=== PATIENT | female | born 2000 | race Caucasian/White ===

== ENCOUNTER 2024-03-01 09:56 | Emergency (ER) | payer BC, SELFPAY ==
[2024-03-01 09:57] VITALS: BP 133/91; PULSE 109; RESP 16; TEMP 36.2; O2SAT 100
[2024-03-01 10:09] VITALS: BMI 78.2
[2024-03-01 10:24] LABS: Mucous, Urine 0 SEEN /hpf (<or=2+)
--- NOTE | 2024-03-01 10:24 | US_ITS ---
INDICATION: vaginal bleeding early EXAMINATION: Ultrasound US OB Transvaginal TECHNIQUE: Transvaginal (for optimal evaluation of the adnexa) pelvic ultrasound was performed. Grayscale, spectral waveform, and color flow Doppler evaluation of the adnexa. COMPARISON: No relevant prior comparison study available FINDINGS: UTERUS: 8.0 x 4.2 x 3.8 cm. No intrauterine is visualized. The endometrial stripe measures 6.2 mm and is echogenic. There are nabothian cysts present. RIGHT OVARY: The right kidney measures 2.4 x 2.1 x 3.9 cm. There is a simple 1.7 x 1.5 x 1.9 cm paraovarian cyst. Doppler flow is within normal limits. LEFT OVARY: 2.2 x 1.5 x 2.6 cm. No Doppler flow is visualized although the left ovary has a normal appearance. FREE FLUID: None. US/Transvaginal w/Preg US IMPRESSION: No intrauterine identified. Electronically Signed: Cailin Stanton MD at 11:28 EST ,
[2024-03-01 10:29] LABS: Color, Urine Straw (Yellow); Glucose, Dipstick Normal (Normal); Ketone-Dipstick Negative (Negative); Leukocyte Esterase-Dipstick 25 /ul (Negative); Nitrite-Dipstick Negative (Negative); Occult Blood-Urine 250 /ul (Negative); Protein-Dipstick 30 mg/dl (Negative); Specific Gravity, Urine 1.005 (1.002-1.030); Urine Bilirubin Dipstick Negative (Negative); Urine Clarity Clear (Clear); Urine Urobilinogen Normal (Normal)
--- NOTE | 2024-03-01 10:33 | ED.VIS.FEGU ---
HPI HPI - Female History of Present Illness Chief Complaint: Vag Bld, Preg Informant: patient Narrative Narrative: Patient is a 23-year-old female G1, P0 with new presenting with vaginal bleeding. She states she is about 6 weeks went to an urgent care who confirmed her . She thought her last was Jones beginning of January but per her jewel on her phone the last menstrual period recorded was December 22. Yesterday she had some spotting that developed but today has been more persistent and worse. She denies any passage of tissue or clots. She notes she last had intercourse 2 nights ago. She is scheduled to see someone at the [facility] to establish care for the on February 27 when she called them today they told her to come to the ER since he is not established yet. Denies any associated pain or cramping. Most of her blood type. No other complaints or concerns reported at this time. [facility] Medical History no medical history Home Medications ?Medication ?Instructions ?Recorded ?Last Taken ?Type escitalopram oxalate 10 mg tablet 10 mg PO DAILY 03/01/24 Unknown History Allergy/AdvReac Type Severity Reaction Status Date / Time No Known Allergies Allergy Verified 03/01/24 10:00 Surgical History no surgical history Social History Smoking Status: Never smoker ROS ROS ED Constitutional Constitutional ED: Denies chills or fever(s) Gastrointestinal Gastrointestinal: Denies nausea or vomiting Genitourinary Genitourinary ED: Reports other Details: Vaginal bleeding, early ; Denies dysuria or hematuria Integumentary Denies rash Neurologic Neurologic: Denies weakness Psychiatric Psychiatric: Denies anxiety Hematologic/Lymphatic Hematologic/Lymphatic: Denies easy bleeding or easy bruising EXAM Physical Exam Const Vital Signs: 03/01/24 09:57 03/01/24 11:56 Temperature 97.1 F L Temperature Source Temporal Pulse Rate 109 H Respiratory Rate 16 16 Blood Pressure 133/91 H 120/82 H Blood Pressure Mean 105 94 Pulse Ox 100 Oxygen Delivery Method Room Air Positive well nourished and well developed General Appearance ED: well developed and NAD; Negative for pallor HEENT Reports moist mucous membranes Neck supple Chest Wall inspection of chest normal and palpation of chest normal Resp normal respiratory effort and clear to auscultation bilaterally Cardio regular rate and regular rhythm GI normal to inspection, nondistended, normoactive bowel sounds, soft to palpation and non-tender Extremity normal to inspection Neuro oriented x3 Sensorium / Orientation: alert Motor Exam: Negative for general weakness Psych mental status grossly normal Skin no rashes or lesions noted General Skin Exam: Negative for pallor MDM MDM MDM Narrative Medical decision making narrative: Patient is valuate for vaginal bleeding in early . Differential includes threatened miscarriage, active miscarriage, urinary tract infection and ectopic . Will obtain basic labs including CBC, type and screen for concern of ABO incompatibility and quant. Also obtain urinalysis. Bedside ultrasound for myself does not show free fluid or findings distant with intrauterine . Will obtain a formal pelvic ultrasound. Patient remains well-appearing emergency room. CBC is normal with a normal hemoglobin. Urinalysis most consistent of menstrual contamination. She is a positive. Her quant is only 6 and given she previously had a positive urine test at urgent care I am concerned that she is having a miscarriage. In addition her ultrasound showed no intrauterine or other acute abnormalities. No free fluid was noted. Patient counseled that while it is technically possible that this could be very early I am much more concerned and think more probable that she is either having a miscarriage or had a chemical . Will follow-up with her [facility] for repeat quant. I did speak with Dr. Daniels, [employer] [facility] on-call who is agreeable with this plan. She has been strict the patient to call the office today to schedule repeat quant for Monday. Patient is given return precautions including severe abdominal pain or bleeding more than a pad an hour for 2 hours in a row. Patient verbalized given understands plan. Discharged home in stable condition. Lab Data Labs: Laboratory Results - last 24 hr 03/01/24 03/01/24 10:15 10:35 WBC 9.1 RBC 4.82 Hgb 14.7 Hct 42.5 MCV 88.2 MCH 30.5 MCHC 34.6 RDW Std Deviation 39.3 RDW Coeff of Karl 12.2 Plt Count 272 MPV 9.6 Immature Gran % (Auto) 0.300 Neut % (Auto) 71.2 H Lymph % (Auto) 18.4 L [place] % (Auto) 7.6 Eos % (Auto) 2.3 Baso % (Auto) 0.2 Absolute Neuts (auto) 6.5 Absolute Lymphs (auto) 1.67 Nucleated RBC % 0 HCG, Quant 6 H Urine Color Straw Urine Clarity Clear Urine pH 7.0 Ur Specific [place] 1.005 Urine Protein 30 H Urine Glucose (UA) Normal Urine Ketones Negative Urine Occult Blood 250 H Urine Nitrite Negative Urine Bilirubin Negative Urine Urobilinogen Normal Ur Leukocyte Esterase 25 H Urine RBC 50-100 SEEN Urine WBC 0-5 SEEN Ur Squamous Epith Cells 5-10 SEEN Urine Bacteria 1+ Urine Mucus 0 SEEN Urine Test Negative Blood Type A POSITIVE Radiography Diagnostic Testing: Clinical Impression(s) from Imaging Studies Obstetrics Ultrasound 03/01/24 10:24 IMPRESSION: No intrauterine identified. Electronically Signed: Cailin Stanton MD at 11:28 EST , Discharge Plan Triage Chief Complaint: Vag Bld, Preg ED Provider: Rebeca Warren Dx/Rx/DC Orders Clinical Impression: Miscarriage Instructions: ED Miscarriage Spontaneous Prescriptions: No Action escitalopram oxalate 10 mg tablet 10 mg PO DAILY Primary Care Provider: Annette Doshi Referrals: Aleksandra Walter DO [Med Staff - Active Staff] - 03/04/24 Annette Doshi MD [Primary Care Provider] - Activity Restrictions/Additional Instructions: Your ultrasound did not show any signs of and your hormone level was 6 which is very low. Given you previously had a positive test and now having bleeding this is most consistent with a miscarriage. It is still technically possible that this could be her early . Please call Dr. Daniels's office and tell them that you were seen in the ER for concern of miscarriage/ bleeding in early and that she wanted them to order you a repeat hCG level for Monday. Print Language: Gibraltarian Disposition Disposition: Home, Self Care
[2024-03-01 10:35] LABS: Red Blood Cells-Urine 50-100 SEEN /hpf (0-5); Squamous Epithelial Cells - UA 5-10 SEEN /hpf (5-10); White Blood Cells 0-5 SEEN /hpf (0-5)
[2024-03-01 10:36] LABS: Bacteria 1+ /hpf (None Seen); Internal QC Validated? YES +Cl - CLEAR BKGD; Pregnancy, Urine Negative Negative; Record Kit Lot#,Urine Preg K1972
[2024-03-01 10:59] LABS: Absolute Lymphocyte Count 1.67 X10^3/uL (0.83-4.51); Absolute Neutrophil Count 6.5 X10^3/uL (2.0-7.7); Basophil# 0.02 X10^3/uL; Basophil% 0.2 % (0-1); Eosinophil# 0.21 X10^3/uL; Eosinophils% 2.3 % (0-5); Hematocrit 42.5 % (37-47); Hemoglobin 14.7 g/dL (12.0-15.0); Lymphocyte # 1.67 X10^3/ul (0.83-4.51); Lymphocyte % 18.4 % (19-41); Mean Corp Hgb Conc 34.6 g/dL (32-36); Mean Corpuscular Hgb 30.5 pg (27.0-32.0); Mean Corpuscular Volume 88.2 fL (81-99); Mean Platelet Vol. 9.6 fl (6.2-12.0); Monocyte# 0.69 X10^3/uL; Monocyte% 7.6 % (0-10); NRBC Flagged by Analyzer 0 % (0-5); Neutrophil # 6.45 X10^3/uL (2.7-7.7); Neutrophil % 71.2 % (47-70); Platelet Count 272 K/mm3 (150-450); RBC Distribution Width CV 12.2 % (11.6-14.6); RBC Distribution Width SD 39.3 fl (35.1-43.9); Red Blood Count 4.82 M/mm3 (4.2-5.4); White Blood Count 9.1 K/mm3 (4.4-11.0)
[2024-03-01 11:14] LABS: hCG Titer Quant., Serum 6 mIU/mL (1-3)
[2024-03-01 11:56] VITALS: BP 120/82; RESP 16
[2024-03-01 12:39] VITALS: BP 120/82; PULSE 109; RESP 16; TEMP 36.2; O2SAT 100
== END 2024-03-01 12:39 | disposition home or self-care (01) ==
PROVIDERS: Emergency Provider Emergency Medicine; PCP Family Medicine; Visit Provider Emergency Medicine
DX: O03.9 Complete or unspecified spontaneous abortion without complication (principal); Z79.899 Other long term (current) drug therapy
CPT/HCPCS: 76817; 81001; 81025; 84702; 85025; 86900; 86901; 87086; 99283; A4216

== ENCOUNTER 2024-07-09 18:20 | Emergency (ER) | payer OTHER, SELFPAY ==
[2024-07-09 18:20] VITALS: BP 126/73; PULSE 133; RESP 18; TEMP 36.9; O2SAT 99; BMI 37.3
--- NOTE | 2024-07-09 19:22 | EKG12_ITS ---
Test Reason : DYSRHYTHMIA Blood Pressure : */* mmHG Vent. Rate : 125 BPM Atrial Rate : 125 BPM P-R Int : 166 ms QRS Dur : 74 ms QT Int : 306 ms P-R-T Axes : 54 40 23 degrees QTcB Int : 441 ms Sinus tachycardia Otherwise normal ECG Confirmed by MICHAEL WARD, SARA ([id number]), editor news FERNY STEPHENSON ([id number]) on 07/10/2024 8:32:14 AM Referred By: Confirmed By: SARA RODRIGUEZ MD
[2024-07-09 19:46] LABS: Absolute Lymphocyte Count 0.43 X10^3/uL (0.83-4.51); Absolute Neutrophil Count 6.8 X10^3/uL (2.0-7.7); Basophil# 0.02 X10^3/uL; Basophil% 0.3 % (0-1); Eosinophil# 0.12 X10^3/uL; Eosinophils% 1.5 % (0-5); Hematocrit 40.6 % (37-47); Hemoglobin 13.9 g/dL (12.0-15.0); Lymphocyte # 0.43 X10^3/ul (0.83-4.51); Lymphocyte % 5.5 % (19-41); Mean Corp Hgb Conc 34.2 g/dL (32-36); Mean Corpuscular Hgb 29.9 pg (27.0-32.0); Mean Corpuscular Volume 87.3 fL (81-99); Mean Platelet Vol. 9.7 fl (6.2-12.0); Monocyte# 0.42 X10^3/uL; Monocyte% 5.4 % (0-10); NRBC Flagged by Analyzer 0 % (0-5); Neutrophil # 6.78 X10^3/uL (2.7-7.7); Neutrophil % 86.9 % (47-70); POSITIVE DIFFERENTIAL YES; Platelet Count 219 K/mm3 (150-450); RBC Distribution Width CV 12.5 % (11.6-14.6); RBC Distribution Width SD 39.9 fl (35.1-43.9); Red Blood Count 4.65 M/mm3 (4.2-5.4); White Blood Count 7.8 K/mm3 (4.4-11.0)
[2024-07-09] MEDS: 0.9% Normal Saline (1000mL) 1,000 ML 1000 ML IV ×2 (19:47→22:01)
[2024-07-09] MEDS: Ondansetron 4 MG/2 ML Vial IV (19:47)
[2024-07-09 19:59] LABS: Mucous, Urine 0 SEEN /hpf (<or=2+)
[2024-07-09 20:00] VITALS: BP 134/64; PULSE 106; RESP 18; O2SAT 100
[2024-07-09 20:00] LABS: D-Dimer Quantitative (DVT/PE) 0.44 FEU/ug/m (0.27-0.49)
[2024-07-09 20:02] LABS: Color, Urine Yellow (Yellow); Glucose, Dipstick Normal (Normal); Ketone-Dipstick 5 mg/dl (Negative); Leukocyte Esterase-Dipstick 25 /ul (Negative); Nitrite-Dipstick Negative (Negative); Occult Blood-Urine 25 /ul (Negative); Protein-Dipstick 15 mg/dl (Negative); Urine Bilirubin Dipstick Negative (Negative); Urine Clarity Clear (Clear); Urine Urobilinogen Normal (Normal)
--- NOTE | 2024-07-09 20:07 | RAD_ITS ---
EXAM: Two-view chest x-ray study CLINICAL HISTORY: Shortness of breath COMPARISON: None TECHNIQUE: PA and lateral radiographs of the chest were performed. FINDINGS: PA and lateral radiographs of the chest were performed and demonstrate 1-2 mm nodules in both lungs which appear to represent probable summation artifact and/or granulomas. There is no atelectasis, consolidation, effusion or pneumonic infiltrate. Heart size and configuration are within normal limits. Pulmonary vasculature and hilar structures are unremarkable. Trachea is midline. Bony thorax is unremarkable. Cardiac leads overlie the chest. RAD/Chest PA and Lateral IMPRESSION: No acute cardiopulmonary process identified radiographically. Reading Location: [id number]
--- NOTE | 2024-07-09 20:13 | EX.ED.GENINJ ---
HPI History of Present Illness Chief Complaint: Dizziness Narrative Narrative: Chief complaint and HPI: Lightheadedness and nausea. 24-year-old female who is who follows with Dr. Pickens with [employer] [facility] at presents for evaluation of lightheadedness and nausea. Patient states she is approximately 12 weeks via ultrasound. Patient states since she has had headache, nausea, and lightheadedness. She states that it is worsened over the past several days. Endorses body aches and mild shortness of breath. Denies cough. She denies any fever, chills, chest pain, abdominal pain, vomiting, diarrhea, constipation, dysuria. Denies any vaginal bleeding. She recently traveled to [place] over the weekend in which she was around sick contacts. States she has been eating and drinking well. Denies any bilateral lower extremity pain or swelling. Review of systems: See HPI Medications: As listed on the chart Allergies: As listed on the chart PFSH: Per chart Vital signs: As listed on the chart. Reviewed. Physical exam: Gen: A&O x3, NAD Head: Normocephalic, atraumatic Eyes: No sclera icterus, conjunctiva clear, PERRL, EOMI ENT: Mildly dry mucous membranes Neck: Trachea midline, No JVD CV: Tachycardic, regular rhythm, no murmurs, no peripheral edema Resp: Lungs CTA BL, no w/r/c GI: Abd soft, non-distended, non-tender, no r/r/g Musc: Full ROM, no deformity Skin: Warm, dry Neuro: Alert, oriented, grossly intact, sensation intact Psych: Cooperative, appropriate mood and affect [facility] Medical History (Updated 07/09/24 @ 23:[address] Keaton Driver, ) Migraines Medical History no medical history Home Medications ?Medication ?Instructions ?Recorded ?Last Taken ?Type escitalopram oxalate 10 mg tablet 10 mg PO DAILY 03/01/24 Unknown History cephalexin 500 mg capsule 500 mg PO Q6H 7 days #28 caps 07/09/24 Unknown Rx cholecalciferol (vitamin D3) 50 2,000 unit PO QDAY 07/09/24 Unknown History mcg (2,000 unit) capsule (Vitamin D3) multivitamin 1 tab PO DAILY 07/09/24 Unknown History ondansetron 4 mg disintegrating 4 mg PO Q8H PRN PRN Nausea #10 tabs 07/09/24 Unknown Rx tablet vitamins with calcium tab 07/09/24 Unknown History no.72-iron 29 mg-folic acid 1 mg tablet ( Plus) Allergy/AdvReac Type Severity Reaction Status Date / Time No Known Allergies Allergy Verified 07/09/24 18:24 Family History no significant family his Surgical History no surgical history Social History Smoking Status: Never smoker EXAM Physical Exam Const Vital Signs: 07/09/24 18:20 07/09/24 20:00 07/09/24 22:00 Temperature 98.5 F 98.5 F Temperature Source Oral Oral Pulse Rate 133 H 106 H 119 H Respiratory Rate 18 18 18 Blood Pressure 126/73 H 134/64 H 110/69 Blood Pressure Mean 90 87 82 Pulse Ox 99 100 100 Oxygen Delivery Method Room Air Room Air Room Air 07/09/24 23:35 Temperature 98.5 F Temperature Source Pulse Rate 112 H Respiratory Rate 18 Blood Pressure 112/55 L Blood Pressure Mean 74 Pulse Ox 98 Oxygen Delivery Method MDM MDM MDM Narrative Medical decision making narrative: 24-year-old female who is who follows with Dr. Pickens with [facility] at presents for evaluation of lightheadedness and nausea. Associated symptom is headache and bodyaches. Patient has been around sick contacts. On presentation, patient is tachycardic into the 130s otherwise vitals stable. Differential diagnosis includes but is not limited to viral illness, electrolyte abnormality, dehydration, IBAN, UTI, pneumonia, suspect less likely PE or ACS however on the differential. NS bolus, Zofran, Tylenol ordered for symptoms. Patient not having any abdominal pain or vaginal bleeding therefore I do not think any OB ultrasound is needed at this time. heart tones 175. Laboratory workup ordered including chest x-ray. EKG and chest x-ray reviewed see below. CBC without leukocytosis or anemia. D-dimer unremarkable. BMP with mild dehydration. Patient receiving fluids. Mild hypokalemia of 3.2. P.o. potassium ordered. Troponin unremarkable. BNP unremarkable. UA positive for ketones which is consistent with mild dehydration. Negative for UTI but does have +1 bacteria. Patient is positive for COVID. This explains her symptoms. On reevaluation, patient's tachycardia has improved into the 110s will give another NS bolus. Patient is not febrile. Given that patient follows with Dr. Pickens with [facility] at we will have them consulted. I spoke with Dr. Pickens and patient was discussed. Patient will be placed on 81 mg aspirin daily for her COVID infection. Follow-up in their office. We discussed patient's tachycardia, okay with tachycardia in the 110s as we both suspect this is likely symptomatic from her illness. Agree with discharge home. Patient was updated of all the results and the plan. She confirmed understanding. She was able to ambulate to the bathroom without lightheadedness. Symptoms are improving. Given Zofran as needed for nausea. Will be placed on Keflex for her bacteriuria in . Return precautions explained. EKG: Interpreted by me/EM physician: EKG shows sinus tachycardia. No acute ischemic changes. Heart rate 125. Diagnostic: Interpreted by me/EM physician: Chest x-ray without pneumonia, effusion, cardiomegaly, pneumothorax Impression: 1. COVID-19 infection 2. First trimester 3. Mild dehydration Lab Data Labs: Laboratory Results - last 24 hr 07/09/24 07/09/24 18:30 19:50 WBC 7.8 RBC 4.65 Hgb 13.9 Hct 40.6 MCV 87.3 MCH 29.9 MCHC 34.2 RDW Std Deviation 39.9 RDW Coeff of Karl 12.5 Plt Count 219 MPV 9.7 Immature Gran % (Auto) 0.400 Neut % (Auto) 86.9 H Lymph % (Auto) 5.5 L [place] % (Auto) 5.4 Eos % (Auto) 1.5 Baso % (Auto) 0.3 Absolute Neuts (auto) 6.8 Absolute Lymphs (auto) 0.43 L Nucleated RBC % 0 D-Dimer Quant (PE/DVT) 0.44 Sodium 137 Potassium 3.2 L Chloride 106 Carbon Dioxide 20.2 L Anion Gap 11 BUN 7 Creatinine 0.62 L Estim Creat Clear Calc 174.24 Est GFR (MDRD) Non-Af 126 BUN/Creatinine Ratio 10.6 Glucose 125 H Calcium 9.2 Troponin T High Sens < 6 NT pro BNP II 109 Urine Color Yellow Urine Clarity Clear Urine pH 6.0 Ur Specific [place] 1.020 Urine Protein 15 H Urine Glucose (UA) Normal Urine Ketones 5 H Urine Occult Blood 25 H Urine Nitrite Negative Urine Bilirubin Negative Urine Urobilinogen Normal Ur Leukocyte Esterase 25 H Urine RBC 0 SEEN Urine WBC 0-5 SEEN Ur Squamous Epith Cells 0-5 SEEN Urine Bacteria 1+ Urine Mucus 0 SEEN Radiography Diagnostic Testing: Clinical Impression(s) from Imaging Studies Chest X-Ray 07/09/24 20:07 IMPRESSION: No acute cardiopulmonary process identified radiographically. Reading Location: [facility] Discharge Plan Triage Chief Complaint: Dizziness Other Complaint: Nausea/Vomiting ED Provider: Keaton Driver Dx/Rx/DC Orders Clinical Impression: COVID Instructions: Coronavirus Disease 2019 (COVID-19): Overview, Coronavirus Disease 2019 (COVID-19): Caring for Yourself or Others Prescriptions: New ondansetron 4 mg tablet,disintegrating 4 mg PO Q8H PRN PRN (Reason: Nausea) Qty: 10 0RF cephalexin 500 mg capsule 500 mg PO Q6H 7 Days Qty: 28 0RF No Action escitalopram oxalate 10 mg tablet 10 mg PO DAILY cholecalciferol (vitamin D3) [Vitamin D3] 50 mcg (2,000 unit) capsule 2,000 unit PO QDAY Plus 29 mg iron- 1 mg tablet multivitamin Tablet 1 tab PO DAILY Primary Care Provider: Annette Doshi Referrals: Annette Doshi MD [Primary Care Provider] - 3-5 Days Activity Restrictions/Additional Instructions: Return back to the ED if symptoms change or worsen. Follow-up with your [employer] and PCP. Zofran as needed for nausea. No Zofran for 8 hours as you received antinausea medication here. Starting tomorrow start taking 81 mg of aspirin daily for your COVID-recommendation by your [employer]. Follow-up with [employer] to see if you should continue this throughout your entire . You had bacteria in your urine given that you are . You will be placed on antibiotics to prevent UTI. Follow-up with [employer] for this. Print Language: Monegasque Disposition Disposition: Home, Self Care Discharge Date/Time: 07/09/24 23:41
[2024-07-09 20:29] LABS: Anion Gap 11 (5-15); BUN 7 mg/dL (4-19); BUN/Creat Ratio 10.6 RATIO (10-20); Calcium,Total 9.2 mg/dL (7.6-11.0); Carbon Dioxide 20.2 mmol/L (21.0-32.0); Chloride 106 mmol/L (98-108); Creatinine, Serum 0.62 mg/dL (0.70-1.20); EST Glomerular Filtration Rate 126 (>60); Estimated Creatinine Clearance 174.24 ml/min (50-250); Glucose 125 mg/dL (70-99); Potassium 3.2 mmol/L (3.3-5.1); Pro- Brain NATRIURETIC PEPTIDE 109 pg/mL (<=450); Sodium Level 137 mmol/L (133-145)
[2024-07-09] MEDS: Acetaminophen 500 MG Tablet 1000 MG PO (20:31)
[2024-07-09 20:37] LABS: Red Blood Cells-Urine 0 SEEN /hpf (0-5); Squamous Epithelial Cells - UA 0-5 SEEN /hpf (5-10); White Blood Cells 0-5 SEEN /hpf (0-5)
[2024-07-09 20:38] LABS: Bacteria 1+ /hpf (None Seen)
[2024-07-09] MEDS: Metoclopramide 10 MG/2 ML Vial 5 MG IV (20:56)
[2024-07-09] MEDS: Potassium Chloride Oral Soln 20 MEQ/15 ML UDC 40 MEQ PO (21:33)
[2024-07-09 21:42] LABS: Troponin T High Sensitivity < 6 ng/L (<=14)
[2024-07-09 22:00] VITALS: BP 110/69; PULSE 119; RESP 18; TEMP 36.9; O2SAT 100
[2024-07-09 23:35] VITALS: BP 112/55; PULSE 112; RESP 18; TEMP 36.9; O2SAT 98
== END 2024-07-09 23:41 | disposition home or self-care (01) ==
PROVIDERS: Emergency Provider Surgery; PCP Family Medicine; Visit Provider Surgery
DX: O98.511 Other viral diseases complicating pregnancy, first trimester (principal); E86.0 Dehydration; U07.1 COVID-19; R82.71 Bacteriuria; Z3A.12 12 weeks gestation of pregnancy; O99.891 Other specified diseases and conditions complicating pregnancy; O99.281 Endocrine, nutritional and metabolic diseases complicating pregnancy, first trimester
CPT/HCPCS: 71046; 80048; 81001; 83880; 84484; 85025; 85379; 87631; 93005; 96361; 96374; 96375; 99285; A4216; J2405

== ENCOUNTER → 2024-12-19 | Outpatient (CLI) | payer MEDICAID, SELFPAY | END | disposition home or self-care (01) | LOC: LABSPEC 16:54 | PROVIDERS: PCP Family Medicine; Referring Provider Obstetrics & Gynecology; Visit Provider Obstetrics & Gynecology | DX: O09.90 Supervision of high risk pregnancy, unspecified, unspecified trimester (principal); Z3A.00 Weeks of gestation of pregnancy not specified | CPT/HCPCS: 87081 ==

== ENCOUNTER → 2024-12-30 | Outpatient (CLI) | payer MEDICAID, SELFPAY ==
--- NOTE | 2024-12-30 15:28 | US_ITS ---
PROCEDURE: OB LIMITED WITH BIOMETRICS 12/30/2024 REASON FOR EXAM: LATE TRANSFER OF CARE TECHNIQUE: Procedure Code: [id number] Modality: US Procedure: OB LIMITED WITH BIOMETRICS COMPARISON: None FINDINGS Number: 1 Position: Vertex Placental Position: Anterior and not low-lying Placental Abnormalities: No evidence of previa. DIMENSIONS: Biparietal Diameter: 9.4 cm: 38 weeks and 2 days: 76 percentile/ Head Circumference: 33.5 cm: 38 weeks and 3 days: 36 percentile/ Abdominal Circumference: 37.5 cm: 41 weeks and 3 days: 9 9 percentile/ Femur Length: 7.3 cm: 37 weeks and 2 days: 31st percentile/ ESTIMATED WEIGHT: 3903 g plus/-578 g ESTIMATED WEIGHT PERCENTILE (24+ weeks): 93rd ESTIMATED GESTATIONAL AGE: Baseline: 38 weeks and 1 day By Ultrasound: 38 weeks and 5 days ESTIMATED DATE OF DELIVERY: Baseline: January 12, 2025 By Ultrasound: January 08, 2025 BIOPHYSICAL ASSESSMENT: Amniotic Fluid Volume: 7.9 cm Amniotic Fluid Index: 15.7 cm (8-24 cm normal range) Cardiac Motion: 135 beats per minute (average) Trunk and Limb Motion: Present. MATERNAL ANATOMY: Adnexa: Neither maternal ovary is successfully identified. US/OB Limited With Biometrics IMPRESSION: Single live intrauterine gestation with a mean gestational age of 38 weeks and 5 days. Reading Location: [place] [id number]
== END | disposition home or self-care (01) ==
LOC: US 15:17
PROVIDERS: PCP Family Medicine; Referring Provider Obstetrics & Gynecology; Visit Provider Obstetrics & Gynecology
DX: O99.210 Obesity complicating pregnancy, unspecified trimester (principal); Z3A.00 Weeks of gestation of pregnancy not specified
CPT/HCPCS: 76816

== ENCOUNTER 2025-01-05 12:25 | Inpatient (IN) | payer MEDICAID, SELFPAY ==
[2025-01-05] VITALS (41 sets, daily range): BP systolic 116–169; BP diastolic 56–97; PULSE 74–114; RESP 16–20; TEMP 36.2–36.9; O2SAT 97–100; BMI 43.2; BMI 1400.0; BMI 20250921.0
--- OUTSIDE RECORDS SUMMARY | 2025-01-05 11:23 | XMS RPT_ITS | CCD ---
Author Organization [facility] CliniSyal Care Team Providers Care Software Security Consultant Name Role Phone SELF, SELF Unavailable Unavailable TONIE GAITAN Unavailable Unavailable MIKEL MOSS Attending UnavailNAS Rosa Primary Care Unavailable MIKEL MOSS Admitting UnavailHelena Carroll Unavailable Unavailable Nas Sanders Unavailable Unavailable Kasia Rodriguez Unavailable Unavailable Nas Sanders Primary Care Provider [phone] Nas Sanders Primary Care Provider [phone] Kasia Rodriguez Unavailable Unavailable Kasia Rodriguez Unavailable Unavailable Unavailable Unavailable Unavailable Billy Moore MD Primary Care Provider Annette Frey MD Primary Care Provider Annette Frey Unavailable Jeffery Rose Unavailable Unavailable JEFFERY ROSE Attending Unavailable Dr. Annette Frey Primary Care Un available Annette Frey MD Primary Care Provider ANNETTE FREY Primary Care Unavailab ANNETTE Sorenson Primary Care Unavailab Annette Sorenson MD Unavailable Annette Frey MD Primary Care Provid er NAREN LAW II Attending ANNETTE Torres Primary Care UnavaNAS Cordoba Primary Care Unavailable KEILA BRADY Attending Unava ilAnnette Hoyt MD Primary Care Provider Annette Frey MD Unavailable Tk WARD, Dr. Bryant Primary Care Provide r Dr. Keaton Driver DO Emergency Provider Tk WARD, Annette Keen Primary Care Provider Tk WARD, Annette Keen Unavailable Tk WARD, Annette A Unavailable TK, ANNETTE A Primary Care Unavailab ESTELITA Calix Referring Unavailable LONGSDORF, ANNETTE A Primary Care Unavailab le LONGSDORF, ANNETTE A Primary Care Unavailab le LONGSDORF, ANNETTE A Primary Care Unavailab SHANE Rowland Attending Unavailable ESTELITA PICKENS Attending Unavailable LONGSDORF, ANNETTE A Primary Care Unavailab ESTELITA Calix Attending Unavailable LONGSDORF, ANNETTE A Primary Care Unavailab le LONGSDORF, ANNETTE A Attending Unavailab le LONGSDORF, ANNETTE A Primary Care Unavailab DAGO Díaz Attending Unavailable LONGSDORF, ANNETTE A Primary Care Unavailab ESTELITA Calix Attending Unavailable LONGSDORF, ANNETTE A Primary Care Unavailab ESTELITA Calix Attending Unavailable LONGSDORF, ANNETTE A Primary Care Unavailab ESTELITA Calix Attending Unavailable LONGSDORF, ANNETTE A Primary Care Unavailab le LONGSDORF, ANNETTE A Attending Unavailab le LONGSDORF, ANNETTE A Primary Care Unavailab ESTELITA Calix Attending Unavailable LONGSDORF, ANNETTE A Primary Care Unavailab ESTELITA Calix Attending Unavailable LONGSDORF, ANNETTE A Primary Care Unavailab ESTELITA Calix Attending Unavailable LONGSDORF, ANNETTE A Primary Care Unavailab ESTELITA Calix Attending Unavailable LONGSDORF, ANNETTE A Primary Care Unavailab le [facility] [place] Provider [phone] Tk WARD, Dr. Bryant Primary Care Provide r Dr. Annette Frey MD Referring Provider Marcia Christianson CNM Attending Provider Tk WARD, Dr. Bryant Primary Care Provide r Dr. Annette Frey MD Attending Provider Dr. Aleksandra Walter DO Attending Provider Bety Gaffney DO, Dr. Lake Referring Provider Tk WARD, Dr. Bryant Primary Care Physici an Tk WARD, Dr. Bryant Attending Physician Health, Employee Attending Physician [phone] Marcia Christianson CNM Attending Physician [phone] Bety Gaffney DO, Dr. Lake Attending Physician Mike WARD, Dr. Lugo Attending Physician Longsdorf, Annette Referring Unavailable Longsdorf, Annette Primary Care Unavailable Aleksandra Walter Attending UnavailMarcia Fontaine Attending Unavailable Longsdorf, Annette Primary Care Unavailable Longsdorf, Annette Referring Unavailable Longsdorf, Annette Referring Unavailable Longsdorf, Annette Primary Care Unavailable Brittney Mckeon Attending Unavailable Longsdorf, Annette Primary Care Unavailable Rebeca Warren Attending Unavailable Longsdorf, Annette Primary Care Unavailable Keaton Driver Attending Unavailabl e Longsdorf, Annette Primary Care Unavailable Assessment, Health Risk Attending Unavaila ble Longsdorf, Annette Primary Care Unavailable Aleksandra Walter Attending Unavailabl e Kaleee Aleksandra Gaffney Referring Unavailabl e Longsdorf, Annette Primary Care Unavailable Aleksandra Walter Attending Unavailabl e Kaleee Aleksandra Gaffney Referring Unavailabl e Longsdorf, Annette Attending Unavailable Longsdorf, Annette Primary Care Unavailable Longsdorf, Annette Primary Care Unavailable Longsdorf, Annette Attending Unavailable Brittney Mckeon Attending Unavailable Longsdorf, Annette Referring Unavailable Longsdorf, Annette Primary Care Unavailable Marcia Christianson Attending Unavailable Longsdorf, Annette Referring Unavailable Longsdorf, Annette Primary Care Unavailable Allergies Allergy Classification Reported Allergen(s) Allergy Type Date of Onset Reaction(s) Facility Ethinyl Estradiol / Ferrous fumarate / Norethindrone (4 sources) Ethinyl Estradiol / Ferrous fumarate / Norethindrone; Translations: [[facility] 05/06 TABS] Drug Allergy -Physical Medicine-Conc ord Work Phone: (14 sources) Ethinyl Estradiol / Ferrous fumarate / Norethindrone; Translations: [[facility] FE 05/06 TABS] Drug Allergy -Physical Medicine-Conc ord Work Phone: Medications Current Medications Medication Drug Class(es) Dates Sig (Normalized) Sig (Original) aspirin 81 mg oral tablet (6 sources) Platelet Aggregation Inhibitor, Nonsteroidal Anti-inflammatory Drug Start: 12-05-2024 take 1 tablet by mouth once daily Aspirin 81 mg tablet Active 81 mg PO daily December 05, 2024 12:00am COVID Complies with drug therapy take 1 tablet by mouth once ti y aspirin 81 mg EC tablet Take 1 tablet (81 mg) by mouth once daily. Active cholecalciferol 0.05 mg oral capsule (20 sources) Vitamin D Start: 07-09-2024 take 1 capsule by mouth once daily Cholecalciferol (Vitamin D3) (Vitamin D3) 50 mcg (2,000 unit) capsule Active 2000 U PO daily July 09, 2024 12:00am Complies with drug therapy cholecalciferol (Vitamin D-3) 50 MCG (2000 UT) tablet Take by mouth. Active take 1 capsule by mouth once catracho ly Cholecalciferol, Vitamin D3, 50 mcg (2,000 unit) cap Take 1 capsule by mouth once daily. 0 Active Vitamin D 50 MCG (2000 UT) Oral Tablet Quantity: 0 Refills: 0 Ordered: 03-Dec-2019 DO Active take 2 tablets by mouth once catracho ly cholecalciferol, vitamin D3, 1,000 unit tablet Take 2,000 Units by mouth daily . 0 Active Comment on above: Take 1 capsule by mo uth once daily. escitalopram 10 mg oral tablet (17 sources) Serotonin Reuptake Inhibitor Start: take 1 tablet by mouth once daily Escitalopram Oxalate 10 mg tablet Active 10 mg PO DAILY March 01, 2024 1:00am Complies with drug therapy Start: 05-02-2023 End: 10-29-2023 take 1 tablet by mouth once daily escitalopram (Lexapro) 10 mg tablet Indications: Anxiety Take 1 tablet (10 mg) by mouth once daily. 90 tablet 1 09/19/2023 Active Comment on above: Take 10 mg by mouth. Ethinyl Estradiol / Ferrous fumarate / Norethindrone (12 sources) Estrogen Start: 01-12-2023 End: 09-19-2023 Paula Fe 1/20, 28, 1 mg-20 mcg (21)/75 mg (7) tablet 01/12/2023 09/19/2023 Discontinued (Med List Cleanup) Start: 01-12-2023 Paula Fe 1/20, 28, 1 mg-20 mcg (21)/75 mg (7) tablet Start: 04-29-2022 take 1 tablet by carolynn th once daily, then take 0.05 tablet by mouth once Norethin Yrn-Eth Estrad-FE (MICROGESTIN FE 1/20) 1 mg-20 mcg (21)/75 mg (7) per tablet Take 1 tablet by mouth once daily for 28 days. LAST REFILL UNTIL VISIT 84 tablet 4 04/29/2022 Active Start: 04-29-2022 End: 05-27-2022 take 1 tablet by mouth once daily, then take 0.05 tablet by mouth once Norethin Yrn-Eth Estrad-FE (MICROGESTIN FE 1/20) 1 mg-20 mcg (21)/75 mg (7) per tablet Take 1 tablet by mouth once daily for 28 days. LAST REFILL UNTIL VISIT 84 tablet 4 04/29/2022 05/27/2022 Active Start: 04-13-2022 End: 04-29-2022 take 1 tablet by mouth once daily, then take 0.05 tablet by mouth once Norethin Yrn-Eth Estrad-FE (MICROGESTIN FE 1/20) 1 mg-20 mcg (21)/75 mg (7) per tablet Take 1 tablet by mouth once daily for 28 days. LAST REFILL UNTIL VISIT 28 tablet 0 04/13/2022 04/29/2022 Discontinued Start: 11-22-2019 [facility] Fe 1/2 0, 28, 1 mg-20 mcg (21)/75 mg (7) per tablet Take 20 mcg by mouth once daily . 0 11/22/2019 Active Comment on above: Take 1 tablet by carolynn th once daily for 28 days. LAST REFILL UNTIL VISIT etodolac 400 mg oral tablet (1 source) Nonsteroidal Anti-inflammatory Drug Start: 11-12-19 End: 11-18-19 take 1 tablet by mouth twice daily at mealtime etodolac 400 mg oral tablet ; 1 tab(s) orally 2 times a day Quantity: 14 Refills: 0 Ordered: 11-Nov-2022 Jeffery Rose Start: 11-Nov-2022 End: 17-Nov-2022 Generic Substitution Allowed Comments: It is very important that you take or use this exactly as directed. Do not skip doses or discontinue unless directed by your doctor.May cause drowsiness or dizziness.Obtain medical advice before taking any non-prescription drugs as some may affect the action of this medication.Take with food or milk. Comment on above: It is very important that you take or use this exactly as directed. Do not skip doses or discontinue unless directed by your doctor.May cause drowsiness or dizziness.Obtain medical advice before taking any non-prescription drugs as some may affect the action of this medication.Take with food or milk. magnesium amino acid chelate 133 mg oral tablet (4 sources) take 1 tablet by mouth twice daily magnesium, amino acid chelate, 133 mg tablet Take 1 tablet (133 mg) by mouth 2 times a day. Active multivitamin tablet (13 sources) take 1 tablet by mouth once daily multivitamin tablet Take 1 tablet by mouth once daily. Active take 1 tablet by mouth once ti y multivitamin tablet Take 1 tablet by mouth once daily. 0 Active Mv-Mins 77-Ebur-Uhpmb No.1-D perdomo ([facility]) 28-1-300 mg capsule (4 sources) Start: 12-05-2024 Mv-Mins 71-Iro n-Folic No.1-Dha ([facility]) 28-1-300 mg capsule Active NMA PO December 05, 2024 12:00am Complies with drug therapy Start: 12-05-2024 Mv-Mins 71-Iro n-Folic No.1-Dha ([facility]) 28-1-300 mg capsule Active NMA PO December 05, 2024 12:00am phenylephrine hydrochloride 25 mg/ml ophthalmic solution (1 source) alpha-1 Adrenergic Agonist Start: 06-16-2023 End: 06-17-2023 PHENYLephrine 2.5 % 1 Drop (AK-DILATE, BEATRIZ-SYNEPHRINE) no115/iron/folic acid ( 19 ORAL) (4 sources) no115/iron/folic acid ( 19 ORAL) Take by mouth. Active topiramate 50 mg oral tablet (20 sources) Start: 08-16-2023 End: 10-10-2023 take 1 tablet by mouth twice daily topiramate (Topamax) 50 mg tablet Indications: Migraine without aura and without status migrainosus, not intractable , Other fatigue , Healthcare maintenance Take 1 tablet by mouth twice daily 180 tablet 08/16/2023 10/10/2023 Discontinued (Therapy completed) Start: 05-17-2023 take 1 tablet by carolynn th twice daily topiramate (Topamax) 50 mg tablet Indications: Migraine without aura and without status migrainosus, not intractable , Other fatigue , Healthcare maintenance Take 1 tablet by mouth twice daily 180 tablet 0 05/17/2023 Active Start: 02-15-2023 take 1 tablet by carolynn th twice daily topiramate (Topamax) 50 mg tablet Indications: Migraine without aura and without status migrainosus, not intractable , Other fatigue , Healthcare maintenance Take 1 tablet (50 mg) by mouth 2 times a day. 180 tablet 0 02/15/2023 Active Start: 04-27-2021 End: 02-15-2023 take 1 tablet by mouth twice daily topiramate (TOPAMAX) 100 mg tablet Take 100 mg by mouth twice daily. 0 04/14/2022 Active Start: 04-27-2021 take 1 tablet by carolynn th at bedtime, then take 1 tablet by mouth twice daily, then take 2 tablets by mouth twice daily, then take 4 tablets by mouth twice daily Topiramate 25 MG Oral Tablet Take 1 tablet at bedtime for 1 week, then 1 tab twice a day for 1 week and then 2 tabs twice a day for 1 week, then 4 tabs twice a day after Quantity: 105 Refills: 0 Ordered: 27-Apr-2021 Sweetie West MD Start : 27-Apr-2021 Active Comment on above: Take 100 mg by mouth twice daily. Completed/Discontinued Medications Medication Drug Class(es) Dates Sig (Normalized) Sig (Original) Bupivacaine (2 sources) Amide Local Anesthetic Start: 05-14-2020 bupivacaine 7.5 mg injection (SENSORCAINE) cephalexin 500 mg oral capsule (9 sources) Cephalosporin Antibacterial Start: 07-09-2024 End: 12-05-2024 take 1 capsule by mouth every six hours Cephalexin 500 mg capsule Discontinued 500 mg PO EVERY 6 HOURS 28 7 0 July 09, 2024 12:00am December 05, 2024 11:27am take 1 capsule by [facility] four times daily cephALEXin (KEFLEX) 500 MG capsule Indications: diabetic foot infection due to gram-positive bacteria Take 500 mg by mouth 4 (four) times a day Started on 10/07/2019 Reasons: diabetic with foot infection due to a specific bacteria. 0 Active ciclopirox 80 mg/ml topical solution (6 sources) Start: 10-04-2019 Ciclopirox (LO PROX) 8 % solution Apply topically to the affected toenails nightly. Remove built up layers weekly. 0 10/04/2019 Active Start: 10-04-2019 Ciclopirox (LO PROX) 0.77 % gel Apply between the toes and to the soles of the feet twice daily. 0 10/04/2019 Active Comment on above: Apply topically to t he affected toenails nightly. Remove built up layers weekly. Apply between the to es and to the soles of the feet twice daily. cyclobenzaprine hydrochloride 10 mg oral tablet (20 sources) Muscle Relaxant Start: 11-30-19 End: 12-04-19 take 1 tablet by mouth every eight hours as needed cyclobenzaprine 10 mg oral tablet ; 1 tab(s) orally every 8 hours, As Needed Quantity: 15 Refills: 0 Ordered: 30-Nov-2019 Becca Vegas Start: 30-Nov-2019 End: 04-Dec-2019 Generic Substitution Allowed Comments: May cause drowsiness. Alcohol may intensify this effect. Use care when operating dangerous machinery.Obtain medical advice before taking any non-prescription drugs as some may affect the action of this medication. Flexeril 5 MG TA BS Quantity: 0 Refills: 0 Ordered: 03-Dec-2019 DO Active Flexeril 5 MG TA BS Refills: 0 Active Comment on above: May cause drowsiness . Alcohol may intensify this effect. Use care when operating dangerous machinery.Obtain medical advice before taking any non-prescription drugs as some may affect the action of this medication. diphenhydrAMINE (1 source) Histamine-1 Receptor Antagonist Start: 2019 End: 2019 diphenhydrAMINE (BENADRYL) injection 50 mg gabapentin 100 mg oral capsule (6 sources) Anti-epileptic Agent Start: 2020 take 3 capsules by mouth three times daily Gabapentin 100 MG Oral Capsule Take 100 mg TID for 1 week (1 capsule 3 times per day), then 300 mg TID ( 3 capsules 3 times per day) thereafter Quantity: 210 Refills: 3 Ordered: 02-Feb-2021 Sweetie West MD Start : 02-Feb-2021 Active Start: 04-09-2020 gabapentin (NE URONTIN) 300 mg capsule Take 1 capsule by mouth as directed for 30 days. Titration schedule: take 1 capsule at bedtime x1 week, then BID x1 week, then TID. Patient instructed to not drive or operate heavy machinery while taking medications. 90 capsule 1 04/09/2020 Active Comment on above: Take 1 capsule by [facility] as directed for 30 days. Titration schedule: take 1 capsule at bedtime x1 week, then BID x1 week, then TID. Patient instructed to not drive or operate heavy machinery while taking medications. hydrOXYzine hydrochloride 25 mg oral tablet (4 sources) Antihistamine Start: 024 End: take 1 tablet by mouth every eight hours hydrOXYzine HCL (Atarax) 25 mg tablet Indications: Urticaria Take 1 tablet (25 mg) by mouth every 8 hours if needed for itching. 30 tablet 1 12/12/2023 05/27/2024 Discontinued (Med List Cleanup) 05/06 1-20 MG-MCG Oral Tablet (18 sources) Start: 05/06 1-20 MG-MCG Oral Tablet Quantity: 84 Refills: 0 Ordered: 19-Oct-2020 DO Start : 08-Nov-2019 Active 1 ml ketorolac tromethamine 15 mg/ml injection (1 source) Nonsteroidal Anti-inflammatory Drug, Cyclooxygenase Inhibitor Start: End: ketorolac (TORADOL) injection 30 mg methocarbamol 500 mg oral tablet (14 sources) Muscle Relaxant Start: take 1-2 tablets by mouth four times daily as needed Methocarbamol 500 MG Oral Tablet take 1-2 tablets 4 times daily as needed. Quantity: 240 Refills: 3 Ordered: 27-Apr-2021 Sweetie West MD Start : 02-Feb-2021 Active 2 ml metoclopramide 5 mg/ml injection (1 source) Dopamine-2 Receptor Antagonist Start: End: metoclopramide (REGLAN) injection 10 mg multivit with calcium,iron,min (MULTIVITAMIN-CALCIUM AND IRON ORAL) (3 sources) multivit with calcium,iron,min (MULTIVITAMIN-CALCIUM AND IRON ORAL) Take by mouth. 0 Active Comment on above: Take by mouth. Multivitamin tablet (5 sources) Start: End: Multivitamin tablet Discontinued 1 {tbl} PO DAILY July 09, 2024 12:00am December 05, 2024 11:28am Start: 07-09-2024 Multivitamin t ablet Active 1 {tbl} PO DAILY July 09, 2024 12:00am naproxen 500 mg oral tablet (3 sources) Nonsteroidal Anti-inflammatory Drug Naproxen 500 MG Oral Tablet Refills: 0 Active ondansetron 4 mg disintegrating oral tablet (13 sources) Serotonin-3 Receptor Antagonist Start: End: take 1 tablet by mouth every eight hours as needed for nausea Ondansetron 4 mg tablet,disintegrati ng Discontinued 4 mg PO EVERY 8 HOURS NEEDED as needed for Nausea 10 0 July 09, 2024 12:00am December 05, 2024 11:27am Start: 10-10-2023 End: 05-27-2024 take 1 tablet by mouth every eight hours for nausea ondansetron ODT (Zofran-ODT) 8 mg disintegrating tablet Indications: Nausea and vomiting, unspecified vomiting type Take 1 tablet (8 mg) by mouth every 8 hours if needed for nausea or vomiting. 20 tablet 10/10/2023 05/27/2024 Discontinued (Med List Cleanup) Start: 03-26-2018 ondansetron or ally disintegrating (ZOFRAN ODT) 8 mg disintegrating tablet Pnv,Calcium 72-Iron,Carb-Fol ic ( Plus) 29 mg iron- 1 mg tablet (5 sources) Start: 07-09-2024 End: 12-05-2024 Pnv,Calcium 72-Iron,Carb-Fol ic ( Plus) 29 mg iron- 1 mg tablet Discontinued {tbl} July 09, 2024 12:00am December 05, 2024 11:27am Start: 07-09-2024 Pnv,Calcium 72 -Iron,Carb-Folic ( Plus) 29 mg iron- 1 mg tablet Active {tbl} July 09, 2024 12:00am predniSONE 10 mg oral tablet (4 sources) Start: 12-12-2023 End: 05-27-2024 predniSONE (Deltasone) 10 mg tablet Indications: Urticaria 6,5,4,3,2,1 21 tablet 12/12/2023 05/27/2024 Discontinued (Med List Cleanup) 1000 ml sodium chloride 9 mg /ml injection (2 sources) Start: 10-12-2019 End: 10-12-2019 sodium chloride 0.9% (NS) irma constance 1,000 mL Start: 10-12-2019 End: 10-12-2019 sodium chloride (PF) (NS) fl ush 5 mL sodium chloride (PF) (NS) 0.9 % contrast line flush 10 mL (1 source) Start: 10-12-2019 End: 10-12-2019 sodium chloride (PF) (NS) 0.9 % contrast line flush 10 mL terbinafine 250 mg oral tablet (3 sources) Allylamine Antifungal Start: 03-24-2020 take 1 tablet by mouth once daily terbinafine HCl (LAMISIL) 250 mg tablet Take 250 mg by mouth once daily. 0 03/24/2020 Active Comment on above: Take 250 mg by mouth once daily. tropicamide 5 mg/ml ophthalmic solution (1 source) Anticholinergic Start: 06-09-2022 End: 06-09-2022 tropicamide 0.5 % 1 Drop (MYDRIACYL) Problems Active Problems Problem Classification Problem Date Documented Date Episodic/Chronic Anxiety disorders (20 sources) Anxiety; Translations: [Anxiety disorder, unspecified] Onset: 09-19-2023 05-02-2023 Chronic Blindness and vision defects (7 sources) Visual disturbance; Translations: [Myopia of right eye] Episodic Disorders of teeth and jaw (4 sources) Toothache; Translations: [Unspecified disorder of the teeth and supporting structures] Onset: 11-11-2022 11-11-2022 Episodic Headache; including migraine (20 sources) Migraine with aura; Translations: [Migraine without aura, not refractory ] Onset: 02-19-2016 01-05-2020 Chronic Hemorrhage during ; abruptio placenta; placenta previa (15 sources) Antepartum hemorrhage; Translations: [Hemorrhage in early , unspecified] Onset: 12-25-2024 03-01-2024 Episodic Immunizations and screening for infectious disease (3 sources) Encounter for screening for infections with a predominantly sexual mode of transmission; Translations: [Encounter for immunization] Onset: 06-24-2024 Episodic Malaise and fatigue (4 sources) Fatigue; Translations: [Other fatigue] Onset: 02-15-2023 08-17-2022 Episodic Menstrual disorders (10 sources) Amenorrhea, unspecified; Translations: [Amenorrhea] Onset: 05-10-2017 02-23-2024 Chronic Other complications of (14 sources) Maternal obesity complicating , childbirth and the puerperium, antepartum; Translations: [Obesity complicating , unspecified trimester] 12-09-2024 Chronic Comment on above: nl a1c Other complications of (2 sources) Obesity complicating , unspecified trimester; Translations: [Obesity complicating , unspecified trimester] Onset: 12-30-2024 Chronic Other complications of (14 sources) H/O: miscarriage; Translations: [Supervision of with other poor reproductive or obstetric history, unspecified trimester] 12-05-2024 Episodic Other complications of (14 sources) High risk ; Translations: [Supervision of high risk , unspecified, unspecified trimester] 12-09-2024 Episodic Comment on above: PRR,, JOSE 5 BF Umberto PRR,, girl Emers on JOSE 01/12/25 BF Umberto Other complications of (1 source) Supervision of with other poor reproductive or obstetric history, unspecified trimester; Translations: [Supervision of with other poor reproductive or obstetric history, unspecified trimester] Onset: 01-01-2025 Episodic Other complications of (2 sources) Supervision of high risk , unspecified, unspecified trimester; Translations: [Supervision of high risk , unspecified, unspecified trimester] Onset: 12-30-2024 Episodic Other connective tissue disease (15 sources) Muscle weakness of upper limb; Translations: [Other musculoskeletal symptoms referable to limbs] Episodic Other injuries and conditions due to external causes (3 sources) Injury of nerve of upper extremity; Translations: [Neuropraxia of right upper extremity, initial encounter] Episodic Other non-traumatic joint disorders (2 sources) Decreased range of shoulder movement; Translations: [Limited range of motion of shoulder] Chronic Other non-traumatic joint disorders (20 sources) Shoulder pain; Translations: [Pain in joint, shoulder region] Episodic Comment on above: RIGHT; Other non-traumatic joint disorders (18 sources) Decreased range of shoulder movement; Translations: [Stiffness of joint, not elsewhere classified, shoulder region] Episodic Other nutritional; endocrine; and metabolic disorders (3 sources) Obese class II; Translations: [Obesity, unspecified] Onset: 03-27-2019 03-27-2019 Chronic Other conditions (2 sources) Exceptionally large at ; Translations: [Exceptionally large baby] 12-31-2024 Episodic Comment on above: 93rd% overall, 99th% AC. discuss at appt on 01/01 Other conditions (1 source) Exceptionally large baby; Translations: [Exceptionally large baby] Onset: 01-01-2025 Episodic Other and delivery including normal (19 sources) test positive; Translations: [Encounter for test, result positive] Onset: 05-09-2024 05-09-2024 Episodic Comment on above: NIPT low risk, femal e, declined carrier Neg GBS. NIPT low ri sk, female, declined carrier Residual codes; unclassified (2 sources) 32 weeks gestation of ; Translations: [32 weeks gestation of ([facility])] Onset: 11-25-2024 Episodic Residual codes; unclassified (2 sources) 30 weeks gestation of ; Translations: [30 weeks gestation of ([facility])] Onset: 11-11-2024 Episodic Residual codes; unclassified (2 sources) 28 weeks gestation of ; Translations: [28 weeks gestation of ([facility])] Onset: 10-28-2024 Episodic Residual codes; unclassified (2 sources) 26 weeks gestation of ; Translations: [26 weeks gestation of ([facility])] Onset: 10-14-2024 Episodic Residual codes; unclassified (2 sources) 22 weeks gestation of ; Translations: [22 weeks gestation of ([facility])] Onset: 09-16-2024 Episodic Residual codes; unclassified (1 source) 38 weeks gestation of ; Translations: [38 weeks gestation of ] Onset: 01-01-2025 Episodic Residual codes; unclassified (1 source) 37 weeks gestation of ; Translations: [37 weeks gestation of ] Onset: 12-25-2024 Episodic Residual codes; unclassified (1 source) 36 weeks gestation of ; Translations: [36 weeks gestation of ] Onset: 12-19-2024 Episodic Residual codes; unclassified (1 source) 35 weeks gestation of ; Translations: [35 weeks gestation of ] Onset: 12-09-2024 Episodic Spontaneous (5 sources) Miscarriage; Translations: [Complete or unspecified spontaneous without complication] 03-09-2024 Episodic Sprains and strains (20 sources) Shoulder strain; Translations: [Strain of muscle of upper limb] Episodic Unclassified (2 sources) DENTAL BLISTERS 11-11-2022 Comment on above: DENTAL BLISTERS Unclassified (1 source) Pain, dental 11-11-2022 Unclassified (2 sources) Routine Visit; Translations: [Routine Visit] Onset: 08-21-2024 Unclassified (2 sources) Employment Physical; Translations: [Employment Physical] Onset: 08-16-2024 Viral infection (15 sources) Disease caused by 2019-nCoV; Translations: [COVID-19] 07-09-2024 Episodic Comment on above: asa 81 mg Viral infection (1 source) COVID-19; Translations: [COVID-19] Onset: 01-01-2025 Past or Other Problems Problem Classification Problem Date Documented Da te Episodic/Chronic Allergic reactions (3 sources) Urticaria; Translations: [Urticaria, unspecified] Onset: 12-12-2023 12-12-2023 Episodic Conditions associated with dizziness or vertigo (1 source) Dizziness and giddiness; Translations: [Dizziness and giddiness] Onset: 07-15-2024 Episodic Miscellaneous mental health disorders (20 sources) Psychologic conversion disorder; 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] Onset: 08-17-2022 Resolved: 03-21-2023 08-17-2022 Chronic Nausea and vomiting (3 sources) Nausea with vomiting, unspecified; Translations: [Nausea and vomiting] Onset: 05-10-2017 10-10-2023 Episodic Other connective tissue disease (3 sources) Myofascial pain syndrome of neck; Translations: [Myalgia, other site] Onset: 03-27-2019 03-27-2019 Episodic Other injuries and conditions due to external causes (20 sources) Injury of brachial plexus; Translations: [Injury to brachial plexus] Onset: 11-30-2019 Resolved: 02-02-2021 02-27-2020 Episodic Other screening for suspected conditions (not mental disorders or infectious disease) (3 sources) Patient encounter status; Translations: [Encounter for screening for malignant neoplasm of cervix] Onset: 06-24-2024 Episodic Residual codes; unclassified (4 sources) Gestation period, 14 weeks; Translations: [14 weeks gestation of ] Onset: 07-22-2024 08-21-2024 Episodic Residual codes; unclassified (2 sources) 14 weeks gestation of ; Translations: [14 weeks gestation of ([facility])] Onset: 07-22-2024 Episodic Residual codes; unclassified (2 sources) 10 weeks gestation of ; Translations: [10 weeks gestation of ([facility])] Onset: 06-24-2024 Episodic Unclassified (1 source) DENTA BLISTERS 11-11-2022 Comment on above: DENTA BLISTERS Unclassified (1 source) Gynecologic Exam Onset: 12-26-2023 NEGATED: Highlighted row has not occurred!Residual codes; unclassified (20 sources) Disease Episodic Results Test Name Value Interpretation Reference Range Facility [facility] Office Visit Reporton 01-01-2025 [facility] Office Visit Report [facility] [address], [address] [place] [address] OFFICE VISIT Date of Service: 01/01/25 MR#: [id number] Acct: [id number] Name: CHAPARRITA FLOYD Rep #: [id number] : 2000 Provider: Dr. Brittney doran MD Age/Sex: 24/F [place] [facility] [place]: Signed Intake Vital Signs 12/09/24 13:08 12/19/24 14:57 12/25/24 13:21 01/01/25 11:01 Height 5 ft 7 in 5 ft 7 in 5 ft 7 in 5 ft 7 in Weight: 278 lb 8 oz BMI 43.6 BP 134/85 H Intake Visit Reasons: 38 WK OB 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 Is patient in pain?: No Allergies No Known Allergies Allergy (Verified 01/01/25 11:02) Medications ???Medication ???Instructions ???Recorded ???Confirmed ???Type escitalopram oxalate 10 mg tablet 10 mg PO DAILY 03/01/24 01/01/25 History cholecalciferol (vitamin D3) 50 2,000 unit PO QDAY 07/09/24 History mcg (2,000 unit) capsule (Vitamin D3) aspirin 81 mg tablet 81 mg PO QDAY COVID 12/05/2401/01 History multivit-min no.71-iron fum 28 cap PO 12/05/24 01/01/25 History mg-folate no.1 1 mg-dha 300 mg capsule (PNV-[place]) Last Menstrual Period: 04/07/24 Zika: Zika virus screening: Negative : No PFSH PFSH Medical History Migraines Surgical History Whitt teeth extracted Family History Father Heart disease Maternal Grandfather Heart disease Cancer, Onset Age: 78 Pancreatic Grandfather Heart disease Paternal Diabetes Paternal Mother Diabetes Hypertension Thyroid disorder hypothyroidism Iron deficiency anemia Fibromyalgia Uncle Diabetes Maternal Grandmother Cancer, Onset Age: 79 Paternal Bladder Maternal Grandmother Cancer, Onset Age: 78 stomach ca Social History adopted: No household members: significant other housing: house current occupational status: employed current occupation: [employer] current occupational exposures/hazards: No pets and animals: Yes pets and animals: dog(s) history of recent travel: No sexually active: Yes Smoking Status: Never smoker alcohol intake: current alcohol intake frequency: holidays/special occasions only details: not while substance use type: does not use well-balanced diet: daily or most days caffeine: Yes Type: coffee Number of servings: 1 eating out: rarely or never during the past year weight has: increased > 10 lbs what type of physical activity do you participate in: walking frequency: 5-6 times per week duration: 45-60 minutes/day montserrat/yazidism: None seatbelt use: always do you feel safe at home: Yes additional social history: BF Umberto Calderon Item Repair Manager History 2 Elective abortions Hx Para 0 Spontaneous abortions 1 Hx # Term Pregnancies Ectopic pregnancies Hx # Pregnancies Multiple births # of living children 0 Past Pregnancies Del. Date Name GA/Weeks Outcome Route Bth Weight Gen Labor Lgth Anesthesia Del Locatn Provider FOB Unknown 02/2024 Miscarriage 6 spontaneous HPI 38 WK OB Details: CHAPARRITA FLOYD is a 24 year old who presents for routine OB visit. OB Visit JOSE Calculator Estimated Delivery Date Method Current WG Current Estimate 01/12/25 LMP (Certain) 38w 3d Expected Delivery Route/Plan Labor Preferences- CB/BF classes: [] labor support person: [] labor intervention preferences: [] pain management options preferred: epidural cut cord/dad catch: [] : wants to try PP control planned: discussed possible routes of delivery and associated risks: [] special requests: [] Specific Issue/Plans Covid status: [] Flu vaccine: [] Tdap vaccine: given Rhogam: [na LARC form signed: yes Problem list reviewed and updated with the most current plan of care details and appropriate orders placed. Relevant counseling for the gestational age provided. Continue routine care and follow up unless otherwise noted in visit notes/problem list details Initial Weight: Not Recorded Date -???-???-???-???-??? -???-???-???-???-??? -???-???- EGA Weight BP Urine Prot -???-???-???-???-??? -???-???-???-???-??? -???-???- Glucose FHR FuHt Pres Dilation -???-???-???-???-??? -???-???-???-???-??? -???-???- Effaced St Visit Note 12/09/24 -???-???-???-???-??? -???-???-???-???-??? -???-???- 35w 1d 271 lb 6 oz 118/83 Negative -???-???-???-???-??? -???-???-???-???-??? -???-???- Negative 140 35 -???-???-???-???-??? -???-???-???-???-??? -???-???- KW- Transfer of care from [place] no vb/lof/ctx. good fm. LARC today. NOB l (more content not included)... Normal [facility] OB Limited With Biometricson 12-30-2024 OB Limited With Biometrics [facility] [address] [place] [address] OB Limited With Biometrics MR#: [id number] Acct: [id number] Name: CHAPARRITA FLOYD Rep #: [id number] : 2000 F 24 From: Marcus barth MD PCP: Dr. Annette Frey MD Status: [facility] Study: OB Limited With Biometrics Date of Exam: 12/30 Exam# [id number] Ordering Dr: Aleksandra Walter DO PROCEDURE: OB LIMITED WITH BIOMETRICS 12/30/2024 REASON FOR EXAM: LATE TRANSFER OF CARE TECHNIQUE: Procedure Code: USOBGROWTH Modality: US Procedure: OB LIMITED WITH BIOMETRICS COMPARISON: None FINDINGS Number: 1 Position: Vertex Placental Position: Anterior and not low-lying Placental Abnormalities: No evidence of previa. DIMENSIONS: Biparietal Diameter: 9.4 cm: 38 weeks and 2 days: 76 percentile/ Head Circumference: 33.5 cm: 38 weeks and 3 days: 36 percentile/ Abdominal Circumference: 37.5 cm: 41 weeks and 3 days: 9 9 percentile/ Femur Length: 7.3 cm: 37 weeks and 2 days: 31st percentile/ ESTIMATED WEIGHT: 3903 g plus/-578 g ESTIMATED WEIGHT PERCENTILE (24+ weeks): 93rd ESTIMATED GESTATIONAL AGE: Baseline: 38 weeks and 1 day By Ultrasound: 38 weeks and 5 days ESTIMATED DATE OF DELIVERY: Baseline: January 12, 2025 By Ultrasound: January 08, 2025 BIOPHYSICAL ASSESSMENT: Amniotic Fluid Volume: 7.9 cm Amniotic Fluid Index: 15.7 cm (8-24 cm normal range) Cardiac Motion: 135 beats per minute (average) Trunk and Limb Motion: Present. MATERNAL ANATOMY: Adnexa: Neither maternal ovary is successfully identified. US/OB Limited With Biometrics IMPRESSION: Single live intrauterine gestation with a mean gestational age of 38 weeks and 5 days. Reading Location: [place] [address] CC: Dr. Aleksandra Walter DO; Dr. Annette Frey MD Transcription Specialist: Signed Normal [facility] Laboratory - Chemistry and C hemistry - challengeOrdered By: Marcia Christianson on 12-25-2024 Glucose Ql (U) Negative [facility] Laboratory - UrinalysisOrder ed By: Marcia Christianson on 12-25-2024 Protein Ql (U) Negative [facility] Office Visit Reporton 12-25-2024 [facility] Office Visit Report [facility]'s [address], [address] [place] [address] OFFICE VISIT Date of Service: 12/25/24 MR#: [id number] Acct: [id number] Name: CHAPARRITA FLOYD Rep #: [id number] : 2000 Provider: СВЕТЛАНА Browning ams Age/Sex: 24/F [place] [facility] [place] Status: Signed Intake Vital Signs 12/09/24 13:08 12/19/24 14:57 12/25/24 13:21 Height 5 ft 7 in 5 ft 7 in 5 ft 7 in Weight: 278 lb 6 oz BMI 43.6 BP 131/84 H Intake Visit Reasons: 37 WK OB Chief Complaint: 37wk OB 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 Is patient in pain?: No Allergies No Known Allergies Allergy (Verified 12/25/24 13:19) Medications ???Medication ???Instructions ???Recorded ???Confirmed ???Type escitalopram oxalate 10 mg tablet 10 mg PO DAILY 03/01/24 12/25/24 History cholecalciferol (vitamin D3) 50 2,000 unit PO QDAY 07/09/24 History mcg (2,000 unit) capsule (Vitamin D3) aspirin 81 mg tablet 81 mg PO QDAY COVID 12/05/2412/25 History multivit-min no.71-iron fum 28 cap PO 12/05/24 12/25/24 History mg-folate no.1 1 mg-dha 300 mg capsule (PNV-[place]) Last Menstrual Period: 04/07/24 : No PFSH PFSH Medical History Migraines Surgical History Whitt teeth extracted Family History Father Heart disease Maternal Grandfather Heart disease Cancer, Onset Age: 78 Pancreatic Grandfather Heart disease Paternal Diabetes Paternal Mother Diabetes Hypertension Thyroid disorder hypothyroidism Iron deficiency anemia Fibromyalgia Uncle Diabetes Maternal Grandmother Cancer, Onset Age: 79 Paternal Bladder Maternal Grandmother Cancer, Onset Age: 78 stomach ca Social History adopted: No household members: significant other housing: house current occupational status: employed current occupation: [employer] current occupational exposures/hazards: No pets and animals: Yes pets and animals: dog(s) history of recent travel: No sexually active: Yes Smoking Status: Never smoker alcohol intake: current alcohol intake frequency: holidays/special occasions only details: not while substance use type: does not use well-balanced diet: daily or most days caffeine: Yes Type: coffee Number of servings: 1 eating out: rarely or never during the past year weight has: increased > 10 lbs what type of physical activity do you participate in: walking frequency: 5-6 times per week duration: 45-60 minutes/day montserrat/yazidism: None seatbelt use: always do you feel safe at home: Yes additional social history: BF Umberto Calderon Item Repair Manager History 2 Elective abortions Hx Para 0 Spontaneous abortions 1 Hx # Term Pregnancies Ectopic pregnancies Hx # Pregnancies Multiple births # of living children 0 Past Pregnancies Del. Date Name GA/Weeks Outcome Route Bth Weight Gen Labor Lgth Anesthesia Del Locatn Provider FOB Unknown 02/2024 Miscarriage 6 spontaneous HPI 37 WK OB Details: CHAPARRITA FLOYD is a 24 year old who presents for routine OB visit. OB Visit JOSE Calculator Estimated Delivery Date Method Current WG Current Estimate 01/12/25 LMP (Certain) 37w 3d Expected Delivery Route/Plan Labor Preferences- CB/BF classes: [] labor support person: [] labor intervention preferences: [] pain management options preferred: epidural cut cord/dad catch: [] : wants to try PP control planned: discussed possible routes of delivery and associated risks: [] special requests: [] Specific Issue/Plans Covid status: [] Flu vaccine: [] Tdap vaccine: [] Rhogam: [] LARC form signed: yes Problem list reviewed and updated with the most current plan of care details and appropriate orders placed. Relevant counseling for the gestational age provided. Continue routine care and follow up unless otherwise noted in visit notes/problem list details Initial Weight: Not Recorded Date -???-???-???-???-??? -???-???-???-???-??? -???-???- EGA Weight BP Urine Prot -???-???-???-???-??? -???-???-???-???-??? -???-???- Glucose FHR FuHt Pres Dilation -???-???-???-???-??? -???-???-???-???-??? -???-???- Effaced St Visit Note 12/09/24 -???-???-???-???-??? -???-???-???-???-??? -???-???- 35w 1d 271 lb 6 oz 118/83 Negative -???-???-???-???-??? -???-???-???-???-??? -???-???- Negative 140 35 -???-???-???-???-??? -???-???-???-???-??? -???-???- KW- Transfer of care from [place] no vb/lof/ctx. good fm. LARC today. NOB labs reviewed-PRR. discussed GBS and labor precautions. was no (more content not included)... Normal [facility] Rule out Beta Strep (Grp. B) on 12-21-2024 ANA Group B Beta Streptococcus is not isolated. Normal [facility] Comment on above: Performed By: #### L 300.8000, L100.0100, L500.2500, L503.7505 #### [facility] Laboratory [address] [place], [place], [id number] Laboratory - Chemistry and C hemistry - challengeOrdered By: Aleksandra Gaffney on 12-19-2024 Glucose Ql (U) Negative [facility] Laboratory - UrinalysisOrder ed By: Aleksandra Gaffney on 12-19-2024 Protein Ql (U) Negative [facility] Office Visit Reporton 12-19-2024 [facility] Office Visit Report [facility] [address], [address] [place] [address] OFFICE VISIT Date of Service: 12/19/24 MR#: [id number] Acct: [id number] Name: CHAPARRITA FLOYD Rep #: [id number] : 2000 Provider: Dr. Aleksandra Piedra DO Age/Sex: 24/F [place] [facility] [place]: Signed Intake Vital Signs 12/02/24 13:44 12/09/24 13:08 12/19/24 14:57 Height 5 ft 7 in 5 ft 7 in 5 ft 7 in Weight: 271 lb 6 oz 275 lb 6 oz BMI 42.5 43.1 BP 118/83 H 123/81 H Intake Visit Reasons: 36 wk OB 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 Is patient in pain?: No Allergies No Known Allergies Allergy (Verified 12/19/24 15:00) Medications ???Medication ???Instructions ???Recorded ???Confirmed ???Type escitalopram oxalate 10 mg tablet 10 mg PO DAILY 03/01/24 12/19/24 History cholecalciferol (vitamin D3) 50 2,000 unit PO QDAY 07/09/24 History mcg (2,000 unit) capsule (Vitamin D3) aspirin 81 mg tablet 81 mg PO QDAY COVID 12/05/2412/19 History multivit-min no.71-iron fum 28 cap PO 12/05/24 12/19/24 History mg-folate no.1 1 mg-dha 300 mg capsule (PNV-[place]) Last Menstrual Period: 04/07/24 Zika: Zika virus screening: Negative : No PFSH PFSH Medical History Migraines Surgical History Whitt teeth extracted Family History Father Heart disease Maternal Grandfather Heart disease Cancer, Onset Age: 78 Pancreatic Grandfather Heart disease Paternal Diabetes Paternal Mother Diabetes Hypertension Thyroid disorder hypothyroidism Iron deficiency anemia Fibromyalgia Uncle Diabetes Maternal Grandmother Cancer, Onset Age: 79 Paternal Bladder Maternal Grandmother Cancer, Onset Age: 78 stomach ca Social History adopted: No household members: significant other housing: house current occupational status: employed current occupation: [employer] current occupational exposures/hazards: No pets and animals: Yes pets and animals: dog(s) history of recent travel: No sexually active: Yes Smoking Status: Never smoker alcohol intake: current alcohol intake frequency: holidays/special occasions only details: not while substance use type: does not use well-balanced diet: daily or most days caffeine: Yes Type: coffee Number of servings: 1 eating out: rarely or never during the past year weight has: increased > 10 lbs what type of physical activity do you participate in: walking frequency: 5-6 times per week duration: 45-60 minutes/day montserrat/yazidism: None seatbelt use: always do you feel safe at home: Yes additional social history: BF Umberto Calderon Item Repair Manager History 2 Elective abortions Hx Para 0 Spontaneous abortions 1 Hx # Term Pregnancies Ectopic pregnancies Hx # Pregnancies Multiple births # of living children 0 Past Pregnancies Del. Date Name GA/Weeks Outcome Route Bth Weight Gen Labor Lgth Anesthesia Del Locatn Provider FOB Unknown 02/2024 Miscarriage 6 spontaneous HPI 36 wk OB Details: CHAPARRITA FLOYD is a 24 year old who presents for routine OB visit. OB Visit JOSE Calculator Estimated Delivery Date Method Current WG Current Estimate 01/12/25 LMP (Certain) 36w 4d Expected Delivery Route/Plan Labor Preferences- CB/BF classes: [] labor support person: [] labor intervention preferences: [] pain management options preferred: epidural cut cord/dad catch: [] : wants to try PP control planned: discussed possible routes of delivery and associated risks: [] special requests: [] Specific Issue/Plans Covid status: [] Flu vaccine: [] Tdap vaccine: [] Rhogam: [] LARC form signed: yes Problem list reviewed and updated with the most current plan of care details and appropriate orders placed. Relevant counseling for the gestational age provided. Continue routine care and follow up unless otherwise noted in visit notes/problem list details Initial Weight: Not Recorded Date -???-???-???-???-??? -???-???-???-???-??? -???-???- EGA Weight BP Urine Prot -???-???-???-???-??? -???-???-???-???-??? -???-???- Glucose FHR FuHt Pres Dilation -???-???-???-???-??? -???-???-???-???-??? -???-???- Effaced St Visit Note 12/09/24 -???-???-???-???-??? -???-???-???-???-??? -???-???- 35w 1d 271 lb 6 oz 118/83 Negative -???-???-???-???-??? -???-???-???-???-??? -???-???- Negative 140 35 -???-???-???-???-??? -???-???-???-???-??? -???-???- KW- Transfer of care from [place] no vb/lof/ctx. good fm. LARC today. (more content not included)... Normal [facility] Screening beta-hemolytic Str eptococcus cultureOrdered By: Aleksandra Gaffney on 12-19-2024 Beta-hemolytic Streptococcus culture Group B Beta Streptococcus is not isolated. [facility] Laboratory - Chemistry and C hemistry - challengeOrdered By: Marcia Christianson on 12-09-2024 Glucose Ql (U) Negative [facility] Laboratory - UrinalysisOrder ed By: Marcia Christianson on 12-09-2024 Protein Ql (U) Negative [facility] Office Visit Reporton 12-09-2024 [facility] Office Visit Report [facility] [address], [address] [place] [address] OFFICE VISIT Date of Service: 12/09/24 MR#: [id number] Acct: [id number] Name: CHAPARRITA FLOYD Rep #: [id number] : 2000 Provider: СВЕТЛАНА Browning ams Age/Sex: 24/F [place] [facility] [place] Status: Signed with Addenda ADDENDUM by Kathryn Berger on 12/09/24 at 1353 Office Procedure Documentation entered by Kathryn Berger 12/09/24 13:53: Immunizations Adacel(Tdap Adolesn/Adult)(PF) 2 Lf-(2.5-5-3-5)-5 Lf/0.5 mL IM syringe Performing Provider: Marcia Christianson CNM Performing Location: [facility] Administered by: Kathryn Berger on 12/09/24 13:52 Dose Route Admin Location Dispensed Lot Number Expiration Date NDC Man ufacturer 0.5 mL IM Left Arm (SQ) 0.5 mL [id number] 11/[birth year]/26 49032-020-46 [employer]- [employer]UR VIS Given Date VIS Provided VIS Publication Date 12/09/24 Single Vaccine 24 Eligibility Eligibility Date Funding Source Not Applicable Date cc: * Signed Intake Vital Signs 07/09/24 18:20 12/02/24 13:44 12/09/24 13:08 Height 5 ft 7 in 5 ft 7 in 5 ft 7 in Weight: 271 lb 6 oz BMI 42.5 BP 118/83 H Intake Visit Reasons: *NEW* SAIRA 30wk NOB JOSE 02/11 Chief Complaint: New OB 35wks 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 Is patient in pain?: No Allergies No Known Allergies Allergy (Verified 12/09/24 13:05) Medications ???Medication ???Instructions ???Recorded ???Confirmed ???Type escitalopram oxalate 10 mg tablet 10 mg PO DAILY 03/01/24 12/09/24 History cholecalciferol (vitamin D3) 50 2,000 unit PO QDAY 07/09/24 History mcg (2,000 unit) capsule (Vitamin D3) aspirin 81 mg tablet 81 mg PO QDAY COVID 12/05/2412/09 History multivit-min no.71-iron fum 28 cap PO 12/05/24 12/09/24 History mg-folate no.1 1 mg-dha 300 mg capsule (PNV-[place]) Last Menstrual Period: 04/07/24 : No PFSH PFSH Medical History Migraines Surgical History Whitt teeth extracted Family History Father Heart disease Maternal Grandfather Heart disease Cancer, Onset Age: 78 Pancreatic Grandfather Heart disease Paternal Diabetes Paternal Mother Diabetes Hypertension Thyroid disorder hypothyroidism Iron deficiency anemia Fibromyalgia Uncle Diabetes Maternal Grandmother Cancer, Onset Age: 79 Paternal Bladder Maternal Grandmother Cancer, Onset Age: 78 stomach ca Social History adopted: No household members: significant other housing: house service: No current occupational status: employed current occupation: [employer] current occupational exposures/hazards: No pets and animals: Yes pets and animals: dog(s) history of recent travel: No sexually active: Yes Smoking Status: Never smoker alcohol intake: current alcohol intake frequency: holidays/special occasions only details: not while substance use type: does not use well-balanced diet: daily or most days caffeine: Yes Type: coffee Number of servings: 1 eating out: rarely or never during the past year weight has: increased > 10 lbs what type of physical activity do you participate in: walking frequency: 5-6 times per week duration: 45-60 minutes/day montserrat/yazidism: None seatbelt use: always do you feel safe at home: Yes 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 Date Name GA/Weeks Outcome Route Bth [facility]/2024 Miscarriage 6 spontaneous HPI *NEW* SAIRA 30wk NOB JOSE 02/11 Details: CHAPARRITA FLOYD is a 24 year old who presents for New OB visit. OB Visit JOSE Calculator Estimated Delivery Date Method Current WG Current Estimate 01/12/25 LMP (Certain) 35w 1d Comments: HIV: Urine Culture: Sequential Screen: NIPT Screen: Estimated Due Date: 01/12/25 Expected Delivery Route/Plan Labor Preferences- CB/BF classes: [] labor support person: [] labor intervention preferences: [] pain management options preferred: epidural cut cord/dad catch: [] : wants to try PP control planned: discussed possible routes of delivery and associated risks: [] special requests: [] Specific Issue/Plans Covid status: [] Flu vaccine: [] Tdap vaccine: [] Rhogam: [] (more content not included)... Normal [facility] GLUCOSE, GESTATIONAL SCREEN ([id number])-[id number] CUTOFFon 09-29-2024 Glucose [Mass/Vol] 86 mg/dL Normal <135 [facility] Comment on above: Performed By: #### 8 477 #### [facility] [address], [address] [place] [address] [employer]: Andres Samson MD Blood type and Indirect anti body screen panel (Bld)on 09-28-2024 ABO group Nom (Bld) A Normal [facility] Comment on above: Performed By: #### 3 4532-2 #### JUSTIN LAMBERT ([id number]) [facility] ([facility]) [address] [place] [address] Blood group antibody screen Ql Negative [facility] Comment on above: Performed By: #### 3 4532-2 #### JUSTIN LAMBERT ([id number]) [facility] ([facility]) [address] [place] [address] US D Ag Ql (Bld) Positive [facility] Comment on above: Performed By: #### 3 4532-2 #### JUSTIN LAMBERT ([id number]) [facility] ([facility]) [address] [place] [address] CBC panel Auto (Bld)on 09-28 Erythrocyte distribution width (RBC) [Ratio] 13.5 % Normal 11.5-14.5 [facility] Comment on above: Performed By: #### 5 8410-2 #### JUSTIN LAMBERT ([id number]) [facility] ([facility]) [address] [place], [place] [id number] Hematocrit (Bld) [Volume fraction] 38.0 % Normal 36.0-46.0 [facility] Comment on above: Performed By: #### 5 8410-2 #### JUSTIN LAMBERT ([id number]) [facility] ([facility]) [address] [place] [address] Hemoglobin (Bld) [Mass/Vol] 12.5 g/dL Normal 12.0-16.0 [facility] Comment on above: Performed By: #### 5 8410-2 #### JUSTIN LAMBERT ([id number]) [facility] ([facility]) [address] [place] [address] MCH (RBC) [Entitic mass] 29.8 pg Normal 26.0-34.0 [facility] Comment on above: Performed By: #### 5 8410-2 #### JUSTIN LAMBERT ([id number]) [facility] ([facility]) [address] [place] [address] MCHC (RBC) [Mass/Vol] 32.9 g/dL Normal 32.0-36.0 [facility] Comment on above: Performed By: #### 5 8410-2 #### JUSTIN LAMBERT ([id number]) [facility] ([facility]) [address] [place] [address] MCV (RBC) [Entitic vol] 91 fL Normal 80-100 U [facility] Comment on above: Performed By: #### 5 8410-2 #### JUSTIN LAMBERT ([id number]) [facility] ([facility]) [address] [place] [address] Nucleated RBC/100 WBC (Bld) [Ratio] 0.0 /100 WBCs Normal 0.0-0.0 [facility] Comment on above: Performed By: #### 5 8410-2 #### JUSTIN LAMBERT ([id number]) [facility] ([facility]) [address] [place] [address] Platelets (Bld) [#/Vol] 223 x10*3/uL Normal 150-450 [facility] Comment on above: Performed By: #### 5 8410-2 #### JUSTIN LAMBERT ([id number]) [facility] ([facility]) [address] [place] [address] RBC (Bld) [#/Vol] 4.20 x10*6/uL Normal 4.00-5.20 [facility] Comment on above: Performed By: #### 5 8410-2 #### JUSTIN LAMBERT ([id number]) [facility] ([facility]) [address] [place] [address] WBC (Bld) [#/Vol] 10.1 x10*3/uL Normal 4.4-11.3 [facility] Comment on above: Performed By: #### 5 8410-2 #### ANDERSON FAUSTO ([id number]) [facility] ([facility]) [address] [place] [address] REFLEX ADDED, ANEMIA PANELon 09-28-2024 REFLEX ADDED, ANEMIA PANEL No reflex. [facility] Comment on above: Performed By: #### A PRFX #### BINA Lopez ([id number]) [facility] ([facility]) [address] [place] [address] US OB 14+ WEEKS ANATOMY SCAN on 08-21-2024 US OB 14+ WEEKS ANATOMY SCAN Interpreted By: Carlo Aguirre, STUDY: US OB 14+ WEEKS ANATOMY SCAN; 08/21/2024 10:23 am INDICATION: Signs/Symptoms:anato my. ,Z3A.14 14 weeks gestation of ([facility]) COMPARISON: None. ACCESSION NUMBER(S): [id number] ORDERING CLINICIAN: ESTELITA PICKENS TECHNIQUE: Multiple images were obtained. Transabdominal ultrasound was performed. FINDINGS: There is a single live intrauterine gestation in cephalic position. BPD 4.5 cm, 19 week 5 days HC 17.2 cm, [id number] AC 14.1 cm, [id number] FL 2.9 cm, [id number] This results in a composite gestational age of 19 weeks 3 days +/-1 week 3 days. The estimated date of delivery is 01/12/2025. By dates the JOSE is 01/14/2025. The heart rate is 148 bpm. Evaluation of anatomy was performed. Normal visualization of cerebral ventricles, posterior fossa, spinal column, both kidneys, urinary bladder, four-chamber heart, diaphragm, stomach, cord insertion, three-vessel cord and extremities. The placenta location is anterior. The amniotic fluid volume is adequate. The cervical length is 4.4 cm in length. The estimated weight is 285 g +/-43 g. 55.7 percentile IMPRESSION: Single live intrauterine gestation corresponding to 19 weeks 3 days +/-1 week 3 days. MACRO: None Signed by: Carlo Aguirre 08/22/2024 8:09 AM Dictation workstation: [id number] [facility] 12 Lead EKGon 07-09-[address] [facility] Cardi[facility] Services [address] [place] [address] 12 Lead EKG 07/09/24 1934 MR#: [id number] Acct: [id number] Name: CHAPARRITA FLOYD Rep #: [id number] : 2000 From: Ryan Miller MD Attending Dr: Status: DEP ER Ordering Dr: Keaton Driver DO Date: 5 Location: ED Sex: F C Admitted: Test Reason : DYSRHYTHMIA Blood Pressure : */* mmHG Vent. Rate : 125 BPM Atrial Rate : 125 BPM P-R Int : 166 ms QRS Dur : 74 ms QT Int : 306 ms P-R-T Axes : 54 40 23 degrees QTcB Int : 441 ms Sinus tachycardia Otherwise normal ECG Confirmed by MICHAEL WARD, RYAN ([id number]), tape editor FERNY STEPHENSON ([id number]) on 07/10/2024 8:32:14 AM Referred By: Confirmed By: RYAN MILLER MD 07/10/24 0832 Date Ryan Miller MD CC: Dr. Keaton Driver DO; Dr. Annette Frey MD Signed Normal [facility] Absolute neutrophil countOrd ered By: Keaton Drvier on 07-09-2024 Neutrophils (Bld) [#/Vol] 6.8 10*3/uL 2.0-7.7 [facility] Anion gap in Serum or Plasma Ordered By: Keaton Driver on 07-09-2024 Anion gap [Moles/Vol] 11 mmol/L 5-15 [facility] BUN/creatinine ratioOrdered By: Keaton Drvier on 07-09-2024 Urea nitrogen/Creatinine [Mass ratio] 10.6 mg/mg - [facility] Basic Metabolic Profile (BMP )on 07-09-2024 BUN/CRE 10.6 RATIO Normal 02-03 [facility] Comment on above: Performed By: #### L 300.8000, L100.0100, L500.2500, L503.7505 #### [facility] [address] [place], [address] Calcium [Mass/Vol] 9.2 mg/dL Normal 7.6-11.0 [facility] Comment on above: Performed By: #### L 300.8000, L100.0100, L500.2500, L503.7505 #### [facility] [address] [place], [address] Chloride [Moles/Vol] 106 mmol/L Normal 98-108 [facility] Comment on above: Performed By: #### L 300.8000, L100.0100, L500.2500, L503.7505 #### [facility] [address] [place], [address] CO2 [Moles/Vol] 20.2 mmol/L Low 21.0-32.0 [facility] Comment on above: Performed By: #### L 300.8000, L100.0100, L500.2500, L503.7505 #### [facility] [address] [place], [address] Creatinine [Mass/Vol] 0.62 mg/dL Low 0.70-1.20 [facility] Comment on above: Performed By: #### L 300.8000, L100.0100, L500.2500, L503.7505 #### [facility] [address] [place], [address] ECRCL 174.24 ml/min Normal 50-250 [facility] Comment on above: Performed By: #### L 300.8000, L100.0100, L500.2500, L503.7505 #### [facility] [address] [place], [address] GAP 11 Normal 5-15 [facility] Comment on above: Performed By: #### L 300.8000, L100.0100, L500.2500, L503.7505 #### [facility] [address] [place], [address] GFR/1.73 sq M.predicted among non-blacks MDRD (S/P/Bld) [Vol rate/Area] 126 mL/min/{1.73_m2} Normal >60 [facility] Comment on above: Result Comment: mL/m in/1.73m2 CKD-EPI Creatinine Equation (2020) Performed By: #### L 300.8000, L100.0100, L500.2500, L503.7505 #### [facility] [address] [place], [address] Glucose [Mass/Vol] 125 mg/dL High 70-99 [facility] Comment on above: Performed By: #### L 300.8000, L100.0100, L500.2500, L503.7505 #### [facility] [address] [place], [address] Potassium [Moles/Vol] 3.2 mmol/L Low 3.3-5.1 [facility] Comment on above: Performed By: #### L 300.8000, L100.0100, L500.2500, L503.7505 #### [facility] [address] [place], [address] Sodium [Moles/Vol] 137 mmol/L Normal 133-145 [facility] Comment on above: Performed By: #### L 300.8000, L100.0100, L500.2500, L503.7505 #### [facility] [address] [place], [address] Urea nitrogen [Mass/Vol] 7 mg/dL Normal 4-19 [facility] Comment on above: Performed By: #### L 300.8000, L100.0100, L500.2500, L503.7505 #### [facility] [address] [place], [address] Basophil percentageOrdered B y: Keaton Driver on 07-09-2024 Basophils/100 WBC (Bld) 0.3 % 0-1 [facility] [place] Bilirubin Test strip Ql (U)O rdered By: Keaton Driver on 07-09-2024 Bilirubin Ql (U) Negative Negative [facility] CBC W/Diff, Automatedon 06-16 Absolute Lymph 0.43 X10 3/uL Low 0.83-4.51 [facility] Comment on above: Performed By: #### L 300.8000, L100.0100, L500.2500, L503.7505 #### [facility] [address] [place], [address] Absolute Neut 6.8 X10 3/uL Normal 2.0-7.7 [facility] Comment on above: Performed By: #### L 300.8000, L100.0100, L500.2500, L503.7505 #### [facility] [address] [place], [address] Basophils/100 WBC (Bld) 0.3 % Normal 0-1 [facility] Comment on above: Performed By: #### L 300.8000, L100.0100, L500.2500, L503.7505 #### [facility] [address] [place], [address] Eosinophils/100 WBC (Bld) 1.5 % Normal 0-5 [facility] Comment on above: Performed By: #### L 300.8000, L100.0100, L500.2500, L503.7505 #### [facility] [address] [place], [address] Erythrocyte distribution width (RBC) [Ratio] 12.5 % Normal 11.6-14.6 [facility] Comment on above: Performed By: #### L 300.8000, L100.0100, L500.2500, L503.7505 #### [facility] [address] [place], [address] Hematocrit (Bld) [Volume fraction] 40.6 % Normal 37-47 [facility] Comment on above: Performed By: #### L 300.8000, L100.0100, L500.2500, L503.7505 #### [facility] [address] [place], [address] Hemoglobin (Bld) [Mass/Vol] 13.9 g/dL Normal 12.0-15.0 [facility] Comment on above: Performed By: #### L 300.8000, L100.0100, L500.2500, L503.7505 #### [facility] [address] [place], [address] IG% 0.400 Normal 0.0-0.9 [facility] Comment on above: Result Comment: IG% - Immature Granulocytes (promyelocytes, myelocytes and metamyelocytes) > 1% indicates that a LEFT SHIFT is Present. Performed By: #### L 300.8000, L100.0100, L500.2500, L503.7505 #### [facility] [address] [place], [address] Lymphocytes/100 WBC (Bld) 5.5 % Low 19-41 [facility] Comment on above: Performed By: #### L 300.8000, L100.0100, L500.2500, L503.7505 #### [facility] [address] [place], [address] MCH (RBC) [Entitic mass] 29.9 pg Normal 27.0-32.0 [facility] Comment on above: Performed By: #### L 300.8000, L100.0100, L500.2500, L503.7505 #### [facility] [address] [place], [address] MCHC (RBC) [Mass/Vol] 34.2 g/dL Normal 32-36 [facility] Comment on above: Performed By: #### L 300.8000, L100.0100, L500.2500, L503.7505 #### [facility] [address] [place], [address] MCV (RBC) [Entitic vol] 87.3 fL Normal 81-99 [facility] Comment on above: Performed By: #### L 300.8000, L100.0100, L500.2500, L503.7505 #### [facility] [address] [place], [address] Monocytes/100 WBC (Bld) 5.4 % Normal 0-10 [facility] Comment on above: Performed By: #### L 300.8000, L100.0100, L500.2500, L503.7505 #### [facility] [address] [place], [address] Neutrophils/100 WBC (Bld) 86.9 % High 47-70 [facility] Comment on above: Performed By: #### L 300.8000, L100.0100, L500.2500, L503.7505 #### [facility] [address] [place], [address] Nucleated RBC (Bld) [#/Vol] 0 10*3/uL Normal 0-5 [facility] Comment on above: Performed By: #### L 300.8000, L100.0100, L500.2500, L503.7505 #### [facility] [address] [place], [address] Platelet mean volume (Bld) [Entitic vol] 9.7 fL Normal 6.2-12.0 [facility] Comment on above: Performed By: #### L 300.8000, L100.0100, L500.2500, L503.7505 #### [facility] [address] [place], [address] Platelets (Bld) [#/Vol] 219 10*3/uL Normal 150-450 [facility] Comment on above: Performed By: #### L 300.8000, L100.0100, L500.2500, L503.7505 #### [facility] [address] [place], [address] RBC (Bld) [#/Vol] 4.65 10*6/uL Normal 4.2-5.4 [facility] Comment on above: Performed By: #### L 300.8000, L100.0100, L500.2500, L503.7505 #### [facility] [address] [place], [address] RDW SD 39.9 fl Normal 35.1-43.9 [facility] Comment on above: Performed By: #### L 300.8000, L100.0100, L500.2500, L503.7505 #### [facility] [address] [place], [address] WBC (Bld) [#/Vol] 7.8 10*3/uL Normal 4.4-11.0 [facility] Comment on above: Performed By: #### L 300.8000, L100.0100, L500.2500, L503.7505 #### [facility] [address] [place], [address] Carbon dioxide, total [Moles /volume] in Central venous bloodOrdered By: Keaton Driver on 07-09-2024 CO2 [Moles/Vol] 20.2 mmol/L Low 21.0-32.0 [facility] Chest PA and Lateralon 07-[address] [facility] Imaging Services [address] [place] [address] Chest PA and Lateral MR#: [id number] Acct: [id number] Name: CHAPARRITA FLOYD Rep #: [id number] : 2000 F 24 From: Anneliese Young PCP: Dr. Annette Frey MD Status: REG ER Study: Chest PA and Lateral Date of Exam: 07/09/24 Exam# [id number] Ordering Dr: Keaton Driver DO EXAM: Two-view chest x-ray study CLINICAL HISTORY: Shortness of breath COMPARISON: None TECHNIQUE: PA and lateral radiographs of the chest were performed. FINDINGS: PA and lateral radiographs of the chest were performed and demonstrate 1-2 mm nodules in both lungs which appear to represent probable summation artifact and/or granulomas. There is no atelectasis, consolidation, effusion or pneumonic infiltrate. Heart size and configuration are within normal limits. Pulmonary vasculature and hilar structures are unremarkable. Trachea is midline. Bony thorax is unremarkable. Cardiac leads overlie the chest. RAD/Chest PA and Lateral IMPRESSION: No acute cardiopulmonary process identified radiographically. Reading Location: [id number] CC: Dr. Keaton Driver DO; Dr. Annette Frey MD Transcription Specialist: Signed Normal [facility] Chloride assayOrdered By: Robin Driver on 07-09-2024 Chloride [Moles/Vol] 106 mmol/L 98-108 [facility] D-Dimer Quantitative (DVT/PE )on 07-09-2024 D-DIMER QUANT 0.44 FEU/ug/m Normal 0.27-0.49 [facility] Comment on above: Result Comment: NORM AL D-Dimer level (<0.50) indicates no DVT or PE. Performed By: #### L 300.8000, L100.0100, L500.2500, L503.7505 #### [facility] Laboratory [address] [place], [address] D-dimer measurement for deep venous thrombosisOrdered By: Keaton Driver on 07-09-2024 D-Dimer Quantitative (PE/DVT) 0.44 FEU/ug/m 0.27-0.49 [facility] Comment on above: NORMAL D-Dimer level (<0.50) indicates no DVT or PE. Emergency Department Summary on 07-09-2024 Emergency Department Summary [facility] Medical Records Department [address] [place] [address] Emergency Department Summary 07/09/24 MR#: [id number] Acct: [id number] Name: CHAPARRITA FLOYD Rep #: [id number] : 2000 24 From: Keaton Driver DO PCP: Dr. Annette Frey MD Status:DEP ER Location: ED HPI History of Present Illness Chief Complaint: Dizziness Narrative Narrative: Chief complaint and HPI: Lightheadedness and nausea. 24-year-old female who is who follows with Dr. Pickens with [employer] at presents for evaluation of lightheadedness and nausea. Patient states she is approximately 12 weeks via ultrasound. Patient states since she has had headache, nausea, and lightheadedness. She states that it is worsened over the past several days. Endorses body aches and mild shortness of breath. Denies cough. She denies any fever, chills, chest pain, abdominal pain, vomiting, diarrhea, constipation, dysuria. Denies any vaginal bleeding. She recently traveled to [place] over the weekend in which she was around sick contacts. States she has been eating and drinking well. Denies any bilateral lower extremity pain or swelling. Review of systems: See HPI Medications: As listed on the chart Allergies: As listed on the chart PFSH: Per chart Vital signs: As listed on the chart. Reviewed. Physical exam: Gen: A O x3, NAD Head: Normocephalic, atraumatic Eyes: No sclera icterus, conjunctiva clear, PERRL, EOMI ENT: Mildly dry mucous membranes Neck: Trachea midline, No JVD CV: Tachycardic, regular rhythm, no murmurs, no peripheral edema Resp: Lungs CTA BL, no w/r/c GI: Abd soft, non-distended, non-tender, no r/r/g Musc: Full ROM, no deformity Skin: Warm, dry Neuro: Alert, oriented, grossly intact, sensation intact Psych: Cooperative, appropriate mood and affect [facility] History (Updated 07/09/24 @ 23:[address] Keaton Driver, DO) Migraines Medical History no medical history Home Medications ???Medication ???Instructions ???Recorded ???Last Taken ???Type escitalopram oxalate 10 mg tablet 10 mg PO DAILY 03/01/24 Unknown H istory cephalexin 500 mg capsule 500 mg PO Q6H 7 days #28 caps 06/16 09/08 Unknown Rx cholecalciferol (vitamin D3) 50 2,000 unit PO QDAY 07/09/24 Unknow n History mcg (2,000 unit) capsule (Vitamin D3) multivitamin 1 tab PO DAILY 07/09/24 Unknown Hi story ondansetron 4 mg disintegrating 4 mg PO Q8H PRN PRN Nausea #10 tab s 07/09/24 Unknown Rx tablet vitamins with calcium tab 07/09/24 Unknown History no.72-iron 29 mg-folic acid 1 mg tablet ( Plus) Allergy/AdvReac Type Severity Reaction Status Date / Time No Known Allergies Allergy Verified 07/09/24 18:24 Family History no significant family his Surgical History no surgical history Social History Smoking Status: Never smoker EXAM Physical Exam Const Vital Signs: 07/09/24 18:20 07/09/24 20:00 07/09/24 22:00 Temperature 98.5 F 98.5 F Temperature Source Oral Oral Pulse Rate 133 H 106 H 119 H Respiratory Rate 18 18 18 Blood Pressure 126/73 H 134/64 H 110/69 Blood Pressure Mean 90 87 82 Pulse Ox 99 100 100 Oxygen Delivery Method Room Air Room Air Room Air 07/09/24 23:35 Temperature 98.5 F Temperature Source Pulse Rate 112 H Respiratory Rate 18 Blood Pressure 112/55 L Blood Pressure Mean 74 Pulse Ox 98 Oxygen Delivery Method MDM MDM MDM Narrative Medical decision making narrative: 24-year-old female who is who follows with Dr. Nelia with [employer] at presents for evaluation of lightheadedness and nausea. Associated symptom is headache and bodyaches. Patient has been around sick contacts. On presentation, patient is tachycardic into the 130s otherwise vitals stable. Differential diagnosis includes but is not limited to viral illness, electrolyte abnormality, dehydration, IBAN, UTI, pneumonia, suspect less likely PE or ACS however on the differential. NS bolus, Zofran, Tylenol ordered for symptoms. Patient not having any abdominal pain or vaginal bleeding therefore I do not think any OB ultrasound is needed at this time. heart tones 175. Laboratory workup ordered including chest x-ray. EKG and chest x-ray reviewed see below. CBC without leukocytosis or anemia. D-dimer unremarkable. BMP with mild dehydration. Patient receiving fluids. Mild hypokalemia of 3.2. P.o. potassium ordered. Troponin unremarkable. BNP unremarkable. UA positive for ketones which is consistent with mild dehydration. Negative for UTI but does have +1 bacteria. Patient is positive for COVID. This explains her symptoms. On reevaluation, patient's tachycardia has improv (more content not included)... Normal [facility] Eosinophil percentageOrdered By: [facility] on 07-09-2024 Eosinophils/100 WBC (Bld) 1.5 % 0-5 [facility] Epithelial cells.squamous LM Ql (Urine sed)Ordered By: Keaton Driver on 07-09-2024 Epithelial cells.squamous LM.HPF (Urine sed) [#/Area] 0 /[HPF] 5-10 [facility] Erythrocyte distribution wid th ratioOrdered By: Keatonkisha Driver on 07-09-2024 Erythrocyte distribution width (RBC) [Ratio] 12.5 % 11.6-14.6 [facility] Erythrocyte distribution wid th standard deviationOrdered By: [facility] Karissa on 07-09-2024 Erythrocyte distribution width (RBC) [Entitic vol] 39.9 fL 35.1-43.9 [facility] Estimation of creatinine lashanda aranceOrdered By: Keatonkisha Driver on 07-09-2024 Estimated Creatinine Clearance Calc 174.24 ml/min 50-250 [facility] GFR/1.73 sq M.predicted елена g non-blacks MDRD (S/P/Bld) [Vol rate/Area]Ordered By: Keaton Driver on 07-09-2024 Estimated GFR (MDRD) Non-Af Amer 126 >60 [facility] Comment on above: mL/min/1.73m2 CKD-EP I Creatinine Equation (2020) Glucose Ql (U)Ordered By: Robin Driver on 07-09-2024 Urine Glucose (UA) Normal mg/dl Normal [facility] Hematocrit Auto (Bld) [Volum e fraction]Ordered By: Keaton Driver on 07-09-2024 Hematocrit (Bld) [Volume fraction] 40.6 % 37-47 [facility] Hemoglobin measurementOrdere d By: Keaton Driver on 07-09-2024 Hemoglobin (Bld) [Mass/Vol] 13.9 g/dL 12.0-15.0 [facility] Immature granulocytes/100 WB C Auto (Bld)Ordered By: Keaton Driver on 07-09-2024 Immature granulocytes/100 WBC (Bld) 0.400 % 0.0-0.9 [facility] Comment on above: IG% - Immature Granu locytes (promyelocytes, myelocytes and metamyelocytes) > 1% indicates that a LEFT SHIFT is Present. Influenza virus A and B and SARS-CoV-2 (COVID-19) and Respiratory syncytial virus RNAOrdered By: Keaton Driver on 07-09-2024 SARS-CoV-2 (COVID-19) RNA LANETTE+probe Ql (Unsp spec) SARS-CoV-2 (COVID 19 PCR) Abnormal [facility] Ketones Test strip Ql (U)Ord ered By: Keaton Driver on 07-09-2024 Ketones Ql (U) 5 mg/dl High Negative [facility] L501.4021on 07-09-2024 Trop T High Sen < 6 Normal <=14 [facility] Comment on above: Performed By: #### L 501.402 ####[facility] [address] [place], [address] L503.7505on 07-09-2024 Natriuretic peptide B (Bld) [Mass/Vol] 109 pg/mL Normal <=450 [facility] Comment on above: Result Comment: Hear t Failure Unlikely: < 300 pg/mL Heart Failure Likely < 50 Years: > 450 pg/mL 50-75 Years: > 900 pg/mL >75 Years: > 1800 pg/mL Performed By: #### L 300.8000, L100.0100, L500.2500, L503.7505 #### [facility] Laboratory [address] [place], [place], [id number] Laboratory - Chemistry and C hemistry - challengeOrdered By: Keaton Driver on 07-09-2024 Natriuretic peptide B (Bld) [Mass/Vol] 109 pg/mL <450 [facility] Comment on above: Heart Failure Unlike ly: < 300 pg/mLHeart Failure Likely< 50 Years: > 450 pg/mL50-75 Years: > 900 pg/mL>75 Years: > 1800 pg/mL Lymphocytes Auto (Unsp spec) [#/Vol]Ordered By: Keaton Driver on 07-09-2024 Lymphocytes (Bld) [#/Vol] 0.43 10*3/uL Low 0.83-4.51 [facility] Lymphocytes/100 WBC Auto (Un sp spec)Ordered By: Keaton Driver on 07-09-2024 Lymphocytes/100 WBC (Bld) 5.5 % Low 19-41 [facility] M100.678on 07-09-2024 M100.678 Copy of report sent to Infection Control Printer [id number] 07/10/24 [facility] Pending SARS-CoV-2 (COVID 19) A Positive A INFLUENZA A Negative INFLUENZA B Negative RSV PCR Negative SARS-CoV-2 (COVID 19 PCR) Normal [facility] Comment on above: Performed By: #### L 400.0001, M100.678 ####[facility] [address] [place], [place], [id number] MCV (mean corpuscular volume ) determinationOrdered By: Keaton Driver on 07-09-2024 MCV (RBC) [Entitic vol] 87.3 fL 81-99 [facility] [place] Mean corpuscular hemoglobin (MCH) determinationOrdered By: Keaton Driver on 07-09-2024 MCH (RBC) [Entitic mass] 29.9 pg 27.0-32.0 [facility] Mean corpuscular hemoglobin concentration (MCHC) determinationOrdered By: Keaton Driver on 07-09-2024 MCHC (RBC) [Mass/Vol] 34.2 g/dL 32-36 [facility] Mean platelet volume determi nationOrdered By: Keaton Driver on 07-09-2024 Platelet mean volume (Bld) [Entitic vol] 9.7 fL 6.2-12.0 [facility] Microscopic analysis of urin e for red blood cells (RBC)Ordered By: Keaton Driver on 07-09-2024 Urine RBC 0 SEEN /hpf 0-5 [facility] Monocyte percentageOrdered B y: Keaton Driver on 07-09-2024 Monocytes/100 WBC (Bld) 5.4 % 0-10 [facility] [place] Mucus LM Ql (Urine sed)Order ed By: Keaton Driver on 07-09-2024 Mucus Ql (Urine sed) 0 SEEN /hpf [facility] Neutrophil percentageOrdered By: Keaton Driver on 07-09-2024 Neutrophils/100 WBC (Bld) 86.9 % High 47-70 [facility] Nitrite Test strip Ql (U)Ord ered By: Keaton Driver on 07-09-2024 Nitrite Ql (U) Negative Negative [facility] No Panel InformationOrdered By: Keaton Driver on 07-09-2024 Troponin T High Sensitivity < 6 ng/L <14 [facility] Nucleated red blood cell per centageOrdered By: Keaton Driver on 07-09-2024 Nucleated RBC/100 WBC (Bld) [Ratio] 0 % 0-5 [facility] Platelet countOrdered By: Robin Driver on 07-09-2024 Platelets (Bld) [#/Vol] 219 10*3/uL 150-450 [facility] Potassium (Unsp spec) [Mass/ Vol]Ordered By: Keaton Driver on 07-09-2024 Potassium [Moles/Vol] 3.2 mmol/L Low 3.3-5.1 [facility] Protein Test strip Ql (U)Ord ered By: Keaton Driver on 07-09-2024 Protein Ql (U) 15 mg/dl High Negative [facility] RBC Auto (Bld) [#/Vol]Ordere d By: Keaton Driver on 07-09-2024 RBC (Bld) [#/Vol] 4.65 10*6/uL 4.2-5.4 [facility] Serum creatinine measurement (mass/volume)Ordered By: Keaton Driver on 07-09-2024 Creatinine [Mass/Vol] 0.62 mg/dL Low 0.70-1.20 [facility] Serum glucose measurement (m ass/volume)Ordered By: Keaton Driver on 07-09-2024 Glucose [Mass/Vol] 125 mg/dL High 70-99 [facility] Serum or plasma calcium chetan urement (mass/volume)Ordered By: Keaton Hancock on 07-09-2024 Calcium [Mass/Vol] 9.2 mg/dL 7.6-11.0 [facility] Serum or plasma urea nitroge n measurement (mass/volume)Ordered By: Keaton Driver on 07-09-2024 Urea nitrogen [Mass/Vol] 7 mg/dL 4-19 [facility] Sodium levelOrdered By: Andrew Driver on 07-09-2024 Sodium [Moles/Vol] 137 mmol/L 133-145 [facility] Urinalysis, Completeon 07-09 BACTERIA 1+ /hpf Normal None Seen [facility] Comment on above: Order Comment: CLEAN CATCH Performed By: #### L 400.0001, M100.678 ####[facility] [address] [place], [address] EPI,SQUAMOUS 0-5 SEEN Normal 5-10 [facility] Comment on above: Order Comment: CLEAN CATCH Performed By: #### L 400.0001, M100.678 ####[facility] [address] [place], [address] RBC 0 SEEN Normal 0-5 [facility] Comment on above: Order Comment: CLEAN CATCH Performed By: #### L 400.0001, M100.678 ####[facility] [address] [place], [address] WBC 0-5 SEEN Normal 0-5 [facility] Comment on above: Order Comment: CLEAN CATCH Performed By: #### L 400.0001, M100.678 ####[facility] [address] [place], [address] Mucus Ql (Urine sed) 0 SEEN Normal [facility] Comment on above: Order Comment: CLEAN CATCH Performed By: #### L 400.0001, M100.678 ####[facility] [address] [place], [address] Urine blood detectionOrdered By: Keaton Driver on 07-09-2024 Urine Occult Blood 25 /ul High Negative [facility] Urine clarityOrdered By: Juaquin Driver on 07-09-2024 Clarity (U) Clear Clear [facility] Urine color determinationOrd ered By: Keaton Driver on 07-09-2024 Color (U) Yellow Yellow [facility] Urine leukocyte esterase det ection by dipstickOrdered By: Keaton Driver on 07-09-2024 Leukocyte esterase Test strip Ql (U) 25 /ul High Negative [facility] Urine pHOrdered By: Keaton Queen on 07-09-2024 pH (U) 6.0 [pH] 5.0 - 8.0 [facility] Urine sediment bacteria coun t by microscopy (number/high power field)Ordered By: Keaton Driver on 07-09-2024 Bacteria LM.HPF (Urine sed) [#/Area] 1 /[HPF] None Seen [facility] Urine specific gravity measu rementOrdered By: Keaton [facility] centerasiaKarissa on 07-09-2024 Specific gravity (U) [Rel density] 1.020 1.002-1.030 [facility] Urobilinogen Ql (U)Ordered B y: Keaton Driver on 07-09-2024 Urine Urobilinogen Normal mg/dl Normal [facility] White blood cell (WBC) count Ordered By: Keaton Driver on 07-09-2024 WBC (Bld) [#/Vol] 7.8 10*3/uL 4.4-11.0 [facility] White blood cell countOrdere d By: Keaton Driver on 07-09-2024 Urine WBC 0-5 SEEN /hpf 0-5 [facility] HEMOGLOBIN A1c WITH eAGon eAG (mmol/L) 5.0 mmol/L Normal [facility] Comment on above: Performed By: #### 8 472, 39203, 802, 60643, 498 #### [facility] [address], [address] [place] [address] [employer] Distributor: Andres Samson MD #### [id number] #### [facility]/[address] [place] [id number] [facility] [place] [address] [employer] Distributor: Silvestre Escalona M.D.,PhD HEMOGLOBIN A1c 4.8 % of total Hgb Normal <5.7 [facility] Comment on above: Result Comment: For the purpose of screening for the presence of diabetes: <5.7% Consistent with the absence of diabetes 5.7-6.4% Consistent with increased risk for diabetes (prediabetes) > or =6.5% Consistent with diabetes This assay result is consistent with a decreased risk of diabetes. Currently, no consensus exists regarding use of hemoglobin A1c for diagnosis of diabetes in children. According to [place] Diabetes Association (ADA) guidelines, hemoglobin A1c <7.0% represents optimal control in non- diabetic patients. Different metrics may apply to specific patient populations. Standards of Medical Care in Diabetes(ADA). Performed By: #### 8 472, 19262, 802, 42601, 498 #### [facility] [address], [address] [place] [address] [employer] Distributor: Andres Samson MD #### [id number] #### [facility]/[place] [id number] [facility] [place], [place] [employer] Distributor: Silvestre Escalona M.D.,PhD Magnesium [Mass/Vol] 91 mg/dL Normal [facility] Comment on above: Performed By: #### 8 472, 62548, 802, 32207, 498 #### [facility] [address], [address] [place] [address] [employer] Distributor: Andres Samson MD #### [id number] #### [facility]/[address] [place], [place] [employer] Distributor: Silvestre Escalona M.D.,PhD HEPATITIS B SURFACE ANTIGEN W/REFL CONFIRMon 06-27-2024 HEPATITIS B SURFACE ANTIGEN Non-Reactive Normal NON-REACTIVE [facility] Comment on above: Result Comment: For additional information, please refer to http://education.[employer]faq/DOU223 (This link is being provided for informational/ educational purposes only.) Performed By: #### 8 472, 07554, 802, 27422, 498 #### [facility] [address], [address] [place] [address] [employer] Distributor: Andres Samson MD #### [id number] #### [facility]/[place] [id number] [facility] [place], [place] [employer] Distributor: Silvestre Escalona M.D.,PhD HEPATITIS C AB W/REFL TO HCV RNA, QN, PCRon 06-27-2024 HEPATITIS C ANTIBODY Non-Reactive Normal NON-REACTIVE [facility] Comment on above: Result Comment: HCV antibody was non-reactive. There is no laboratory evidence of HCV infection. In most cases, no further action is required. However, if recent HCV exposure is suspected, a test for HCV RNA (test code 08431) is suggested. For additional information please refer to http://[employer]/faq/IDT44e0 (This link is being provided for informational/ educational purposes only.) Performed By: #### 8 472, 34678, 802, 22419, 498 #### [facility] [address], [address] [place] [address] [employer] Distributor: Andres Samson MD #### [id number] #### [facility]/[address] [facility] [address] [facility] [place] [address] [employer] Distributor: Silvestre Escalona M.D.,PhD HIV 1/2 ANTIGEN/ANTIBODY,[facility] GENERATION W/RFLon 06-27-2024 HIV AG/AB, 4TH GEN Non-Reactive Normal NON-REACTIVE [facility] Comment on above: Order Comment: FASTI NG:NO FASTING: NO Result Comment: HIV- 1 antigen and HIV-1/HIV-2 antibodies were not detected. There is no laboratory evidence of HIV infection. PLEASE NOTE: This information has been disclosed to you from records whose confidentiality may be protected by state law. If your state requires such protection, then the state law prohibits you from making any further disclosure of the information without the specific written consent of the person to whom it pertains, or as otherwise permitted by law. A general authorization for the release of medical or other information is NOT sufficient for this purpose. For additional information please refer to http://[employer]/faq/TIY050 (This link is being provided for informational/ educational purposes only.) The performance of this assay has not been clinically validated in patients less than 2 years old. Performed By: #### 8 472, 69227, 802, 32093, 498 #### [facility] [address], [address] [place] [address] [employer] Dist[employer]: Andres Samson MD #### [id number] #### [facility]/[place] [id number] [facility] [address] [place] [employer] Distributor: Silvestre Escalona M.D.,PhD RUBELLA AB (IGG), IMMUNE STA [facility] 06-27-2024 RUBELLA AB (IGG), IMMUNE STATUS 6.07 Index Normal [facility] Comment on above: Result Comment: Inde x Interpretation ----- <0.90 Not consistent with immunity 0.90-0.99 Equivocal > or = 1.00 Consistent with immunity The presence of rubella IgG antibody suggests immunization or past or current infection with rubella virus. Performed By: #### 8 472, 61844, 802, 65467, 498 #### [facility] [address], [address] [place] [address] [employer] Distributor: Andres Samson MD #### [id number] #### [facility]/[place] [id number] [facility] [address] [place], [place] [employer] Distributor: Silvestre Escalona M.D.,PhD [facility] T. PALLIDUM AB Negative Normal Negative [facility] Comment on above: Result Comment: No antibodies to T. pallidum (the agent causing syphilis) were detected in the specimen. This result, however, does not exclude very recent T. pallidum infection; testing of a second specimen, collected 2-4 weeks after this specimen, is recommended if the index of suspicion for recent infection is high. Performed By: #### 8 472, 28630, 802, 13037, 498 #### [facility] [address], [address] [place] [address] [employer] Distributor: Andres Samson MD #### [id number] #### [facility] [address] [facility] [address] [place] [employer] Distributor: Silvestre Escalona M.D.,PhD CHLAMYDIA/N. GONORRHOEAE RNA , TMA, UROGENITALon 06-26-2024 CHLAMYDIA TRACHOMATIS RNA, TMA, UROGENITAL Not detected Normal NOT DETECTED [facility] Comment on above: Performed By: #### 1 1363, 395 #### [facility] [address], [address] [place] [address] [employer] Distributor: Andres Samson MD COMMENT Normal [facility] Comment on above: Result Comment: The analytical performance characteristics of this assay, when used to test SurePath(TM) specimens have been determined by [employer]. The modifications have not been cleared or approved by the FDA. This assay has been validated pursuant to the CLIA regulations and is used for clinical purposes. For additional information, please refer to https://education.[employer]/faq/ASB632 (This link is being provided for information/ educational purposes only.) Performed By: #### 1 1363, 395 #### [facility] [address], [address] [place] [address] [employer] Distributor: Andres Samson MD NEISSERIA GONORRHOEAE RNA, TMA, UROGENITAL Not detected Normal NOT DETECTED [facility] Comment on above: Performed By: #### 1 1363, 395 #### [facility] [address], [address] [place] [address] [employer] Distributor: Andres Samson MD CULTURE, URINE, ROUTINEon Bacteria identified Cx Nom (U) SEE NOTE Normal [facility] Comment on above: Result Comment: CULTURE, URINE, ROUTINE Micro Number: [id number] Test Status: Final Specimen Source: Clean catch/voided Specimen Quality: Adequate Result: Mixed genital clari isolated. These superficial bacteria are not indicative of a urinary tract infection. No further organism identification is warranted on this specimen. If clinically indicated, recollect clean-catch, mid-stream urine and transfer immediately to Urine Culture Transport Tube. Performed By: #### 1 1363, 395 #### [facility] [address], [address] [place] [address] [employer] Dist[employer]: Andres Samson MD CBC panel Auto (Bld)on 06-24 Erythrocyte distribution width (RBC) [Ratio] 12.1 % Normal 11.5-14.5 [facility] Comment on above: Performed By: #### 5 8410-2 #### JUSTIN LAMBERT ([id number]) [facility] ([facility]) [address] [place] [address] Hematocrit (Bld) [Volume fraction] 42.8 % Normal 36.0-46.0 [facility] Comment on above: Performed By: #### 5 8410-2 #### JUSTIN LAMBERT ([id number]) [facility] ([facility]) [address] [place] [address] Hemoglobin (Bld) [Mass/Vol] 14.7 g/dL Normal 12.0-16.0 [facility] Comment on above: Performed By: #### 5 8410-2 #### JUSTIN LAMBERT ([id number]) [facility] ([facility]) [address] [place] [address] MCH (RBC) [Entitic mass] 29.7 pg Normal 26.0-34.0 [facility] Comment on above: Performed By: #### 5 8410-2 #### JUSTIN LAMBERT ([id number]) [facility] ([facility]) [address] [place] [address] MCHC (RBC) [Mass/Vol] 34.3 g/dL Normal 32.0-36.0 [facility] Comment on above: Performed By: #### 5 8410-2 #### JUSTIN LAMBERT ([id number]) [facility] ([facility]) [address] [place] [address] MCV (RBC) [Entitic vol] 87 fL Normal 80-100 U [facility] Comment on above: Performed By: #### 5 8410-2 #### JUSTIN LAMBERT ([id number]) [facility] ([facility]) [address] [place] [address] Nucleated RBC/100 WBC (Bld) [Ratio] 0.0 /100 WBCs Normal 0.0-0.0 [facility] Comment on above: Performed By: #### 5 8410-2 #### JUSTIN LAMBERT ([id number]) [facility] ([facility]) [facility] [place] [address] Platelets (Bld) [#/Vol] 269 x10*3/uL Normal 150-450 [facility] Comment on above: Performed By: #### 5 8410-2 #### JUSTIN LAMBERT ([id number]) [facility] ([facility]) [address] [place] [address] RBC (Bld) [#/Vol] 4.95 x10*6/uL Normal 4.00-5.20 [facility] Comment on above: Performed By: #### 5 8410-2 #### JUSTIN LAMBERT ([id number]) [facility] ([facility]) [address] [place] [address] WBC (Bld) [#/Vol] 10.2 x10*3/uL Normal 4.4-11.3 [facility] Comment on above: Performed By: #### 5 8410-2 #### JUSTIN LAMBERT ([id number]) [facility] ([facility]) [address] [place] [address] Cervicalon 06-24-2024 Cytology Cervical or vaginal smear or scraping study Pathology report.total SEE COMMENT Gynecologic Cytology Case: [id number] Authorizing Provider: Estelita Pickens MD Collected: 06/24/2024 1155 Ordering Location: [facility] Received: 06/24/2024 1155 First Screen: RAYO Gary Rescreen: RAYO Peralta Specimen: ThinPrep Liquid-Based Pap-Imaging System Screen, CERVIX, SCREENING Cytology study comment SEE COMMENT A. THINPREP PAP CERVIX, SCREENING - Specimen Adequacy Satisfactory for evaluation; endocervical/transfo rmation zone component is present Quality Indicator: Partially obscuring inflammation General Categorization Negative for intraepithelial lesion or malignancy. Descriptive Interpretation Negative for intraepithelial lesion or malignancy Specimen does not meet the requisition-stated criteria for HPV testing. See Pap test interpretation above. Laboratory comment SEE COMMENT Slide(s) initially screened by RAYO Gary at [address] [address] QC review performed by RAYO Peralta at [facility] [facility] [address] By the signature on this report, the individual or group listed as making the Final Interpretation/Diagn osis certifies that they have reviewed this case. This specimen has been analyzed by the RebelMousePrep Imaging System ([employer] an automated imaging and review system, which assists the laboratory in evaluating cells on ThinPrep Pap tests. Following automated imaging, selected camara from every slide were reviewed by a order taker and/or pathologist. Cervical cytology is a screening procedure primarily for squamous cancers and precursors and has associated false-negative and false-positives results as evidenced by published data. Your patient's test should be interpreted in this context, together with the patient's history and clinical findings. Regular sampling and follow-up of unexplained clinical signs and symptoms are recommended to minimize false negative results. LAB AP HPV HR Reflex if ASCUS only LAB AP HPV GENOTYPE QUESTION Yes Date last menstrual period 04/09/2024 Menstrual History [facility] MYRIAD PREQUEL SCRE ENon 06-24-2024 COMMENTS - MP RESULT TYPE Report has been scanned to the patient's chart. [facility] Comment on above: Performed By: #### L [id number] #### [employer] ([id number]) [address] [place] [address] SCAN RESULT See Scanned Result [facility] Comment on above: Performed By: #### L [id number] #### [employer] ([id number]) [address] [place] [address] REFLEX ADDED, ANEMIA PANELon 06-24-2024 REFLEX ADDED, ANEMIA PANEL No reflex. [facility] Comment on above: Performed By: #### A PRFX #### BINA Lopez ([id number]) [facility] ([facility]) [address] Pelvis transvaginalon CRL 6 mm [facility] Work Phone: Comment on above: -Intrauterine pregna ncy at 6 weeks 3 days gestation which is consistent with LMP. EDC January 14, 2025. Live intrauterine at 6 weeks 3 days which is consistent with LMP. EDC January 14, 2025. [facility] Work Phone: [facility] Work Phone: Radiology Study observation (narrative) [facility] Work Phone: HCG ( test) Ql (U)o n 05-09-2024 Interpretation and review of laboratory results Abnormal [facility] Work Phone: Preg Test, Ur Positive Abnormal Negative [facility] Work Phone: [facility] Work Phone: Urine Cultureon 03-02-2024 [facility] Culture exhibits no growth. Normal [facility] Comment on above: Performed By: #### L 300.8000, L100.0100, L500.2500, L503.7505 #### [facility] [address] [place], [address] [id number] 03-01-2024 ABO and Rh group Nom (Bld) Blood group A Rh(D) positive Normal [facility] Comment on above: Performed By: #### B 882-1, L700.8000, L100.0100 #### [facility] [address] [place], [address] CBC W/Diff, Automatedon 02-15 Absolute Lymph 1.67 X10 3/uL Normal 0.83-4.51 [facility] Comment on above: Performed By: #### B 882-1, L700.8000, L100.0100 #### [facility] [address] [place], [address] Absolute Neut 6.5 X10 3/uL Normal 2.0-7.7 [facility] Comment on above: Performed By: #### B 882-1, L700.8000, L100.0100 #### [facility] [address] [place], [address] Basophils/100 WBC (Bld) 0.2 % Normal 0-1 [facility] Comment on above: Performed By: #### Za 882-1, L700.8000, L100.0100 #### [facility] [address] [place], [address] Eosinophils/100 WBC (Bld) 2.3 % Normal 0-5 [facility] Comment on above: Performed By: #### Za 882-1, L700.8000, L100.0100 #### [facility] [address] [place], [address] Erythrocyte distribution width (RBC) [Ratio] 12.2 % Normal 11.6-14.6 [facility] Comment on above: Performed By: #### Za 882-1, L700.8000, L100.0100 #### [facility] [address] [place], [address] Hematocrit (Bld) [Volume fraction] 42.5 % Normal 37-47 [facility] Comment on above: Performed By: #### Za 882-1, L700.8000, L100.0100 #### [facility] [address] [place], [address] Hemoglobin (Bld) [Mass/Vol] 14.7 g/dL Normal 12.0-15.0 [facility] Comment on above: Performed By: #### Za 882-1, L700.8000, L100.0100 #### [facility] [address] [place], [address] IG% 0.300 Normal 0.0-0.9 [facility] Comment on above: Result Comment: IG% - Immature Granulocytes (promyelocytes, myelocytes and metamyelocytes) > 1% indicates that a LEFT SHIFT is Present. Performed By: #### Za 882-1, L700.8000, L100.0100 #### [facility] [address] [place], [address] Lymphocytes/100 WBC (Bld) 18.4 % Low 19-41 [facility] Comment on above: Performed By: #### Za 882-1, L700.8000, L100.0100 #### [facility] [address] [place], [address] MCH (RBC) [Entitic mass] 30.5 pg Normal 27.0-32.0 [facility] Comment on above: Performed By: #### Za 882-1, L700.8000, L100.0100 #### [facility] [address] [place], [address] MCHC (RBC) [Mass/Vol] 34.6 g/dL Normal 32-36 [facility] Comment on above: Performed By: ###Tiffany Mendenhall 882-1, L700.8000, L100.0100 #### [facility] [address] [place], [address] MCV (RBC) [Entitic vol] 88.2 fL Normal 81-99 [facility] Comment on above: Performed By: #### Za 882-1, L700.8000, L100.0100 #### [facility] [address] [place], [address] Monocytes/100 WBC (Bld) 7.6 % Normal 0-10 [facility] Comment on above: Performed By: #### Za 882-1, L700.8000, L100.0100 #### [facility] [address] [place], [address] Neutrophils/100 WBC (Bld) 71.2 % High 47-70 [facility] Comment on above: Performed By: #### Za 882-1, L700.8000, L100.0100 #### [facility] [address] [place], [address] Nucleated RBC (Bld) [#/Vol] 0 10*3/uL Normal 0-5 [facility] Comment on above: Performed By: #### Za 882-1, L700.8000, L100.0100 #### [facility] [address] [place], [address] Platelet mean volume (Bld) [Entitic vol] 9.6 fL Normal 6.2-12.0 [facility] Comment on above: Performed By: #### Za 882-1, L700.8000, L100.0100 #### [facility] [address] [place], [address] Platelets (Bld) [#/Vol] 272 10*3/uL Normal 150-450 [facility] Comment on above: Performed By: ###Tiffany Mendenhall 882-1, L700.8000, L100.0100 #### [facility] [address] [place], [address] RBC (Bld) [#/Vol] 4.82 10*6/uL Normal 4.2-5.4 [facility] Comment on above: Performed By: #### Za 882-1, L700.8000, L100.0100 #### [facility] [address] [place], [address] RDW SD 39.3 fl Normal 35.1-43.9 [facility] Comment on above: Performed By: #### Za 882-1, L700.8000, L100.0100 #### [facility] [address] [place], [address] WBC (Bld) [#/Vol] 9.1 10*3/uL Normal 4.4-11.0 [facility] Comment on above: Performed By: ###Tiffany Mendenhall 882-1, L700.8000, L100.0100 #### [facility] [address] [place], [address] Emergency Department Summary on 03-01-2024 Emergency Department Summary [facility] Medical Records Department [address] [place] [address] Emergency Department Summary 03/01/24 MR#: [id number] Acct: [id number] Name: CHAPARRITA FLOYD Rep #: [id number] : 2000 23 From: Rebeca Warren DO PCP: Dr. Annette Frey MD Status:REG ER Location: ED HPI HPI - Female History of Present Illness Chief Complaint: Vag Bld, Preg Informant: patient Narrative Narrative: Patient is a 23-year-old female G1, P0 with new presenting with vaginal bleeding. She states she is about 6 weeks went to an urgent care who confirmed her . She thought her last was Jones beginning of January but per her jewel on her phone the last menstrual period recorded was December 22. Yesterday she had some spotting that developed but today has been more persistent and worse. She denies any passage of tissue or clots. She notes she last had intercourse 2 nights ago. She is scheduled to see someone at the [facility] [place] to establish care for the on February 27 when she called them today they told her to come to the ER since he is not established yet. Denies any associated pain or cramping. Most of her blood type. No other complaints or concerns reported at this time. PFSH PFSH Medical History no medical history Home Medications ???Medication ???Instructions ???Recorded ???Last Taken ???Type escitalopram oxalate 10 mg tablet 10 mg PO DAILY 03/01/24 Unknown History Allergy/AdvReac Type Severity Reaction Status Date / Time No Known Allergies Allergy Verified 03/01/24 10:00 Surgical History no surgical history Social History Smoking Status: Never smoker ROS ROS ED Constitutional Constitutional ED: Denies chills or fever(s) Gastrointestinal Gastrointestinal: Denies nausea or vomiting Genitourinary Genitourinary ED: Reports other Details: Vaginal bleeding, early ; Denies dysuria or hematuria Integumentary Denies rash Neurologic Neurologic: Denies weakness Psychiatric Psychiatric: Denies anxiety Hematologic/Lymphati c Hematologic/Lymphati c: Denies easy bleeding or easy bruising EXAM Physical Exam Const Vital Signs: 03/01/24 09:57 03/01/24 11:56 Temperature 97.1 F L Temperature Source Temporal Pulse Rate 109 H Respiratory Rate 16 16 Blood Pressure 133/91 H 120/82 H Blood Pressure Mean 105 94 Pulse Ox 100 Oxygen Delivery Method Room Air Positive well nourished and well developed General Appearance ED: well developed and NAD; Negative for pallor HEENT Reports moist mucous membranes Neck supple Chest Wall inspection of chest normal and palpation of chest normal Resp normal respiratory effort and clear to auscultation bilaterally Cardio regular rate and regular rhythm GI normal to inspection, nondistended, normoactive bowel sounds, soft to palpation and non-tender Extremity normal to inspection Neuro oriented x3 Sensorium / Orientation: alert Motor Exam: Negative for general weakness Psych mental status grossly normal Skin no rashes or lesions noted General Skin Exam: Negative for pallor MDM MDM MDM Narrative Medical decision making narrative: Patient is valuate for vaginal bleeding in early . Differential includes threatened miscarriage, active miscarriage, urinary tract infection and ectopic . Will obtain basic labs including CBC, type and screen for concern of ABO incompatibility and quant. Also obtain urinalysis. Bedside ultrasound for myself does not show free fluid or findings distant with intrauterine . Will obtain a formal pelvic ultrasound. Patient remains well-appearing emergency room. CBC is normal with a normal hemoglobin. Urinalysis most consistent of menstrual contamination. She is a positive. Her quant is only 6 and given she previously had a positive urine test at urgent care I am concerned that she is having a miscarriage. In addition her ultrasound showed no intrauterine or other acute abnormalities. No free fluid was noted. Patient counseled that while it is technically possible that this could be very early I am much more concerned and think more probable that she is either having a miscarriage or had a chemical . Will follow-up with her STRAIGHT RULING MACHINE OPERATOR for repeat quant. I did speak with Dr. Daniels, STRAIGHT RULING MACHINE OPERATOR on-call who is agreeable with this plan. She has been strict the patient to call the office today to schedule repeat quant for Monday. Patient is given return precautions including severe abdominal pain or bleeding more than a pad an hour for 2 hours in a row. Patient verbalized given understands plan. Discharged home in stable condition. Lab Data Labs: Lab (more content not included)... Normal [facility] ,Urineon 03-01-2024 Beta HCG ( test) Ql (U) Negative Normal [facility] Comment on above: Order Comment: 004CLEAN CATCH Result Comment: Very dilute urine specimens, as indicated by a low specific gravity, may not contain field representatives director levels of hCG. If is still suspected, a first morning urine specimen should be collected 48 hours later and tested. Performed By: #### L 400.0001, L400.7600 ####[facility] [id number] [facility] [place], [address] Transvaginal w/Preg USon Transvaginal w/Preg US [facility] [address] [place], [place] [address] Transvaginal w/Preg US MR#: [id number] Acct: [id number] Name: CHAPARRITA FLOYD Rep #: [id number] : 2000 F 23 From: Cailin Stanton MD PCP: Dr. Annette Frey MD Status: REG ER Study: Transvaginal w/Preg US Date of Exam: 03/01/24 Exam# [id number] Ordering Dr: Rebeca Warren DO [id number] INDICATION: vaginal bleeding early EXAMINATION: Ultrasound US OB Transvaginal TECHNIQUE: Transvaginal (for optimal evaluation of the adnexa) pelvic ultrasound was performed. Grayscale, spectral waveform, and color flow Doppler evaluation of the adnexa. COMPARISON: No relevant prior comparison study available ____ FINDINGS: UTERUS: 8.0 x 4.2 x 3.8 cm. No intrauterine is visualized. The endometrial stripe measures 6.2 mm and is echogenic. There are nabothian cysts present. RIGHT OVARY: The right kidney measures 2.4 x 2.1 x 3.9 cm. There is a simple 1.7 x 1.5 x 1.9 cm paraovarian cyst. Doppler flow is within normal limits. LEFT OVARY: 2.2 x 1.5 x 2.6 cm. No Doppler flow is visualized although the left ovary has a normal appearance. FREE FLUID: None. US/Transvaginal w/Preg US IMPRESSION: No intrauterine identified. Electronically Signed: Cailin Stanton MD at 11:28 EST , CC: Dr. Rebeca Warren DO; Dr. Annette Frey MD Transcription Specialist: Signed Normal [facility] Urinalysis, Completeon 03-01 BACTERIA 1+ /hpf Normal None Seen [facility] Comment on above: Order Comment: CLEAN CATCH Performed By: #### L 400.0001, L400.7600 #### [facility] [address] [place], [address] EPI,SQUAMOUS 5-10 SEEN Normal 5-10 [facility] Comment on above: Order Comment: CLEAN CATCH Performed By: #### L 400.0001, L400.7600 #### [facility] [address] [place], [address] RBC 50-100 SEEN Normal 0-5 [facility] Comment on above: Order Comment: CLEAN CATCH Performed By: #### L 400.0001, L400.7600 #### [facility] [address] [place], [address] WBC 0-5 SEEN Normal 0-5 [facility] Comment on above: Order Comment: CLEAN CATCH Performed By: #### L 400.0001, L400.7600 #### [facility] [address] [place], [address] BILIRUBIN URINE Negative Normal Negative [facility] Comment on above: Order Comment: CLEAN CATCH Performed By: #### L 400.0001, L400.7600 #### [facility] [address] [place], [address] Clarity (U) Clear Normal Clear [facility] Comment on above: Order Comment: CLEAN CATCH Performed By: #### L 400.0001, L400.7600 #### [facility] [address] [place], [address] Color (U) Straw Normal Yellow [facility] Comment on above: Order Comment: CLEAN CATCH Performed By: #### L 400.0001, L400.7600 #### [facility] [address] [place], [address] GLUCOSE, UR Normal Normal Normal [facility] Comment on above: Order Comment: CLEAN CATCH Performed By: #### L 400.0001, L400.7600 #### [facility] [address] [place], [address] KETONE UR Negative Normal Negative [facility] Comment on above: Order Comment: CLEAN CATCH Performed By: #### L 400.0001, L400.7600 #### [facility] [address] [place], [address] LEUK ESTERASE 25 /ul Abnormal Negative [facility] Comment on above: Order Comment: CLEAN CATCH Performed By: #### L 400.0001, L400.7600 #### [facility] [address] [place], [address] Nitrite Ql (U) Negative Normal Negative [facility] Comment on above: Order Comment: CLEAN CATCH Performed By: #### L 400.0001, L400.7600 #### [facility] [address] [place], [address] OCCULT BLOOD-UR 250 /ul Abnormal Negative [facility] Comment on above: Order Comment: CLEAN CATCH Performed By: #### L 400.0001, L400.7600 #### [facility] [address] [place], [address] pH UR 7.0 Normal 5.0 - 8.0 [facility] Comment on above: Order Comment: CLEAN CATCH Performed By: #### L 400.0001, L400.7600 #### [facility] [address] [place], [address] PROT DIPSTX 30 mg/dl Abnormal Negative [facility] Comment on above: Order Comment: CLEAN CATCH Performed By: #### L 400.0001, L400.7600 #### [facility] [address] [place], [address] SP.GR. DIPSTX 1.005 Normal 1.002-1.030 [facility] Comment on above: Order Comment: CLEAN CATCH Performed By: #### L 400.0001, L400.7600 #### [facility] [address] [place], [address] UROBILI Normal Normal Normal [facility] Comment on above: Order Comment: CLEAN CATCH Performed By: #### L 400.0001, L400.7600 #### [facility] [address] [place], [address] Mucus Ql (Urine sed) 0 SEEN Normal [facility] Comment on above: Order Comment: CLEAN CATCH Performed By: #### L 400.0001, L400.7600 #### [facility] [address] [place], [address] hCG Titer Quant., Serumon HCG QUANT. 6 mIU/mL High 1-3 [facility] Comment on above: Performed By: #### B 882-1, L700.8000, L100.0100 #### [facility] [address] [place], [address] CBC W Auto Differential pane l (Bld)on 02-15-2023 Basophils (Bld) [#/Vol] 0.02 x10*3/uL Normal 0.00-0.10 [facility] [place] [facility] Comment on above: Performed By: #### 5 7021-8 #### JUSTIN LAMBERT ([id number]) [facility] ([facility]) [address] [place] [address] Basophils/100 WBC (Bld) 0.4 % Normal 0.0-2.0 [facility] Comment on above: Performed By: #### 5 7021-8 #### JUSTIN LAMBERT ([id number]) [facility] ([facility]) [address] [place] [address] Eosinophils (Bld) [#/Vol] 0.17 x10*3/uL Normal 0.00-0.70 [facility] Comment on above: Performed By: #### 5 7021-8 #### JUSTIN LAMBERT ([id number]) [facility] ([facility]) [address] [place] [address] Eosinophils/100 WBC (Bld) 3.3 % Normal 0.0-6.0 [facility] [place] [facility] Comment on above: Performed By: #### 5 7021-8 #### JUSTIN LAMBERT ([id number]) [facility] ([facility]) [address] [place] [address] Erythrocyte distribution width (RBC) [Ratio] 12.3 % Normal 11.5-14.5 [facility] Comment on above: Performed By: #### 5 7021-8 #### JUSTIN LAMBERT ([id number]) [facility] ([facility]) [address] [place] [address] Hematocrit (Bld) [Volume fraction] 45.7 % Normal 36.0-46.0 [facility] Comment on above: Performed By: #### 5 7021-8 #### JUSTIN LAMBERT ([id number]) [facility] ([facility]) [address] [place] [address] Hemoglobin (Bld) [Mass/Vol] 15.3 g/dL Normal 12.0-16.0 [facility] Comment on above: Performed By: #### 5 7021-8 #### JUSTIN LAMBERT ([id number]) [facility] ([facility]) [address] [place] [address] Immature granulocytes (Bld) [#/Vol] 0.01 x10*3/uL Normal 0.00-0.70 [facility] Comment on above: Performed By: #### 5 7021-8 #### JUSTIN LAMBERT ([id number]) [facility] ([facility]) [address] [place] [address] Immature granulocytes/100 WBC (Bld) 0.2 % Normal 0.0-0.9 [facility] Comment on above: Result Comment: Gabi ture Granulocyte Count (IG) includes promyelocytes, myelocytes and metamyelocytes but does not include bands. Percent differential counts (%) should be interpreted in the context of the absolute cell counts (cells/UL). Performed By: #### 5 7021-8 #### JUSTIN LAMBERT ([id number]) [facility] ([facility]) [address] [place] [address] Lymphocytes (Bld) [#/Vol] 1.63 x10*3/uL Normal 1.20-4.80 [facility] Comment on above: Performed By: #### 5 7021-8 #### JUSTIN LAMBERT ([id number]) [facility] ([facility]) [address] [place] [address] Lymphocytes/100 WBC (Bld) 31.3 % Normal 13.0-44.0 [facility] Comment on above: Performed By: #### 5 7021-8 #### JUSTIN LAMBERT ([id number]) [facility] ([facility]) [address] [place] [address] MCH (RBC) [Entitic mass] 30.2 pg Normal 26.0-34.0 [facility] Comment on above: Performed By: #### 5 7021-8 #### JUSTIN LAMBERT ([id number]) [facility] ([facility]) [address] [place] [address] MCHC (RBC) [Mass/Vol] 33.5 g/dL Normal 32.0-36.0 [facility] Comment on above: Performed By: #### 5 7021-8 #### JUSTIN LAMBERT ([id number]) [facility] ([facility]) [address] [place] [address] MCV (RBC) [Entitic vol] 90 fL Normal 80-100 [facility] Comment on above: Performed By: #### 5 7021-8 #### JUSTIN LAMBERT ([id number]) [facility] ([facility]) [address] [place] [address] Monocytes (Bld) [#/Vol] 0.34 x10*3/uL Normal 0.10-1.00 [facility] Comment on above: Performed By: #### 5 7021-8 #### JUSTIN LAMBERT ([id number]) [facility] ([facility]) [address] [place] [address] Monocytes/100 WBC (Bld) 6.5 % Normal 2.0-10.0 [facility] Comment on above: Performed By: #### 5 7021-8 #### JUSTIN LAMBERT ([id number]) [facility] ([facility]) [address] [place] [address] Neutrophils (Bld) [#/Vol] 3.03 x10*3/uL Normal 1.20-7.70 [facility] Comment on above: Result Comment: Perc ent differential counts (%) should be interpreted in the context of the absolute cell counts (cells/uL). Performed By: #### 5 7021-8 #### JUSTIN LAMBERT ([id number]) [facility] ([facility]) [address] [place] [address] Neutrophils/100 WBC (Bld) 58.3 % Normal 40.0-80.0 [facility] Comment on above: Performed By: #### 5 7021-8 #### JUSTIN LAMBERT ([id number]) [facility] ([facility]) [address] [place] [address] Nucleated RBC/100 WBC (Bld) [Ratio] 0.0 /100 WBCs Normal 0.0-0.0 [facility] Comment on above: Performed By: #### 5 7021-8 #### JUSTIN LAMBERT ([id number]) [facility] ([facility]) [address] [place] [address] Platelet mean volume (Bld) [Entitic vol] 9.7 fL Normal 7.5-11.5 [facility] Comment on above: Performed By: #### 5 7021-8 #### JUSTIN LAMBERT ([id number]) [facility] ([facility]) [address] [place] [address] Platelets (Bld) [#/Vol] 270 x10*3/uL Normal 150-450 [facility] Comment on above: Performed By: #### 5 7021-8 #### JUSTIN LAMBERT ([id number]) [facility] ([facility]) [address] [place] [address] RBC (Bld) [#/Vol] 5.06 x10*6/uL Normal 4.00-5.20 [facility] Comment on above: Performed By: #### 5 7021-8 #### JUSTIN LAMBERT ([id number]) [facility] ([facility]) [address] [place] [address] WBC (Bld) [#/Vol] 5.2 x10*3/uL Normal 4.4-11.3 [facility] Comment on above: Performed By: #### 5 7021-8 #### JUSTIN LAMBERT ([id number]) [facility] ([facility]) [address] [place] [address] Calcidiolon 02-15-2023 25-hydroxyvitamin D3 [Mass/Vol] 62 ng/mL Normal 30-100 [facility] Comment on above: Order Comment: Defic iency: < 20 ng/ml Insufficiency: 20-29 ng/ml Sufficiency: 30-100 ng/ml This assay accurately quantifies the sum of Vitamin D3, 25-Hydroxy and Vitamin D2,25-Hydroxy. Performed By: #### 1 989-3 #### JUSTIN LAMBERT ([id number]) [facility] ([facility]) [address] [place] [address] Cobalaminson 02-15-2023 Cobalamin (Vitamin B12) [Mass/Vol] 358 pg/mL Normal 211-911 [facility] Comment on above: Performed By: #### 2 132-9 #### JUSTIN LAMBERT ([id number]) [facility] ([facility]) [address] [place] [address] Comprehensive metabolic 2000 panelon 02-15-2023 Albumin BCP dye [Mass/Vol] 4.6 g/dL Normal 3.4-5.0 [facility] Comment on above: Performed By: #### 2 4323-8 #### JUSTIN LAMBERT ([id number]) [facility] ([facility]) [address] [place] [address] ALP [Catalytic activity/Vol] 57 U/L Normal 33-110 [facility] Comment on above: Performed By: #### 2 4323-8 #### JUSTIN LAMBERT ([id number]) [facility] ([facility]) [address] [place] [address] ALT With P-5'-P [Catalytic activity/Vol] 14 U/L Normal 7-45 [facility] Comment on above: Result Comment: Judy ents treated with Sulfasalazine may generate falsely decreased results for ALT. Performed By: #### 2 4323-8 #### JUSTIN LAMBERT ([id number]) [facility] ([facility]) [address] [place] [address] Anion gap [Moles/Vol] 11 mmol/L Normal 10-20 [facility] Comment on above: Performed By: #### 2 4323-8 #### JUSTIN LAMBERT ([id number]) [facility] ([facility]) [address] [place] [address] AST With P-5'-P [Catalytic activity/Vol] 13 U/L Normal 9-39 [facility] Comment on above: Performed By: #### 2 4323-8 #### JUSTIN LAMBERT ([id number]) [facility] ([facility]) [address] [place] [address] Bilirubin [Mass/Vol] 0.9 mg/dL Normal 0.0-1.2 [facility] Comment on above: Performed By: #### 2 4323-8 #### JUSTIN LAMBERT ([id number]) [facility] ([facility]) [address] [place] [address] Calcium [Mass/Vol] 9.6 mg/dL Normal 8.6-10.3 [facility] Comment on above: Performed By: #### 2 4323-8 #### JUSTIN LAMBERT ([id number]) [facility] ([facility]) [address] [place] [address] Chloride [Moles/Vol] 110 mmol/L High 98-107 [facility] Comment on above: Performed By: #### 2 4323-8 #### JUSTIN LAMBERT ([id number]) [facility] ([facility]) [address] [place] [address] CO2 [Moles/Vol] 24 mmol/L Normal 21-32 [facility] Comment on above: Performed By: #### 2 4323-8 #### JUSTIN LAMBERT ([id number]) [facility] ([facility]) [facility] [place] [address] Creatinine [Mass/Vol] 0.87 mg/dL Normal 0.50-1.05 [facility] Comment on above: Performed By: #### 2 4323-8 #### JUSTIN LAMBETR ([id number]) [facility] ([facility]) [address] [place] [address] GFR/1.73 sq M.predicted MDRD (S/P/Bld) [Vol rate/Area] mL/min/{1.73_m2} Normal >60 [facility] Comment on above: Result Comment: Calc ulations of estimated GFR are performed using the 2020 CKD-EPI Study Refit equation without the race variable for the IDMS-Traceable creatinine methods. https://jasn.asnjournals.org/content/early//ASN.012 9819048 Performed By: #### 2 4323-8 #### JUSTIN LAMBERT ([id number]) [facility] ([facility]) [address] [place] [address] Glucose [Mass/Vol] 81 mg/dL Normal 74-99 [facility] Comment on above: Performed By: #### 2 4323-8 #### JUSTIN LAMBERT ([id number]) [facility] ([facility]) [address] [place] [address] Potassium [Moles/Vol] 3.9 mmol/L Normal 3.5-5.3 [facility] Comment on above: Performed By: #### 2 4323-8 #### JUSTIN LAMBERT ([id number]) [facility] ([facility]) [address] [place] [address] Protein [Mass/Vol] 7.0 g/dL Normal 6.4-8.2 [facility] Comment on above: Performed By: #### 2 4323-8 #### JUSTIN LAMBERT ([id number]) [facility] ([facility]) [address] [place] [address] Sodium [Moles/Vol] 141 mmol/L Normal 136-145 [facility] Comment on above: Performed By: #### 2 4323-8 #### JUSTIN LAMBERT ([id number]) [facility] ([facility]) [address] [place] [address] Urea nitrogen [Mass/Vol] 14 mg/dL Normal 6-23 [facility] Comment on above: Performed By: #### 2 4323-8 #### JUSTIN LAMBERT ([id number]) [facility] ([facility]) [address] [place] [address] TSH WITH REFLEX TO FREE T4 I F ABNORMALon 02-15-2023 TSH Qn 1.75 m[IU]/L Normal 0.44-3.98 [facility] Comment on above: Order Comment: TSH t esting is performed using different testing methodology at [facility] than at [facility]. Direct result comparisons should only be made within the same method. Performed By: #### T HYDS #### ANDERSON FAUSTO ([id number]) [facility] ([facility]) [address] [place] [address] Provider Note - ED v3on 10-16 Provider Note - ED v3 Provider Note: Results/Vital Signs: Pediatric Clinical Scoring (ANEL) is no recent ANEL charted on this account Chart Review: ED NOTES ED NOTES: Chief complaint: Dental issue History of chief complaint: Patient presents to the emergency department to have a tooth evaluated. Yesterday she had a root canal performed and today she looked over the affected area and I saw white spots. She states that the dentist that performed her procedure is not in the office on Fridays. Presents now to the ER for further evaluation. Other than localized pain there are no other reported symptoms Allergies: Reviewed Home medications: Reviewed Medical history: Reviewed Surgical history: Reviewed Family history: Reviewed Social history: Reviewed Review of systems: I have reviewed constitutional HEENT cardiovascular pulmonary gastrointestinal genitourinary dermatologic psychiatric musculoskeletal neurologic and except where mentioned above all other systems are noted to be unremarkable. Nursing notes have been reviewed Physical examination: General appearance: Patient is sitting up in bed and appears well. Not toxic in appearance HEENT: Normocephalic and atraumatic. Tooth #31 to the lower right dentition shows a central filling that is white in color. There is no fluctuant dental abscess. Posterior oropharynx is clear and patent. No facial edema. Neck: Trachea is midline. No palpable adenopathy Musculoskeletal: No gross bony deformity identified Neurologic: Moving all 4 extremities independently Dermatologic: No jaundice or pallor Psychiatric: Awake, alert, and oriented Medical decision making: It appears that the white area the patient is visualizing is the feeling itself. Based on the history and physical exam findings I feel pain control and follow-up with her dentist would be appropriate Assessment: Dental pain Plan: Prescription for NSAIDs. Recommended avoiding foods of extreme heat or extreme cold. Follow-up with her established dentist. Return if worse HISTORY OF PRESENTING ILLNESS CHAPARRITA is a 22 year old Female and was seen by me at 11-Nov-2022 16:15 for a chief complaint of other (Pt had a recent dental procedure and now c/o white bumps on her gums.)(1). Triage Information: Most recent Vital Sign Value Date Temp (F): 98 11-11-2022 16:00 Temp (C): 36.6 11-11-2022 16:00 Heart Rate (beats/min): 98 11-11-2022 16:00 Respirations (breaths/min): 18 11-11-2022 16:00 SpO2 (%): 99 11-11-2022 16:00 BP Systolic (mm Hg): 118 11-11-2022 16:00 BP Diastolic (mm Hg): 81 11-11-2022 16:00 PAST MEDICAL HISTORY ALLERGIES/INTOLERANC ES: No Known Allergies HEALTH HISTORY: No documented data. OUTPATIENT MEDICATIONS: Home Medications Review Status for Reconciliation: N/A Med Status: Patient Currently Takes Medications Drug Name: cyclobenzaprine 10 mg oral tablet Instructions: 1 tab(s) orally every 8 hours, As Needed Drug Name: naproxen 500 mg oral tablet Instructions: 1 tab(s) orally 2 times a day (with meals) SIGNIFICANT EVENTS: Past Medical History Description:Chronic Migraines DISPOSITION Diagnosis/Annotation : ED Dx Name:Pain, dental Code:K08.89 Disposition: discharged Type: home CONSULT CRITICAL CARE TIME Is this a critically ill patient: no Electronic Signatures: Jeffery Rose () (Signed 11-Nov-2022 16:43) Entered: ED Notes, HPI, PMH, Results/Vital Signs, Clinical Impression, Attestation, Chart Review Authored: ED Notes, HPI, PMH, Results/Vital Signs, Clinical Impression, Attestation, Chart Review, Scores Last Updated: 11-Nov-2022 16:43 by Jeffery Rose () References: 1. Data Referenced From Triage - ED 11-Nov-2022 16:00 Normal [facility] CBC AND DIFFERENTIALon 08-17 % AUTOMATED IMMATURE GRAN 0.4 % Normal 0.0 - 0.9 [facility] Comment on above: Result Comment: Gabi ture Granulocyte Count (IG) includes promyelocytes, myelocytes and metamyelocytes but does not include bands. Percent differential counts (%) should be interpreted in the context of the absolute cell counts (cells/L). Performed By: #### C BCDF #### [facility] [address] [place] [address] Basophils (Bld) [#/Vol] 0.03 10*3/uL Normal 0.00 - 0.1 0 [facility] Comment on above: Performed By: #### C BCDF #### [address] [address] Basophils/100 WBC (Bld) 0.4 % Normal 0.0 - 2.0 [facility] Comment on above: Performed By: #### C BCDF #### [address] [address] Eosinophils (Bld) [#/Vol] 0.15 10*3/uL Normal 0.00 - 0.70 [facility] Comment on above: Performed By: #### C BCDF #### [address] [address] Eosinophils/100 WBC (Bld) 2.0 % Normal 0.0 - 6.0 [facility] Comment on above: Performed By: #### C BCDF #### [address] [address] Erythrocyte distribution width (RBC) [Ratio] 12.5 % Normal 11.5 - 14.5 [facility] Comment on above: Performed By: #### C BCDF #### [address] [address] Hematocrit (Bld) [Volume fraction] 45.1 % Normal 36.0 - 46.0 [facility] Comment on above: Performed By: #### C BCDF #### [address] [address] Hemoglobin (Bld) [Mass/Vol] 14.8 g/dL Normal 12.0 - 16.0 [facility] Comment on above: Performed By: #### C BCDF #### [address] [address] Lymphocytes (Bld) [#/Vol] 1.71 10*3/uL Normal 1.20 - 4.80 [facility] Comment on above: Performed By: #### C BCDF #### [address] [address] Lymphocytes/100 WBC (Bld) 22.6 % Normal 13.0 - 44.0 [facility] Comment on above: Performed By: #### C BCDF #### [address] [address] MCHC (RBC) [Mass/Vol] 32.8 g/dL Normal 32.0 - 36.0 [facility] Comment on above: Performed By: #### C BCDF #### [address] [address] MCV (RBC) [Entitic vol] 90 fL Normal 80 - 100 [facility] Comment on above: Performed By: #### C BCDF #### [address] [address] Monocytes (Bld) [#/Vol] 0.43 10*3/uL Normal 0.10 - 1.0 0 [facility] Comment on above: Performed By: #### C BCDF #### [address] [address] Monocytes/100 WBC (Bld) 5.7 % Normal 2.0 - 10.0 [facility] Comment on above: Performed By: #### C BCDF #### [address] [address] Neutrophils (Bld) [#/Vol] 5.22 10*3/uL Normal 1.20 - 7.70 [facility] Comment on above: Result Comment: Perc ent differential counts (%) should be interpreted in the context of the absolute cell counts (cells/L). Performed By: #### C BCDF #### [address] [address] Neutrophils/100 WBC (Bld) 68.9 % Normal 40.0 - 80.0 [facility] Comment on above: Performed By: #### C BCDF #### [address] [address] Platelets (Bld) [#/Vol] 278 10*3/uL Normal 150 - 450 [facility] Comment on above: Performed By: #### C BCDF #### [place] [address] RBC 5.01 x10E12/L Normal 4.00 - 5.20 [facility] Comment on above: Performed By: #### C BCDF #### [place] [address] WBC (Bld) [#/Vol] 7.6 10*3/uL Normal 4.4 - 11.3 [facility] Comment on above: Performed By: #### C BCDF #### [place] [address] Lab Specimen Source Normal [facility] Comment on above: Performed By: #### C BCDF #### [place] [address] Performed By: #### V TDOH #### [place] [address] Performed By: #### T HYDS #### [place] [address] Performed By: #### L IPID #### [place] [address] Performed By: #### V TB12 #### [place] [address] Performed By: #### C MP #### [place] [address] Performed By: #### M G #### [place] [address] COMPREHENSIVE PANELon 2022 Albumin [Mass/Vol] 4.4 g/dL Normal 3.4 - 5.0 [facility] Comment on above: Performed By: #### C MP #### [place] [address] ALP [Catalytic activity/Vol] 59 U/L Normal 33 - 110 [facility] Comment on above: Performed By: #### C MP #### [place] [address] ALT [Catalytic activity/Vol] 11 U/L Normal 7 - 45 [facility] Comment on above: Result Comment: Judy ents treated with Sulfasalazine may generate falsely decreased results for ALT. Performed By: #### C MP #### [address] [address] Anion gap [Moles/Vol] 11 mmol/L Normal 10 - 20 [facility] Comment on above: Performed By: #### C MP #### [address] [address] AST [Catalytic activity/Vol] 13 U/L Normal 9 - 39 [facility] Comment on above: Performed By: #### C MP #### [address] [address] Bilirubin [Mass/Vol] 0.9 mg/dL Normal 0.0 - 1.2 [facility] Comment on above: Performed By: #### C MP #### [address] [address] Calcium [Mass/Vol] 9.1 mg/dL Normal 8.6 - 10.3 [facility] Comment on above: Performed By: #### C MP #### [address] [address] Chloride [Moles/Vol] 111 mmol/L High 98 - 107 [facility] Comment on above: Performed By: #### C MP #### [address] [address] Creatinine [Mass/Vol] 0.89 mg/dL Normal 0.50 - 1.05 [facility] Comment on above: Performed By: #### C MP #### [address] [address] eGFR FEMALE >90 Normal >90 [facility] Comment on above: Result Comment: CALC ULATIONS OF ESTIMATED GFR ARE PERFORMED USING THE 2020 CKD-EPI STUDY REFIT EQUATION WITHOUT THE RACE VARIABLE FOR THE IDMS-TRACEABLE CREATININE METHODS. https://jasn.asnjournals.org/content/early/ASN.427 8535561 Performed By: #### C MP #### [address] [address] Glucose [Mass/Vol] 76 mg/dL Normal 74 - 99 [facility] Comment on above: Performed By: #### C MP #### [address] [address] HCO3 (Bld) [Moles/Vol] 21 mmol/L Normal 21 - 32 [facility] Comment on above: Performed By: #### C MP #### [address] [address] Potassium [Moles/Vol] 4.3 mmol/L Normal 3.5 - 5.3 [facility] Comment on above: Performed By: #### C MP #### [address] [address] Protein [Mass/Vol] 7.2 g/dL Normal 6.4 - 8.2 [facility] Comment on above: Performed By: #### C MP #### [address] [address] Sodium [Moles/Vol] 139 mmol/L Normal 136 - 145 [facility] Comment on above: Performed By: #### C MP #### [address] [address] Urea nitrogen [Mass/Vol] 15 mg/dL Normal 6 - 23 [facility] Comment on above: Performed By: #### C MP #### [address] [address] LIPID PANEL (CORONARY RISK 2 )on 08-17-2022 Cholesterol [Mass/Vol] 194 mg/dL Normal 0 - 199 [facility] Comment on above: Result Comment: . AGE DESIRABLE BORDERLINE HIGH HIGH 0-19 Y 0 - 169 170 - 199 >/= 200 20-24 Y 0 - 189 190 - 224 >/= 225 >24 Y 0 - 199 200 - 239 >/= 240 All ranges are based on fasting samples. Specific therapeutic targets will vary based on patient-specific cardiac risk. . Pediatric guidelines reference:Pediatrics 2011, 128(S5). Adult guidelines reference: NCEP ATPIII Guidelines, AMBER 2001, 258:2486-97 . Venipuncture immediately after or during the administration of Metamizole may lead to falsely low results. Testing should be performed immediately prior to Metamizole dosing. Performed By: #### L IPID #### [address] [address] Cholesterol in HDL [Mass/Vol] 74.0 mg/dL Normal [facility] Comment on above: Result Comment: . AGE VERY LOW LOW NORMAL HIGH 0-19 Y < 35 < 40 40-45 ---- 20-24 Y ---- < 40 >45 ---- >24 Y ---- < 40 40-60 >60 . Performed By: #### L IPID #### [address] [address] Cholesterol in LDL [Mass/Vol] 98 mg/dL Normal 0 - 119 [facility] Comment on above: Result Comment: . NEAR BORD AGE DESIRABLE OPTIMAL HIGH HIGH VERY HIGH 0-19 Y 0 - 109 --- 110-129 >/= 130 ---- 20-24 Y 0 - 119 --- 120-159 >/= 160 ---- >24 Y 0 - 99 100-129 130-159 160-189 >/=190 . Performed By: #### L IPID #### [address] [address] Cholesterol in VLDL [Mass/Vol] 22 mg/dL Normal 0 - 40 [facility] Comment on above: Performed By: #### L IPID #### [address] [address] Cholesterol.total/Choles terol in HDL [Mass ratio] 2.6 {ratio} Normal [facility] Comment on above: Result Comment: REF VALUES DESIRABLE < 3.4 HIGH RISK > 5.0 Performed By: #### L IPID #### [address] [address] Triglyceride [Mass/Vol] 110 mg/dL Normal 0 - 149 [facility] Comment on above: Result Comment: . AGE DESIRABLE BORDERLINE HIGH HIGH VERY HIGH 0 D-90 D 19 - 174 ----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 with history. A/P: Chaparrita Floyd is a 19 year old female who presents with the following: Encounter Diagnosis ICD-10-CM 1. Myalgia M79.10 TRIGGER POINT INJECTION MULTI 3+ MUSCLE GRP bupivacaine 7.5 mg injection (SENSORCAINE) PRE-CERT ORDER (AG) 2. Cervical spondylosis without myelopathy M47.812 3. Injury of right brachial plexus, subsequent encounter S14.3XXD 4. Other chronic pain G89.29 CONSULTS: - physician directed HEP handout provided to patient IMAGING/TESTING: - cervical XR imaging and results reviewed with patient, negative MEDICATIONS: - nabumetone 500mg BID prn. Potential adverse effects including but not limited to bleeding, ulcers, increased risk of hypertension, heart disease, kidney disease and stroke were discussed with the patient who understands and agrees to take the medication. Medication is allowing pt to be more mobile and do ADL's. Will continue to monitor patient and attempt to wean as soon as possible. Will use the lowest dosage possible for the shortest possible period of time. - flexeril 10mg TID prn muscle spasms. Patient instructed to not drive or operate heavy machinery while taking medications. - gabapentin 300mg TID for neuropathic pain. Patient instructed to not drive or operate heavy machinery while taking medications. - TCAs deferred 2/2 weight gain - OTC tylenol, salonpas patches, and aspercreme ointment PROCEDURES: - recommend trigger point injections to treat myofascial component of pain, to be done today, please see procedure note. Patient with multiple areas of taut, palpable bands with areas of referred pain. TPI would be done as complement to comprehensive pain therapy - consider cervical MBB in future Nohemy Purvis MD 05/17/2020 11:12 PM Signed HPI Chaparrita Floyd is a 19 year old female who presents with myalgia, here for TPI Review of Systems REVIEW OF SYTEMS: Systemic Symptoms: Negative except as noted. Head Symptoms: Negative except as noted. Pulmonary Symptoms: Negative except as noted. Other ROS: Negative except as noted. Cardiovascular Symptoms: Negative except as noted. Gastrointestinal Symptoms: Negative except as noted. Genitourinary Symptoms: Negative except as noted. Neurological Symptoms: Negative except as noted. Endocrine Symptoms: Negative except as noted. Hematologic Symptoms: No History of Easy Bleeding. No History of Bruising. Musculoskeletal Symptoms: Negative except as noted. Skin Symptoms: Negative except as noted. Psychiatric Symptoms: Not feeling depressed. Not thinking about suicide. 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 - Myofascial pain syndrome, cervical 03/27/2019 - Obesity, Class II, BMI 35-39.9 03/27/2019 - Situational anxiety 02/26/2018 PAST SURGICAL HISTORY Procedure Laterality Date - NONE Family History Problem Relation Age of Onset - Thyroid Mother - Hypertension Mother - Lipids Mother cholesterol, anemia - other (Other) Mother fibromyalgia - other (chronic iron deficiency anemia) Mother - Coronary Artery Disease Father 51 - Hypertension Father - Cataract Maternal Grandmother - Heart Maternal Grandfather - Heart Paternal Grandfather - Diabetes Paternal Grandfather - No Known Problems Brother Social History Tobacco Use - Smoking status: Never Smoker - Smokeless tobacco: Never Used Substance Use Topics - Alcohol use: Not Currently Comment: occ. - Drug use: Never Current Outpatient Medications Medication Sig Dispense Refill - Norethin Yrn-Eth Estrad-FE (MICROGESTIN FE 05/06) 1 mg-20 mcg (21)/75 mg (7) per tablet Take 1 tablet by mouth once daily. 3 Package 4 - Ciclopirox (LOPROX) 8 % solution Apply topically to the affected toenails nightly. Remove built up layers weekly. - Ciclopirox (LOPROX) 0.77 % gel Apply between the toes and to the soles of the feet twice daily. - Cholecalciferol, Vitamin D3, (VITAMIN D-3) 2,000 unit cap Take 1 capsule by mouth once daily. - ondansetron orally disintegrating (ZOFRAN ODT) 8 mg disintegrating tablet - terbinafine HCl (LAMISIL) 250 mg tablet Take 250 mg by mouth once daily. - gabapentin (NEURONTIN) 300 mg capsule Take 1 capsule by mouth as directed for 30 days. Titration schedule: take 1 capsule at bedtime x1 week, then BID x1 week, then TID. Patient instructed to not drive or operate heavy machinery while taking medications. 90 capsule 1 No current facility-administere d medications for this visit. Objective Constitutional: Normal Good Appearance Oriented to Time, Place and Person Skin: Normal Examination of The Skin Eyes: Normal Examination of The Eyes Anicteric, EOMI ENT: Normal Lung Exam: Non-labored respirations Cardiovascular Exam: Normal Heart Rate and Rhythm Abdominal Exam: Normal Examination of the Abdomen Neuro: CN grossly intact Psych: Mood appropriate for given condition Assessment and Plan I had a nice discussion with the patient today about their current pain and the pathology that could be causing it. We discussed different treatment options. Our plan will be TPI. Encounter Diagnosis ICD-10-CM 1. Myalgia M79.10 TRIGGER POINT INJECTION MULTI 3+ MUSCLE GRP bupivacaine 7.5 mg injection (SENSORCAINE) PRE-CERT ORDER (AG) 2. Cervical spondylosis without myelopathy M47.812 3. Injury of right brachial plexus, subsequent encounter S14.3XXD 4. Other chronic pain G89.29 PROCEDURE: Trigger Point Injection: Consent was obtained. Risk and benefits were explained. Questions were encouraged and answered. Patient wishes to proceed. Trigger Point (3) Pt's left trapezius, cervical paraspianl, left levator scapula were prepped using sterile technique. A 1.5 inch 25 gauge needle was used to multiple areas of muscle spasm (3) using dry needle technique. 3 ml of bupivicaine 0.25% was used. All points elicited local twitch responses which softened after the injection. Indication for Procedure: myalgia Post Procedure: The patient tolerated the treatment well. Timeout was performed to verify patient name, , allergies and procedure being performed at 1018 Patient is aware of potential risks and benefits of this procedure. Patient wishes to proceed. Procedure start time: 1019 Procedure end time: 1023 Referring Provider: BILLY MOORE [[id number]] Allergies As of Date: 05/14/2020 (No Known Allergies) Date Reviewed: 05/14/2020 Reviewed by: Nohemy Purvis - Fully Assessed Reason for Visit: Trigger Point Injection [1062] Primary Visit Diagnosis:Myalgia [M79.10] Other Visit Diagnoses:Cervical spondylosis without myelopathy [M47.812] Injury of right brachial plexus, subsequent encounter [S14.3XXD] Other chronic pain [G89.29] Order(s):TRIGGER POINT INJECTION MULTI 3+ MUSCLE GRP [[id number]] Order #: [id number] bupivacaine 7.5 mg injection (SENSORCAINE)Disp: Rfl: PRE-CERT ORDER (AG) [[id number]] Order #: [id number]: 1 Prescriptions as of 05/14/2020 Sig: NORETHINDRONE 1 MG-ETHINYL ES* Take 1 tablet by mouth once d* CICLOPIROX 8 % TOPICAL SOLUTI* Apply topically to the affect* CICLOPIROX 0.77 % TOPICAL GEL Apply between the toes and to* CHOLECALCIFEROL (VITAMIN D3) * Take 1 capsule by mouth once * ONDANSETRON 8 MG DISINTEGRATI* TERBINAFINE HCL 250 MG TABLET Take 250 mg by mouth once catracho* GABAPENTIN 300 MG CAPSULE Take 1 capsule by mouth as di* Problem List As Of Date 05/14/2020 Noted Resolved Keratosis pilaris [L85.8] 11/04/2011 02/27/2020 Blurred vision, bilateral [H53.8] 02/19/2016 02/27/2020 Photophobia of both eyes [H53.143] 02/19/2016 02/27/2020 Mixed migraine and muscle contraction headache *02/19/2016 Myofascial pain syndrome, cervical [M79.18] 03/27/2019 Weight gain [R63.5] 03/27/2019 02/27/2020 Obesity, Class II, BMI 35-39.9 [E66.9] 03/27/2019 Brachial plexus injury, right [S14.3XXA] 11/30/2019 Prescriptions ordered this encounter Disp Refills Start End BUPIVACAINE 0.25 % (2.5 MG/ML) INJEC* 05/14/2020 Route: OTHER Encounter Status:Closed by NOHEMY PURVIS on 05/17/20 [facility] PROCEDUREon 05-14-2020 PROCEDURE HNO ID: [id number] Author: Nohemy Purvis Service: ? Author Type: Physician Type: Procedures Filed: 05/17/2020 11:12 PM Note Text: RASHEEDA Floyd is a 19 year old female who presents with myalgia, here for TPI Review of Systems REVIEW OF SYTEMS: Systemic Symptoms: Negative except as noted. Head Symptoms: Negative except as noted. Pulmonary Symptoms: Negative except as noted. Other ROS: Negative except as noted. Cardiovascular Symptoms: Negative except as noted. Gastrointestinal Symptoms: Negative except as noted. Genitourinary Symptoms: Negative except as noted. Neurological Symptoms: Negative except as noted. Endocrine Symptoms: Negative except as noted. Hematologic Symptoms: No History of Easy Bleeding. No History of Bruising. Musculoskeletal Symptoms: Negative except as noted. Skin Symptoms: Negative except as noted. Psychiatric Symptoms: Not feeling depressed. Not thinking about suicide. 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 - Myofascial pain syndrome, cervical 03/27/2019 - Obesity, Class II, BMI 35-39.9 03/27/2019 - Situational anxiety 02/26/2018 PAST SURGICAL HISTORY Procedure Laterality Date - NONE Family History Problem Relation Age of Onset - Thyroid Mother - Hypertension Mother - Lipids Mother cholesterol, anemia - other (Other) Mother fibromyalgia - other (chronic iron deficiency anemia) Mother - Coronary Artery Disease Father 51 - Hypertension Father - Cataract Maternal Grandmother - Heart Maternal Grandfather - Heart Paternal Grandfather - Diabetes Paternal Grandfather - No Known Problems Brother Social History Tobacco Use - Smoking status: Never Smoker - Smokeless tobacco: Never Used Substance Use Topics - Alcohol use: Not Currently Comment: occ. - Drug use: Never Current Outpatient Medications Medication Sig Dispense Refill - Norethin Yrn-Eth Estrad-FE (MICROGESTIN FE 05/06) 1 mg-20 mcg (21)/75 mg (7) per tablet Take 1 tablet by mouth once daily. 3 Package 4 - Ciclopirox (LOPROX) 8 % solution Apply topically to the affected toenails nightly. Remove built up layers weekly. - Ciclopirox (LOPROX) 0.77 % gel Apply between the toes and to the soles of the feet twice daily. - Cholecalciferol, Vitamin D3, (VITAMIN D-3) 2,000 unit cap Take 1 capsule by mouth once daily. - ondansetron orally disintegrating (ZOFRAN ODT) 8 mg disintegrating tablet - terbinafine HCl (LAMISIL) 250 mg tablet Take 250 mg by mouth once daily. - gabapentin (NEURONTIN) 300 mg capsule Take 1 capsule by mouth as directed for 30 days. Titration schedule: take 1 capsule at bedtime x1 week, then BID x1 week, then TID. Patient instructed to not drive or operate heavy machinery while taking medications. 90 capsule 1 No current facility-administere d medications for this visit. Objective Constitutional: Normal Good Appearance Oriented to Time, Place and Person Skin: Normal Examination of The Skin Eyes: Normal Examination of The Eyes Anicteric, EOMI ENT: Normal Lung Exam: Non-labored respirations Cardiovascular Exam: Normal Heart Rate and Rhythm Abdominal Exam: Normal Examination of the Abdomen Neuro: CN grossly intact Psych: Mood appropriate for given condition Assessment and Plan I had a nice discussion with the patient today about their current pain and the pathology that could be causing it. We discussed different treatment options. Our plan will be TPI. Encounter Diagnosis ICD-10-CM 1. Myalgia M79.10 TRIGGER POINT INJECTION MULTI 3+ MUSCLE GRP bupivacaine 7.5 mg injection (SENSORCAINE) PRE-CERT ORDER (AG) 2. Cervical spondylosis without myelopathy M47.812 3. Injury of right brachial plexus, subsequent encounter S14.3XXD 4. Other chronic pain G89.29 PROCEDURE: Trigger Point Injection: Consent was obtained. Risk and benefits were explained. Questions were encouraged and answered. Patient wishes to proceed. Trigger Point (3) Pt's left trapezius, cervical paraspianl, left levator scapula were prepped using sterile technique. A 1.5 inch 25 gauge needle was used to multiple areas of muscle spasm (3) using dry needle technique. 3 ml of bupivicaine 0.25% was used. All points elicited local twitch responses which softened after the injection. Indication for Procedure: myalgia Post Procedure: The patient tolerated the treatment well. Timeout was performed to verify patient name, , allergies and procedure being performed at 1018 Patient is aware of potential risks and benefits of this procedure. Patient wishes to proceed. Procedure start time: 1019 Procedure end time: 1023 Normal [facility] PROGRESSon 05-14-2020 PROGRESS HNO ID: [id number] Author: Nohemy Purvis Service: ? Author Type: Physician Type: Progress Notes Filed: 05/17/2020 11:12 PM Note Text: [facility] [place] Interval Evaluation Form CHIEF COMPLAINT: LBP Neck pain Interval HPI May 14, 2020 Patient returns for follow-up regarding the above complaints, here to review imaging results and discuss next steps. Patient states that she has been doing the physician directed home exercise program since her initial visit, this provides her with temporary relief. She has been working with [employer] regarding her right hand/wrist. Pain otherwise remains at baseline, described as a spasm, weak, tender, cramps, achy sensation rated as 8/10. Patient also here for TPI's, which she hopes will provide some relief for the tightness in her neck. HPI April 09, 2020: Chaparrita Floyd is a 19 year old female presenting to the office for evaluation and treatment of neck and LBP, primarily neck pain; ongoing for x4 years but especially worse over the past few months. Patient states she currently x4m ago with right shoulder subluxation; right arm is in splint. 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 Pain currently 7/10 PAIN DETAIL: Location: neck pain Radiation: none Onset: >4 years Timing of Pain: frequently Pain Quality: aching, tender, stiff Alleviating: rest Exacerbating: activity, movement Prior therapies: flexeril, PT (worked while doing it, Nov 2019) ADDITIONAL SYMPTOMS: No changes in urinary habits. No changes in bowel movement frequency. Able to restrain bowel movement. 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 - Drug use: Never Social History Social History Narrative Lives with mom, dad and brother - Ryan . Pets - dogs and birds. No smokers. - Illicits: denies - EtOH: denies FAMILY HISTORY: FAMILY HISTORY Problem Relation Age of Onset - Thyroid Mother - Hypertension Mother - Lipids Mother cholesterol, anemia - other (Other) Mother fibromyalgia - other (chronic iron deficiency anemia) Mother - Coronary Artery Disease Father 51 - Hypertension Father - Cataract Maternal Grandmother - Heart Maternal Grandfather - Heart Paternal Grandfather - Diabetes Paternal Grandfather - No Known Problems Brother Reviewed, no history of chronic pain in parents, and is non-contributory MEDICATIONS: Current Outpatient Medications Medication Sig Dispense Refill - Norethin Yrn-Eth Estrad-FE (MICROGESTIN FE 05/06) 1 mg-20 mcg (21)/75 mg (7) per tablet Take 1 tablet by mouth once daily. 3 Package 4 - Ciclopirox (LOPROX) 8 % solution Apply topically to the affected toenails nightly. Remove built up layers weekly. - Ciclopirox (LOPROX) 0.77 % gel Apply between the toes and to the soles of the feet twice daily. - Cholecalciferol, Vitamin D3, (VITAMIN D-3) 2,000 unit cap Take 1 capsule by mouth once daily. - ondansetron orally disintegrating (ZOFRAN ODT) 8 mg disintegrating tablet - terbinafine HCl (LAMISIL) 250 mg tablet Take 250 mg by mouth once daily. - gabapentin (NEURONTIN) 300 mg capsule Take 1 capsule by mouth as directed for 30 days. Titration schedule: take 1 capsule at bedtime x1 week, then BID x1 week, then TID. Patient instructed to not drive or operate heavy machinery while taking medications. 90 capsule 1 No current facility-administere d medications for this visit. REVIEW OF SYTEMS: Systemic Symptoms: Negative except as noted. Head Symptoms: Negative except as noted. Pulmonary Symptoms: Negative except as noted. Other ROS: Negative except as noted. Cardiovascular Symptoms: Negative except as noted. Gastrointestinal Symptoms: Negative except as noted. Genitourinary Symptoms: Negative except as noted. Neurological Symptoms: Negative except as noted. Endocrine Symptoms: Negative except as noted. Hematologic Symptoms: No History of Easy Bleeding. No History of Bruising. Musculoskeletal Symptoms: Negative except as noted. Skin Symptoms: Negative except as noted. Psychiatric Symptoms: Not feeling depressed. Not thinking about suicide. 05/14/20 1001 Temp: 36.2 ?C (97.1 ?F) Weight: 90.7 kg (200 lb) Height: 170.2 cm (5' 7) Estimated body mass index is 31.32 kg/m? as calculated from the following: Height as of this encounter: 170.2 cm (5' 7). Weight as of this encounter: 90.7 kg (200 lb). GENERAL PE: Constitutional: Normal Good Appearance Oriented to Time, Place and Person Skin: Normal Examination of The Skin Eyes: Normal Examination of The Eyes Anicteric, EOMI ENT: Normal Lung Exam: Non-labored respirations Cardiovascular Exam: Normal Heart Rate and Rhythm Abdominal Exam: Normal Examination of the Abdomen Neuro: CN grossly intact Psych: Mood appropriate for given condition MSK: 5/5 strength LUE; RUE deferred 2/2 patient arm in splint Sensory: Intact to light touch LUE; RUE deferred 2/2 patient arm in splint Gait: Non-antalgic Provocative Tests: CERVICAL +cervical facet loading bilat -Spurling's for foraminal compression Palpation: + tender cervical paraspinals, levator scapula and trapezius Limited ROM 2/2 pain ronda with flexion/extension LABS: Hemoglobin (g/dL) Date Value 07/27/2017 13.3 Hematocrit (%) Date Value 07/27/2017 39.9 WBC (k/uL) Date Value 07/27/2017 7.61 BUN (mg/dL) Date Value 01/31/2019 8 Creatinine (mg/dL) Date Value 01/31/2019 0.70 Potassium (mmol/L) Date Value 01/31/2019 3.8 Alkaline Phosphatase (U/L) Date Value 02/24/2020 73 AST (U/L) Date Value 02/24/2020 16 ALT (U/L) Date Value 02/24/2020 11 No results found for: INR IMAGING/TESTING: XR Cpsine 04/09/2020 RESULT: Anatomic Variant: ?None. ?Assume 7 cervical vertebrae with counting from the craniocervical junction. There is no evidence of acute fracture. Vertebral bodies are normal in height and alignment. ?No evidence of instability in flexion and extension views. Disc spaces are preserved. Prevertebral soft tissues unremarkable. PDMP: OARRs was done and was consistent with history. A/P: Chaparrita Floyd is a 19 year old female who presents with the following: Encounter Diagnosis ICD-10-CM 1. Myalgia M79.10 TRIGGER POINT INJECTION MULTI 3+ MUSCLE GRP bupivacaine 7.5 mg injection (SENSORCAINE) PRE-CERT ORDER (AG) 2. Cervical spondylosis without myelopathy M47.812 3. Injury of right brachial plexus, subsequent encounter S14.3XXD 4. Other chronic pain G89.29 CONSULTS: - physician directed HEP handout provided to patient IMAGING/TESTING: - cervical XR imaging and results reviewed with patient, negative MEDICATIONS: - nabumetone 500mg BID prn. Potential adverse effects including but not limited to bleeding, ulcers, increased risk of hypertension, heart disease, kidney disease and stroke were discussed with the patient who understands and agrees to take the medication. Medication is allowing pt to be more mobile and do ADL's. Will continue to monitor patient and attempt to wean as soon as possible. Will use the lowest dosage possible for the shortest possible period of time. - flexeril 10mg TID prn muscle spasms. Patient instructed to not drive or operate heavy machinery while taking medications. - gabapentin 300mg TID for neuropathic pain. Patient instructed to not drive or operate heavy machinery while taking medications. - TCAs deferred 2/2 weight gain - OTC tylenol, salonpas patches, and aspercreme ointment PROCEDURES: - recommend trigger point injections to treat myofascial component of pain, to be done today, please see procedure note. Patient with multiple areas of taut, palpable bands with areas of referred pain. TPI would be done as complement to comprehensive pain therapy - consider cervical MBB in future Normal [facility] CNOVon 04-09-2020 CNOV Office Visit (SPAGWO) CHAPARRITA FLOYD ([id number]) 2000 F Date Time Provider Department 04/09/20 10:00 AM NOHEMY PURVIS [facility] During your visit today, we recorded the following information about you: Temperature Weight Height Normal [facility] PROGRESSon 04-09-2020 PROGRESS HNO ID: [id number] Author: Nohemy Purvis Service: ? Author Type: Physician Type: Progress Notes Filed: 04/16/2020 5:59 PM Note Text: [facility] [place] Initial Evaluation Form CHIEF COMPLAINT: LBP Neck pain Referred by: Billy Moore MD [address] [facility] [id number] [facility] April 09, 2020: Chaparrita Floyd is a 19 year old female presenting to the office for evaluation and treatment of neck and LBP, primarily neck pain; ongoing for x4 years but especially worse over the past few months. Patient states she currently x4m ago with right shoulder subluxation; right arm is in splint. 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 Pain currently 10 PAIN DETAIL: Location: neck pain Radiation: none Onset: >4 years Timing of Pain: frequently Pain Quality: aching, tender, stiff Alleviating: rest Exacerbating: activity, movement Prior therapies: flexeril, PT (worked while doing it, Nov 2019) ADDITIONAL SYMPTOMS: No changes in urinary habits. No changes in bowel movement frequency. Able to restrain bowel movement. 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 - Drug use: Never Social History Social History Narrative Lives with mom, dad and brother - Ryan . Pets - dogs and birds. No smokers. - Illicits: denies - EtOH: denies FAMILY HISTORY: FAMILY HISTORY Problem Relation Age of Onset - Thyroid Mother - Hypertension Mother - Lipids Mother cholesterol, anemia - other (Other) Mother fibromyalgia - other (chronic iron deficiency anemia) Mother - Coronary Artery Disease Father 51 - Hypertension Father - Cataract Maternal Grandmother - Heart Maternal Grandfather - Heart Paternal Grandfather - Diabetes Paternal Grandfather - No Known Problems Brother Reviewed, no history of chronic pain in parents, and is non-contributory MEDICATIONS: Current Outpatient Medications Medication Sig Dispense Refill - terbinafine HCl (LAMISIL) 250 mg tablet Take 250 mg by mouth once daily. - Norethin Yrn-Eth Estrad-FE (MICROGESTIN FE 05/06) 1 mg-20 mcg (21)/75 mg (7) per tablet Take 1 tablet by mouth once daily. 3 Package 4 - cyclobenzaprine (FLEXERIL) 10 mg tablet Take 1 tablet by mouth three times daily as needed. 20 tablet 0 - Ciclopirox (LOPROX) 8 % solution Apply topically to the affected toenails nightly. Remove built up layers weekly. - Ciclopirox (LOPROX) 0.77 % gel Apply between the toes and to the soles of the feet twice daily. - Cholecalciferol, Vitamin D3, (VITAMIN D-3) 2,000 unit cap Take 1 capsule by mouth once daily. - ondansetron orally disintegrating (ZOFRAN ODT) 8 mg disintegrating tablet No current facility-administere d medications for this visit. REVIEW OF SYTEMS: Systemic Symptoms: Negative except as noted. Head Symptoms: Negative except as noted. Pulmonary Symptoms: Negative except as noted. Other ROS: Negative except as noted. Cardiovascular Symptoms: Negative except as noted. Gastrointestinal Symptoms: Negative except as noted. Genitourinary Symptoms: Negative except as noted. Neurological Symptoms: Negative except as noted. Endocrine Symptoms: Negative except as noted. Hematologic Symptoms: No History of Easy Bleeding. No History of Bruising. Musculoskeletal Symptoms: Negative except as noted. Skin Symptoms: Negative except as noted. Psychiatric Symptoms: Not feeling depressed. Not thinking about suicide. 04/09/20 0947 Temp: 36.5 ?C (97.7 ?F) Weight: 93 kg (205 lb) Height: 170.2 cm (5' 7) Estimated body mass index is 32.11 kg/m? as calculated from the following: Height as of this encounter: 170.2 cm (5' 7). Weight as of this encounter: 93 kg (205 lb). GENERAL PE: Constitutional: Normal Good Appearance Oriented to Time, Place and Person Skin: Normal Examination of The Skin Eyes: Normal Examination of The Eyes Anicteric, EOMI ENT: Normal Lung Exam: Non-labored respirations Cardiovascular Exam: Normal Heart Rate and Rhythm Abdominal Exam: Normal Examination of the Abdomen Neuro: CN grossly intact Psych: Mood appropriate for given condition MSK: 5/5 strength LUE; RUE deferred 2/2 patient arm in splint Sensory: Intact to light touch LUE; RUE deferred 2/2 patient arm in splint Gait: Non-antalgic Provocative Tests: CERVICAL +cervical facet loading bilat -Spurling's for foraminal compression Palpation: + tender cervical paraspinals, levator scapula and trapezius Limited ROM 2/2 pain ronda with flexion/extension LABS: Hemoglobin (g/dL) Date Value 07/27/2017 13.3 Hematocrit (%) Date Value 07/27/2017 39.9 WBC (k/uL) Date Value 07/27/2017 7.61 BUN (mg/dL) Date Value 01/31/2019 8 Creatinine (mg/dL) Date Value 01/31/2019 0.70 Potassium (mmol/L) Date Value 01/31/2019 3.8 Alkaline Phosphatase (U/L) Date Value 02/24/2020 73 AST (U/L) Date Value 02/24/2020 16 ALT (U/L) Date Value 02/24/2020 11 No results found for: INR IMAGING/TESTING: N/a PDMP: OARRs was done and was consistent with history. Behavioral Health Assessment: [facility] Medical form was completed and reviewed. I do not see an indication at this time for a psychiatric/psycholo gic referral. A/P: Chaparrita Floyd is a 19 year old female who presents with the following: Encounter Diagnosis ICD-10-CM 1. Cervical spondylosis without myelopathy M47.812 2. Screening for depression Z13.31 3. Myalgia M79.10 4. Injury of right brachial plexus, subsequent encounter S14.3XXD 5. Other chronic pain G89.29 CONSULTS: - physician directed HEP handout provided to patient IMAGING/TESTING: - cervical XR to rule out bony pathology MEDICATIONS: - nabumetone 500mg BID prn. Potential adverse effects including but not limited to bleeding, ulcers, increased risk of hypertension, heart disease, kidney disease and stroke were discussed with the patient who understands and agrees to take the medication. Medication is allowing pt to be more mobile and do ADL's. Will continue to monitor patient and attempt to wean as soon as possible. Will use the lowest dosage possible for the shortest possible period of time. - flexeril 10mg TID prn muscle spasms. Patient instructed to not drive or operate heavy machinery while taking medications. - gabapentin 300mg TID for neuropathic pain. D/w patient titration schedule: take 1 capsule at bedtime x1 week, then BID x1 week, then TID. Patient instructed to not drive or operate heavy machinery while taking medications. - TCAs deferred 2/2 weight gain - OTC tylenol, salonpas patches, and aspercreme ointment PROCEDURES: - recommend trigger point injections to treat myofascial component of pain. Patient with multiple areas of taut, palpable bands with areas of referred pain. TPI would be done as complement to comprehensive pain therapy - consider cervical MBB in future Normal [facility] CNCOon 02-27-2020 CNCO Letter Text Normal [facility] Otheron 11-30-2019 XR Shoulder 2 views Interpreted by: BOBY RAMIRES11/30/19 17:00MRN: [id number] Name: CHAPARRITA FLOYD STUDY:SHOULDER, CMPLT, MIN 2 VIEWS; Right; 11/30/2019 4:55 pm INDICATION:pain. COMPARISON:None. ORDERING CLINICIAN:BECCA VEGAS FINDINGS:Four views right shoulder: There is no fracture or dislocation. There is no osteoarthritis or other arthritide.There is no bony abnormality. IMPRESSION:Negative right shoulder. Electronically signed by: BOBY RAMIRES 11/30/19 17:00 Normal [facility] [address] Work Phone: Comment on above: Ordering Provider: Alyson VEGAS [id number] [facility] 10-12-2019 Anion gap [Moles/Vol] 14 mmol/L 10 - 2 0 mmol/L [facility] Calcium [Mass/Vol] 9.3 mg/dL 8.4 - 10. 2 mg/dL [facility] Chloride [Moles/Vol] 107 mmol/L 98 - 10 8 mmol/L [facility] Creatinine [Mass/Vol] 0.86 mg/dL 0.40 - 1.[address] [facility] GFR/1.73 sq M predicted among non-blacks MDRD (S/P/Bld) [Vol rate/Area] The eGFR should be used for monitoring renal function only and not for medication dosing. [facility] GFR/1.73 sq M.predicted CKD-EPI (S/P/Bld) [Vol rate/Area] 97 >=60 mL/min/1.73 m2 [facility] Glucose [Mass/Vol] 85 mg/dL 65 - 99 mg/dL [facility] HCO3 [Moles/Vol] 22 mmol/L 21 - 32 mmol/L [facility] Interpretation and review of laboratory results Abnormal [facility] Potassium [Moles/Vol] 4.0 mmol/L 3.5 - 5.1 mmol/L [facility] Sodium [Moles/Vol] 139 mmol/L 135 - 145 mmol/L [facility] Urea nitrogen [Mass/Vol] 7 mg/dL Low 8 - 25 mg/d L [facility] Urea nitrogen/Creatinine [Mass ratio] 8.1 mg/mg Low [facility] CBC WITH AUTO DIFFERENTIALon 10-12-2019 Basophils (Bld) [#/Vol] 0.02 10*3/uL [facility] Basophils/100 WBC (Bld) 0.3 % [facility] Eosinophils (Bld) [#/Vol] 0.19 10*3/uL [facility] Eosinophils/100 WBC (Bld) 3.1 % [facility] Erythrocyte distribution width (RBC) [Entitic vol] 13.1 % 11.6 - 14.8 % [facility] Hematocrit (Bld) [Volume fraction] 42.9 % 36 - 46 % [facility] Hemoglobin (Bld) [Mass/Vol] 14.2 g/dL 12 - 16 g/dL [facility] Immature granulocytes (Bld) [#/Vol] 0.01 10*3/uL [facility] Immature granulocytes/100 WBC (Bld) 0.20 % [facility] Comment on above: The IG parameter is the percentage of metamyelocytes, myelocytes and promyelocytes. An immature granulocyte count (IG) of 1% or more suggests the possibility of infection, an IG count of 3% is very likely related to an infection. Lymphocytes (Bld) [#/Vol] 1.80 10*3/uL [facility] Lymphocytes/100 WBC (Bld) 29.4 % [facility] MCH (RBC) [Entitic mass] 28.6 pg 26 - 34 pg [facility] MCHC (RBC) [Mass/Vol] 33.1 g/dL 31 - 37 g/dL [facility] MCV (RBC) [Entitic vol] 86.3 fL 80 - 100 fL [facility] Monocytes (Bld) [#/Vol] 0.44 10*3/uL [facility] Monocytes/100 WBC (Bld) 7.2 % [facility] Neutrophils (Bld) [#/Vol] 3.66 10*3/uL [facility] Neutrophils/100 WBC (Bld) 59.8 % [facility] Nucleated RBC (Bld) [#/Vol] 0.00 10*3/uL [facility] Nucleated RBC/100 WBC (Bld) [Ratio] 0.0 % [facility] Platelet mean volume (Bld) [Entitic vol] 10.0 fL 9.4 - 12.4 fL [facility] Platelets (Bld) [#/Vol] 277 10*3/uL [facility] RBC (Bld) [#/Vol] 4.97 10*6/uL [facility] WBC (Bld) [#/Vol] 6.12 10*3/uL [facility] CT ANGIOGRAM HEAD NECKon Interface, Rad In [employer] Speechq - 10/12/2019 12:30 PM EDT EXAMINATION: CTA OF THE HEAD AND NECK WITH CONTRAST 10/12/2019 11:38 am TECHNIQUE: CTA of the head and neck was performed with the administration of intravenous contrast. Multiplanar reformatted images are provided for review. MIP images are provided for review. Stenosis of the internal carotid arteries measured using NASCET criteria. Dose modulation, iterative reconstruction, and/or weight based adjustment of the mA/kV was utilized to reduce the radiation dose to as low as reasonably achievable. Noncontrast CT of the head with reconstructed 2-D images are also provided for review. COMPARISON: None. HISTORY: ORDERING SYSTEM PROVIDED HISTORY: Vision loss, known etiology; TECHNOLOGIST PROVIDED HISTORY: Illness/Other Acuity: Acute Reason for Exam: Vision loss, known etiology Type of Encounter: Initial Additional signs and symptoms: Vision loss, known etiology FINDINGS: CT HEAD: BRAIN/VENTRICLES: No acute intracranial hemorrhage or extraaxial fluid collection. Valiente-white differentiation is maintained. No evidence of mass, mass effect or midline shift. No evidence of hydrocephalus. ORBITS: The visualized portion of the orbits demonstrate no acute abnormality. SINUSES: The visualized paranasal sinuses and mastoid air cells demonstrate no acute abnormality. SOFT TISSUES/SKULL: No acute abnormality of the visualized skull or soft tissues. CTA NECK: AORTIC ARCH/ARCH VESSELS: No dissection or arterial injury. No significant stenosis of the brachiocephalic or subclavian arteries. CAROTID ARTERIES: No dissection, arterial injury, or hemodynamically significant stenosis by NASCET criteria. VERTEBRAL ARTERIES: No dissection, arterial injury, or significant stenosis. SOFT TISSUES: The lung apices are clear. No cervical or superior mediastinal lymphadenopathy. The larynx and pharynx are unremarkable. No acute abnormality of the salivary and thyroid glands. BONES: No acute osseous abnormality. CTA HEAD: ANTERIOR CIRCULATION: No significant stenosis of the intracranial internal carotid, anterior cerebral, or middle cerebral arteries. No aneurysm. POSTERIOR CIRCULATION: No significant stenosis of the vertebral, basilar, or posterior cerebral arteries. No aneurysm. OTHER: No dural venous sinus thrombosis on this non-dedicated study. IMPRESSION: 1. No acute intracranial abnormality. 2. Unremarkable CTA of the head and neck. No large vessel occlusion. Workstation ID: [id number] [employer] 1. No acute intracranial abnormality. 2. Unremarkable CTA of the head and neck. No large vessel occlusion. Workstation ID: [id number] [facility] EXAMINATION: CTA OF THE HEAD AND NECK WITH CONTRAST 10/12/2019 11:38 am TECHNIQUE: CTA of the head and neck was performed with the administration of intravenous contrast. Multiplanar reformatted images are provided for review. MIP images are provided for review. Stenosis of the internal carotid arteries measured using NASCET criteria. Dose modulation, iterative reconstruction, and/or weight based adjustment of the mA/kV was utilized to reduce the radiation dose to as low as reasonably achievable. Noncontrast CT of the head with reconstructed 2-D images are also provided for review. COMPARISON: None. HISTORY: ORDERING SYSTEM PROVIDED HISTORY: Vision loss, known etiology; TECHNOLOGIST PROVIDED HISTORY: Illness/Other Acuity: Acute Reason for Exam: Vision loss, known etiology Type of Encounter: Initial Additional signs and symptoms: Vision loss, known etiology FINDINGS: CT HEAD: BRAIN/VENTRICLES: No acute intracranial hemorrhage or extraaxial fluid collection. Valiente-white differentiation is maintained. No evidence of mass, mass effect or midline shift. No evidence of hydrocephalus. ORBITS: The visualized portion of the orbits demonstrate no acute abnormality. SINUSES: The visualized paranasal sinuses and mastoid air cells demonstrate no acute abnormality. SOFT TISSUES/SKULL: No acute abnormality of the visualized skull or soft tissues. CTA NECK: AORTIC ARCH/ARCH VESSELS: No dissection or arterial injury. No significant stenosis of the brachiocephalic or subclavian arteries. CAROTID ARTERIES: No dissection, arterial injury, or hemodynamically significant stenosis by NASCET criteria. VERTEBRAL ARTERIES: No dissection, arterial injury, or significant stenosis. SOFT TISSUES: The lung apices are clear. No cervical or superior mediastinal lymphadenopathy. The larynx and pharynx are unremarkable. No acute abnormality of the salivary and thyroid glands. BONES: No acute osseous abnormality. CTA HEAD: ANTERIOR CIRCULATION: No significant stenosis of the intracranial internal carotid, anterior cerebral, or middle cerebral arteries. No aneurysm. POSTERIOR CIRCULATION: No significant stenosis of the vertebral, basilar, or posterior cerebral arteries. No aneurysm. OTHER: No dural venous sinus thrombosis on this non-dedicated study. [facility] CT ANGIOGRAM HEAD NECK EXAMINATION: CTA OF THE HEAD AND NECK WITH CONTRAST 10/12/2019 11:38 am TECHNIQUE: CTA of the head and neck was performed with the administration of intravenous contrast. Multiplanar reformatted images are provided for review. MIP images are provided for review. Stenosis of the internal carotid arteries measured using NASCET criteria. Dose modulation, iterative reconstruction, and/or weight based adjustment of the mA/kV was utilized to reduce the radiation dose to as low as reasonably achievable. Noncontrast CT of the head with reconstructed 2-D images are also provided for review. COMPARISON: None. HISTORY: ORDERING SYSTEM PROVIDED HISTORY: Vision loss, known etiology; TECHNOLOGIST PROVIDED HISTORY: Illness/Other Acuity: Acute Reason for Exam: Vision loss, known etiology Type of Encounter: Initial Additional signs and symptoms: Vision loss, known etiology FINDINGS: CT HEAD: BRAIN/VENTRICLES: No acute intracranial hemorrhage or extraaxial fluid collection. Valiente-white differentiation is maintained. No evidence of mass, mass effect or midline shift. No evidence of hydrocephalus. ORBITS: The visualized portion of the orbits demonstrate no acute abnormality. SINUSES: The visualized paranasal sinuses and mastoid air cells demonstrate no acute abnormality. SOFT TISSUES/SKULL: No acute abnormality of the visualized skull or soft tissues. CTA NECK: AORTIC ARCH/ARCH VESSELS: No dissection or arterial injury. No significant stenosis of the brachiocephalic or subclavian arteries. CAROTID ARTERIES: No dissection, arterial injury, or hemodynamically significant stenosis by NASCET criteria. VERTEBRAL ARTERIES: No dissection, arterial injury, or significant stenosis. SOFT TISSUES: The lung apices are clear. No cervical or superior mediastinal lymphadenopathy. The larynx and pharynx are unremarkable. No acute abnormality of the salivary and thyroid glands. BONES: No acute osseous abnormality. CTA HEAD: ANTERIOR CIRCULATION: No significant stenosis of the intracranial internal carotid, anterior cerebral, or middle cerebral arteries. No aneurysm. POSTERIOR CIRCULATION: No significant stenosis of the vertebral, basilar, or posterior cerebral arteries. No aneurysm. OTHER: No dural venous sinus thrombosis on this non-dedicated study. IMPRESSION: 1. No acute intracranial abnormality. 2. Unremarkable CTA of the head and neck. No large vessel occlusion. Workstation ID: [id number] Dictated by: KAYA BANG on Sat Oct 12, 2019 12:28:19 PM EDT Transcribed by: KAYA BANG on MonOct 12, 2019 12:28:19 PM EDT Finalized by: KAYA BANG on MonOct 12, 2019 12:28:19 PM EDT [facility] Comment on above: Order Comment: Injur y/Trauma or Illness?:Illness/Other How long have you had these symptoms (acute/chronic)?:Acute Reason for exam?:Vision loss, known etiology Type of Exam?:Initial Additional signs and symptoms?:Vision loss, known etiology HCG (QUALITATIVE)on 10-12-19 20 Beta HCG ( test) Ql Negative Negative [facility] Interpretation and review of laboratory results Normal [facility] Negative: The result is less than or equal to 5 mIU/mL of HCG. [facility] PROGRESSon 05-10-2017 [facility] NOTES Normal [facility] FUNDUS PHOTOS OU (BOTH EYES) [facility] Vital Signs Date Time Vital Sign Value Performing Clinician Facility 01-01-2025 11:01-0400 Body height 170.[address] Annette Frey MD Work Phone: [facility] 01-01-2025 11:01-0400 Body mass index (BMI) [Ratio] 43.6 kg/m2 Dr. Annette Frey MD Work Phone: [facility] 01-01-2025 11:01-0400 Body weight 126.[address] Annette Frey MD Work Phone: [facility] 01-01-2025 11:01-0400 Diastolic blood pressure 85 mm[Hg] Dr. Annette Frey MD Work Phone: 7(597)365-846256 [place] [address] 01-01-2025 11:01-0400 Systolic blood pressure 134 mm[Hg] Dr. Annette Frey MD Work Phone: 5(999)393-640556 [place] [address] 12-25-2024 13:21-0400 Body height 170.[address] Annette Frey MD Work Phone: 1(072)662-621553 [place] [address] 12-25-2024 13:21-0400 Body mass index (BMI) [Ratio] 43.6 kg/m2 Dr. Annette Frey MD Work Phone: 2(243)087-345753 [place] [address] 12-25-2024 13:21-0400 Body weight 126.[address] Annette Frey MD Work Phone: 2(578)770-077446 [place] [address] 12-25-2024 13:21-0400 Diastolic blood pressure 84 mm[Hg] Dr. Annette Frey MD Work Phone: 0(478)666-085846 [place] [address] 12-25-2024 13:21-0400 Systolic blood pressure 131 mm[Hg] Dr. Annette Frey MD Work Phone: 4(351)878-111453 [place] [address] 12-19-2024 14:57-0400 Body height 170.[address] Annette Frey MD Work Phone: 3(483)505-495753 [place] [address] 12-19-2024 14:57-0400 Body mass index (BMI) [Ratio] 43.1 kg/m2 Dr. Annette Frey MD Work Phone: 7(567)354-372356 [place] [address] 12-19-2024 14:57-0400 Body weight 124.[address] Annette Frey MD Work Phone: 8(929)744-273453 [place] [address] 12-19-2024 14:57-0400 Diastolic blood pressure 81 mm[Hg] Dr. Annette Frey MD Work Phone: 1(130)189-450053 [place] [address] 12-19-2024 14:57-0400 Systolic blood pressure 123 mm[Hg] Dr. Annette Frey MD Work Phone: [facility] 12-09-2024 13:08-0400 Body height 170.[address] Annette Frey MD Work Phone: [facility] 12-09-2024 13:08-0400 Body mass index (BMI) [Ratio] 42.5 kg/m2 Dr. Annette Frey MD Work Phone: [facility] 12-09-2024 13:08-0400 Body weight 123.[address] Annette Frey MD Work Phone: [facility] 12-09-2024 13:08-0400 Diastolic blood pressure 83 mm[Hg] Dr. Annette Frey MD Work Phone: [facility] 12-09-2024 13:08-0400 Systolic blood pressure 118 mm[Hg] Dr. Annette Frey MD Work Phone: [facility] 08-16-2024 12:56-0400 Body mass index (BMI) [Ratio] 37.76 kg/m2 Annette Frey MD Work Phone: [facility] 08-16-2024 12:56-0400 Body weight 109.36 kg Annette Frey MD Work Phone: [facility] 08-16-2024 12:56-0400 Diastolic blood pressure 76 mm[Hg] Annette Frey MD Work Phone: [facility] 08-16-2024 12:56-0400 Heart rate 106 /min Annette Frey MD Work Phone: [facility] 08-16-2024 12:56-0400 SaO2% (BldA) [Mass fraction] 97 % Annette Frey MD Work Phone: [facility] 08-16-2024 12:56-0400 Systolic blood pressure 122 mm[Hg] Annette Frey MD Work Phone: [facility] 07-09-2024 23:35-0400 Body temperature 98.5 [degF] Dr. Annette Frey MD Work Phone: [facility] 07-09-2024 23:35-0400 Diastolic blood pressure 55 mm[Hg] Dr. Annette Frey MD Work Phone: [facility] 07-09-2024 23:35-0400 Heart rate 112 /min Dr. Annette Frey MD Work Phone: [facility] 07-09-2024 23:35-0400 Respiratory rate 18 /min Dr. Annette Frey MD Work Phone: [facility] 07-09-2024 23:35-0400 SaO2% (BldA) [Mass fraction] 98 % Dr. Annette Frey MD Work Phone: [facility] 07-09-2024 23:35-0400 Systolic blood pressure 112 mm[Hg] Dr. Annette Frey MD Work Phone: [facility] 07-09-2024 18:20-0400 Body height 170.[address] Annette Frey MD Work Phone: [facility] 07-09-2024 18:20-0400 Body mass index (BMI) [Ratio] 37.3 kg/m2 Dr. Annette Frey MD Work Phone: [facility] 07-09-2024 18:20-0400 Body weight 108.[address] Annette Frey MD Work Phone: [facility] 05-27-2024 14:08-0500 Body height 170.2 cm Estelita Pickens MD Work Phone: [facility] 05-27-2024 14:08-0500 Body mass index (BMI) [Ratio] 37.18 kg/m2 Estelita Pickens MD Work Phone: [facility] 05-27-2024 14:08-0500 Body weight 107.68 kg Estelita Pickens MD Work Phone: [facility] 05-27-2024 14:08-0500 Diastolic blood pressure 72 mm[Hg] Estelita Pickens MD Work Phone: [facility] 05-27-2024 14:08-0500 Systolic blood pressure 118 mm[Hg] Estelita Pickens MD Work Phone: [facility] 05-09-2024 14:13-0500 Body height 170.2 cm Dago Fried SURFACING TECHNICIAN-CNM, SURFACING TECHNICIAN-CUBING MACHINE TENDER, DNP Work Phone: [facility] 05-09-2024 14:13-0500 Body mass index (BMI) [Ratio] 36.68 kg/m2 Dago Fried SURFACING TECHNICIAN-CNM, SURFACING TECHNICIAN-CUBING MACHINE TENDER, DNP Work Phone: [facility] 05-09-2024 14:13-0500 Body weight 106.23 kg Dago Fried SURFACING TECHNICIAN-CNM, SURFACING TECHNICIAN-CUBING MACHINE TENDER, DNP Work Phone: [facility] 05-09-2024 14:13-0500 Diastolic blood pressure 78 mm[Hg] Dago Fried SURFACING TECHNICIAN-CNM, SURFACING TECHNICIAN-CUBING MACHINE TENDER, DNP Work Phone: [facility] 05-09-2024 14:13-0500 Systolic blood pressure 126 mm[Hg] Dago Fried SURFACING TECHNICIAN-CNM, SURFACING TECHNICIAN-CUBING MACHINE TENDER, DNP Work Phone: [facility] 02-23-2024 17:38-0500 Body height 170.2 cm Shane Everton SURFACING TECHNICIAN-CUBING MACHINE TENDER Work Phone: [facility] 02-23-2024 17:38-0500 Body mass index (BMI) [Ratio] 34.77 kg/m2 Shane Everton SURFACING TECHNICIAN-CUBING MACHINE TENDER Work Phone: [facility] 02-23-2024 17:38-0500 Body temperature 97.81 [degF] Shane Everton SURFACING TECHNICIAN-CUBING MACHINE TENDER Work Phone: [facility] 02-23-2024 17:38-0500 Body weight 100.7 kg Shane Everton SURFACING TECHNICIAN-CUBING MACHINE TENDER Work Phone: [facility] 02-23-2024 17:38-0500 Diastolic blood pressure 81 mm[Hg] Shane Everton SURFACING TECHNICIAN-CUBING MACHINE TENDER Work Phone: [facility] 02-23-2024 17:38-0500 Heart rate 91 /min Shane Everton SURFACING TECHNICIAN-CUBING MACHINE TENDER Work Phone: [facility] 02-23-2024 17:38-0500 Respiratory rate 16 /min Shane Everton SURFACING TECHNICIAN-CUBING MACHINE TENDER Work Phone: [facility] 02-23-2024 17:38-0500 SaO2% (BldA) [Mass fraction] 100 % Shane Everton SURFACING TECHNICIAN-CUBING MACHINE TENDER Work Phone: [facility] 02-23-2024 17:38-0500 Systolic blood pressure 117 mm[Hg] Shane Everton SURFACING TECHNICIAN-CUBING MACHINE TENDER Work Phone: [facility] 12-12-2023 16:41-0400 Body height 170.2 cm Annette Frey MD Work Phone: [facility] 12-12-2023 16:41-0400 Body mass index (BMI) [Ratio] 35.38 kg/m2 Annette Frey MD Work Phone: [facility] 12-12-2023 16:41-0400 Body weight 102.47 kg Annette Frey MD Work Phone: [facility] 12-12-2023 16:41-0400 Diastolic blood pressure 80 mm[Hg] Annette Frey MD Work Phone: [facility] 12-12-2023 16:41-0400 Heart rate 102 /min Annette Frey MD Work Phone: [facility] 12-12-2023 16:41-0400 SaO2% (BldA) [Mass fraction] 97 % Annette Frey MD Work Phone: [facility] 12-12-2023 16:41-0400 Systolic blood pressure 116 mm[Hg] Annette Frey MD Work Phone: [facility] 10-10-2023 11:35-0400 Body height 170.2 cm Annette Frey MD Work Phone: [facility] 10-10-2023 11:35-0400 Body mass index (BMI) [Ratio] 34 kg/m2 Annette Frey MD Work Phone: [facility] 10-10-2023 11:35-0400 Body weight 98.48 kg Annette Frey MD Work Phone: [facility] 10-10-2023 11:35-0400 Diastolic blood pressure 77 mm[Hg] Annette Frey MD Work Phone: [facility] 10-10-2023 11:35-0400 Heart rate 69 /min Annette Frey MD Work Phone: [facility] 10-10-2023 11:35-0400 SaO2% (BldA) [Mass fraction] 100 % Annette Frey MD Work Phone: [facility] 10-10-2023 11:35-0400 Systolic blood pressure 118 mm[Hg] Annette Frey MD Work Phone: [facility] 09-19-2023 10:15-0400 Body height 170.2 cm Annette Frey MD Work Phone: [facility] 09-19-2023 10:15-0400 Body mass index (BMI) [Ratio] 32.89 kg/m2 Annette Frey MD Work Phone: [facility] 09-19-2023 10:15-0400 Body weight 95.25 kg Annette Frey MD Work Phone: [facility] 09-19-2023 10:15-0400 Diastolic blood pressure 72 mm[Hg] Annette Frey MD Work Phone: [facility] 09-19-2023 10:15-0400 Heart rate 83 /min Annette Frey MD Work Phone: [facility] 09-19-2023 10:15-0400 SaO2% (BldA) [Mass fraction] 100 % Annette Frey MD Work Phone: [facility] 09-19-2023 10:15-0400 Systolic blood pressure 122 mm[Hg] Annette Frey MD Work Phone: [facility] 05-23-2023 08:37-0500 Body height 170.2 cm Annette Frey MD Work Phone: [facility] 05-23-2023 08:37-0500 Body mass index (BMI) [Ratio] 30.24 kg/m2 Annette Frey MD Work Phone: [facility] 05-23-2023 08:37-0500 Body weight 87.59 kg Annette Frey MD Work Phone: [facility] 05-23-2023 08:37-0500 Diastolic blood pressure 78 mm[Hg] Annette Frey MD Work Phone: [facility] 05-23-2023 08:37-0500 Heart rate 80 /min Annette Frey MD Work Phone: [facility] 05-23-2023 08:37-0500 SaO2% (BldA) [Mass fraction] 100 % Annette Frey MD Work Phone: [facility] 05-23-2023 08:37-0500 Systolic blood pressure 110 mm[Hg] Annette Frey MD Work Phone: [facility] 05-02-2023 15:00-0500 Body height 170.2 cm Annette Frey MD Work Phone: [facility] 05-02-2023 15:00-0500 Body mass index (BMI) [Ratio] 30.34 kg/m2 Annette Frey MD Work Phone: [facility] 05-02-2023 15:00-0500 Body weight 87.86 kg Annette Frey MD Work Phone: [facility] 05-02-2023 15:00-0500 Diastolic blood pressure 80 mm[Hg] Annette Frey MD Work Phone: [facility] 05-02-2023 15:00-0500 Heart rate 87 /min Annette Frey MD Work Phone: [facility] 05-02-2023 15:00-0500 SaO2% (BldA) [Mass fraction] 100 % Annette Frey MD Work Phone: [facility] 05-02-2023 15:00-0500 Systolic blood pressure 136 mm[Hg] Annette Frey MD Work Phone: [facility] 03-21-2023 09:08-0500 Body height 170.2 cm Annette Frey MD Work Phone: [facility] 03-21-2023 09:08-0500 Body mass index (BMI) [Ratio] 29.81 kg/m2 Annette Frey MD Work Phone: [facility] 03-21-2023 09:08-0500 Body weight 86.32 kg Annette Frey MD Work Phone: 8(327)[phone] [place] [address] 03-21-2023 09:08-0500 Diastolic blood pressure 58 mm[Hg] Annette Frey MD Work Phone: [facility] 03-21-2023 09:08-0500 Heart rate 95 /min Annette Frey MD Work Phone: [facility] 03-21-2023 09:08-0500 SaO2% (BldA) [Mass fraction] 98 % Annette Frey MD Work Phone: [facility] 03-21-2023 09:08-0500 Systolic blood pressure 94 mm[Hg] Annette Frey MD Work Phone: [facility] 02-15-2023 08:56-0400 Body height 170.2 cm Annette Frey MD Work Phone: [facility] 02-15-2023 08:56-0400 Body mass index (BMI) [Ratio] 29.63 kg/m2 Annette Frey MD Work Phone: [facility] 02-15-2023 08:56-0400 Body weight 85.82 kg Annette Frey MD Work Phone: [facility] 02-15-2023 08:56-0400 Diastolic blood pressure 76 mm[Hg] Annette Frey MD Work Phone: [facility] 02-15-2023 08:56-0400 Heart rate 83 /min Annette Frey MD Work Phone: [facility] 02-15-2023 08:56-0400 SaO2% (BldA) [Mass fraction] 98 % Annette Frey MD Work Phone: [facility] 02-15-2023 08:56-0400 Systolic blood pressure 96 mm[Hg] Annette Frey MD Work Phone: [facility] 11-11-2022 18:58-0400 Diastolic blood pressure 70 mm[Hg] Annette Frey Other Phone: [facility] 11-11-2022 18:58-0400 Heart rate 98 /min Annette Frey Other Phone: [facility] 11-11-2022 18:58-0400 Respiratory rate 16 /min Annette Frey Other Phone: [facility] 11-11-2022 18:58-0400 SaO2% (BldA) [Mass fraction] 98 % Annette Frey Other Phone: [facility] 11-11-2022 18:58-0400 Systolic blood pressure 120 mm[Hg] Annette Frey Other Phone: [facility] 11-11-2022 18:00-0400 Body height 170.1 cm Annette Frey Other Phone: [facility] 11-11-2022 18:00-0400 Body temperature 97.88 [degF] Annette Frey Other Phone: [facility] 11-11-2022 18:00-0400 Body weight 81.8 kg Annette Frey Other Phone: [facility] 08-17-2022 09:12-0400 Body height 170.2 cm Annette Frye MD Work Phone: [facility] 08-17-2022 09:12-0400 Body mass index (BMI) [Ratio] 28.68 kg/m2 Annette Frey MD Work Phone: [facility] 08-17-2022 09:12-0400 Body weight 83.05 kg Annette Frey MD Work Phone: [facility] 08-17-2022 09:12-0400 Diastolic blood pressure 78 mm[Hg] Annette Frey MD Work Phone: [facility] 08-17-2022 09:12-0400 Heart rate 82 /min Annette Frey MD Work Phone: [facility] [facility] 08-17-2022 09:12-0400 SaO2% (BldA) [Mass fraction] 99 % Annette Frey MD Work Phone: [facility] 08-17-2022 09:12-0400 Systolic blood pressure 108 mm[Hg] Annette Frey MD Work Phone: [facility] 04-29-2022 14:53-0500 Body weight 78.38 kg Anmol Collier MD Work Phone: [facility] 04-29-2022 14:53-0500 Diastolic blood pressure 76 mm[Hg] Anmol Collier MD Work Phone: [facility] 04-29-2022 14:53-0500 Heart rate 96 /min Anmol Collier MD Work Phone: [facility] 04-29-2022 14:53-0500 Systolic blood pressure 141 mm[Hg] Anmol Collier MD Work Phone: [facility] 07-06-2021 12:20-0400 Body height 170.18 cm Kasia Lopez Michael Work Phone: [facility] Work Phone: 07-06-2021 12:20-0400 Body mass index (BMI) [Ratio] 29.45 kg/m2 Kasiajose antonio Rodriguez Work Phone: [facility] Work Phone: 07-06-2021 12:20-0400 Body surface area Derived from formula 1.97 m2 Kasia Lopez Michael Work Phone: [facility] Work Phone: 07-06-2021 12:20-0400 Body temperature 97.9 [degF] Kasia Lopez Michael Work Phone: [facility] Work Phone: 07-06-2021 12:20-0400 Body weight 85.28 kg Kasia Rodriguez Work Phone: [facility] Work Phone: 07-06-2021 12:20-0400 Diastolic blood pressure 78 mm[Hg] Kasia Rodriguez Work Phone: [facility] Work Phone: 07-06-2021 12:20-0400 Heart rate 89 /min Kasia Rodriguez Work Phone: [facility] Work Phone: 07-06-2021 12:20-0400 SaO2% (BldA) [Mass fraction] 99 % Kasia Rodriguez Work Phone: [facility] Work Phone: 07-06-2021 12:20-0400 Systolic blood pressure 120 mm[Hg] Kasia Rodriguez Work Phone: [facility] Work Phone: 02-02-2021 14:36-0400 Body height 170.18 cm Kasia Rodriguez Work Phone: [facility] Work Phone: 02-02-2021 14:36-0400 Body mass index (BMI) [Ratio] 29.45 kg/m2 Kasia Rodriguez Work Phone: [facility] Work Phone: 02-02-2021 14:36-0400 Body surface area Derived from formula 1.97 m2 Kasia Rodriguez Work Phone: [facility] Work Phone: 02-02-2021 14:36-0400 Body temperature 97.1 [degF] Kasia Rodriguez Work Phone: [facility] Work Phone: 02-02-2021 14:36-0400 Body weight 85.28 kg Kasia Rodriguez Work Phone: [facility] Work Phone: 02-02-2021 14:36-0400 Diastolic blood pressure 81 mm[Hg] Kasia Rodriguez Work Phone: [facility] Work Phone: 02-02-2021 14:36-0400 Heart rate 96 /min Kasia Rodriguez Work Phone: [facility] Work Phone: 02-02-2021 14:36-0400 SaO2% (BldA) [Mass fraction] 98 % Kasia Rodriguez Work Phone: [facility] Work Phone: 02-02-2021 14:36-0400 Systolic blood pressure 117 mm[Hg] Kasia Rodriguez Work Phone: [facility] Work Phone: 10-27-2020 13:47-0400 Body height 170.18 cm Kasia Rodriguez Work Phone: [facility] Work Phone: 10-27-2020 13:47-0400 Body mass index (BMI) [Ratio] 28.82 kg/m2 Kasia Rodriguez Work Phone: [facility] Work Phone: 10-27-2020 13:47-0400 Body surface area Derived from formula 1.95 m2 Kasia Rodriguez Work Phone: [facility] Work Phone: 10-27-2020 13:47-0400 Body temperature 97.9 [degF] Kasia Rodriguez Work Phone: [facility] Work Phone: 10-27-2020 13:47-0400 Body weight 83.46 kg Kasia Rodriguez Work Phone: [facility] Work Phone: 10-27-2020 13:47-0400 Diastolic blood pressure 82 mm[Hg] Kasia Rodriguez Work Phone: [facility] Work Phone: 10-27-2020 13:47-0400 Heart rate 104 /min Kasia Rodriguez Work Phone: [facility] Work Phone: 10-27-2020 13:47-0400 SaO2% (BldA) [Mass fraction] 98 % Kasia Rodriguez Work Phone: [facility] Work Phone: 10-27-2020 13:47-0400 Systolic blood pressure 117 mm[Hg] Kasia Rodriguez Work Phone: [facility] Work Phone: 02-18-2020 13:12-0500 BMI (Body Mass Index) 32.95 kg/m2 [facility] Work Phone: 02-18-2020 13:12-0500 Body Temperature 97.3 [degF] [facility] Work Phone: 02-18-2020 13:12-0500 Body weight 95.43 kg [facility] Work Phone: 02-18-2020 13:12-0500 BP Diastolic 82 mm[Hg] [facility] Work Phone: 02-18-2020 13:12-0500 BP Systolic 126 mm[Hg] [facility] Work Phone: 02-18-2020 13:12-0500 BSA (Body Surface Area) 2.07 m2 [facility] Work Phone: 02-18-2020 13:12-0500 Height 170.18 cm [facility] Work Phone: 01-17-2020 12:41-0400 BMI (Body Mass Index) 32.48 kg/m2 [facility] Work Phone: 01-17-2020 12:41-0400 Body Temperature 97.5 [degF] [facility] Work Phone: 01-17-2020 12:41-0400 Body weight 94.07 kg [facility]rez [facility] Work Phone: 01-17-2020 12:41-0400 BP Diastolic 80 mm[Hg] [facility] Work Phone: 01-17-2020 12:41-0400 BP Systolic 122 mm[Hg] [facility] Work Phone: 01-17-2020 12:41-0400 BSA (Body Surface Area) 2.05 m2 [facility] Work Phone: 01-17-2020 12:41-0400 Height 170.18 cm [facility] Work Phone: 01-13-2020 09:58-0400 BMI (Body Mass Index) 31.32 kg/m2 Kev [facility] 01-13-2020 09:58-0400 Body weight 90.72 kg Kev [facility] 01-13-2020 09:58-0400 BP Diastolic 75 mm[Hg] Kev [facility] 01-13-2020 09:58-0400 BP Systolic 118 mm[Hg] Kev [facility] 01-13-2020 09:58-0400 Height 170.2 cm Kev [facility] 01-13-2020 09:58-0400 Pulse (Heart Rate) 108 /min Kev [facility] 01-13-2020 09:58-0400 Pulse Oximetry 99 % Kev Abraham [facility] 01-13-2020 09:58-0400 Respiratory Rate 16 /min Kev Abraham [facility] 12-03-2019 12:51-0400 BMI (Body Mass Index) 31.87 kg/m2 Kasia Rodriguez [facility] 300 Work Phone: 12-03-2019 12:51-0400 Body Temperature 98.2 [degF] [facility] 300 Work Phone: 12-03-2019 12:51-0400 Body weight 92.31 kg Kasia Rodriguez [facility] 300 Work Phone: 12-03-2019 12:51-0400 BP Diastolic 62 mm[Hg] [facility] 300 Work Phone: 12-03-2019 12:51-0400 BP Systolic 120 mm[Hg] [facility] 300 Work Phone: 12-03-2019 12:51-0400 BSA (Body Surface Area) 2.04 m2 Kasia Rodriguez [facility] 300 Work Phone: 12-03-2019 12:51-0400 Height 170.18 cm Kasia Rodriguez [facility] 300 Work Phone: 10-12-2019 11:56-0400 BP Diastolic 87 mm[Hg] Mikel Moss [facility] 10-12-2019 11:56-0400 BP Systolic 137 mm[Hg] [facility] 10-12-2019 11:56-0400 Pulse Oximetry 100 % Mikel Ajay [facility] 10-12-2019 09:07-0400 Pulse (Heart Rate) 90 /min Mikel Moss [facility] 10-12-2019 09:07-0400 Respiratory Rate 16 /min Mikel Ajay [facility] 10-12-2019 08:52-0400 BMI (Body Mass Index) 32.89 kg/m2 Mikel Ajay [facility] 10-12-2019 08:52-0400 Body Temperature 98.6 [degF] Mikel Moss [facility] 10-12-2019 08:52-0400 Body weight 95.25 kg Mikel Moss [facility] 10-12-2019 08:52-0400 Height 170.2 cm Mikel Moss [facility] Encounters Encounter Date Encounter Type Care Provider Facility Start: 01-08-2025 ambulatory Annette Davis ility:[facility] Start: 01-01-2025 End: 01-01-[address] Brittney Mckeon MD -[facility] Work Phone: Start: 01-01-2025 End: 01-01-[address] Annette Frey MD Work Phone: -[facility] Start: 12-30-[address] Aleksandra Walter DO -Ultrasound [facility] Work Phone: Start: 12-30-2024 ambulatory Annette Davis ility:[facility] Start: 12-25-2024 End: 12-25-2024 Patient encounter procedure Marcia Christianson CNM -[facility] Work Phone: Start: 12-25-2024 End: 12-25-[address] Annette Frey MD Work Phone: -[facility] Start: 12-19-[address] Aleksandra Walter DO -Laboratory Specimen Work Phone: Start: 12-19-2024 End: 12-19-[address] Annette Frey MD Work Phone: -[facility] Start: 12-19-2024 End: 12-19-[address] Aleksandra Walter DO -[facility] Work Phone: Start: 12-19-2024 End: 12-19-2024 ambulatory Annette Frey Facility:[facility] Start: 12-09-2024 End: 12-09-2024 Patient encounter procedure Marcia Christianson CNM -[facility] Work Phone: Start: 12-09-2024 End: 12-09-[address] Annette Frey MD Work Phone: -[facility] Start: 11-25-2024 End: 11-25-2024 ambulatory [facility] Start: 11-11-2024 End: 11-11-2024 ambulatory [facility] Start: 10-31-2024 Registered [employer]Employee [employer] Start: 10-31-[address] [facility] ility:[facility] Start: 10-28-2024 End: 10-28-2024 ambulatory [facility] Start: 10-14-2024 End: 10-14-2024 ambulatory [facility] Start: 09-28-2024 End: 09-28-2024 ambulatory ANNETTE FREY [facility] Start: 09-28-2024 Non-patient / Non-visit Dr. Kaitlin Frey MD -[facility] Work Phone: Start: 09-16-2024 End: 09-16-2024 ambulatory [facility] Start: 08-21-2024 End: 08-21-2024 ambulatory [facility] Start: 08-21-2024 End: 08-21-2024 Subsequent hospital visit by physician Rosendo Olvera 2 [facility] Comment on above: 14 weeks gestation o f ([facility] Start: 08-21-2024 End: 08-21-2024 ambulatory [facility] Start: 08-16-2024 End: 08-16-2024 Patient encounter status Annette Frey MD Work Phone: [facility] Work Phone: Start: 08-16-2024 End: 08-16-2024 Periodic preventive med est patient 18-39 yrs Annette Frey MD Work Phone: [facility] Comment on above: Healthcare kayli ce (Primary Dx) Start: 08-16-2024 End: 08-16-2024 ambulatory ANNETTE Osmani [facility] Start: 07-22-2024 End: 07-22-2024 ambulatory [facility] Start: 07-09-2024 End: 07-09-2024 Emergency department patient visit Dr. Annette Frey MD Work Phone: -Emergency Department Work Phone: Start: 06-24-2024 End: 06-24-2024 ambulatory ANNETTE Keen [facility] Start: 06-24-2024 ambulatory Annette Frey Fac ility:[facility] Start: 06-24-2024 End: 06-24-2024 ambulatory [facility] Start: 06-24-2024 End: 06-24-2024 Encounter for gynecological examination (general) (routine) without abnormal findings [facility] Start: 05-27-2024 End: 05-27-2024 Office outpatient visit 15 minutes Estelita Pickens MD Work Phone: [facility] Comment on above: Amenorrhea (Primary Dx) Start: 05-27-2024 End: 05-27-2024 ambulatory [facility] Start: 05-09-2024 End: 05-09-2024 Office outpatient new 30 minutes Dago Perez SURFACING TECHNICIAN-CNM, SURFACING TECHNICIAN-CUBING MACHINE TENDER, DNP Work Phone: [facility] Comment on above: Missed menses (Prima ry Dx); test positive ([facility]) Start: 05-09-2024 End: 05-09-2024 ambulatory DAGO Busby [facility] Ambulatory Start: 03-01-2024 End: 03-01-2024 Emergency department patient visit Annette Frey Facility:[facility] Start: 02-23-2024 End: 02-24-2024 Patient encounter procedure Shane Toscano SURFACING TECHNICIAN-CUBING MACHINE TENDER Work Phone: [facility] Comment on above: Amenorrhea (Primary Dx) Start: 02-23-2024 End: 02-24-2024 ambulatory ANNETTE FREY [facility] Start: 12-26-2023 ambulatory NAS SANDERS [facility]ulatory Start: 12-12-2023 End: 12-12-2023 Office outpatient visit 15 minutes Annette Frey MD Work Phone: [facility] Comment on above: Urticaria (Primary D x) Start: 12-12-2023 End: 12-12-2023 ambulatory ANNETTE MCELROYMTLAKESHA [facility] Start: 10-10-2023 End: 10-10-2023 Office outpatient visit 15 minutes Annette Frey MD Work Phone: [facility] Comment on above: Nausea and vomiting, unspecified vomiting type (Primary Dx) Start: 09-19-2023 End: 09-19-2023 Office outpatient visit 15 minutes Annette Frey MD Work Phone: [facility] Comment on above: Migraine without aur a and without status migrainosus, not intractable; Anxiety Start: 06-16-2023 End: 06-16-2023 ambulatory NAREN LAW II Facility:[facility] Start: 06-16-2023 End: 06-16-2023 Patient encounter procedure Naren Law OD Work Phone: Optometry Comment on above: Myopia, right (Prima ry Dx); Hyperopia, left; Regular astigmatism, bilateral Start: 05-23-2023 End: 05-23-2023 Office outpatient visit 15 minutes Annette Frey MD Work Phone: [facility] Comment on above: Healthcare maintenan ce (Primary Dx); Anxiety Start: 05-23-2023 End: 05-23-2023 Patient encounter status Annette Frey MD Work Phone: [facility] Work Phone: Start: 05-02-2023 End: 05-02-2023 Office outpatient visit 15 minutes Annette Frey MD Work Phone: [facility] Comment on above: Anxiety (Primary Dx) Start: 03-21-2023 End: 03-21-2023 Office outpatient visit 15 minutes Annette Frey MD Work Phone: [facility] Comment on above: Migraine without aur a and without status migrainosus, not intractable (Primary Dx) Start: 02-15-2023 End: 02-16-2023 ambulatory ANNETTE FREY [facility] Start: 02-15-2023 End: 02-15-2023 Office outpatient visit 25 minutes Annette Frey MD Work Phone: [facility] Comment on above: Fatigue, unspecified type (Primary Dx); Migraine without aura and without status migrainosus, not intractable; Other fatigue; Healthcare maintenance Start: 02-15-2023 End: 02-15-2023 Patient encounter status Annette Frey MD Work Phone: [facility] Work Phone: Start: 11-11-2022 End: 11-11-2022 Emergency department patient visit Jeffery Rose [facility] Emergency 13 Start: 08-17-2022 End: 08-18-2022 ambulatory ANNETTE MCELROYMTLAKESHA [facility] Start: 08-17-2022 End: 08-18-2022 Encounter for general adult medical examination without abnormal findings ANNETTE FREY [facility] Start: 08-17-2022 End: 08-17-2022 Office outpatient new 30 minutes Annette Frey MD Work Phone: [facility] Comment on above: Migraine without aur a and without status migrainosus, not intractable (Primary Dx); Other fatigue; Healthcare maintenance Start: 08-17-2022 End: 08-17-2022 Patient encounter status Annette Frey MD Work Phone: [facility] Work Phone: Start: 08-03-2022 Rx Renewal Kasia eisenberg Work Phone: [facility] [address] Work Phone: Start: 06-09-2022 End: 06-09-2022 Patient encounter procedure Moon Law OD Work Phone: Optometry Comment on above: Myopia, right (Prima ry Dx); Hyperopia, left; Regular astigmatism, bilateral Start: 05-13-2022 Rx Renewal Kasia Stevens r Work Phone: [facility] Work Phone: Start: 04-29-2022 End: 04-29-2022 Patient encounter procedure Anmol Collier MD Work Phone: [facility] Comment on above: Encounter for gyneco logical examination with abnormal finding (Primary Dx); Encounter for screening for malignant neoplasm of cervix Start: 04-29-2022 End: 04-29-2022 Patient encounter status Anmol Collier MD Work Phone: [facility] Start: 03-02-2022 Rx Renewal Kasia Stevens r Work Phone: [facility] [address] Work Phone: Start: 11-11-2021 Patient encounter procedure Kasia Rodriguez Work Phone: [facility] Work Phone: Start: 10-19-2021 AUDIT Kasia Stevens r Work Phone: [facility] Work Phone: Start: 07-06-2021 FUV, Provider: Sweetie West, Status: Pen, Time: 11:30 AM Kasia Rodriguez Work Phone: [facility] Work Phone: Start: 07-06-2021 Office outpatient vi sit 15 minutes Kasia Rodriguez Work Phone: [facility] Work Phone: Start: 07-05-2021 AUDIT Kasia Mercadoe r Work Phone: [facility] 300 Work Phone: Start: 06-07-2021 AUDIT Kasia Mercadoe r Work Phone: [facility] [address] Work Phone: Start: 06-02-2021 AUDIT Kasia Mercadoe r Work Phone: [facility] [address] Work Phone: Start: 04-01-2021 AUDIT Kasia Mercadoe r Work Phone: [facility] Work Phone: Start: 02-02-2021 Office outpatient vi sit 25 minutes Kasiajose antonio Rodriguez Work Phone: [facility] Work Phone: Start: 02-02-2021 Patient encounter procedure Kasia Rodriguez Work Phone: [facility] Work Phone: Start: 11-16-2020 Patient encounter procedure Kasia Rodriguez Work Phone: [facility] Work Phone: Start: 10-29-2020 Other Kasiajose antonio eisenberg Work Phone: [facility] Work Phone: Start: 10-27-2020 Office consultation new/estab patient 60 min Kasiajose antonio Rodriguez Work Phone: [facility] Work Phone: Start: 03-02-2020 Patient encounter procedure Helena Gutierrez [facility] Work Phone: Start: 02-28-2020 Patient encounter procedure Helena Gutierrez [facility] Work Phone: Start: 02-26-2020 Patient encounter procedure Helena Gutierrez [facility] [place] Work Phone: Start: 02-24-2020 Patient encounter procedure Helena Gutierrez [facility] [place] Work Phone: Start: 02-21-2020 Patient encounter procedure Helena Gutierrez [facility] [place] Work Phone: Start: 02-19-2020 Patient encounter procedure Helena Gutierrez [facility] [place] [place] Work Phone: Start: 02-18-2020 Patient encounter procedure Helena Gutierrez [facility] Work Phone: Start: 02-17-2020 Patient encounter procedure Helena Gutierrez [facility] [place] [place] Work Phone: Start: 02-14-2020 End: 02-14-2020 Patient encounter procedure Andreia Aron Rasmussen Work Phone: [facility] Comment on above: Neuropraxia of right upper extremity, initial encounter Start: 02-11-2020 Patient encounter procedure Helena Gutierrez [facility] [place] [place] Work Phone: Start: 02-10-2020 Patient encounter procedure Helena Gutierrez [facility] [place] Work Phone: Start: 02-06-2020 Patient encounter procedure Helena Gutierrez [facility] [place] Work Phone: Start: 02-04-2020 Patient encounter procedure Helena Gutierrez [facility] [place] [place] Work Phone: Start: 02-03-2020 Patient encounter procedure Helena Gutierrez [facility] Work Phone: Start: 01-30-2020 Patient encounter procedure Helena Gutierrez [facility] Work Phone: Start: 01-28-2020 Patient encounter procedure Helena Gutierrez [facility] [place] [place] Work Phone: Start: 01-24-2020 Patient encounter procedure Helena Gutierrez [facility] [place] [place] Work Phone: Start: 01-21-2020 Patient encounter procedure Helena Gutierrez [facility] [place] [place] Work Phone: Start: 01-17-2020 Patient encounter procedure Helena Gutierrez [facility] [place] [place] Work Phone: Start: 01-16-2020 Patient encounter procedure Helena Gutierrez [facility] Work Phone: Start: 01-13-2020 Patient encounter procedure Helena Gutierrez [facility] Work Phone: Start: 01-13-2020 End: 01-13-2020 Office outpatient new 60 minutes Kev Abraham Work Phone: [facility] Comment on above: Neuropraxia of right upper extremity, initial encounter (Primary Dx); Strain of right shoulder, initial encounter Start: 01-09-2020 Patient encounter procedure Helean Gutierrez [facility] Work Phone: Start: 12-30-2019 Patient encounter procedure Helena Gutierrez [facility] [place] Work Phone: Start: 12-18-2019 Patient encounter procedure Helena Gutierrez [facility] Work Phone: Start: 12-03-2019 Patient encounter procedure Helena Gutierrez [facility] Work Phone: Start: 12-03-2019 Patient encounter procedure Helena Gutierrez [facility] Work Phone: Start: 10-12-2019 End: 10-12-2019 Emergency department patient visit MIKEL MOSS [facility] Start: 10-12-2019 End: 10-12-2019 Emergency department patient visit Mikel Moss Work Phone: [facility] Emergency Department Comment on above: Other migraine witho ut status migrainosus, not intractable (Primary Dx); Visual disturbances Start: 05-10-2017 Ambulatory SELF SELF [facility] Procedures Date Procedure Procedure Detail Performing Clinician Start: 12-30-2024 Ultrasound scan for growth Dr. Annette Frey MD Work Phone: Start: 12-19-2024 Beta-hemolytic Streptococcus culture Dr. Annette Frey MD Work Phone: Start: 07-09-2024 X-ray of chest, PA a nd lateral views Dr. Annette Frey MD Work Phone: Start: 07-09-2024 SARS-CoV-2, Influenz a & RSV (PCR) Dr. Annette Frey MD Work Phone: Start: 06-24-2024 Microscopic observat ion [Identifier] in Cervix by Cyto stain Annette Frey MD Work Phone: Start: 05-27-2024 Us preg uterus real time w/image dcmtn transvag Estelita Pickens MD Work Phone: Start: 05-09-2024 Urine test visual color cmprsn meths Dago M Fried SURFACING TECHNICIAN-CNM, SURFACING TECHNICIAN-CUBING MACHINE TENDER, DNP Work Phone: Start: 06-16-2023 Fundus photography w/interpretation & report Naren Law OD Work Phone: Start: 02-15-2023 CBC W Auto Different ial panel - Blood ANNETTE FREY Start: 02-15-2023 Comprehensive metabo lic 2000 panel - Serum or Plasma ANNETTE FREY Start: 02-15-2023 Cyanocobalamin vitamin b-12 ANNETTE FREY Start: 02-15-2023 TSH WITH REFLEX TO F REE T4 IF ABNORMAL ANNETTE FREY Start: 02-15-2023 VITAMIN D 25-HYDROXY,TOTAL ANNETTE FREY Start: 08-17-2022 CBC W Auto Different ial panel - Blood ANNETTE MCELROYROSA ISELA Start: 08-17-2022 Comprehensive metabo lic 2000 panel - Serum or Plasma ANNETTE FREY Start: 08-17-2022 Cyanocobalamin vitamin b-12 ANNETTE MCELROYROSA ISELA Start: 08-17-2022 Lipid panel ANNETTE FREY Start: 08-17-2022 Magnesium [Mass/volu me] in Serum or Plasma ANNETTE FREY Start: 08-17-2022 TSH WITH REFLEX TO F REE T4 IF ABNORMAL ANNETTEELEANOR FREY Start: 08-17-2022 VITAMIN D 25-HYDROXY,TOTAL ANNETTECIERA FREY Start: 08-17-2022 Lipid 1996 panel - S yamilex or Plasma Annette Frey MD Work Phone: Start: 04-29-2022 Microscopic observat ion [Identifier] in Cervix by Cyto stain Annette Frey MD Work Phone: Start: 10-12-2019 CT angiography of he ad and neck Nahed Cohn Work Phone: Start: 10-12-2019 Basic metabolic 2000 panel - Serum or Plasma Nahed Cohn Work Phone: Start: 10-12-2019 Choriogonadotropin.b eta subunit ( test) [Presence] in Serum or Plasma Nahed Cohn Work Phone: Start: 10-12-2019 Complete blood count with white cell differential, automated Nahed Cohn Work Phone: Start: 10-12-2019 Complete blood count with white cell differential, manual Nahed Cohn Work Phone: History of No histor y of surgery Kasia Rodriguez No history of surgery Kasia Rodriguez Work Phone: Plan of Treatment Date Care Activity Detail Author Start: 2048 Zoster Vaccines (1 of 2) Zoste r Vaccines (1 of 2) [facility] Start: 11-04-2030 DTaP/Tdap/Td Vaccine s (7 - Td or Tdap) DTaP/Tdap/Td Vaccines (7 - Td or Tdap) [facility] Start: 11-04-2030 DTaP/Tdap/Td Vaccine s (8 - Td or Tdap) DTaP/Tdap/Td Vaccines (8 - Td or Tdap) [facility] Start: 11-04-2030 Urine microalbumin profile [facility] Start: 08-18-2027 Lipid panel Lipid Panel [facility] Start: 06-25-2027 Screening for malign ant neoplasm of cervix [facility] Start: 08-19-2025 End: 08-19-2025 Patient encounter procedure 08/19/2025 1:00 PM EDT Office Visit [place] [address] [phone] Annette Frey MD [address] [address] [facility] Start: 08-17-2025 Yearly Adult Physical Yearly Adult P hysical [facility] Start: 06-24-2025 Diabetes mellitus screening Diabetes Screening [facility] Start: 04-29-2025 PAP TESTING PAP TESTING [facility] Start: 04-29-2025 Screening for malign ant neoplasm of cervix [facility] Start: 12-16-2024 RSV High Risk: (Elde rly (60+) or Population) (1 - Risk 1-dose series) RSV High Risk: (Elderly (60+) or Population) (1 - Risk 1-dose series) [facility] Start: 12-05-2024 Polymerase chain reaction analysis [facility] Start: 12-05-2024 [facility] Start: 09-18-2024 End: 09-18-2024 Patient encounter procedure 09/18/2024 8:30 AM EDT [facility] [address] [place] [address] Estelita Pickens MD [address] [facility], [address] [place] [address] [facility] Start: 08-21-2024 End: 08-21-2024 Patient encounter procedure 08/21/2024 10:45 AM EDT Routine [facility] [address] [place] [address] Estelita Pickens MD [address] [facility], [address] [place] [address] [facility] Start: 08-21-2024 End: 08-21-2024 Patient encounter procedure 08/21/2024 9:15 AM EDT Appointment [address] [phone] [facility] Start: 07-11-2024 End: 07-11-2024 Patient encounter procedure 07/11/2024 10:00 AM EDT Consult [facility] [address] [phone] Annita Pacheco, SURFACING TECHNICIAN-CUBING MACHINE TENDER [address] [place] [address] [facility] Start: 07-09-2024 [facility] Start: 06-24-2024 End: 06-24-2024 ambulatory 06/24/2024 11:00 AM EDT Initial [facility] [address] [place] [phone] Estelita Pickens MD [address] [facility], [address] [place] [address] [facility] Start: 05-27-2024 End: 05-27-2024 Patient encounter procedure 05/27/2024 2:00 PM EST Office Visit [facility] [address] [place] [phone] Estelita Pickens MD [address] [facility], [address] [place] [id number] [facility] Start: 03-29-2024 End: 03-29-2024 Patient encounter procedure 03/29/2024 1:40 PM EST Office Visit [place] [address] [phone] Annette Frey MD [address] [place] [address] [facility] Start: 03-19-2024 End: 03-19-2024 Patient encounter procedure [facility] Start: 02-23-2024 End: 02-22-2025 Choriogonadotropin.beta subunit [Units/volume] in Serum or Plasma Human Chorionic Gonadotropin, Serum Quantitative Lab Routine Amenorrhea Expected: 02/23/2024 (Approximate), Expires: 02/22/2025 [facility] Service Area Work Phone: Comment on above: Expected: 02/23/2024 (Approximate), Expires: 02/22/2025 Start: 01-23-2024 PAP TESTING PAP TESTING [facility] Start: 12-20-2023 End: 12-20-2023 Patient encounter procedure 12/20/2023 1:30 PM EDT Office Visit [facility] [address] [place] [phone] Estelita Pickens MD [address] [facility], [facility] [address] [place] [phone] [facility] Start: 12-17-2023 COVID-19 Vaccine ( season) COVID-19 Vaccine ( season) [facility] Start: 12-17-2023 Influenza vaccination Influenz a Vaccine (#1) [facility] Start: 10-18-2023 End: 10-18-2023 Patient encounter procedure 10/18/2023 10:30 AM EDT Office Visit [facility] [address] [place] [address] Estelita Pickens MD [address] [facility], [address] [place] [address] [facility] Start: 09-27-2023 End: 09-27-2023 Patient encounter procedure 09/27/2023 2:45 PM EDT Office Visit [facility] Office [address] [place] [address] Estelita Pickens MD [address] [facility], [address] [place] [address] [facility] Office [facility] Start: 09-19-2023 End: 09-19-2023 Patient encounter procedure 09/19/2023 10:20 AM EDT Office Visit [address] [phone] Annette Frey MD [address] [place] [address] [place] [address] [facility] Start: 07-25-2023 End: 07-25-2023 Patient encounter procedure 07/25/2023 2:40 PM EDT Office Visit [address] [phone] Annette Frey MD [address] [place] [address] [place] [address] [facility] Start: 05-23-2023 End: 05-23-2024 Comprehensive metabolic 2000 panel - Serum or Plasma Comprehensive Metabolic Panel Lab Routine Healthcare maintenance Expected: 05/23/2023 (Approximate), Expires: 05/23/2024 [facility] Service Area Work Phone: Comment on above: Expected: 05/23/2023 (Approximate), Expires: 05/23/2024 Start: 05-23-2023 End: 05-23-2024 Lipid 1996 panel - Serum or Plasma Lipid Panel Lab Routine Healthcare maintenance Expected: 05/23/2023 (Approximate), Expires: 05/23/2024 [facility] Work Phone: Comment on above: Expected: 05/23/2023 (Approximate), Expires: 05/23/2024 Start: 05-23-2023 End: 05-23-2023 Patient encounter procedure 05/23/2023 8:20 AM EST Office Visit [address] [phone] Annette Frey MD [address] [place] [address] [place] [address] [facility] Start: 04-17-2023 Depression Assessment Depression [facility] Start: 03-03-2023 End: 03-03-2023 Patient encounter procedure 03/03/2023 8:20 AM EST Office Visit [address] [phone] Annette Frey MD [address] [facility] [place] [address] [facility] Start: 02-15-2023 End: 02-16-2024 25-hydroxyvitamin D3 [Mass/volume] in Serum or Plasma [facility] Work Phone: Comment on above: Expected: 02/15/2023 (Approximate), Expires: 02/16/2024 Start: 02-15-2023 End: 02-16-2024 CBC W Auto Differential panel - Blood [facility] Service Area Work Phone: Comment on above: Expected: 02/15/2023 (Approximate), Expires: 02/16/2024 Start: 02-15-2023 End: 02-16-2024 Cobalamin (Vitamin B12) [Mass/volume] in Serum or Plasma [facility] Work Phone: Comment on above: Expected: 02/15/2023 (Approximate), Expires: 02/16/2024 Start: 02-15-2023 End: 02-16-2024 Comprehensive metabolic 2000 panel - Serum or Plasma [facility] Work Phone: Comment on above: Expected: 02/15/2023 (Approximate), Expires: 02/16/2024 Start: 02-15-2023 End: 02-16-2024 TSH with reflex to Free T4 if abnormal [facility] Work Phone: Comment on above: Expected: 02/15/2023 (Approximate), Expires: 02/16/2024 Start: 02-15-2023 End: 02-15-2023 Patient encounter procedure 02/15/2023 9:00 AM EDT Office Visit [facility] [address] [place] [phone] Annette Frey MD [address] [facility] [place] [address] [facility] Start: 12-16-2022 COVID-19 Vaccine ( season) COVID-19 Vaccine ( season) [facility] Start: 12-16-2022 Influenza vaccination [facility] Start: 08-17-2022 End: 08-18-2023 25-hydroxyvitamin D3 [Mass/volume] in Serum or Plasma Vitamin D, Total Lab Routine Migraine without aura and without status migrainosus, not intractable Other fatigue Healthcare maintenance Expected: 08/17/2022 (Approximate), Expires: 08/18/2023 [facility] Work Phone: Comment on above: Expected: 08/17/2022 (Approximate), Expires: 08/18/2023 Start: 08-17-2022 End: 08-18-2023 CBC W Auto Differential panel - Blood CBC and Auto Differential Lab Routine Migraine without aura and without status migrainosus, not intractable Other fatigue Healthcare maintenance Expected: 08/17/2022 (Approximate), Expires: 08/18/2023 [facility] Service Area Work Phone: Comment on above: Expected: 08/17/2022 (Approximate), Expires: 08/18/2023 Start: 08-17-2022 End: 08-18-2023 Cobalamin (Vitamin B12) [Mass/volume] in Serum or Plasma Vitamin B12 Lab Routine Migraine without aura and without status migrainosus, not intractable Other fatigue Healthcare maintenance Expected: 08/17/2022 (Approximate), Expires: 08/18/2023 [facility] Work Phone: Comment on above: Expected: 08/17/2022 (Approximate), Expires: 08/18/2023 Start: 08-17-2022 End: 08-18-2023 Comprehensive metabolic 2000 panel - Serum or Plasma Comprehensive Metabolic Panel Lab Routine Migraine without aura and without status migrainosus, not intractable Other fatigue Healthcare maintenance Expected: 08/17/2022 (Approximate), Expires: 08/18/2023 [facility] Work Phone: Comment on above: Expected: 08/17/2022 (Approximate), Expires: 08/18/2023 Start: 08-17-2022 End: 08-18-2023 Lipid 1996 panel - Serum or Plasma Lipid Panel Lab Routine Migraine without aura and without status migrainosus, not intractable Other fatigue Healthcare maintenance Expected: 08/17/2022 (Approximate), Expires: 08/18/2023 [facility] Work Phone: Comment on above: Expected: 08/17/2022 (Approximate), Expires: 08/18/2023 Start: 08-17-2022 End: 08-18-2023 Magnesium [Mass/volume] in Serum or Plasma Magnesium Lab Routine Migraine without aura and without status migrainosus, not intractable Expected: 08/17/2022 (Approximate), Expires: 08/18/2023 [facility] Work Phone: Comment on above: Expected: 08/17/2022 (Approximate), Expires: 08/18/2023 Start: 08-17-2022 End: 08-18-2023 TSH with reflex to Free T4 if abnormal TSH with reflex to Free T4 if abnormal Lab Routine Migraine without aura and without status migrainosus, not intractable Other fatigue Healthcare maintenance Expected: 08/17/2022 (Approximate), Expires: 08/18/2023 [facility] Work Phone: Comment on above: Expected: 08/17/2022 (Approximate), Expires: 08/18/2023 Start: 08-17-2022 End: 08-17-2022 ambulatory 08/17/2022 10:00 AM EDT Lab [facility] [address] [place] [address] Migraine without aura and without status migrainosus, not intractable; Other fatigue; Healthcare maintenance [facility] Comment on above: Migraine without aur a and without status migrainosus, not intractable; Other fatigue; Healthcare maintenance Start: 04-17-2022 DEPRESSION ASSESSMENT DEPRESSION ASS ESSMENT [facility] Start: 01-22-2022 CHLAMYDIA SCREENING (18-24) CHLAMYDIA SCREENING (18-24) [facility] Start: 01-22-2022 GC (GONORRHEA) SCREE RAJANI (18-24) GC (GONORRHEA) SCREENING (18-24) [facility] Start: 12-16-2021 Influenza vaccination INFLUENZA (#1) [facility] Start: 11-11-2021 FUV, Provider: Sweetie West, Status: Pen, Time: 2:00 PM FUV, Provider: Sweetie West, Status: Jesus, Time: 2:00 PM [facility] Work Phone: Start: 10-06-2021 FUV, Provider: Sweetie West, Status: Jesus, Time: 11:30 AM FUV, Provider: Sweetie West, Status: Jesus, Time: 11:30 AM [facility] Work Phone: Start: 09-08-2021 COVID-19 VACCINE (3 - Booster for Pfizer series) COVID-19 VACCINE (3 - Booster for Pfizer series) [facility] Start: 07-14-2021 COVID-19 Vaccine (#1) COVID-19 Vacci ne (#1) [facility] Start: 07-06-2021 FUV, Provider: Sweetie West, Status: Pen, Time: 11:30 AM FUV, Provider: Sweetie West, Status: Pen, Time: 11:30 AM [facility] Work Phone: Start: 04-27-2021 FUV, Provider: Sweetie West, Status: Pen, Time: 10:15 AM FUV, Provider: Sweetie West, Status: Pen, Time: 10:15 [facility] Work Phone: Start: 11-02-2020 Tetanus vaccination Tetanus: Every 1 0yrs [facility] Start: 02-14-2020 End: 02-14-2020 Procedure visit 02/14/2020 Procedure visit Neurology RasmussenAndreia MD [facility] [place] [id number] [phone] [facility] Start: 01-13-2020 End: 01-13-2021 Electromyography EMG: Neurology Routine Neuropraxia of right upper extremity, initial encounter Expected: 01/13/2020, Expires: 01/13/2021 [facility] Comment on above: Expected: 01/13/2020 , Expires: 01/13/2021 Start: 12-17-2019 Influenza vaccinatio n given Sequential Influenza Vaccine (#1) [facility] Start: 2019 Screening for malign ant neoplasm of cervix [facility] Start: 2016 Diabetes mellitus screening Diabetes Screening [facility] Start: 2016 Hepatitis C antibody , confirmatory test Hepatitis C Screening [facility] Start: 2016 Hepatitis C screening Hepatitis C Sc reening [facility] Start: 2013 HIV screening HIV Screening [facility] Start: 2012 PEDS TO ADULT TRANSI TION ANNUAL ASSESSMENT PEDS TO ADULT TRANSITION ANNUAL ASSESSMENT [facility] Start: 2010 Adolescent depressio n screening assessment Depression Screening (PHQ9) [facility] Start: 2010 PEDS TO ADULT TRANSI TION INITIAL DISCUSSION PEDS TO ADULT TRANSITION INITIAL DISCUSSION [facility] Start: 2001 History and physical examination, annual for health maintenance Wellness Visit [facility] Start: 1998 COVID-19 Vaccine (#1) COVID-19 Vacci ne (#1) [facility] Start: 1998 HIV screening HIV Screening [facility] Start: 1998 Lipid panel Lipid Panel [facility] Start: 1998 Screening for Chlamy sam trachomatis Chlamydia Screening [facility] Start: 1998 Screening for malign ant neoplasm of cervix Pap Smear [facility] Start: 1998 Yearly Adult Physical Yearly Adult P hysical [facility] PAP FLUID CERVICAL SCREENING PAP FLUID CERVICAL SCREENING Lab Routine Encounter for gynecological examination with abnormal finding Encounter for screening for malignant neoplasm of cervix Ordered: 04/29/2022 [facility] Work Phone: Comment on above: Ordered: 04/29/2022 Patient Education Coronavirus Di sease 2019 (COVID-19): Overview Coronavirus Disease 2019 (COVID-19): Caring for Yourself or Others [facility] Work Phone: Patient referral [facility] Work Phone: Streptococcus agalac tiae [Presence] in Unspecified specimen by Organism specific culture [facility] Streptococcus agalac tiae [Presence] in Unspecified specimen by Organism specific culture [facility] Ultrasound scan for growth [facility] End: 08-21-2024 US for in second or third trimester [facility] Service Area Work Phone: Comment on above: Once for 1 Occurrenc es starting 08/21/2024 until 08/21/2024 [facility] [address] Work Phone: [facility] NEGATED: Highlighted row has been ruled out! Planned Goals not documented [facility] [address] Work Phone: Immunizations Immunization Date Immunization Notes Care Provider Trisha mathis 12-09-2024 tetanus toxoid, redu rafael diphtheria toxoid, and acellular pertussis vaccine, adsorbed Dr. Annette Frey MD Work Phone: [facility] 01-08-2024 influenza virus vaccine, unspecified formulation Annette Frey MD Work Phone: [facility] Work Phone: 06-26-2023 influenza virus vaccine, unspecified formulation Annette Frey MD Work Phone: [facility] Work Phone: 07-14-2021 Comirnaty 30 MCG/0.3 ML Intramuscular Suspension Kasia Rodriguez Work Phone: [facility] Work Phone: 06-23-2021 Comirnaty 30 MCG/0.3 ML Intramuscular Suspension Kasia Rodriguez Work Phone: [facility] Work Phone: 06-23-2021 influenza, injectabl e, quadrivalent, preservative free Kasia Rodriguez Work Phone: [facility] Work Phone: 06-23-2021 influenza virus vaccine, unspecified formulation Naren Law II OD Work Phone: [facility] 11-04-2020 tetanus toxoid, redu rafael diphtheria toxoid, and acellular pertussis vaccine, adsorbed Kasia Rodriguez Work Phone: [facility] Work Phone: 02-26-2020 influenza, injectabl e, quadrivalent, contains preservative Ksaia Rodriguez Work Phone: [facility] Work Phone: 02-26-2020 influenza virus vaccine, unspecified formulation Annette Frey MD Work Phone: [facility] Work Phone: 11-17-2014 meningococcal polysaccharide (groups A, C, Y and W-135) diphtheria toxoid conjugate vaccine (MCV4P) Kasia Rodriguez Work Phone: [facility] 01-17-2014 influenza, injectabl e, quadrivalent, preservative free Kasia Rodriguez Work Phone: [facility] 11-05-2012 human papilloma viru s vaccine, quadrivalent Anmol Collier MD Work Phone: [facility] 02-14-2012 human papilloma viru s vaccine, quadrivalent Anmol Collier MD Work Phone: [facility] 11-04-2011 human papilloma viru s vaccine, quadrivalent Anmol Collier MD Work Phone: [facility] 11-02-2010 Meningococcal, MCV4, unspecified conjugate formulation(groups A, C, Y and W-135) Anmol Collier MD Work Phone: [facility] 11-02-2010 tetanus toxoid, redu rafael diphtheria toxoid, and acellular pertussis vaccine, adsorbed Anmol Collier MD Work Phone: [facility] 11-02-2010 varicella virus vaccine Anmol Collier MD Work Phone: [facility] 12-15-2003 diphtheria, tetanus toxoids and acellular pertussis vaccine Anmol Collier MD Work Phone: [facility] 12-15-2003 measles, mumps and rubella virus vaccine Anmol Collier MD Work Phone: [facility] 12-15-2003 trivalent poliovirus vaccine, live, oral Anmol Collier MD Work Phone: [facility] 01-12-2000 diphtheria, tetanus toxoids and acellular pertussis vaccine Anmol Collier MD Work Phone: [facility] 09-03-1999 haemophilus influenz ae type b vaccine, HbOC conjugate Anmol Collier MD Work Phone: [facility] 09-03-1999 measles, mumps and rubella virus vaccine Anmol Collier MD Work Phone: [facility] 06-30-1999 varicella virus vaccine Anmol Collier MD Work Phone: [facility] 02-10-1999 hepatitis B vaccine, pediatric or pediatric/adolescent dosage Anmol Collier MD Work Phone: [facility] 1998 diphtheria, tetanus toxoids and acellular pertussis vaccine Anmol Collier MD Work Phone: [facility] 1998 haemophilus influenz ae type b vaccine, HbOC conjugate Anmol Collier MD Work Phone: [facility] 1998 trivalent poliovirus vaccine, live, oral Anmol Collier MD Work Phone: [facility] 1998 diphtheria, tetanus toxoids and acellular pertussis vaccine Anmol Collier MD Work Phone: [facility] 1998 haemophilus influenz ae type b vaccine, HbOC conjugate Anmol Collier MD Work Phone: [facility] 1998 hepatitis B vaccine, pediatric or pediatric/adolescent dosage Anmol Collier MD Work Phone: [facility] 1998 trivalent poliovirus vaccine, live, oral Anmol Collier MD Work Phone: [facility] 1998 diphtheria, tetanus toxoids and acellular pertussis vaccine Anmol Collier MD Work Phone: [facility] 1998 diphtheria, tetanus toxoids and acellular pertussis vaccine, unspecified formulation Kasia Rodriguez Work Phone: [facility] Work Phone: 1998 haemophilus influenz ae type b vaccine, conjugate unspecified formulation Kasia Rodriguez Work Phone: [facility] Work Phone: 1998 haemophilus influenz ae type b vaccine, HbOC conjugate Anmol Collier MD Work Phone: [facility] 1998 hepatitis B vaccine, pediatric or pediatric/adolescent dosage Kasia Rodriguez Work Phone: [facility] 1998 poliovirus vaccine, unspecified formulation Kasia Rodriguez Work Phone: [facility] Work Phone: 1998 trivalent poliovirus vaccine, live, oral Anmol Collier MD Work Phone: [facility] 1998 hepatitis B vaccine, pediatric or pediatric/adolescent dosage Kasia Rodriguez Work Phone: [facility] Work Phone: Payers Date Payer Category Payer Medicaid [id number] 2024 Managed Care (Private) [id number] 2024 Self-pay 2023 [employer] [place] Managed Care [facility] [id number] 2023 Unknown [id number] 2019 Worker's Compensation [employer]ER[employer] [place] ([employer]) [id number] 2019-Present [id number] 2016 Unknown [employer] BC[employer] OUT OF STATE [facility] xxxxxxxxxxxxxxx 2016-Present [id number] 2008 Unknown 1998 Unknown [id number] 2.16.840.1.569531.3.579.2 .902 1998 Unknown [id number] 2.16.840.1.898851.3.579.2 .1069 1998 Unknown [id number] 2.16.840.1.982066.3.579.2 .1245 1998 Unknown [id number] 2.16.840.1.606286.3.579.2 .1244 1998 Unknown [id number] 2.16.840.1.695030.3.579.2 .903 1998 Unknown [id number] 2.16.840.1.045182.3.579.2 .1242 1998 Unknown [id number] 2.16.840.1.979186.3.579.2 .1243 1998 Unknown [id number] 2.16.840.1.286125.3.579.2 .3 1998 Unknown [id number] 2.16.840.1.757847.3.579.2 .1243 1998 Unknown [id number] 2.16.840.1.429851.3.579.2 .1243 1998 Unknown [id number] 2.16.840.1.629867.3.579.2 .124 1998 Unknown [id number] 2.16.840.1.676963.3.579.2 .1243 1998 Unknown [id number] 2.16.840.1.278111.3.579.2 .1244 1998 Unknown [id number] 2.16.840.1.463886.3.579.2 .124 1998 Unknown [id number] 2.16.840.1.305552.3.579.2 .1244 1998 Unknown [id number] 2.16.840.1.563329.3.579.2 .124 1998 Unknown [id number] 2.16.840.1.212472.3.579.2 .124 1998 Unknown [id number] 2.840.1.452319.3.579.2 .1243 1998 Unknown [id number] 2.16840.1.351611.3.579.2 .1243 1998 Unknown [id number] 2.840.1.776827.3.579.2 .1243 1998 Unknown [id number] 2.840.1.505742.3.579.2 .1244 Unknown [id number] Unknown [id number] Unknown [id number] Unknown [id number] Unknown [id number] Unknown [id number] Unknown [id number] Unknown [id number] .[id number] Unknown [id number] .[id number] Unknown [id number] .462 Unknown [id number] .462 Unknown [id number] Unknown [id number] Unknown [id number] Social History Date Type Detail Facility Assertion Tobacco smoking consumption unknown (finding) [facility] Work Phone: Start: 02-14-2020 End: 12-05-2024 Tobacco smoking status NHIS Never smoker [facility] Start: 02-14-2020 End: 08-17-2022 Tobacco use and exposure Never used [facility] Start: 02-14-2020 End: 08-21-2024 Alcohol intake Ex-drinker (finding) [facility] Start: 10-12-2019 End: 08-17-2022 Alcohol Comment socially [facility] Start: 2000 Sex Assigned At Not on file [facility] Start: 08-07-2022 End: 08-21-2024 Exposure to SARS-CoV-2 (event) Not sure [facility] Start: 10-12-2019 End: 05-27-2024 Alcohol intake Current drinker of alcohol (finding) [facility] Start: 08-17-2022 End: 06-24-2024 Non-smoker Non-smoker [facility] Work Phone: Start: 02-26-2020 End: 06-23-2020 History SDOH Alcohol Frequency 2 [facility] Start: 10-17-2019 End: 02-26-2020 History SDOH Alcohol Std Drinks 3 [facility] Start: 03-21-2019 History SDOH Social Connections Phone 5 [facility] Start: 03-21-2019 End: 06-23-2020 History SDOH Social Connections Membership 1 [facility] Start: 10-17-2019 History SDOH Social Connections Living 7 [facility] Start: 10-17-2019 End: 02-26-2020 History SDOH Physical Activity MPS 4 [facility] Start: 03-21-2019 Education 16 [facility] Start: 04-09-2020 Alcohol Comment occ. [facility] Start: 2000 Sex Assigned At Female [facility] Start: 08-17-2022 End: 06-24-2024 Tobacco use panel [facility] Work Phone: Tobacco smoking consumption unknown [facility] Frequency of Communication with Friends and Family Not on file [facility] How often to you hav e a drink containing alcohol? Monthly or less [facility] Work Phone: How many standard dr inks containing alcohol do you have on a typical day? 5 or 6 [facility] Work Phone: How often do you hav e 6 or more drinks on 1 occasion? Less than monthly [facility] Work Phone: How hard is it for y ou to pay for the very basics like food, housing, medical care, and heating Somewhat hard [facility] Do you feel stress - tense, restless, nervous, or anxious, or unable to sleep at night because your mind is troubled all the time - these days [OSQ] Rather much [facility] (I/We) worried wheth er (my/our) food would run out before (I/we) got money to buy more. Never true [facility] In the past 12 month s, was there a time when you were not able to pay the mortgage or rent on time? Yes [facility] At any time in the p ast 12 months, were you homeless or living in alf [including now]? No [facility] Start: 10-31-2018 Gender identity Identifies as female gender (finding) [facility] Start: 10-31-2018 Sexual orientation Heterosexual (finding) [facility] Start: 09-19-2023 Alcohol Comment Socially [facility] Work Phone: Start: 07-09-2024 Sex Female (finding) [facility] The thought of harmi ng myself has occurred to me Never [facility] Work Phone: Start: 04-23-2024 [facility] Work Phone: Functional Status Date Assessment Result Facility NEGATED: Highlighted row Functional performance Functional status health issues are not documented Disease [facility] 300 Work Phone: Mental Status Date Assessment Result Facility 07-09-2024 Cognitive function Voice/Name [facility] Work Phone: NEGATED: Highlighted row Cognitive function [Interpretation] Cognitive status health issues are not documented Disease [facility] 300 Work Phone: Clinical Notes 03-27-2019 to 01-01-2025 Note Date & Type Note Facility 01-01-2025 Progress note [facility] 12-25-2024 Progress note [facility] 12-19-2024 Progress note [facility] 12-19-2024 Progress note Note Date/Time December 19, 2024 3:34pm [facility] [address], [address] [place] [address] OFFICE VISIT Date of Service: 12/19/24 MR#: [id number] Acct: [id number] Name: CHAPARRITA FLOYD Rep #: [id number] : 2000 Provider: Dr. 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 Is patient in pain?: No Allergies No Known Allergies Allergy (Verified 12/19/24 15:00) Medications ?Medication ?Instructions ?Recorded ?Confirmed ?Type escitalopram oxalate 10 mg tablet 10 mg PO DAILY 03/0112/19/24 History cholecalciferol (vitamin D3) 50 2,000 unit PO QDAY 12/19/24 History mcg (2,000 unit) capsule (Vitamin D3) aspirin 81 mg tablet 81 mg PO QDAY COVID 12/05/24 12/19/24 History multivit-min no.71-iron fum 28 cap PO 12/05/24 5 History mg-folate no.1 1 mg-dha 300 mg capsule (PNV-[place]) Last Menstrual Period: 04/07/24 Zika: Zika virus screening: Negative : No PFSH PFSH Medical History Migraines Surgical History Whitt teeth extracted Family History Father Heart disease Maternal Grandfather Heart disease Cancer, Onset Age: 78 Pancreatic Grandfather Heart disease Paternal Diabetes Paternal Mother Diabetes Hypertension Thyroid disorder hypothyroidism Iron deficiency anemia Fibromyalgia Uncle Diabetes Maternal Grandmother Cancer, Onset Age: 79 Paternal Bladder Maternal Grandmother Cancer, Onset Age: 78 stomach ca Social History adopted: No household members: significant other housing: house current occupational status: employed current occupation: [employer] current occupational exposures/hazards: No pets and animals: Yes pets and animals: dog(s) history of recent travel: No sexually active: Yes Smoking Status: Never smoker alcohol intake: current alcohol intake frequency: holidays/special occasions only details: not while substance use type: does not use well-balanced diet: daily or most days caffeine: Yes Type: coffee Number of servings: 1 eating out: rarely or never during the past year weight has: increased > 10 lbs what type of physical activity do you participate in: walking frequency: 5-6 times per week duration: 45-60 minutes/day montserrat/yazidism: None seatbelt use: always do you feel safe at home: Yes 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 Date Name GA/Weeks Outcome Route Bth Weight Infant Gen Labor Lgth Anesthesia Del Locatn Provider FOB Unknown 02/2024 Miscarriage 6 spontaneous HPI 36 wk OB Details: CHAPARRITA FLOYD is a 24 year old who presents for routine OB visit. OB Visit JOSE Calculator Estimated Delivery Date Method Current WG Current Estimate 01/12/25 LMP (Certain) 36w 4d Expected Delivery Route/Plan Labor Preferences- CB/BF classes: [] labor support person: [] labor intervention preferences: [] pain management options preferred: epidural cut cord/dad catch: [] : wants to try PP control planned: discussed possible routes of delivery and associated risks: [] special requests: [] Specific Issue/Plans Covid status: [] Flu vaccine: [] Tdap vaccine: [] Rhogam: [] LARC form signed: yes Problem list reviewed and updated with the most current plan of care details and appropriate orders placed. Relevant counseling for the gestational age provided. Continue routine care and follow up unless otherwise noted in visit notes/problem list details Initial Weight: Not Recorded Date -?-?-?-?-?-?-?-?-?-?-?-?- EGA Weight BP Urine Prot -?-?-?-?-?-?-?-?-?-?-?-?- Glucose FHR FuHt Pres Dilation -?-?-?-?-?-?-?-?-?-?-?-?- Effaced St Visit Note 12/09/24 -?-?-?-?--?-?-?-?-?-?-?-?- 35w 1d 271 lb 6 oz 118/83 Nega tive -?-?-?-?-?-?-?-?-?-?-?-?- Negative 140 35 -?-?-?-?-?-?-?-?-?-?-?-?- KW- Transfer of care from [place] no vb/lof/ctx. good fm. LARC today. NOB labs reviewed-PRR. discussed GBS and labor precautions. was not offered Tdap and would like it today. anatomy US normal. 12/19/24 -?-?-?-?-?-?-?-?-?-?-?-?- 36w 4d 275 lb 6 oz 123/81 Nega tive -?-?-?-?-?-?-?-?-?-?-?-?- Negative 130 37 -?-?-?-?-?-?-?-?-?-?-?-?- JV- no lof, vagi nal bleeding, or dec fm. gbs collected. JV- no lof, vaginal bleeding , or dec fm. gbs collected. patient declines pelvic exam. ordering growth scan for late transfer of care. ACOG First Trimester First Trimester: Desire for , Alcohol, Tobacco Cessation, Illicit/Recreational Drug/Substance Use, Intimate Partner Violence, Barriers to care, Unstable Housing, Communication Barriers, Environmental/Work Hazards, Anticipated Course of Care, Toxoplasmosis Precations, Use of Any medications, Sexual activity, Exercise, Dental Care, Sauna/Hot tub use, Seat Belt use, Childbirth classes/Hospital facilities, Travel, Indications for Ultrasound and Screening for Aneuploidy; Discussed Results POC Urinalysis 2 Dip (Clinic) Office Urine Glucose Negative Last Edit by Ashlyn Rey on 12/19/24 15: 08 Office Urine Protein Negative Last Edit by Ashlyn Rey on 12/19/24 15: 08 Coding Level of Care Code OB Routine Diagnoses Supervision of high-risk O09.90 Anxiety F41.9 Obesity affecting O99.210 History of miscarriage, currently O09.299 36 weeks gestation of Z3A.36 Weeks of gestation: 36 weeks COVID U07.1 Bleeding in early O20.9 Assessment and Plan Assessment and Plan (1) Supervision of high-risk : Status: Acute Comment: PRR,, JOSE 01/12/25 KEATON Shipman (2) Anxiety: Status: Acute (3) Obesity affecting : Status: Acute Comment: nl a1c (4) History of miscarriage, currently : Status: Acute (5) : Status: Acute Qualifiers: Weeks of gestation: 36 weeks Qualified Code(s): Z3A.36 - 36 weeks gestation of Comment: NIPT low risk, female, declined carrier (6) COVID: Status: Acute Comment: asa 81 mg (7) Bleeding in early : Status: Acute Orders: Orders POC Urinalysis 2 Dip (Clinic) Today Culture, Group B Streptococcus Today O09.90 - Supervision of high risk , unspecified, unspecified trimester OB Limited With Biometrics Today O09.90 - Supervision of high risk , unspecified, unspecified trimester, O99.210 - Obesity complicating , unspecified trimester 12/19/24 1534 <Electronically signed by Aleksandra Chavez DO> Date _ Aleksandra Vande Velde DO [facility] Signature: Date (if applicable) CC: ~ [facility] Work Phone: 1(584) 233-400408-25-2025 Evaluation note* Diagnosis Onset Date Resolution Status Admit Date Anxiety acute December 09, 2 025 1:03pm Bleeding in early acute December 09, 2024 1:03pm COVID acute December 09, 2 025 1:03pm History of miscarriage, currently acute December 09, 2024 1:03pm Obesity affecting acute December 09, 2024 1:03pm acute December 09, 2 025 1:03pm Supervision of high-risk acute December 09 1:03pm Anxiety acute December 19, 2024 2:53pm Bleeding in early acute December 19, 2024 2:53pm COVID acute December 19, 2024 2:53pm History of miscarriage, currently acute December 2:53pm Obesity affecting acute December 19, 2024 2:53pm acute December 19, 2024 2:53pm Supervision of high-risk acute December 19, 025 2:53pm [facility] Work Phone: 1(708) 607-266208-25-2025 Evaluation note* Diagnosis Onset Date Resolution Status Admit Date Anxiety acute December 09, 2 025 1:03pm Bleeding in early acute December 09, 2024 1:03pm COVID acute December 09, 2 025 1:03pm History of miscarriage, currently acute December 09, 2024 1:03pm Obesity affecting acute December 09, 2024 1:03pm acute December 09, 2 025 1:03pm Supervision of high-risk acute December 09 1:03pm Anxiety acute December 19, 2024 2:53pm Bleeding in early acute December 19, 2024 2:53pm COVID acute December 19, 2024 2:53pm History of miscarriage, currently acute December 2:53pm Obesity affecting acute December 19, 2024 2:53pm acute December 19, 2024 2:53pm Supervision of high-risk acute December 19, 2 025 2:53pm Anxiety acute December 1:18pm Bleeding in early acute December 25, 2024 1:18pm COVID acute December 1:18pm History of miscarriage, currently acute December 1:18pm Obesity affecting acute December 25, 2024 1:18pm acute December 1:18pm Supervision of high-risk acute December 25, 2024 1:18pm [facility] Work Phone: 1(308) 482-175208-25-2025 Evaluation note* Diagnosis Onset Date Resolution Status Admit Date Anxiety acute December 09, 2 025 1:03pm COVID acute December 09, 025 1:03pm History of miscarriage, currently acute December 09, 2024 1:03pm Obesity affecting acute December 09, 2024 1:03pm acute December 09, 025 1:03pm Supervision of high-risk acute December 09 1:03pm Bleeding in early resolved December 09, 2024 1:03pm Anxiety acute December 19, 2024 2:53pm COVID acute December 19, 2024 2:53pm History of miscarriage, currently acute December 2:53pm Obesity affecting acute December 19, 2024 2:53pm acute December 19, 2024 2:53pm Supervision of high-risk acute December 19, 025 2:53pm Bleeding in early resolved December 19, 2024 2:53pm Anxiety acute December 1:18pm COVID acute December 1:18pm History of miscarriage, currently acute December 1:18pm Obesity affecting acute December 25, 2024 1:18pm acute December 1:18pm Supervision of high-risk acute December 25, 2024 1:18pm Bleeding in early resolved December 25, 2024 1:18pm Anxiety acute December 10:53am COVID acute December 10:53am History of miscarriage, currently acute December 10:53am Macrosomia acute December 10:53am Obesity affecting acute January 01, 2025 10:53am acute December 10:53am Supervision of high-risk acute January 01, 2025 10:53am [facility] Work Phone: 1(211) 264-370808-25-2025 [facility] [address] [place] [address], [address] [place] [address] OFFICE VISIT Date of Service: 12/09/24 MR#: [id number] Acct: [id number] Name: CHAPARRITA FLOYD Rep #: [id number] : 2000 Provider: СВЕТЛАНА Christianson Age/Sex: 24/F [place] [facility] [place] Status: Signed Intake Vital Signs 07/09/24 18:20 12/02/24 13:44 12/09/24 13:08 Height 5 ft 7 in 5 ft 7 in 5 ft 7 in Weight: 271 lb 6 oz BMI 42.5 BP 118/83 H Intake Visit Reasons: *NEW* SAIRA 30wk NOB JOSE 02/11 Chief Complaint: New OB 35wks 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 Is patient in pain?: No Allergies No Known Allergies Allergy (Verified 12/09/24 13:05) Medications ?Medication ?Instructions ?Recorded ?Confirmed ?Type escitalopram oxalate 10 mg tablet 10 mg PO DAILY 03/0112/09/24 History cholecalciferol (vitamin D3) 50 2,000 unit PO QDAY 12/09/24 History mcg (2,000 unit) capsule (Vitamin D3) aspirin 81 mg tablet 81 mg PO QDAY COVID 12/05/24 12/09/24 History multivit-min no.71-iron fum 28 cap PO 12/05/24 5 History mg-folate no.1 1 mg-dha 300 mg capsule (PNV-[place]) Last Menstrual Period: 04/07/24 : No PFSH PFSH Medical History Migraines Surgical History Whitt teeth extracted Family History Father Heart disease Maternal Grandfather Heart disease Cancer, Onset Age: 78 Pancreatic Grandfather Heart disease Paternal Diabetes Paternal Mother Diabetes Hypertension Thyroid disorder hypothyroidism Iron deficiency anemia Fibromyalgia Uncle Diabetes Maternal Grandmother Cancer, Onset Age: 79 Paternal Bladder Maternal Grandmother Cancer, Onset Age: 78 stomach ca Social History adopted: No household members: significant other housing: house service: No current occupational status: employed current occupation: [employer] current occupational exposures/hazards: No pets and animals: Yes pets and animals: dog(s) history of recent travel: No sexually active: Yes Smoking Status: Never smoker alcohol intake: current alcohol intake frequency: holidays/special occasions only details: not while substance use type: does not use well-balanced diet: daily or most days caffeine: Yes Type: coffee Number of servings: 1 eating out: rarely or never during the past year weight has: increased > 10 lbs what type of physical activity do you participate in: walking frequency: 5-6 times per week duration: 45-60 minutes/day montserrat/yazidism: None seatbelt use: always do you feel safe at home: Yes 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 Date Name GA/Weeks Outcome Route Bth Weight Gen Labor Lgth Anes thesi a Ed [facility] Provider FOB Unknown 02/2024 Miscarriage 6 spontaneous HPI *NEW* SAIRA 30wk NOB JOSE 02/11 Details: CHAPARRITA FLOYD is a 24 year old who presents for New OB visit. OB Visit JOSE Calculator Estimated Delivery Date Method Current WG Current Estimate 01/12/25 LMP (Certain) 35w 1d Comments: HIV: Urine Culture: Sequential Screen: NIPT Screen: Estimated Due Date: 01/12/25 Expected Delivery Route/Plan Labor Preferences- CB/BF classes: [] labor support person: [] labor intervention preferences: [] pain management options preferred: epidural cut cord/dad catch: [] : wants to try PP control planned: discussed possible routes of delivery and associated risks: [] special requests: [] Specific Issue/Plans Covid status: [] Flu vaccine: [] Tdap vaccine: [] Rhogam: [] LARC form signed: yes Problem list reviewed and updated with the most current plan of care details and appropriate ordersplaced. Relevant counseling for the gestational age provided. Continue routine care and follow up unless otherwise noted in visit notes/problem list details Initial Weight: Not Recorded Date -?-?-?-?-?-?-?-?-?-?-?-?- EGA Weight BP Urine Prot -?-?-?-?-?-?-?-?-?-?-?-?- Glucose FHR FuHt Pres Dilation -?-?-?-?-?-?-?-?-?-?-?-?- Effaced St Visit Note 12/09/24 -?-?-?-?-?-?-?--?-?-?-?-?- 35w 1d 271 lb 6 oz 118/83 Nega tive -?-?-?-?-?-?-?-?-?-?-?-?- Negative 140 35 -?-?-?-?-?-?-?-?-?-?-?-?- KW- Transfer of care from [place] no vb/lof/ctx. good fm. LARC today. NOB labs reviewed-PRR. discussed GBS and labor precautions. was not offered Tdap and would like it today. anatomy US normal. Menstrual History Last Menstrual Period: 04/07/24 Reported LMP: definite Normal amount/duration: Yes Frequency in days: 28 On hormonal BC at conception: No hCG+: 05/08/24 Antepartum Record Genetic Screening: Congenital Heart Defect: Other, Neural Tube Defect: Other, Hemoglobinopathy Or Carrier: Other, Cystic Fibrosis: Other, Chromosome Abnormality: Other, Lb-Sachs: Other, Hemophilia: Other, Intellectual Disability/Autism: Other, Recurrent Loss/Stillbirth: Other, Other Structural Defect: Other, Other Genetic Disease: Other and Maternal Metabolic Disorder: Other Infection History: Live with someone with TB or Exposed to TB: No, Patient or Partner has history of Genital Herpes: No, Rash or Viral illness since last mentrual period: Yes (Covid in June), Prior GBS-Infected child: No, History of STD: No, HIV Infection: No, History of Hepatitis: No, Recent travel outside of [place]: No, Concern for hepatitis exposure: No, Varicella immune: Yes (immune- vaccinated)and Covid Vaccinated: Yes (Pfizer, No Boosters) Medical History Medical History: Positive: Psychiatric (anxiety), Operations/hospitalizations (wisdom teeth), Relevant family history (See PFSH ) and Other (Obesity) and Negative: Diabetes, Hypertension, Heart disease, Auto-immune disorder, Kidney disease/UTI, Neurologic/epilepsy, Depression/ depression, Hepatitis/liver disease, Varicosities/phlebitis, Thyroid dysfunction, Trauma/domestic violence, History of blood transfusions, D (Rh) Sensitized, Pulmonary (e.g.,TB,Asthma), Seasonal allergies, Drug/latex allergies/reactions, Breast, Time Clock Inspector surgery, Anesthetic complications, History of abnormal pap, Uterine anomaly/sascha, Infertility and Anti-retroviral treatment ACOG First Trimester First Trimester: Desire for , Alcohol, Tobacco Cessation, Illicit/Recreational Drug/Substance Use, Intimate Partner Violence, Barriers to care, Unstable Housing, Communication Barriers, Environmental/Work Hazards, Anticipated Course of Care, Nurtrition and weight gain, Toxoplasmosis Precations, Use of Any medications, Sexual activity, Exercise, Dental Care, Sauna/Hot tub use, Seat Belt use, Childbirth classes/Hospital facilities, Travel, Indications for Ultrasound and Screening for Aneuploidy; Discussed ROS Const Reports system reviewed and no additional complaints, except as documented Eyes Reports system reviewed and no additional complaints, except as documented ENT Reports system reviewed and no additional complaints, except as documented Card Reports system reviewed and no additional complaints, except as documented Resp Reports system reviewed and no additional complaints, except as documented GI Reports system reviewed and no additional complaints, except as documented, Denies nausea and Denies vomiting Reports system reviewed and no additional complaints, except as documented Musc Reports system reviewed and no additional complaints, except as documented Skin/Breast Reports system reviewed and no additional complaints, except as documented Neuro Yes system reviewed and no additional complaints, except as documented Psych Reports system reviewed and no additional complaints, except as documented Endo Reports system reviewed and no additional complaints, except as documented Andres/Lymph Reports system reviewed and no additional complaints, except as documented Aller/Immun Reports system reviewed and no additional complaints, except as documented Exam Const General: cooperative, healthy appearing and no acute distress Orientation: alert, awake and oriented x3 Neck Neck: normal visual inspection and full ROM Resp Effort & Inspection: normal respiratory effort, able to speak in complete sentences and symmetric chest movement GI Inspection: normal to inspection Palpation: soft and other Other: gravid Skin General: no rashes or lesions noted Neuro General: patient alert, patient awake and patient oriented x3 Cognition: normal cognition Speech: speech normal Gait: normal gait Motor: muscle tone normal throughout Extrem General: normal to inspection and full ROM Psych Appearance: grossly normal Mental Status: mental status grossly normal Mood: congruent mood Affect: normal affect Speech and Movement: speech and movement normal Attitude: cooperative Thought Process: normal Thought Content: normal Judgment: judgment good Results POC Urinalysis 2 Dip (Clinic) Office Urine Glucose Negative Last Edit by Kathryn Berger on 12/09/24 13:24 Office Urine Protein Negative Last Edit by Kathryn Berger on 12/09/24 13:24 Coding Level of Care Code OB Routine Diagnoses Supervision of high-risk O09.90 Anxiety F41.9 Obesity affecting O99.210 History of miscarriage, currently O09.299 35 weeks gestation of Z3A.35 Weeks of gestation: 35 weeks COVID U07.1 Bleeding in early O20.9 Assessment and Plan Assessment and Plan (1) Supervision of high-risk : Status: Acute Comment: PRR,, JOSE 01/12/25 KEATON Shipman (2) Anxiety: Status: Acute (3) Obesity affecting : Status: Acute Comment: nl a1c (4) History of miscarriage, currently : Status: Acute (5) : Status: Acute Qualifiers: Weeks of gestation: 35 weeks Qualified Code(s): Z3A.35 - 35 weeks gestation of Comment: NIPT low risk, female, declined carrier (6) COVID: Status: Acute Comment: asa 81 mg (7) Bleeding in early : Status: Acute Orders: Orders Culture, Group B Streptococcus 12/05/24 O09.90 - Supervision of high risk , unspecified, unspecified trimester Chlamydia/Neisseria PCR 12/05/24 O09.90 - Supervision of high risk , unspecified, unspecified trimester HIV 12/05/24 O09.90 - Supervision of high risk , unspecified, unspecified trimester Culture, Urine 12/05/24 O09.90 - Supervision of high risk , unspecified, unspecified trimester Plan Details Additional Comments: ACOG trimester education reviewed and updated. see problem list details for updated plan management information and see below for orders placed atthis visit. [place] appropriate handout given. 12/09/24 1344 s CNM> Date _ Marcia Christianson CNKehinde Cosigner Signature: Date (if applicable) CC: ~ [facility]05-02-2025 History of Present illness Narrative* Jolynn Mancilla MA - 08/16/2024 1:00 PM EDT Subjective Patient ID: Chaparrita Floyd is a 24 y.o. female who presents for Employment Physical. HPI Review of Systems Objective Physical Exam Assessment/Plan Jolynn Mancilla MA 08/16/24 12:58 PM * Annette Frey MD - 08/16/2024 1:00 PM EDT Subjective Chaparrita Floyd is a 24 y.o. female who presents for Employment Physical. Here for check up/work physical. She has h/o anxiety, she is currently , she is doing well with no concerns at this time. Objective Visit Vitals BP 122/76 Pulse 106 Physical Exam Vitals reviewed. Constitutional: General: She is not in acute distress. Cardiovascular: Rate and Rhythm: Normal rate and regular rhythm. Heart sounds: No murmur heard. Pulmonary: Effort: Pulmonary effort is normal. No respiratory distress. Breath sounds: Normal breath sounds. Skin: General: Skin is warm and dry. Neurological: General: No focal deficit present. Mental Status: She is alert. Mental status is at baseline. Assessment/Plan Problem List Items Addressed This Visit None Visit Diagnoses Healthcare maintenance - Primary Annette Frey MD documented in this [facility] Work Phone: 1(882) 584-518505-02-2025 Instructions* Patient Instructions* Annette Frey MD - 08/16/2024 1:00 PM EDT Continue current medications. Follow up with specialists as scheduled. Follow up in 1 year, sooner if needed. documented in this [facility] Work Phone: 1([phone]) 274-797003-25-[address] [facility] Imaging Services [address] [place] [address] Chest PA and Lateral MR#: [id number] Acct: [id number] Name: CHAPARRITA FLOYD Rep #: [id number] : 2000 F 24 From: Skyler Sepulveda DO PCP: Dr. Annette Frey MD Status: REG ER Study:Chest PA and Lateral Date of Exam: 07/09/24 Exam# [id number] Ordering Dr: Keaton Martin DO EXAM: Two-view chest x-ray study CLINICAL HISTORY: Shortness of breath COMPARISON: None TECHNIQUE: PA and lateral radiographs of the chest were performed. FINDINGS: PA and lateral radiographs of the chest were performed and demonstrate 1-2 mm nodules in both lungswhich appear to represent probable summation artifact and/or granulomas. There is no atelectasis, consolidation, effusion or pneumonic infiltrate. Heart size and configuration are within normal limits. Pulmonary vasculature and hilar structures are unremarkable. Trachea is midline. Bony thorax is unremarkable. Cardiac leads overlie the chest. RAD/Chest PA and Lateral IMPRESSION: No acute cardiopulmonary process identified radiographically. Reading Location: [id number] CC: Dr. Keaton Driver DO; Dr. Annette Frey MD ~ Transcription Specialist: Signed [facility]02-10-2025 History of Present illness Narrative* Estelita Pickens MD - 05/27/2024 2:00 PM EST Chaparrita Floyd is a 23 y.o. year old female patient. PCP = Annette Frey MD Chief Complaint Patient presents with Amenorrhea LMP-04/09/2024. Pt c/o fatigue, mild nausea, and mild breast tenderness HPI Presents stating that she has had no menstrual flow since March. She has some nausea and breast tenderness. Denies any vaginal bleeding or abdominal pain. OB History 1 Para Term AB 1 Living SAB 1 IAB Ectopic Multiple Live Births Past Medical History: Diagnosis Date Injury of brachial plexus, initial encounter 02/02/2021 Injury of brachial plexus, initial encounter Injury of brachial plexus, subsequent encounter 02/02/2021 Brachial plexus injury, right, subsequent encounter Migraine Past Surgical History: Procedure Laterality Date OTHER SURGICAL HISTORY 12/03/2019 No history of surgery Review of Systems: Constitutional: No fever or chills Respiratory: No shortness of breath, or cough Cardiovascular: No chest pain or syncope Breasts: No masses, no nipple discharge Gastrointestinal: No vomiting, or diarrhea, no abdominal pain Genitourinary: No dysuria or frequency Gynecology: Negative except as noted in history of present illness All other: All other systems reviewed and negative for complaint Medication Documentation Review Audit Reviewed by Estelita Pickens MD (Physician) on 05/27/24 at 1411 Medication Order Taking? Sig Documenting Provider Last Dose Status cholecalciferol (Vitamin D-3) 50 MCG (1999) tablet [id number] Take by mouth. Historical ProviderMD Active escitalopram (Lexapro) 10 mg tablet [id number] Take 1 tablet by mouth once daily Annette Frey MD Active hydrOXYzine HCL (Atarax) 25 mg tablet [id number] Take 1 tablet (25 mg) by mouth every 8 hours if needed for itching. Patient not taking: Reported on 05/09/2024 Annette Frey MD Active magnesium, amino acid chelate, 133 mg tablet [id number] Take 1 tablet (133 mg) by mouth 2 times a day. Historical ProviderMD Active multivitamin tablet [id number] Take 1 tablet by mouth once daily. Historical ProviderMD Active ondansetron ODT (Zofran-ODT) 8 mg disintegrating tablet [id number] No Take 1 tablet (8 mg) by mouth every 8 hours if needed for nausea or vomiting. Patient not taking: Reported on 02/23/2024 Annette Frey MD Not Taking Active predniSONE (Deltasone) 10 mg tablet [id number] 6,5,4,3,2,1 Patient not taking: Reported on 02/23/2024 Annette Frey MD Active no115/iron/folic acid ( 19 ORAL) [id number] Take by mouth. Historical Provider, Active BP 118/72 Ht 1.702 m (5' 7) Wt 108 kg (237 lb 6.4 oz) LMP 04/09/2024 (Exact Date) BMI 37.18 kg/m PHYSICAL EXAMINATION: Process Trainer present for exam: Aleksandra Roque LPN Well-developed, well nourished, in no acute distress, alert and oriented x three, is pleasant and cooperative. HEENT: Clear. Pupils equal, round and reactive to light and accommodation. Extraocular muscles are intact. Oral mucosa pink without exudate. NECK: No lymphadenopathy, no thyromegaly. LUNGS: Clear bilaterally. HEART: Regular rate and rhythm without murmurs. ABDOMEN: Normoactive bowel sounds, soft and nontender, no guarding or rebound tenderness, no CVA tenderness. EXTREMITIES: No clubbing, cyanosis or edema. NEUROLOGIC: Cranial nerves II-XII grossly intact. : Normal external female genitalia, normal vulva, normal vagina. Normal urethral meatus, urethra and bladder. Vaginal ultrasound shows a live intrauterine at 6 weeks 3 days gestation which is consistent with LMP. EDC is January 14, 2025. Problem List Items Addressed This Visit None Visit Diagnoses Amenorrhea - Primary Relevant Orders OB transvaginal (Completed) Provider Impression: 1. Amenorrhea Patient to follow-up in the office in 4 weeks for new OB visit, cultures and labs. documented in this [facility] Work Phone: 1(299) 988-655101-23-2025 History of Present illness Narrative* Dago Perez, KALANI-CNM, SURFACING TECHNICIAN-CUBING MACHINE TENDER, DNP - 05/09/2024 2:00 PM EST Subjective Patient ID: Chaparrita Floyd is a 23 y.o. female who presents for Gynecologic Exam (Pt here for annual exam pt states she was told to follow up after miscarriage in February. Pt also stated she is 2 days late as of today for her cycle). Gynecologic Exam Associated symptoms include nausea. Pt. Presents with complaint of missed menses x a couple of days, mild nausea, fatigue, and breast tenderness. Desires and taking PNV since 6 week SAB 02/2024. Positive UPT in office today. Pt. Desires to have care here. Denies any pre-existing health problems Review of Systems Constitutional: Negative. Gastrointestinal: Positive for nausea. Genitourinary: Negative. Psychiatric/Behavioral: Negative. Objective Physical Exam Constitutional: Appearance: Normal appearance. Pulmonary: Effort: Pulmonary effort is normal. Neurological: General: No focal deficit present. Mental Status: She is alert and oriented to person, place, and time. Psychiatric: Mood and Affect: Mood normal. Behavior: Behavior normal. Thought Content: Thought content normal. Judgment: Judgment normal. Assessment/Plan Continue PNV Will schedule first OB appt with CASI Best APRN-CNP, DNP 05/09/24 2:41 PM documented in this [facility] Work Phone: 1(728) 416-453311-08-2024 History of Present illness Narrative* MAYTE Carl - 02/23/2024 5:30 PM EST [facility] MAYTE Carl Visit Note - 02/23/2024 6:36 PM This note was generated with voice recognition software and may contain errors including spelling, grammar, syntax, and misrecognization of what was dictated. Patient: Chaparrita Floyd, , 23 y.o., female PCP: Annette Frey MD ALLERGIES: No Known Allergies CURRENT MEDICATIONS: Current Outpatient Medications Medication Instructions cholecalciferol (Vitamin D-3) 50 MCG (1999) tablet Take by mouth. escitalopram (LEXAPRO) 10 mg, oral, Daily hydrOXYzine HCL (ATARAX) 25 mg, oral, Every 8 hours PRN multivitamin tablet 1 tablet, Daily ondansetron ODT (ZOFRAN-ODT) 8 mg, oral, Every 8 hours PRN predniSONE (Deltasone) 10 mg tablet 6,5,4,3,2,1 Reports has not been taking Hydroxyzine; only currently on Lexapro, D3, and multivitamin. PAST MEDICAL HX: Patient Active Problem List Diagnosis Migraine without aura and without status migrainosus, not intractable Anxiety SURGICAL HX: Past Surgical History: Procedure Laterality Date OTHER SURGICAL HISTORY 12/03/2019 No history of surgery FAMILY HX: No pertinent history. SOCIAL HX: reports that she has never smoked. She has never used smokeless tobacco. CHIEF COMPLAINT: Chief Complaint Patient presents with Possible Late on period, had a faint line on home preg test x today , nausea, fatigued, headache x 1-2 days HISTORY OF PRESENT ILLNESS: The history was obtained from patient and her boyfriend. Chaparrita is a 23 y.o. female, who presents with a chief complaint of concern for possible . Reports her menses is ~4 days late, and her last period was a little shorter than usual, as well. Has had fatigue, headaches, breasts feel sore, and has also had slight nausea the past few days. She denies any fevers, chills, vomiting, abdominal pain, diarrhea, vaginal symptoms, urinary symptoms, and cold symptoms. Reports she is sexually active without protection. Reports she took a home test today and it showed a faintly positive line. Requesting test. REVIEW OF SYSTEMS: 10 systems reviewed negative with exception of history of present illness as listed above. TODAY'S VITALS: BP 117/81 Pulse 91 Temp 36.6 C (97.8 F) Resp 16 Ht 1.702 m (5' 7) Wt 101kg (222 lb) SpO2 100% BMI 34.77 kg/m PHYSICAL EXAMINATION: General: Pleasant female, alert and oriented, in no acute distress. Accompanied by her boyfriend. Eyes: Pupils equal, round and reactive to light. Eyes non-icteric; conjunctiva clear. HENT: Normocephalic. Neck: Supple; no lymphadenopathy Respiratory: Lungs are clear to auscultation, Respirations are easy and non- labored, Breath sounds are equal, Symmetrical chest wall expansion. Cardiovascular: Normal rate, Regular rhythm. Normal S1S2. No m/r/g. Gastrointestinal: Abdomen soft, non-tender, non-distended, and without palpable masses or organomegaly. Bowel sounds normoactive. Musculoskeletal: Normal range of motion, normal strength, no joint tenderness or swelling. Integumentary: [place], warm, dry. No rashes appreciated. Neurologic: Alert, Oriented, Normal sensory, Normal motor function. Cognition and Speech: Oriented, Speech clear and coherent. Psychiatric: Cooperative, Appropriate mood & affect. Medical Decision Making LABORATORY or RADIOLOGICAL IMAGING ORDERS/RESULTS: Urine Hcg - inconclusive x2. Order for serum H IMPRESSION/PLAN: Course: Worsening; stable 1. Amenorrhea (Primary) - Human Chorionic Gonadotropin, Serum Quantitative; Future Urine test in office was inconclusive x2 - per machine readout, showed borderline Hcg levels - recommend repeat testing in 48-72 hours. Much support and education provided. Encouraged to plan another home test in the next 2-3 days. In the meantime, encouraged to take precautionary measures in case of potential . She no longer takes hydroxyzine, Zofran, or Prednisone, and reports she was switched to Lexapro specifically in case were to occur, as her provider felt it would be the safest option. Encouraged to begin vitamin, to follow healthy diet, continueregular physical activity, to push fluids, get plenty of rest, avoid OTC medications that are unsafe in , etc. Should follow up with PCP/CONSERVATION ASSISTANT next week, especially if follow up testis positive. Order for serum Hcg also entered. Patient stated understanding and agrees to follow upwith PCP/CONSERVATION ASSISTANT next week, or to seek care sooner for any red flags or concerns; no questions/concernsverbalized. MAYTE Carl Advanced Practice Provider [facility] documented in this [facility] Work Phone: 1([phone]) 768-362909-16-2024 NotePt was not seen by provider due to provider being called for delivery. No charge visit. AUTHENTICATED BY KEILA BRADY, ON 01/01/2024 14:34:35[facility]08-27-2024 History of Present illness Narrative* Judith Goldberg MA - 12/12/2023 4:40 PM EDT Subjective Patient ID: Chaparrita Floyd is a 23 y.o. female who presents for a rash that is spreading allover their body. Started about 4 days ago, She has taken OTC medication and cream with little relief HPI Review of Systems Objective There were no vitals taken for this visit. Physical Exam Assessment/Plan * Annette Frey MD - 12/12/2023 4:40 PM EDT Subjective Chaparrita Floyd is a 23 y.o. female who presents for No chief complaint on file.. Here c/o rash that started 4-5 days ago. It is itchy. OTC meds not helping. No new unusual contacts. No shortness of breath. Rash This is a new problem. The current episode started in the past 7 days. The problem has been gradually worsening since onset. The affected locations include the chest, torso, back and left arm. The rash is characterized by redness and itchiness. It is unknown if there was an exposure to a precipitant. Associated symptoms include anorexia and fatigue. Pertinent negatives include no congestion, cough, diarrhea, eye pain, facial edema, fever, joint pain, nail changes, rhinorrhea, shortness of breath, sore throat or vomiting. Objective Visit Vitals BP 116/80 (BP Location: Left arm, Patient Position: Sitting, BP Cuff Size: Adult) Pulse 102 Physical Exam Vitals reviewed. Constitutional: General: She is not in acute distress. Cardiovascular: Rate and Rhythm: Normal rate and regular rhythm. Heart sounds: No murmur heard. Pulmonary: Effort: Pulmonary effort is normal. No respiratory distress. Breath sounds: Normal breath sounds. Skin: General: Skin is warm and dry. Comments: Scattered patches of erythema, urticaria, with some excoriations. No evidence of secondary infection. Neurological: General: No focal deficit present. Mental Status: She is alert. Mental status is at baseline. Assessment/Plan Problem List Items Addressed This Visit None Visit Diagnoses Urticaria - Primary Relevant Medications predniSONE (Deltasone) 10 mg tablet hydrOXYzine HCL (Atarax) 25 mg tablet Annette Frey MD [facility]: 1([phone]) 396-139108-27-2024 Instructions* Patient Instructions* Annette Frey MD - 12/12/2023 4:40 PM EDT Follow up if no improvement or if she worsens. [facility] Work Phone: 1([phone]) 605-869906-25-2024 History of Present illness Narrative* Judith Goldberg MA - 10/10/2023 11:40 AM EDT Subjective Patient ID: Chaparrita Floyd is a 23 y.o. female who presents [place]. She has been nausea and sick since then. Patient has been having headaches as well x 4 days HPI Review of Systems Objective There were no vitals taken for this visit. Physical Exam Assessment/Plan * Annette Frey MD - 10/10/2023 11:40 AM EDT Subjective Chaparrita Floyd is a 23 y.o. female who presents for No chief complaint on file.. Here c/o she got sunburned over the weekend and has had nausea and headaches since then. She had some vomiting and lightheaded today. Has had some mild diarrhea as well. Objective Visit Vitals BP 118/77 (BP Location: Left arm, Patient Position: Sitting, BP Cuff Size: Adult) Pulse 69 Physical Exam Vitals reviewed. Constitutional: General: She is not in acute distress. Cardiovascular: Rate and Rhythm: Normal rate and regular rhythm. Heart sounds: No murmur heard. Pulmonary: Effort: Pulmonary effort is normal. No respiratory distress. Breath sounds: Normal breath sounds. Skin: General: Skin is warm and dry. Comments: Mild-mod sunburn over the upper shoulders/back. No blisters Neurological: General: No focal deficit present. Mental Status: She is alert. Mental status is at baseline. Assessment/Plan Problem List Items Addressed This Visit None Visit Diagnoses Nausea and vomiting, unspecified vomiting type - Primary Relevant Medications ondansetron ODT (Zofran-ODT) 8 mg disintegrating tablet Annette Frey MD [facility] Work Phone: 1(478) 950-899406-25-2024 Instructions* Patient Instructions* Annette Frey MD - 10/10/2023 11:40 AM EDT Discussed that her symptoms may be due to the sunburn/dehydration or she may have picked up a viralillness. Either way we will treat symptomatically with antinausea medication and encourage fluids and follow up if no improvement or if she worsens. [facility] Work Phone: 1(726) 534-215706-04-2024 History of Present illness Narrative* Judith Goldberg MA - 09/19/2023 10:20 AM EDT Subjective Patient ID: Chaparrita Floyd is a 23 y.o. female who presents for 6 month check up. HPI Review of Systems Objective There were no vitals taken for this visit. Physical Exam Assessment/Plan * Annette Frey MD - 09/19/2023 10:20 AM EDT Subjective Chaparrita Floyd is a 23 y.o. female who presents for No chief complaint on file.. Here for follow up migraines, anxiety. She states that things are going well, she has started a newjob, feels like medications are working well. She is seeing her therapist regularly. She is now considering and we will wean off topamax. Her stress levels are better and so her headaches have been better. We discussed that lexapro can also be helpful in migraine prevention and would be safer in , so we will continue that. Objective Visit Vitals BP 122/72 (BP Location: Left arm, Patient Position: Sitting, BP Cuff Size: Adult) Pulse 83 Physical Exam Vitals reviewed. Constitutional: General: She is not in acute distress. Cardiovascular: Rate and Rhythm: Normal rate. Pulmonary: Effort: Pulmonary effort is normal. No respiratory distress. Skin: General: Skin is warm and dry. Neurological: General: No focal deficit present. Mental Status: She is alert. Mental status is at baseline. Assessment/Plan Problem List Items Addressed This Visit Migraine without aura and without status migrainosus, not intractable Anxiety Relevant Medications escitalopram (Lexapro) 10 mg tablet Annette Frey MD documented in this [facility] Work Phone: 1(452) 936-387606-04-2024 Instructions* Patient Instructions* Annette Frey MD - 09/19/2023 10:20 AM EDT Will decrease topamax to once a day at bedtime for 1-2 weeks then stop. Continue lexapro. She is taking a vitamin. Will plan on follow up here in 6 months. [facility] Work Phone: 1(435) 768-388303-01-2024 NoteHNO ID: [id number] Author: NAREN LAW II, OD Service: ? Author Type: MACHINIST INSTRUCTOR Type: Progress Notes Filed: 06/16/2023 13:54 Note Text: Assessment and Plan H52.11 Myopia, right (primary encounter diagnosis) H52.02 Hyperopia, left H52.223 Regular astigmatism, bilateral Comment: Anisometropia well tolerated. Glasses power stable. Previously noted optic nerve margin appearance stable. Monitor yearly. I have confirmed and edited as necessary the relevant HPI, ophthalmic history, ROS, and the neuro exam findings as obtained by others. I have seen and examined Chaparritatalita Floyd. I have discussed the case and the management of this patient's care with the Resident/Fellow, if applicable. I also have reviewed and agree with the assessment and plan as stated above and agree with all of its relevant components.[facility]03-01-2024 Instructions* Patient Instructions* Naren Law II, MARISELA - 06/16/2023 1:52 PM EST Assessment and Plan H52.11 Myopia, right (primary encounter diagnosis) H52.02 Hyperopia, left H52.223 Regular astigmatism, bilateral Comment: Anisometropia well tolerated. Glasses power stable. Previously noted optic nerve margin appearance stable. Monitor yearly. I have confirmed and edited as necessary the relevant HPI, ophthalmic history, ROS, and the neuro exam findings as obtained by others. I have seen and examined Chaparrita Floyd. I have discussed the case and the management of this patient's care with the Resident/Fellow, if applicable. I also have reviewed and agree with the assessment and plan as stated above and agree withall of its relevant components. [facility] History of Present illness Narrative* Naren Law II, OD - 06/16/2023 1:51 PM EST Assessment and Plan H52.11 Myopia, right (primary encounter diagnosis) H52.02 Hyperopia, left H52.223 Regular astigmatism, bilateral Comment: Anisometropia well tolerated. Glasses power stable. Previously noted optic nerve margin appearance stable. Monitor yearly. I have confirmed and edited as necessary the relevant HPI, ophthalmic history, ROS, and the neuro exam findings as obtained by others. I have seen and examined Chaparrita Floyd. I have discussed the case and the management of this patient's care with the Resident/Fellow, if applicable. I also have reviewed and agree with the assessment and plan as stated above and agree withall of its relevant components. [facility]Day[facility] History of Present illness Narrative* Judith Goldberg MA - 05/23/2023 8:20 AM EST Subjective Patient ID: Chaparrita Floyd is a 22 y.o. female who presents for medication check and patientthinks she adjusting, not as anxious. Patient is sleeping better, still waking up but able to go back to sleep due to not being so anxious HPI Review of Systems Objective There were no vitals taken for this visit. Physical Exam Assessment/Plan * Annette Frey MD - 05/23/2023 8:20 AM EST Subjective Chaparrita Floyd is a 22 y.o. female who presents for No chief complaint on file.. Here for follow up anxiety. She states that she is feeling a little better, less anxious, sleep is a little better. She will be starting therapy soon. She also needs a physical for work. Objective Visit Vitals BP 110/78 (BP Location: Left arm, Patient Position: Sitting, BP Cuff Size: Adult) Pulse 80 Physical Exam Vitals reviewed. Constitutional: General: She is not in acute distress. Cardiovascular: Rate and Rhythm: Normal rate and regular rhythm. Heart sounds: No murmur heard. Pulmonary: Effort: Pulmonary effort is normal. No respiratory distress. Breath sounds: Normal breath sounds. Skin: General: Skin is warm and dry. Neurological: General: No focal deficit present. Mental Status: She is alert. Mental status is at baseline. Assessment/Plan Problem List Items Addressed This Visit None Visit Diagnoses Healthcare maintenance - Primary Relevant Orders Comprehensive Metabolic Panel Lipid Panel Anxiety Relevant Orders Follow Up In Primary Care - Established Annette Frey MD documented in this [facility] Work Phone: 1(852) 297-598501-16-2024 History of Present illness Narrative* Judith Goldberg MA - 05/02/2023 3:00 PM EST Subjective Patient ID: Chaparrita Floyd is a 22 y.o. female who presents for anxiety issues. Patient states she has been getting palpitations and also not able to sleep. Patient states she is under a lot of stress. HPI Review of Systems Objective There were no vitals taken for this visit. Physical Exam Assessment/Plan * Annette Frey MD - 05/02/2023 3:00 PM EST Subjective Chaparrita Floyd is a 22 y.o. female who presents for No chief complaint on file.. Here c/o increased anxiety, insomnia, palpitations. 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 She has been on lexapro in the past. She states that she thinks that was helpful. She did not do well on sertraline. Objective Visit Vitals BP 136/80 (BP Location: Left arm, Patient Position: Sitting, BP Cuff Size: Adult) Pulse 87 Physical Exam Vitals reviewed. Constitutional: General: She is not in acute distress. Cardiovascular: Rate and Rhythm: Normal rate. Pulmonary: Effort: Pulmonary effort is normal. No respiratory distress. Skin: General: Skin is warm and dry. Neurological: General: No focal deficit present. Mental Status: She is alert. Mental status is at baseline. Assessment/Plan Problem List Items Addressed This Visit None Visit Diagnoses Anxiety - Primary Relevant Medications escitalopram (Lexapro) 10 mg tablet Other Relevant Orders Follow Up In Primary Care - Established Annette Frey MD [facility] Work Phone: 1(572) 192-532001-16-2024 Instructions* Patient Instructions* Annette Frey MD - 05/02/2023 3:00 PM EST Will start lexapro. Follow up in 3 weeks, sooner if needed. [facility] Work Phone: [phone]) 813-878412-05-2023 History of Present illness Narrative* Judith Goldberg MA - 03/21/2023 9:00 AM EST Subjective Patient ID: Chaparrita Floyd is a 22 y.o. female who presents for 1 month check up HPI Review of Systems Objective There were no vitals taken for this visit. Physical Exam Assessment/Plan * Annette Frey MD - 03/21/2023 9:00 AM EST Subjective Chaparrita Floyd is a 22 y.o. female who presents for No chief complaint on file.. Here for follow up migraines/fatigue. We decreased the topamax at her last visit. She states that she thinks she is doing a little better. Not sleeping quite as much as she was. No significant increase in headaches. We discussed decreasing topamax further vs continuing her current dose and monitoring, at this point she would prefer not to make any further changes and we will do that and monitor. Objective Visit Vitals BP 94/58 (BP Location: Left arm, Patient Position: Sitting, BP Cuff Size: Adult) Pulse 95 Physical Exam Vitals reviewed. Constitutional: General: She is not in acute distress. Cardiovascular: Rate and Rhythm: Normal rate and regular rhythm. Heart sounds: No murmur heard. Pulmonary: Effort: Pulmonary effort is normal. No respiratory distress. Breath sounds: Normal breath sounds. Skin: General: Skin is warm and dry. Neurological: General: No focal deficit present. Mental Status: She is alert. Mental status is at baseline. Latest Reference Range & Units 02/15/23 09:39 GLUCOSE 74 - 99 mg/dL 81 SODIUM 136 - 145 mmol/L 141 POTASSIUM 3.5 - 5.3 mmol/L 3.9 CHLORIDE 98 - 107 mmol/L 110 (H) Bicarbonate 21 - 32 mmol/L 24 Anion Gap 10 - 20 mmol/L 11 Blood Urea Nitrogen 6 - 23 mg/dL 14 Creatinine 0.50 - 1.05 mg/dL 0.87 EGFR >60 mL/min/1.73m*2 >90 Calcium 8.6 - 10.3 mg/dL 9.6 Albumin 3.4 - 5.0 g/dL 4.6 Alkaline Phosphatase 33 - 110 U/L 57 ALT 7 - 45 U/L 14 AST 9 - 39 U/L 13 Bilirubin Total 0.0 - 1.2 mg/dL 0.9 Total Protein 6.4 - 8.2 g/dL 7.0 Vitamin B12 211 - 911 pg/mL 358 Thyroid Stimulating Hormone 0.44 - 3.98 mIU/L 1.75 Vitamin D, 25-Hydroxy, Total 30 - 100 ng/mL 62 WBC 4.4 - 11.3 x10*3/uL 5.2 nRBC 0.0 - 0.0 /100 WBCs 0.0 RBC 4.00 - 5.20 x10*6/uL 5.06 HEMOGLOBIN 12.0 - 16.0 g/dL 15.3 HEMATOCRIT 36.0 - 46.0 % 45.7 MCV 80 - 100 fL 90 MCH 26.0 - 34.0 pg 30.2 MCHC 32.0 - 36.0 g/dL 33.5 RED CELL DISTRIBUTION WIDTH 11.5 - 14.5 % 12.3 Platelets 150 - 450 x10*3/uL 270 MEAN PLATELET VOLUME 7.5 - 11.5 fL 9.7 Neutrophils % 40.0 - 80.0 % 58.3 Immature Granulocytes %, Automated 0.0 - 0.9 % 0.2 Lymphocytes % 13.0 - 44.0 % 31.3 Monocytes % 2.0 - 10.0 % 6.5 Eosinophils % 0.0 - 6.0 % 3.3 Basophils % 0.0 - 2.0 % 0.4 Neutrophils Absolute 1.20 - 7.70 x10*3/uL 3.03 Immature Granulocytes Absolute, Automated 0.00 - 0.70 x10*3/uL 0.01 Lymphocytes Absolute 1.20 - 4.80 x10*3/uL 1.63 Monocytes Absolute 0.10 - 1.00 x10*3/uL 0.34 Eosinophils Absolute 0.00 - 0.70 x10*3/uL 0.17 Basophils Absolute 0.00 - 0.10 x10*3/uL 0.02 (H): Data is abnormally high Assessment/Plan Problem List Items Addressed This Visit Migraine without aura and without status migrainosus, not intractable - Primary Relevant Orders Follow Up In Primary Care - Established Annette Frey MD [facility] Work Phone: 1([phone]) 217-910712-05-2023 Instructions* Patient Instructions* Annette Frey MD - 03/21/2023 9:00 AM EST Continue current medications. Follow up in 6 months, sooner if needed. [facility] Work Phone: [phone]) 856-265511-01-2023 History of Present illness Narrative* Judith Goldberg MA - 02/15/2023 9:00 AM EDT Subjective Patient ID: Chaparrita Floyd is a 22 y.o. female who presents for 6 month follow up. Medication refill. HPI Review of Systems Objective There were no vitals taken for this visit. Physical Exam Assessment/Plan * Annette Frey MD - 02/15/2023 9:00 AM EDT Subjective Chaparrita Floyd is a 22 y.o. female who presents for No chief complaint on file.. Here for follow up migraines. She states that she has been tired more recently. Is napping more, sleeps deep at night as well. Has some shortness of breath with exertion/going up stairs. She had labsin May but these symptoms seem worse since then. Also discussed topamax and that may be contributing to fatigue - will cut back on that. Objective Visit Vitals BP 96/76 (BP Location: Left arm, Patient Position: Sitting, BP Cuff Size: Adult) Pulse 83 Physical Exam Vitals reviewed. Constitutional: General: She is not in acute distress. Cardiovascular: Rate and Rhythm: Normal rate and regular rhythm. Heart sounds: No murmur heard. Pulmonary: Effort: Pulmonary effort is normal. No respiratory distress. Breath sounds: Normal breath sounds. Skin: General: Skin is warm and dry. Neurological: General: No focal deficit present. Mental Status: She is alert. Mental status is at baseline.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 laundry, cutting up vegetables, putting her hair up in a ponytail * She initially got a shoulder x-ray, which was negative, she got a shoulder MRI in July, which recommended a brachial plexus MRI, and this was only approved last week but not scheduled yet. She stillcannot move her arm at all. She does have chronic neck pain from before, but does not feel like it is connected at all to her arm issues. * Patient has been out of work since November 2019 when this happened * Pain: * LOCATION- Right shoulder and whole arm * RADIATION- * ASSOCIATED WITH- No falls * NUMBNESS/TINGLING- Right arm, feels like its not even there * WEAKNESS- Yes, right arm * CONSTANT or INTERMITTENT- Intermittent * SEVERITY/QUANTITY- 7 scapular area * QUALITY- Achy * EXACERBATED BY- Sleeping, arm movement * BETTER WITH- Elevating arm on pillows * TRIED- Tylenol * Anti-Inflammatories: Naproxen, nabumetone not for this * Muscle relaxants: Flexeril, helps for neck pain * Anti-depressants: Cymbalta not for this * Neuroleptics: Gabapentin for neck before, helped. not for arm * LDN: * PHYSICAL THERAPY: Yes, Jan -Mar 2020, tried to do HEP but couldn t * TENS unit: No * CHIROPRACTIC MANIPULATION: No * ACUPUNCTURE TREATMENTS: No * DEEP TISSUE MASSAGE THERAPY: No * OSTEOPATHIC MANIPULATION THERAPY: No * INJECTIONS: No * EMG/NCS: Yes at OSH ([facility]) , Feb 2020, reportedly normal * IMAGING: Yes * Shoulder x-ray 11/30/2019: Within normal limits * Shoulder MRI 07/31/2020: mild AC joint, brachial plexus mri recommended * FUNCTIONAL HISTORY: The patient is independent in all ADLs except needs help with opening bottles, writing, mobility, and driving. The patient does not use any assistive device. No work since November 2019. Recent hand splint broke and refused to fix it. * SH: * Lives in: [place] * Lives with: Dad and mom * Occupation: None * Tobacco: No * Alcohol: Rarely * Drugs: No * ROS: The patient denies any bowel or bladder incontinence/accidents, night sweats, fevers, chills, recent significant weight loss. A 14 point review of systems was reviewed with the patient and is asabove and otherwise negative. Please see scanned questionnaire for more details. [facility] Work Phone: [phone]) 370-768008-13-2020 History of Present illness Narrative* Dear Dr. Kelly, * I had the pleasure of seeing your patient, Chaparrita Floyd, in clinic today with her mother. As you know, she is a pleasant 20-year-old generally healthy right-handed woman who presents for consultation to evaluate right arm pain and weakness. * TIMELINE OF COMPLAINT(S): * She says on 11/28/2019, she was helping lift her patient got the shower chair on her own, when she thought her colleague would be helping her, but she ended up lifting the patient by herself. She felta pulling sensation in her right shoulder. It was a little bit achy but not too bad. Then 2 days later on 11/30/2019, she was lifting a max assist patient on the bed and the patient moved a certain way grabbing of the right shoulder and then Ms. Floyd felt a sudden pop and severe shooting pain in her shoulder going down her right arm and shortly after she felt her entire arm go numb and she could no longer move it. It has been essentially the same ever since, while she has been battling Worker'sComp. to try to get things approved. * She did physical therapy from January to March 2020, and during that time was when she had the most improvement. She was able to move her arm better during these PT sessions, upon further inquiry,it seemed like the only time she was able to move her arm was during mirror therapy. several notes were personally reviewed in the office today, they describe her being able to do certain tasks such as lifting some laundry, folding laundry, cutting up vegetables, putting her hair up in a ponytail * She initially got a shoulder x-ray, which was negative, she got a shoulder MRI in July, which recommended a brachial plexus MRI, and this was only approved last week but not scheduled yet. She stillcannot move her arm at all. She does have chronic neck pain from before, but does not feel like it is connected at all to her arm issues. * Patient has been out of work since November 2019 when this happened * Pain: * LOCATION- Right shoulder and whole arm * RADIATION- * ASSOCIATED WITH- No falls * NUMBNESS/TINGLING- Right arm, feels like its not even there * WEAKNESS- Yes, right arm * CONSTANT or INTERMITTENT- Intermittent * SEVERITY/QUANTITY- 7 scapular area * QUALITY- Achy * EXACERBATED BY- Sleeping, arm movement * BETTER WITH- Elevating arm on pillows * TRIED- Tylenol * Anti-Inflammatories: Naproxen, nabumetone not for this * Muscle relaxants: Flexeril, helps for neck pain * Anti-depressants: Cymbalta not for this * Neuroleptics: Gabapentin for neck before, helped. not for arm * LDN: * PHYSICAL THERAPY: Yes, Jan -Mar 2020, tried to do HEP but couldn t * TENS unit: No * CHIROPRACTIC MANIPULATION: No * ACUPUNCTURE TREATMENTS: No * DEEP TISSUE MASSAGE THERAPY: No * OSTEOPATHIC MANIPULATION THERAPY: No * INJECTIONS: No * EMG/NCS: Yes at OSH ([facility]) , Feb 2020, reportedly normal * IMAGING: Yes * Shoulder x-ray 11/30/2019: Within normal limits * Shoulder MRI 07/31/2020: mild AC joint, brachial plexus mri recommended * FUNCTIONAL HISTORY: The patient is independent in all ADLs except needs help with opening bottles, writing, mobility, and driving. The patient does not use any assistive device. No work since November 2019. Recent hand splint broke and WC refused to fix it. * SH: * Lives in: [place] * Lives with: Dad and mom * Occupation: None * Tobacco: No * Alcohol: Rarely * Drugs: No * ROS: The patient denies any bowel or bladder incontinence/accidents, night sweats, fevers, chills, recent significant weight loss. A 14 point review of systems was reviewed with the patient and is asabove and otherwise negative. Please see scanned questionnaire for more details. [facility] Work Phone: [phone]) 997-363512-11-2019 History of Past illness Narrative* Problem Noted Date Resolved Date Weight gain 03/27/2019 02/27/2020 Blurred vision, bilateral 02/19/20162019 Photophobia of both eyes 02/19/2016 020 Keratosis pilaris 11/04/2011 02/27/2020 documented as of this encounter (statuses as of 04/29/2022) [facility]12-[facility]-2019 History of Past illness Narrative* Problem Noted Date Resolved Date Weight gain 03/27/2019 02/27/2020 Blurred vision, bilateral 02/19/20162019 Photophobia of both eyes 02/19/2016 020 Keratosis pilaris 11/04/2011 02/27/2020 documented as of this encounter (statuses as of 06/09/2022) [facility] History of Past illness Narrative* Problem Noted Date Diagnosed Date Resolved Date Weight gain 03/27/2019 02/27/2020 Blurred vision, bilateral 02/19/2016 Photophobia of both eyes 02/19/201603/2020 Keratosis pilaris 11/04/2011 02/27/2020 documented as of this encounter (statuses as of 06/16/2023) [facility] note* Diagnosis Encounter for gynecological examination with abnormal finding- Primary Routine gynecological examination Encounter for screening for malignant neoplasm of cervix Screening for malignant neoplasm of the cervix documented in this encounter [facility] note* Diagnosis Myopia, right- Primary Hyperopia, left Regular astigmatism, bilateral documented in this encounter [facility] note* Diagnosis Migraine without aura and without status migrainosus, not intractable- Primary Other fatigue Healthcare maintenance Migraine without aura and without status migrainosus, not intractable Other fatigue Healthcare maintenance documented in this encounter [facility] Work Phone: Evaluation note* Diagnosis Fatigue, unspecified type- Primary Migraine without aura and without status migrainosus, not intractable Healthcare maintenance documented in this encounter [facility] Work Phone: [phone] note* Diagnosis Migraine without aura and without status migrainosus, not intractable- Primary documented in this encounter [facility] Work Phone: [phone] note* Diagnosis Anxiety- Primary Anxiety state, unspecified documented in this encounter [facility] Work Phone: [phone] note* Diagnosis Healthcare maintenance- Primary Anxiety Anxiety state, unspecified documented in this encounter [facility] Work Phone: [phone] note* Diagnosis Migraine without aura and without status migrainosus, not intractable Anxiety Anxiety state, unspecified documented in this encounter [facility] Work Phone: [phone] note* Diagnosis Amenorrhea- Primary Absence of menstruation documented in this encounter [facility] Work Phone: [phone] note* Diagnosis Nausea and vomiting, unspecified vomiting type- Primary documented in this encounter [facility] Work Phone: [phone] note* Diagnosis Urticaria- Primary Unspecified urticaria documented in this encounter [facility] Work Phone: [phone] note* Diagnosis Missed menses- Primary test positive ([facility]) examination or test, positive result documented in this encounter [facility] Work Phone: [phone] note* Diagnosis Amenorrhea- Primary Absence of menstruation documented in this encounter [facility] Work Phone: Evalujogup noteNo assessment information available [facility] Work Phone: Evaluation note* Diagnosis Healthcare maintenance- Primary documented in this encounter [facility] Work Phone: Evaluation note* Diagnosis 14 weeks gestation of ([facility]) documented in this encounter [facility] Work Phone: Evlkkgevjq note* Diagnosis Onset Date Resolution Status Admit Date Anxiety acute December 09, 025 1:03pm Bleeding in early acute December 09, 2024 1:03pm COVID acute December 09 025 1:03pm History of miscarriage, currently acute December 09, 2024 1:03pm Obesity affecting acute December 09, 2024 1:03pm acute December 09 1:03pm Supervision of high-risk acute December 09 1:03pm [facility] Work Phone: Hospital Discharge instructions Additional Instructions Return back to the ED if symptoms change or worsen. Follow-up with your STRAIGHT RULING MACHINE OPERATOR and PCP. Zofran as needed for nausea. No Zofran for 8 hours as you received antinausea medication here. Starting tomorrow start taking 81 mg of aspirin daily for your COVID-recommendation by your STRAIGHT RULING MACHINE OPERATOR. Follow-up with STRAIGHT RULING MACHINE OPERATOR to see if you should continue this throughout your entire . You had bacteria in your urine given that you are . You will be placed on antibiotics to prevent UTI. Follow-up with STRAIGHT RULING MACHINE OPERATOR for this.[facility] Work Phone: Progress note Author Marcia Christianson [facility] Note Date/Time December 09, 2024 1: 44pm [facility] [address] [place] [address], [address] [place] [address] OFFICE VISIT Date of Service: 12/09/24 MR#: [id number] Acct: [id number] Name: CHAPARRITA FLOYDLE Rep #: [id number] : 2000 Provider: СВЕТЛАНА Christianson Age/Sex: 24/F [place] [facility] [place]: Signed Intake Vital Signs 07/09/24 18:20 12/02/24 13:44 12/09/24 13:08 Height 5 ft 7 in 5 ft 7 in 5 ft 7 in Weight: 271 lb 6 oz BMI 42.5 BP 118/83 H Intake Visit Reasons: *NEW* SAIRA 30wk NOB JOSE 02/11 Chief Complaint: New OB 35wks 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 Is patient in pain?: No Allergies No Known Allergies Allergy (Verified 12/09/24 13:05) Medications ?Medication ?Instructions ?Recorded ?Confirmed ?Type escitalopram oxalate 10 mg tablet 10 mg PO DAILY 03/0112/09/24 History cholecalciferol (vitamin D3) 50 2,000 unit PO QDAY 12/09/24 History mcg (2,000 unit) capsule (Vitamin D3) aspirin 81 mg tablet 81 mg PO QDAY COVID 12/05/24 12/09/24 History multivit-min no.71-iron fum 28 cap PO 12/05/24 5 History mg-folate no.1 1 mg-dha 300 mg capsule ([facility]) Last Menstrual Period: 04/07/24 : No PFSH PFSH Medical History Migraines Surgical History Whitt teeth extracted Family History Father Heart disease Maternal Grandfather Heart disease Cancer, Onset Age: 78 Pancreatic Grandfather Heart disease Paternal Diabetes Paternal Mother Diabetes Hypertension Thyroid disorder hypothyroidism Iron deficiency anemia Fibromyalgia Uncle Diabetes Maternal Grandmother Cancer, Onset Age: 79 Paternal Bladder Maternal Grandmother Cancer, Onset Age: 78 stomach ca Social History adopted: No household members: significant other housing: house service: No current occupational status: employed current occupation: [employer] current occupational exposures/hazards: No pets and animals: Yes pets and animals: dog(s) history of recent travel: No sexually active: Yes Smoking Status: Never smoker alcohol intake: current alcohol intake frequency: holidays/special occasions only details: not while substance use type: does not use well-balanced diet: daily or most days caffeine: Yes Type: coffee Number of servings: 1 eating out: rarely or never during the past year weight has: increased > 10 lbs what type of physical activity do you participate in: walking frequency: 5-6 times per week duration: 45-60 minutes/day montserrat/yazidism: None seatbelt use: always do you feel safe at home: Yes additional social history: BF Umberto Calderon Item Repair Manager History 2 Elective abortions Hx Para 0 Spontaneous abortions 1 Hx # Term Pregnancies Ectopic pregnancies Hx # Pregnancies Multiple births # of living children 0 Past Pregnancies Del. Date Name GA/Weeks Outcome Route Bth Weight Infant Gen Labor Lgth Anes thesi a Del Locatn Provider FOB Unknown 02/2024 Miscarriage 6 spontaneous HPI *NEW* SAIRA 30wk NOB JOSE 02/11 Details: CHAPARRITA FLOYD is a 24 year old who presents for New OB visit. OB Visit JOSE Calculator Estimated Delivery Date Method Current WG Current Estimate 01/12/25 LMP (Certain) 35w 1d Comments: HIV: Urine Culture: Sequential Screen: NIPT Screen: Estimated Due Date: 01/12/25 Expected Delivery Route/Plan Labor Preferences- CB/BF classes: [] labor support person: [] labor intervention preferences: [] pain management options preferred: epidural cut cord/dad catch: [] : wants to try PP control planned: discussed possible routes of delivery and associated risks: [] special requests: [] Specific Issue/Plans Covid status: [] Flu vaccine: [] Tdap vaccine: [] Rhogam: [] LARC form signed: yes Problem list reviewed and updated with the most current plan of care details and appropriate orders placed. Relevant counseling for the gestational age provided. Continue routine care and follow up unless otherwise noted in visit notes/problem list details Initial Weight: Not Recorded Date -?-?-?-?-?-?-?-?-?-?-?-?- EGA Weight BP Urine Prot -?-?-?-?-?-?-?-?-?-?-?-?- Glucose FHR FuHt Pres Dilation -?-?-?-?-?-?-?-?-?-?-?-?- Effaced St Visit Note 12/09/24 -?-?-?-?-?-?-?--?-?-?-?-?- 35w 1d 271 lb 6 oz 118/83 Nega tive -?-?-?-?-?-?-?-?-?-?-?-?- Negative 140 35 -?-?-?-?-?-?-?-?-?-?-?-?- KW- Transfer of care from [place] no vb/lof/ctx. good fm. LARC today. NOB labs reviewed-PRR. discussed GBS and labor precautions. was not offered Tdap and would like it today. anatomy US normal. Menstrual History Last Menstrual Period: 04/07/24 Reported LMP: definite Normal amount/duration: Yes Frequency in days: 28 On hormonal BC at conception: No hCG+: 05/08/24 Antepartum Record Genetic Screening: Congenital Heart Defect: Other, Neural Tube Defect: Other, Hemoglobinopathy Or Carrier: Other, Cystic Fibrosis: Other, Chromosome Abnormality: Other, Lb-Sachs: Other, Hemophilia: Other, Intellectual Disability/Autism: Other, Recurrent Loss/Stillbirth: Other, Other Structural Defect: Other, Other Genetic Disease: Other and Maternal Metabolic Disorder: Other Infection History: Live with someone with TB or Exposed to TB: No, Patient or Partner has history of Genital Herpes: No, Rash or Viral illness since last mentrual period: Yes (Covid in June), Prior GBS-Infected child: No, History of STD: No, HIV Infection: No, History of Hepatitis: No, Recent travel outside of [place]: No, Concern for hepatitis exposure: No, Varicella immune: Yes (immune- vaccinated) and Covid Vaccinated: Yes (Pfizer, No Boosters) Medical History Medical History: Positive: Psychiatric (anxiety), Operations/hospitalizations (wisdom teeth), Relevant family history (See PFSH ) and Other (Obesity) and Negative: Diabetes, Hypertension, Heart disease, Auto-immune disorder, Kidney disease/UTI, Neurologic/epilepsy, Depression/ depression, Hepatitis/liver disease, Varicosities/phlebitis, Thyroid dysfunction, Trauma/domestic violence, History of blood transfusions, D (Rh) Sensitized, Pulmonary (e.g.,TB,Asthma), Seasonal allergies, Drug/latex allergies/reactions, Breast, Time Clock Inspector surgery, Anesthetic complications, History of abnormal pap, Uterine anomaly/sascha, Infertility and Anti-retroviral treatment ACOG First Trimester First Trimester: Desire for , Alcohol, Tobacco Cessation, Illicit/Recreational Drug/Substance Use, Intimate Partner Violence, Barriers to care, Unstable Housing, Communication Barriers, Environmental/Work Hazards, Anticipated Course of Care, Nurtrition and weight gain, Toxoplasmosis Precations, Use of Any medications, Sexual activity, Exercise, Dental Care, Sauna/Hot tub use, Seat Belt use, Childbirth classes/Hospital facilities, Travel, Indications for Ultrasound and Screening for Aneuploidy; Discussed ROS Const Reports system reviewed and no additional complaints, except as documented Eyes Reports system reviewed and no additional complaints, except as documented ENT Reports system reviewed and no additional complaints, except as documented Card Reports system reviewed and no additional complaints, except as documented Resp Reports system reviewed and no additional complaints, except as documented GI Reports system reviewed and no additional complaints, except as documented, Denies nausea and Denies vomiting Reports system reviewed and no additional complaints, except as documented Musc Reports system reviewed and no additional complaints, except as documented Skin/Breast Reports system reviewed and no additional complaints, except as documented Neuro Yes system reviewed and no additional complaints, except as documented Psych Reports system reviewed and no additional complaints, except as documented Endo Reports system reviewed and no additional complaints, except as documented Andres/Lymph Reports system reviewed and no additional complaints, except as documented Aller/Immun Reports system reviewed and no additional complaints, except as documented Exam Const General: cooperative, healthy appearing and no acute distress Orientation: alert, awake and oriented x3 Neck Neck: normal visual inspection and full ROM Resp Effort & Inspection: normal respiratory effort, able to speak in complete sentences and symmetric chest movement GI Inspection: normal to inspection Palpation: soft and other Other: gravid Skin General: no rashes or lesions noted Neuro General: patient alert, patient awake and patient oriented x3 Cognition: normal cognition Speech: speech normal Gait: normal gait Motor: muscle tone normal throughout Extrem General: normal to inspection and full ROM Psych Appearance: grossly normal Mental Status: mental status grossly normal Mood: congruent mood Affect: normal affect Speech and Movement: speech and movement normal Attitude: cooperative Thought Process: normal Thought Content: normal Judgment: judgment good Results POC Urinalysis 2 Dip (Clinic) Office Urine Glucose Negative Last Edit by Kathryn Berger on 12/09/24 13:24 Office Urine Protein Negative Last Edit by Kathryn Berger on 12/09/24 13:24 Coding Level of Care Code OB Routine Diagnoses Supervision of high-risk O09.90 Anxiety F41.9 Obesity affecting O99.210 History of miscarriage, currently O09.299 35 weeks gestation of Z3A.35 Weeks of gestation: 35 weeks COVID U07.1 Bleeding in early O20.9 Assessment and Plan Assessment and Plan (1) Supervision of high-risk : Status: Acute Comment: PRR,, JOSE 01/12/25 BF Umberto (2) Anxiety: Status: Acute (3) Obesity affecting : Status: Acute Comment: nl a1c (4) History of miscarriage, currently : Status: Acute (5) : Status: Acute Qualifiers: Weeks of gestation: 35 weeks Qualified Code(s): Z3A.35 - 35 weeks gestation of Comment: NIPT low risk, female, declined carrier (6) COVID: Status: Acute Comment: asa 81 mg (7) Bleeding in early : Status: Acute Orders: Orders Culture, Group B Streptococcus 12/05/24 O09.90 - Supervision of high risk , unspecified, unspecified trimester Chlamydia/Neisseria PCR 12/05/24 O09.90 - Supervision of high risk , unspecified, unspecified trimester HIV 12/05/24 O09.90 - Supervision of high risk , unspecified, unspecified trimester Culture, Urine 12/05/24 O09.90 - Supervision of high risk , unspecified, unspecified trimester Plan Details Additional Comments: ACOG trimester education reviewed and updated. see problem list details for updated plan management information and see below for orders placed at this visit. GA appropriate handout given. 12/09/24 1204 <Electronically signed by Marcia tang CNM> Date _ Marcia Christianson CNM Cosigner Signature: Date (if applicable) CC: ~ [facility] Work Phone: Progress note Author Marcia Sammy [facility] Note Date/Time December 25, 2024 1:42pm [facility] [address] [place] [address], [address] [place] [address] OFFICE VISIT Date of Service: 12/25/24 MR#: [id number] Acct: [id number] Name: CHAPARRITA FLOYD Rep #: [id number] : 2000 Provider: СВЕТЛАНА Christianson Age/Sex: 24/F [place] [facility] [place] Signed Intake Vital Signs 12/09/24 13:08 12/19/24 14:57 12/25/24 13:21 Height 5 ft 7 in 5 ft 7 in 5 ft 7 in Weight: 278 lb 6 oz BMI 43.6 BP 131/84 H Intake Visit Reasons: 37 WK OB Chief Complaint: 37wk OB 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 Is patient in pain?: No Allergies No Known Allergies Allergy (Verified 12/25/24 13:19) Medications ?Medication ?Instructions ?Recorded ?Confirmed ?Type escitalopram oxalate 10 mg tablet 10 mg PO DAILY 03/0112/25/24 History cholecalciferol (vitamin D3) 50 2,000 unit PO QDAY 12/25/24 History mcg (2,000 unit) capsule (Vitamin D3) aspirin 81 mg tablet 81 mg PO QDAY COVID 12/05/24 12/25/24 History multivit-min no.71-iron fum 28 cap PO 12/05/24 5 History mg-folate no.1 1 mg-dha 300 mg capsule (PNV-[place]) Last Menstrual Period: 04/07/24 : No PFSH PFSH Medical History Migraines Surgical History Whitt teeth extracted Family History Father Heart disease Maternal Grandfather Heart disease Cancer, Onset Age: 78 Pancreatic Grandfather Heart disease Paternal Diabetes Paternal Mother Diabetes Hypertension Thyroid disorder hypothyroidism Iron deficiency anemia Fibromyalgia Uncle Diabetes Maternal Grandmother Cancer, Onset Age: 79 Paternal Bladder Maternal Grandmother Cancer, Onset Age: 78 stomach ca Social History adopted: No household members: significant other housing: house current occupational status: employed current occupation: [employer] current occupational exposures/hazards: No pets and animals: Yes pets and animals: dog(s) history of recent travel: No sexually active: Yes Smoking Status: Never smoker alcohol intake: current alcohol intake frequency: holidays/special occasions only details: not while substance use type: does not use well-balanced diet: daily or most days caffeine: Yes Type: coffee Number of servings: 1 eating out: rarely or never during the past year weight has: increased > 10 lbs what type of physical activity do you participate in: walking frequency: 5-6 times per week duration: 45-60 minutes/day montserrat/yazidism: None seatbelt use: always do you feel safe at home: Yes additional social history: BF Umberto Calderon Item Repair Manager History 2 Elective abortions Hx Para 0 Spontaneous abortions 1 Hx # Term Pregnancies Ectopic pregnancies Hx # Pregnancies Multiple births # of living children 0 Past Pregnancies Del. Date Name GA/Weeks Outcome Route Bth Weight [facility] 02/2024 Miscarriage 6 spontaneous HPI 37 WK OB Details: CHAPARRITA FLOYD is a 24 year old who presents for routine OB visit. OB Visit JOSE Calculator Estimated Delivery Date Method Current WG Current Estimate 01/12/25 LMP (Certain) 37w 3d Expected Delivery Route/Plan Labor Preferences- CB/BF classes: [] labor support person: [] labor intervention preferences: [] pain management options preferred: epidural cut cord/dad catch: [] : wants to try PP control planned: discussed possible routes of delivery and associated risks: [] special requests: [] Specific Issue/Plans Covid status: [] Flu vaccine: [] Tdap vaccine: [] Rhogam: [] LARC form signed: yes Problem list reviewed and updated with the most current plan of care details and appropriate orders placed. Relevant counseling for the gestational age provided. Continue routine care and follow up unless otherwise noted in visit notes/problem list details Initial Weight: Not Recorded Date -?-?-?-?-?-?-?-?-?-?-?-?- EGA Weight BP Urine Prot -?-?-?-?-?-?-?-?-?-?-?-?- Glucose FHR FuHt Pres Dilation -?-?-?-?-?-?-?-?-?-?-?-?- Effaced St Visit Note 12/09/24 -?-?-?-?-?-?-?-?-?-?-?-?- 35w 1d 271 lb 6 oz 118/83 Nega tive -?-?-?-?-?-?-?-?-?-?-?-?- Negative 140 35 -?-?-?-?-?-?-?-?-?-?-?-?- KW- Transfer of care from [place] no vb/lof/ctx. good fm. LARC today. NOB labs reviewed-PRR. discussed GBS and labor precautions. was not offered Tdap and would like it today. anatomy US normal. 12/19/24 -?-?-?-?-?-?-?-?-?-?-?-?- 36w 4d 275 lb 6 oz 123/81 Nega tive -?-?-?-?-?-?-?-?-?-?-?-?- Negative 130 37 -?-?-?-?-?-?-?-?-?-?-?-?- JV- no lof, vagi nal bleeding, or dec fm. gbs collected. JV- no lof, vaginal bleeding , or dec fm. gbs collected. patient declines pelvic exam. ordering growth scan for late transfer of care. 12/25/24 -?-?-?-?-?-?-?-?-?-?-?-?- 37w 3d 278 lb 6 oz 131/84 Nega tive -?-?-?-?-?-?-?-?-?-?-?-?- Negative 135 39 Cephalic 2 -?-?-?-?-?-?-?-?-?-?-?-?- 60 -2 KW- no vb/ lof/ctx. good fm. growth scan on monday and had RSV vaccine. ACOG First Trimester First Trimester: Desire for , Alcohol, Tobacco Cessation, Illicit/Recreational Drug/Substance Use, Intimate Partner Violence, Barriers to care, Unstable Housing, Communication Barriers, Environmental/Work Hazards, Anticipated Course of Care, Toxoplasmosis Precations, Use of Any medications, Sexual activity, Exercise, Dental Care, Sauna/Hot tub use, Seat Belt use, Childbirth classes/Hospital facilities, Travel, Indications for Ultrasound and Screening for Aneuploidy; Discussed ROS Const Reports system reviewed and no additional complaints, except as documented Eyes Reports system reviewed and no additional complaints, except as documented ENT Reports system reviewed and no additional complaints, except as documented Card Reports system reviewed and no additional complaints, except as documented Resp Reports system reviewed and no additional complaints, except as documented GI Reports system reviewed and no additional complaints, except as documented, Denies nausea and Denies vomiting Reports system reviewed and no additional complaints, except as documented Musc Reports system reviewed and no additional complaints, except as documented Skin/Breast Reports system reviewed and no additional complaints, except as documented Neuro Yes system reviewed and no additional complaints, except as documented Psych Reports system reviewed and no additional complaints, except as documented Endo Reports system reviewed and no additional complaints, except as documented Andres/Lymph Reports system reviewed and no additional complaints, except as documented Aller/Immun Reports system reviewed and no additional complaints, except as documented Exam Const General: cooperative, healthy appearing and no acute distress Orientation: alert, awake and oriented x3 Neck Neck: normal visual inspection and full ROM Resp Effort & Inspection: normal respiratory effort, able to speak in complete sentences and symmetric chest movement GI Inspection: normal to inspection Palpation: soft and other Other: gravid Skin General: no rashes or lesions noted Neuro General: patient alert, patient awake and patient oriented x3 Cognition: normal cognition Speech: speech normal Gait: normal gait Motor: muscle tone normal throughout Extrem General: normal to inspection and full ROM Psych Appearance: grossly normal Mental Status: mental status grossly normal Mood: congruent mood Affect: normal affect Speech and Movement: speech and movement normal Attitude: cooperative Thought Process: normal Thought Content: normal Judgment: judgment good Results POC Urinalysis 2 Dip (Clinic) Office Urine Glucose Negative Last Edit by Glendy Floyd on 12/25/24 13:29 Office Urine Protein Negative Last Edit by Glendy Floyd on 12/25/24 13:29 Coding Level of Care Code OB Routine Diagnoses Supervision of high-risk O09.90 Anxiety F41.9 Obesity affecting O99.210 History of miscarriage, currently O09.299 37 weeks gestation of Z3A.37 Weeks of gestation: 37 weeks COVID U07.1 Bleeding in early O20.9 Assessment and Plan Assessment and Plan (1) Supervision of high-risk : Status: Acute Comment: PRR,, JOSE 01/12/25 KEATON Shipman (2) Anxiety: Status: Acute (3) Obesity affecting : Status: Acute Comment: nl a1c (4) History of miscarriage, currently : Status: Acute (5) : Status: Acute Qualifiers: Weeks of gestation: 37 weeks Qualified Code(s): Z3A.37 - 37 weeks gestation of Comment: Neg GBS. NIPT low risk, female, declined carrier (6) COVID: Status: Acute Comment: asa 81 mg (7) Bleeding in early : Status: Acute Orders: Orders POC Urinalysis 2 Dip (Clinic) Today Plan Details Additional Comments: ACOG trimester education reviewed and updated. see problem list details for updated plan management information and see below for orders placed at this visit. GA appropriate handout given. 12/25/24 1342 <Electronically signed by Marcia tang CNM> Date _ Marcia Christianson CNM Cosigner Signature: Date (if applicable) CC: ~ [facility] Work Phone: Progress note Author Brittney Mckeon [facility] Note Date/Time January 01, 2025 11:47am [facility] [address] [place] [address], [address] [place] [address] OFFICE VISIT Date of Service: 01/01/25 MR#: [id number] Acct: [id number] Name: CHAPARRITA FLOYD Rep #: [id number] : 2000 Provider: Dr. 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 Is patient in pain?: No Allergies No Known Allergies Allergy (Verified 01/01/25 11:02) Medications ?Medication ?Instructions ?Recorded ?Confirmed ?Type escitalopram oxalate 10 mg tablet 10 mg PO DAILY 03/0101/01/25 History cholecalciferol (vitamin D3) 50 2,000 unit PO QDAY 01/01/25 History mcg (2,000 unit) capsule (Vitamin D3) aspirin 81 mg tablet 81 mg PO QDAY COVID 12/05/24 01/01/25 History multivit-min no.71-iron fum 28 cap PO 12/05/24 5 History mg-folate no.1 1 mg-dha 300 mg capsule (PNV-[place]) Last Menstrual Period: 04/07/24 Zika: Zika virus screening: Negative : No PFSH PFSH Medical History Migraines Surgical History Whitt teeth extracted Family History Father Heart disease Maternal Grandfather Heart disease Cancer, Onset Age: 78 Pancreatic Grandfather Heart disease Paternal Diabetes Paternal Mother Diabetes Hypertension Thyroid disorder hypothyroidism Iron deficiency anemia Fibromyalgia Uncle Diabetes Maternal Grandmother Cancer, Onset Age: 79 Paternal Bladder Maternal Grandmother Cancer, Onset Age: 78 stomach ca Social History adopted: No household members: significant other housing: house current occupational status: employed current occupation: [employer] current occupational exposures/hazards: No pets and animals: Yes pets and animals: dog(s) history of recent travel: No sexually active: Yes Smoking Status: Never smoker alcohol intake: current alcohol intake frequency: holidays/special occasions only details: not while substance use type: does not use well-balanced diet: daily or most days caffeine: Yes Type: coffee Number of servings: 1 eating out: rarely or never during the past year weight has: increased > 10 lbs what type of physical activity do you participate in: walking frequency: 5-6 times per week duration: 45-60 minutes/day montserrat/yazidism: None seatbelt use: always do you feel safe at home: Yes additional social history: BF Umberto Calderon Item Repair Manager History 2 Elective abortions Hx Para 0 Spontaneous abortions 1 Hx # Term Pregnancies Ectopic pregnancies Hx # Pregnancies Multiple births # of living children 0 Past Pregnancies Del. Date Name GA/Weeks Outcome Route Bth Weight Gen Labor Lgth Anesthesia Del Locatn Provider FOB Unknown 02/2024 Miscarriage 6 spontaneous HPI 38 WK OB Details: CHAPARRITA FLOYD is a 24 year old who presents for routine OB visit. OB Visit JOSE Calculator Estimated Delivery Date Method Current WG Current Estimate 01/12/25 LMP (Certain) 38w 3d Expected Delivery Route/Plan Labor Preferences- CB/BF classes: [] labor support person: [] labor intervention preferences: [] pain management options preferred: epidural cut cord/dad catch: [] : wants to try PP control planned: discussed possible routes of delivery and associated risks: [] special requests: [] Specific Issue/Plans Covid status: [] Flu vaccine: [] Tdap vaccine: given Rhogam: [na LARC form signed: yes Problem list reviewed and updated with the most current plan of care details and appropriate orders placed. Relevant counseling for the gestational age provided. Continue routine care and follow up unless otherwise noted in visit notes/problem list details Initial Weight: Not Recorded Date -?-?-?-?-?-?-?-?-?-?-?-?- EGA Weight BP Urine Prot -?-?-?-?-?-?-?-?-?-?-?-?- Glucose FHR FuHt Pres Dilation -?-?-?-?-?-?-?-?-?-?-?-?- Effaced St Visit Note 12/09/24 -?-?-?-?-?-?-?-?-?-?-?-?- 35w 1d 271 lb 6 oz 118/83 Nega tive -?-?-?-?-?-?-?-?-?-?-?-?- Negative 140 35 -?-?-?-?-?-?-?-?-?-?-?-?- KW- Transfer of care from [place] no vb/lof/ctx. good fm. LARC today. NOB labs reviewed-PRR. discussed GBS and labor precautions. was not offered Tdap and would like it today. anatomy US normal. 12/19/24 -?-?-?-?-?-?-?-?-?-?-?-?- 36w 4d 275 lb 6 oz 123/81 Nega tive -?-?-?-?-?-?-?-?-?-?-?-?- Negative 130 37 -?-?-?-?-?-?-?-?-?-?-?-?- JV- no lof, vagi nal bleeding, or dec fm. gbs collected. JV- no lof, vaginal bleeding , or dec fm. gbs collected. patient declines pelvic exam. ordering growth scan for late transfer of care. 12/25/24 -?-?-?-?-?-?-?-?-?-?-?-?- 37w 3d 278 lb 6 oz 131/84 Nega tive -?-?-?-?-?-?-?-?-?-?-?-?- Negative 135 39 Cephalic 2 -?-?-?-?-?-?-?-?-?-?-?-?- 60 -2 KW- no vb/ lof/ctx. good fm. growth scan on monday and had RSV vaccine. 01/01/25 -?-?-?-?-?-?-?-?-?-?-?-?- 38w 3d 278 lb 8 oz 134/85 Nega tive -?-?-?-?-?-?-?-?-?-?-?-?- Negative 140 39 Cephalic 3 -?-?-?-?-?-?-?-?-?-?-?-?- 70 -2 SM- no vb lof good fm n oregular ctx discussed IOL at 39 weeks due to size. membranes swept ACOG First Trimester First Trimester: Desire for , Alcohol, Tobacco Cessation, Illicit/Recreational Drug/Substance Use, Intimate Partner Violence, Barriers to care, Unstable Housing, Communication Barriers, Environmental/Work Hazards, Anticipated Course of Care, Toxoplasmosis Precations, Use of Any medications, Sexual activity, Exercise, Dental Care, Sauna/Hot tub use, Seat Belt use, Childbirth classes/Hospital facilities, Travel, Indications for Ultrasound and Screening for Aneuploidy; Discussed Results POC Urinalysis 2 Dip (Clinic) Office Urine Glucose Negative Last Edit by Monica Gonzalez on 01/01/25 11:07 Office Urine Protein Negative Last Edit by Monica Gonzalez on 01/01/25 11:07 Coding Level of Care Code OB Routine Diagnoses Macrosomia P08.0 Supervision of high-risk O09.90 Anxiety F41.9 Obesity affecting O99.210 History of miscarriage, currently O09.299 38 weeks gestation of Z3A.38 Weeks of gestation: 38 weeks COVID U07.1 Assessment and Plan Assessment and Plan (1) Macrosomia: Status: Acute Comment: 93rd% overall, 99th% AC. discuss at appt on 01/01 (2) Supervision of high-risk : Status: Acute Comment: PRR,, girl Cody JOSE 01/12/25 BF Umberto (3) Anxiety: Status: Acute (4) Obesity affecting : Status: Acute Comment: nl a1c (5) History of miscarriage, currently : Status: Acute (6) : Status: Acute Qualifiers: Weeks of gestation: 38 weeks Qualified Code(s): Z3A.38 - 38 weeks gestation of Comment: Neg GBS. NIPT low risk, female, declined carrier (7) COVID: Status: Acute Comment: asa 81 mg Orders: Orders POC Urinalysis 2 Dip (Clinic) Today 01/01/25 1147 <Electronically signed by Brittney case MD> Date _ Brittney Mckeon MD Cosigner Signature: Date (if applicable) CC: ~ [facility] Work Phone: reason for referral (narrative)* Consultation (Routine) - Authorized Specialty Diagnoses / Procedures Referred By Contac t Referred To Contact Primary Care Diagnoses Migraine without aura and without status migrainosus, not intractable Procedures Follow Up In Primary Care Annette Frey MD [address] [facility] [place] [address] Referral ID Status Reason Start Date Expiration Date V isits Requested Visits Authorized [id number] Authorized 08/17/2022 02/13/2023 1 1 [facility] Work Phone: Rejers for referral (narrative)* Consultation (Routine) - Authorized Specialty Diagnoses / Procedures Referred By Contac t Referred To Contact Primary Care Procedures Follow Up In Primary Care - Established Annette Frey MD [address] [place] [address] Referral ID Status Reason Start Date Expiration Date V isits Requested Visits Authorized [id number] Authorized 02/15/2023 02/15/2024 1 1 * Medications - Pending Review Specialty Diagnoses / Procedures Referred By Contac t Referred To Contact Diagnoses Migraine without aura and without status migrainosus, not intractable Other fatigue Healthcare maintenance Annette Frey MD [address] [place] [address] Referral ID Status Reason Start Date Expiration Date V isits Requested Visits Authorized [id number] Pending Review 1 1 [facility] Work Phone: reason for referral (narrative)* Consultation (Routine) - Authorized Specialty Diagnoses / Procedures Referred By Contac t Referred To Contact Primary Care Diagnoses Migraine without aura and without status migrainosus, not intractable Procedures Follow Up In Primary Care - Established Annette Frey MD [address] [place] [address] Referral ID Status Reason Start Date Expiration Date V isits Requested Visits Authorized [id number] Authorized 03/21/2023 03/20/2024 1 1 [facility] Work Phone: reason for referral (narrative)* Consultation (Routine) - Authorized Specialty Diagnoses / Procedures Referred By Contac t Referred To Contact Primary Care Diagnoses Anxiety Procedures Follow Up In Primary Care - Established Annette Frey MD [address] [place] [address] Referral ID Status Reason Start Date Expiration Date V isits Requested Visits Authorized [id number] Authorized 05/02/2023 05/01/2024 1 1 [facility] Work Phone: reason for referral (narrative)* Consultation (Routine) - Authorized Specialty Diagnoses / Procedures Referred By Contac t Referred To Contact Primary Care Diagnoses Anxiety Procedures Follow Up In Primary Care - Established Annette Frey MD [address] [place] [address] Referral ID Status Reason Start Date Expiration Date V isits Requested Visits Authorized [id number] Authorized 05/23/2023 05/22/2024 1 1 [facility] Work Phone: Reason for referral (narrative)* Consultation (Routine) - Authorized Specialty Diagnoses / Procedures Referred By Contac t Referred To Contact Primary Care Procedures Follow Up In Primary Care - Established nAnette Frey MD [address] [facility] [place] [address] Referral ID Status Reason Start Date Expiration Date V isits Requested Visits Authorized [id number] Authorized 09/19/2023 09/18/2024 1 1 [facility] Work Phone: Rejash for referral (narrative)No reason for referral information [facility]: Reason for referral (narrative)* Consultation (Routine) - Authorized Specialty Diagnoses / Procedures Referred By Blanche t Referred To Contact Primary Care Procedures Follow Up In Primary Care - Health Maintenance Annette Frey MD [address] [place] [address] Phone: tel: fax: Referral ID Status Reason Start Date Expiration Date V isits Requested Visits Authorized [id number] Authorized 08/16/2024 08/16/2025 1 1 [facility] Work Phone: Reason for visit Narrative* Consultation (Routine) - Closed Specialty Diagnoses / Procedures Referred By Blanche t Referred To Contact Primary Care Diagnoses Migraine without aura and without status migrainosus, not intractable Procedures Follow Up In Primary Care Annette Frey MD [address] [facility] [place] [address] Referral ID Status Reason Start Date Expiration Date Visits Re quested Visits Authorized [id number] Closed 08/17/2022 02/13/2023 1 1 [facility] Work Phone: reason for visit Narrative* Consultation (Routine) - Authorized Specialty Diagnoses / Procedures Referred By Blanche t Referred To Contact Primary Care Procedures Follow Up In Primary Care - Established Annette Frey MD [address] [place] [address] Referral ID Status Reason Start Date Expiration Date V isits Requested Visits Authorized [id number] Authorized 02/15/2023 02/15/2024 1 1 [facility] Work Phone: reason for visit Narrative* Consultation (Routine) - Authorized Specialty Diagnoses / Procedures Referred By Blanche t Referred To Contact Primary Care Diagnoses Anxiety Procedures Follow Up In Primary Care - Established Annette Frey MD [address] [place] [address] Referral ID Status Reason Start Date Expiration Date V isits Requested Visits Authorized [id number] Authorized 05/02/2023 05/01/2024 1 1 [facility] Work Phone: reason for visit Narrative* Consultation (Routine) - Authorized Specialty Diagnoses / Procedures Referred By Blanche t Referred To Contact Primary Care Diagnoses Migraine without aura and without status migrainosus, not intractable Procedures Follow Up In Primary Care - Established Annette Frey MD [address] [place] [address] Referral ID Status Reason Start Date Expiration Date V isits Requested Visits Authorized [id number] Authorized 03/21/2023 03/20/2024 1 1 [facility] Work Phone: reason for visit Narrative* Imaging (Routine) - Authorized Specialty Diagnoses / Procedures Referred By Blanche t Referred To Contact Radiology Diagnoses 14 weeks gestation of ([facility]) Procedures US OB 14+ weeks anatomy scan Estelita Pickens MD [address] [place] [address] [facility], [place] [address] [place] [id number] Phone: tel: fax: Referral ID Status Reason Start Date Expiration Date Visits Requested Visits Authorized [id number] Authorized Perform Procedure 07/22/2024 07/22/2025 1 1 [facility] Work Phone: Summary Purpose Family History No Family History Records Found Mother Name Dates Details Family history of anemia(V18 .2, Z83.2) Status:Active Family history of hypothyroi dism(V18.19, Z83.49) Status:Active Family history of hypertensi on(V17.49, Z82.49) Status:Active Family history of hyperchole sterolemia(V18.19, Z83.42) Status:Active Family history of fibromyalg ia(V17.89, Z82.69) Status:Active Father Name Dates Details Family history of hypertensi on(V17.49, Z82.49) Status:Active Family history of hyperchole sterolemia(V18.19, Z83.42) Status:Active Family history of cardiac di sorder(V17.49, Z82.49) Status:Active Mother Name Dates Details Family history of anemia(V18 .2, Z83.2) Status:Active Family history of hypothyroi dism(V18.19, Z83.49) Status:Active Family history of hypertensi on(V17.49, Z82.49) Status:Active Family history of hyperchole sterolemia(V18.19, Z83.42) Status:Active Family history of fibromyalg ia(V17.89, Z82.69) Status:Active Father Name Dates Details Family history of hypertensi on(V17.49, Z82.49) Status:Active Family history of hyperchole sterolemia(V18.19, Z83.42) Status:Active Family history of cardiac di sorder(V17.49, Z82.49) Status:Active Mother Name Dates Details Family history of anemia(V18 .2, Z83.2) Status:Active Family history of hypothyroi dism(V18.19, Z83.49) Status:Active Family history of hypertensi on(V17.49, Z82.49) Status:Active Family history of hyperchole sterolemia(V18.19, Z83.42) Status:Active Family history of fibromyalg ia(V17.89, Z82.69) Status:Active Father Name Dates Details Family history of hypertensi on(V17.49, Z82.49) Status:Active Family history of hyperchole sterolemia(V18.19, Z83.42) Status:Active Family history of cardiac di sorder(V17.49, Z82.49) Status:Active Unknown Family Member Name Dates Details Family history of anemia: Mo ther(V18.2, Z83.2) Status:Active Family history of hypothyroi dism: Mother(V18.19, Z83.49) Status:Active Family history of hypertensi on: Mother, Father(V17.49, Z82.49) Status:Active Family history of hyperchole sterolemia: Mother, Father(V18.19, Z83.42) Status:Active Family history of fibromyalg ia: Mother(V17.89, Z82.69) Status:Active Family history of cardiac di sorder: Father(V17.49, Z82.49) Status:Active Unknown Family Member Name Dates Details Family history of anemia: Mo ther(V18.2, Z83.2) Status:Active Family history of hypothyroi dism: Mother(V18.19, Z83.49) Status:Active Family history of hypertensi on: Mother, Father(V17.49, Z82.49) Status:Active Family history of hyperchole sterolemia: Mother, Father(V18.19, Z83.42) Status:Active Family history of fibromyalg ia: Mother(V17.89, Z82.69) Status:Active Family history of cardiac di sorder: Father(V17.49, Z82.49) Status:Active Unknown Family Member Name Dates Details Family history of anemia: Mo ther(V18.2, Z83.2) Status:Active Family history of hypothyroi dism: Mother(V18.19, Z83.49) Status:Active Family history of hypertensi on: Mother, Father(V17.49, Z82.49) Status:Active Family history of hyperchole sterolemia: Mother, Father(V18.19, Z83.42) Status:Active Family history of fibromyalg ia: Mother(V17.89, Z82.69) Status:Active Family history of cardiac di sorder: Father(V17.49, Z82.49) Status:Active Unknown Family Member Name Dates Details Family history of anemia: Mo ther(V18.2, Z83.2) Status:Active Family history of hypothyroi dism: Mother(V18.19, Z83.49) Status:Active Family history of hypertensi on: Mother, Father(V17.49, Z82.49) Status:Active Family history of hyperchole sterolemia: Mother, Father(V18.19, Z83.42) Status:Active Family history of fibromyalg ia: Mother(V17.89, Z82.69) Status:Active Family history of cardiac di sorder: Father(V17.49, Z82.49) Status:Active Unknown Family Member Name Dates Details Family history of anemia: Mo ther(V18.2, Z83.2) Status:Active Family history of hypothyroi dism: Mother(V18.19, Z83.49) Status:Active Family history of hypertensi on: Mother, Father(V17.49, Z82.49) Status:Active Family history of hyperchole sterolemia: Mother, Father(V18.19, Z83.42) Status:Active Family history of fibromyalg ia: Mother(V17.89, Z82.69) Status:Active Family history of cardiac di sorder: Father(V17.49, Z82.49) Status:Active Unknown Family Member Name Dates Details Family history of anemia: Mo ther(V18.2, Z83.2) Status:Active Family history of hypothyroi dism: Mother(V18.19, Z83.49) Status:Active Family history of hypertensi on: Mother, Father(V17.49, Z82.49) Status:Active Family history of hyperchole sterolemia: Mother, Father(V18.19, Z83.42) Status:Active Family history of fibromyalg ia: Mother(V17.89, Z82.69) Status:Active Family history of cardiac di sorder: Father(V17.49, Z82.49) Status:Active Unknown Family Member Name Dates Details Family history of cardiac di sorder: Father(V17.49, Z82.49) Status:Active Family history of fibromyalg ia: Mother(V17.89, Z82.69) Status:Active Family history of hyperchole sterolemia: Mother, Father(V18.19, Z83.42) Status:Active Family history of hypertensi on: Mother, Father(V17.49, Z82.49) Status:Active Family history of hypothyroi dism: Mother(V18.19, Z83.49) Status:Active Family history of anemia: Mo ther(V18.2, Z83.2) Status:Active Unknown Family Member Name Dates Details Family history of anemia: Mo ther(V18.2, Z83.2) Status:Active Family history of hypothyroi dism: Mother(V18.19, Z83.49) Status:Active Family history of hypertensi on: Mother, Father(V17.49, Z82.49) Status:Active Family history of hyperchole sterolemia: Mother, Father(V18.19, Z83.42) Status:Active Family history of fibromyalg ia: Mother(V17.89, Z82.69) Status:Active Family history of cardiac di sorder: Father(V17.49, Z82.49) Status:Active Unknown Family Member Name Dates Details Family history of anemia: Mo ther(V18.2, Z83.2) Status:Active Family history of hypothyroi dism: Mother(V18.19, Z83.49) Status:Active Family history of hypertensi on: Mother, Father(V17.49, Z82.49) Status:Active Family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 S14.XXA, Strain right arm S46.911A. * Follow up on Brachial Plexus Injury. * Date of Injury: * 11/28/2019. * [facility] Claim Number: * [id number]. * [facility] [employer]: * [employer]. * Allowed Diagnoses: * Brachial Plexus Injury S14.XXA, Strain right arm S46.911A. * Follow up on Brachial Plexus injury. * Date of Injury: * 11/28/2019. * [facility] Claim Number: * [id number]. * [facility] [employer]: * [employer]. * Allowed Diagnoses: * Brachial Plexus Injury S14.XXA, Strain right arm S46.911A. * Follow up on Brachial Plexus injury. * Date of Injury: * 11/28/2019. * [facility] Claim Number: * [id number]. * [employer]: * [employer]. * Allowed Diagnoses: * Brachial Plexus Injury S14.XXA, Strain right arm S46.911A. * Follow up on Brachial Plexus injury. Medications Administered Section Inactive Administered Medications - up to 3 most recent administrations Medication Order MAR Action Action Date Dose Rate Site tropicamide 0.5 % 1 Drop (MYDRIACYL) 1 Drop, BOTH EYES, ONCE, 1 dose, On Trinh 06/09/22 at 1130, FOR THE EYE Given 06/09/2022 11:30 AM EST 1 Drop Chief Complaint and Reason for Visit Chief Complaint Admit Date DIZZINESS July 09, 2024 6:2 0pm Chief Complaint Admit Date *NEW* SAIRA 30wk NOB JOSE 02/11 1:03pm Reason for Visit Admit Date Anxiety December 09, 2024 1: 03pm Bleeding in early December 09, 2024 1:03pm COVID December 09, 2024 1: 03pm History of miscarriage, currently pregna nt December 09, 2024 1:03pm Obesity affecting December 09, 2024 1:03pm December 09, 2024 1: 03pm Supervision of high-risk Augus t 2024 1:03pm Chief Complaint Admit Date *NEW* SAIRA 35 wk NOB JOSE 02/11 1:03pm 36 wk OB December 19, 2024 2:53pm Reason for Visit Admit Date Anxiety December 09, 2024 1: 03pm Bleeding in early December 09, 2024 1:03pm COVID December 09, 2024 1: 03pm History of miscarriage, currently pregna nt December 09, 2024 1:03pm Obesity affecting December 09, 2024 1:03pm December 09, 2024 1: 03pm Supervision of high-risk Augus t 2024 1:03pm Anxiety December 19, 2024 2:53pm Bleeding in early December 2:53pm COVID December 19, 2024 2:53pm History of miscarriage, currently pregna nt December 19, 2024 2:53pm Obesity affecting December 2:53pm December 19, 2024 2:53pm Supervision of high-risk Alexei [facility] 2024 2:53pm Chief Complaint Admit Date *NEW* SAIRA 35 wk NOB JOSE 02/11 1:03pm 36 wk OB December 19, 2024 2:53pm 37 WK OB December 25, 2024 1:18pm Reason for Visit Admit Date Anxiety December 09, 2024 1: 03pm Bleeding in early December 09, 2024 1:03pm COVID December 09, 2024 1: 03pm History of miscarriage, currently pregna nt December 09, 2024 1:03pm Obesity affecting December 09, 2024 1:03pm December 09, 2024 1: 03pm Supervision of high-risk Augus t 2024 1:03pm Anxiety December 19, 2024 2:53pm Bleeding in early December 2:53pm COVID December 19, 2024 2:53pm History of miscarriage, currently pregna nt December 19, 2024 2:53pm Obesity affecting December 2:53pm December 19, 2024 2:53pm Supervision of high-risk Septe [facility] 2024 2:53pm Anxiety December 25, 2024 1:18pm Bleeding in early December [id number] 1:18pm COVID December 25, 2024 1:18pm History of miscarriage, currently pregna nt December 25, 2024 1:18pm Obesity affecting December 252024 1:18pm December 25, 2024 1:18pm Supervision of high-risk Alexei [facility] 2024 1:18pm Chief Complaint Admit Date *NEW* SAIRA 35 wk NOB JOSE 02/11 1:03pm 36 wk OB December 19, 2024 2:53pm 37 WK OB December 25, 2024 1:18pm late transfer of care December 30 3:16pm 38 WK OB January 01, 2025 10:53am Reason for Visit Admit Date Anxiety December 09, 2024 1: 03pm COVID December 09, 2024 1: 03pm History of miscarriage, currently pregna nt December 09, 2024 1:03pm Obesity affecting December 09, 2024 1:03pm December 09, 2024 1: 03pm Supervision of high-risk Augus t 2024 1:03pm Bleeding in early December 09, 2024 1:03pm Anxiety December 19, 2024 2:53pm COVID December 19, 2024 2:53pm History of miscarriage, currently pregna nt December 19, 2024 2:53pm Obesity affecting December 2:53pm December 19, 2024 2:53pm Supervision of high-risk Alexei [facility] 2024 2:53pm Bleeding in early December 2:53pm Anxiety December 25, 2024 1:18pm COVID December 25, 2024 1:18pm History of miscarriage, currently pregna nt December 25, 2024 1:18pm Obesity affecting December 252024 1:18pm December 25, 2024 1:18pm Supervision of high-risk Alexei albert 2024 1:18pm Bleeding in early December [id number] 1:18pm Anxiety January 01, 2025 10:53am COVID January 01, 2025 10:53am History of miscarriage, currently pregna nt January 01, 2025 10:53am Macrosomia January 01, 2025 10:53am Obesity affecting January 012024 10:53am January 01, 2025 10:53am Supervision of high-risk Alexei albert 2024 10:53am Additional Source Comments INFORMATION SOURCE (unrecogn ized section and content) DATE CREATED AUTHOR 10/09/2017 [facility] DATE CREATED AUTHOR AUTHOR'S ORGANIZ ATION 11/07/2019 [facility] DATE CREATED AUTHOR AUTHOR'S ORGANIZ ATION 05/17/2020 [facility] DATE CREATED AUTHOR AUTHOR'S ORGANIZ ATION 11/15/2021 [employer] DATE CREATED AUTHOR AUTHOR'S ORGANIZ ATION 11/14/2022 [facility] DATE CREATED AUTHOR AUTHOR'S ORGANIZ ATION 02/19/2023 [facility] DATE CREATED AUTHOR AUTHOR'S ORGANIZ ATION 06/18/2023 [facility] DATE CREATED AUTHOR AUTHOR'S ORGANIZ ATION 01/03/2024 [facility] DATE CREATED AUTHOR AUTHOR'S ORGANIZ ATION 10/01/2024 [facility] DATE CREATED AUTHOR AUTHOR'S ORGANIZ ATION 10/04/2024 [facility] DATE CREATED AUTHOR AUTHOR'S ORGANIZ ATION 11/26/2024 [facility] DATE CREATED AUTHOR AUTHOR'S ORGANIZ ATION 01/04/2025 [facility] Reason for Visit (unrecogniz ed section and content) Status Reason Specialty Diagnoses / Procedures Referre d By Contact Referred To Contact Closed Neurology Diagnoses Neuropraxia of right upper extremity, initial encounter Procedures EMG: Kev Abraham MD [address] [facility] [address] [place] [address] Andreia Rasmussen MD [address] [facility] [address] [place] [address] Reason Comments Brachial Plexus Shoulder strain She has no feeling or movement on the right arm and hand from below the shoulder for 6 weeks. She was injured on November 29. Status Reason Specialty Diagnoses / Procedures Referred By Contact Referred To Contact Closed Specialty Services Required/Patient' s Best Interest Neurology Diagnoses Strain of right shoulder, initial encounter Kasia Rodriguez PA-C [address] [address] Kev Abraham MD [address] [facility] [address] [place] [address] Reason Comments Eye Problem Headache Reason Comments Well Woman Reason Comments Blurry Vision Both Eyes Right worse than left Reason Comments Yearly Exam Reason Comments Possible Late on period, had a faint line on home preg test x today , nausea, fatigued, headache x 1-2 days Reason Comments Gynecologic Exam Pt here for annual e xam pt states she was told to follow up after miscarriage in February. Pt also stated she is 2 days late as of today for her cycle Reason Comments Amenorrhea LMP-04/09/2024. Pt c /o fatigue, mild nausea, and mild breast tenderness Reason Comments Employment Physical Nanci Thibodeaux RN - 10/12/2019 10:26 AM Nahed Moralez CNP - 10/12/2019 10:13 AM EDNanci Martinez RN - 10/12/2019 9:03 AM EDT ED Notes (unrecognized secti on and content) HcG level negative, toradol given as ordered PCP - Nas Sanders, [id number] Chief Complaint Patient presents with Eye Problem Headache HPI: HPI This is a 19-year-old female with a history of migraines reporting that she has suffered from migraines since being a senior in high school. Patient reports that she is on propanolol as well as Cymbalta daily as well as Imitrex as needed. Patient reports typical migraine presentation she experiences mostly parietal pressure reporting to the right side of her head with photophobia as well as phonophobia as her typical presentation. Patient reports she is concerned due to the fact that since she has been experiencing bilateral peripheral vision loss. Patient reports when she looks straight ahead she sees black to her peripheral vision again bilateral. States she is also seeing intermittent dark spots. States these vision disturbances are accompanied by a what she is calling a pressure to her right frontal region of her head. Patient reports symptoms on with the visual disturbances lasted approximately half hour. States yesterday she was at work symptoms lasted a couple of hours causing her to walk into doors. States this concerned her. Patient states she woke up this morning with this loss of peripheral vision and became concerned. Patient reports no visual disturbances currently. No double vision. States she is having a mild headache right frontal. No neck pain or nuchal rigidity. No fevers or chills. No nausea or vomiting. States does wear glasses and reports did have her glasses on yesterday making her think that it was because she had her glasses on as to what was causing her symptoms. No rashes or hives. She is well-appearing. She does have a neurologist that she sees. States last scan of her brain was last year. Review of Systems All other systems reviewed negative except as mentioned above. Review of Systems Constitutional: Negative. Negative for fever. HENT: Negative. Negative for congestion. Eyes: Positive for visual disturbance. Negative for photophobia, pain, discharge, redness and itching. Respiratory: Negative. Negative for wheezing. Cardiovascular: Negative. Negative for leg swelling. Gastrointestinal: Negative. Negative for abdominal pain. Endocrine: Negative. Negative for polyuria. Genitourinary: Negative. Negative for dysuria. Musculoskeletal: Negative. Negative for back pain. Skin: Negative. Negative for rash. Allergic/Immunologic: Negative. Negative for food allergies. Neurological: Positive for headaches. Negative for weakness. Hematological: Negative. Negative for adenopathy. Psychiatric/Behavioral: Negative. Negative for confusion. All other systems reviewed and are negative. Past Medical History Reviewed Past Medical History: Diagnosis Date Migraine Past Surgical History Reviewed Past Surgical History: Procedure Laterality Date INCISION AND DRAINAGE (I & D) Right 10/04/2019 right great toe Family History Reviewed and not pertinent History reviewed. No pertinent family history. Social History Reviewed Social History Socioeconomic History Marital status: Single Spouse name: Not on file Number of children: Not on file Years of education: Not on file Highest education level: Not on file Occupational History Not on file Social Needs Financial resource strain: Not on file Food insecurity Worry: Not on file Inability: Not on file Transportation needs Medical: Not on file Non-medical: Not on file Tobacco Use Smoking status: Never Smoker Smokeless tobacco: Never Used Substance and Sexual Activity Alcohol use: Yes Comment: socially Drug use: Never Sexual activity: Not on file Lifestyle Physical activity Days per week: Not on file Minutes per session: Not on file Stress: Not on file Relationships Social connections Talks on phone: Not on file Gets together: Not on file Attends restorationism service: Not on file Active member of club or organization: Not on file Attends meetings of clubs or organizations: Not on file Relationship status: Not on file Other Topics Concern Not on file Social History Narrative Not on file Allergies Reviewed No Known Allergies Medications Discharge Medication List as of 10/12/2019 12:57 PM CONTINUE these medications which have NOT CHANGED Details cephALEXin (KEFLEX) 500 MG capsule Take 500 mg by mouth 4 (four) times a day Started on 10/07/2019 Reasons: diabetic 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 Constitutional: General: She is not in acute distress. Appearance: Normal appearance. She is well-developed. She is obese. She is not ill-appearing, toxic-appearing or diaphoretic. HENT: Head: Normocephalic and atraumatic. Right Ear: External ear normal. Left Ear: External ear normal. Nose: Nose normal. Mouth/Throat: Mouth: Mucous membranes are moist. Eyes: General: Lids are normal. No scleral icterus. Right eye: No discharge. Left eye: No discharge. Extraocular Movements: Extraocular movements intact. Conjunctiva/sclera: Conjunctivae normal. Pupils: Pupils are equal, round, and reactive to light. Visual Camara: Right eye visual camara normal and left eye visual camara normal. Neck: Musculoskeletal: Normal range of motion and neck supple. Cardiovascular: Rate and Rhythm: Normal rate and regular rhythm. Pulses: Normal pulses. Heart sounds: Normal heart sounds. Pulmonary: Effort: Pulmonary effort is normal. No respiratory distress. Breath sounds: Normal breath sounds. Abdominal: General: Bowel sounds are normal. Palpations: Abdomen is soft. Musculoskeletal: Normal range of motion. Skin: General: Skin is warm and dry. Neurological: General: No focal deficit present. Mental Status: She is alert and oriented to person, place, and time. Psychiatric: Mood and Affect: Mood normal. Behavior: Behavior normal. Thought Content: Thought content normal. Judgment: Judgment normal. MDM: Patient's ED course consisted of a physical examination with no immediate red flags on exam. Patient had no neurological deficits. No unilateral weakness, vertical nystagmus, evidence of cranial nerve palsy as well as no complaints of having visual disturbances at any time during her ED stay. Patient was provided Reglan, Benadryl, Toradol for her headache and upon reassessment was feeling much better. Her headache had resolved. CTA head and neck is with no acute findings of large vessel occlusions. Lab studies reassuring. Patient was afebrile. She was non-meningismus. We do feel that patient is suffering from an atypical migraine. Patient requested work note for the next couple of days. I will provide this for patient. She was educated regarding all testing results. She did eat a meal before discharge. She was provided neurology follow-up. She is safe for discharge and agree with plan of care. Procedures: Procedures Labs Reviewed BASIC METABOLIC PANEL - Abnormal; Notable for the following components: Result Value BUN 7 (*) BUN/Creatinine Ratio 8.1 (*) All other components within normal limits Narrative: The eGFR should be used for monitoring renal function only and not for medication dosing. HCG, SERUM, QUALITATIVE - Normal Narrative: Negative: The result is less than or equal to 5 mIU/mL of HCG. CBC AND DIFFERENTIAL Narrative: The following orders were created for panel order CBC w/ Diff. Procedure Abnormality Status --------- ------ CBC Auto Differential[[id number]] Final result Please view results for these tests on the individual orders. CBC WITH AUTO DIFFERENTIAL CT Angiogram Head Neck Final Result 1. No acute intracranial abnormality. 2. Unremarkable CTA of the head and neck. No large vessel occlusion. Workstation ID: [id number] Vital Signs During ED Visit (as charted by nursing) Patient Vitals for the past 24 hrs: BP Temp Temp src Pulse Resp SpO2 Height Weight 10/12/19 1156 137/87 100 % 10/12/19 0927 129/85 97 % 10/12/19 0913 121/82 98 % 10/12/19 0907 (!) 140/106 90 16 98 % 10/12/19 0852 98.6 F (37 C) Oral 5' 7 95.3 kg (210 lb) IMPRESSION: 1. Other migraine without status migrainosus, not intractable 2. Visual disturbances This patient was independently seen and evaluated along with the Emergency Medicine Physician. All medical decision making was completed along with the physician. Nahed Cohn REEL SLITTER Nahed Cohn CNP 10/12/19 1420 Presents with complaints of seeing blackness and dark spots in peripheral vision caamra. Pt states it started on lasting on about 30 minutes then Monday it lasted about 3 hours causing her to run into things while at work. Pt states this morning she woke up to symptoms, and pressure in right side of head. Hx of migraines, takes Imitrex. documented in this encounter Source Comments (unrecognize d section and content) In the event this informatio n is protected by the Federal Confidentiality of Alcohol and Drug Abuse Patient Records regulations: The Federal rules restrict any use of the information to criminally investigate or prosecute any alcohol or drug abuse patient.[facility] the event this information is protected by the Federal Confidentiality of Alcohol and Drug Abuse Patient Records regulations: The Federal rules restrict any use of the information to criminally investigate or prosecute any alcohol or drug abuse patient.[facility] the event this information is protected by the Federal Confidentiality of Alcohol and Drug Abuse Patient Records regulations: The Federal rules restrict any use of the information to criminally investigate or prosecute any alcohol or drug abuse patient.[facility] Care Teams (unrecognized sec tion and content) Software Security Consultant Relationship Specialty Start Date End Date Billy Moore MD [address] [place] [address] PCP - General Internal Medicine 01/22/20 Software Security Consultant Relationship Specialty Start Date End Date Billy Moore MD [address] [place] [address] PCP - General Internal Medicine 01/22/20 Software Security Consultant Relationship Specialty Start Date End Date Annette Frey MD [address] [place] [address] PCP - General Family Medicine 08/17/22 Software Security Consultant Relationship Specialty Start Date End Date Annette Frey MD [address] [place] [address] [place] [id number] PCP - General 11/11/22 Software Security Consultant Relationship Specialty Start Date End Date Annette Frey MD [address] [place] [address] [place] [id number] PCP - General 11/11/22 Software Security Consultant Relationship Specialty Start Date End Date Annette Frey MD [address] [facility] [place] [address] PCP - General 11/11/22 Annette Frey MD [address] [facility] [place] [address] PCP - [facility] PCP 12/16/22 Software Security Consultant Relationship Specialty Start Date End Date Annette Frey MD [address] [facility] [place] [address] PCP - General 11/11/22 Annette Frey MD [address] [facility] [place] [address] PCP - [facility] PCP 12/16/22 Software Security Consultant Relationship Specialty Start Date End Date Annette Frey MD [facility] [place] [id number] PCP - General Family Medicine 06/16/23 Software Security Consultant Relationship Specialty Start Date End Date Annette Frey MD [address] [facility] [place] [id number] PCP - General 11/11/22 Annette Frey MD [address] [facility] [place] [address] PCP - [facility] PCP 12/16/22 Software Security Consultant Relationship Specialty Start Date End Date Annette Frey MD [address] [place] [id number] PCP - General Family Medicine 02/23/24 Software Security Consultant Relationship Specialty Start Date End Date Annette Frey MD [address] [place] [id number] PCP - General 11/11/22 Annette Frey MD [address] [place] [id number] PCP - [facility] PCP 12/16/22 Software Security Consultant Relationship Specialty Start Date End Date Annette Frey MD [address] [place] [address] PCP - General Family Medicine 02/23/24 Annette Frey MD [address] [place] [id number] PCP - [facility] PCP 12/17/23 Software Security Consultant Relationship Specialty Start Date End Date Annette Frey MD [address] [place] [id number] PCP - General Family Medicine 02/23/24 Annette Frey MD [address] [address] PCP - [facility] PCP 12/17/23 Team Status: Active Member Role Status Dates Dr. Annette Frey MD Primary Care Provider Act nadir Team Status: Inactive Member Role Status Dates Dr. Annette Frey MD Primary Care Provider Act nadir Start: July 09, 2024 End: July 09, 2024 Dr. Keaton Driver , Emergency Provider Activ e Start: July 09, 2024 End: July 09, 2024 Software Security Consultant Relationship Specialty Start Date End Date Annette Frey MD [address] [address] PCP - General Family Medicine 02/23/24 Annette Frey MD [address] [address] PCP - [facility] PCP 12/17/23 Annette Frey MD [address] [address] PCP - [facility] PCP 05/18/24 Software Security Consultant Relationship Specialty Start Date End Date Annette Frey MD [address] [address] PCP - General Family Medicine 02/23/24 Annette Frey MD [address] [id number] PCP - [facility] PCP 12/17/23 Annette Frey MD [address] [address] PCP - [facility] PCP 05/18/24 Team Status: Active Member Role/Relationship Status Dates Dr. Annette Frey MD Primary Care Provider Act nadir Team Status: Active Member Role/Relationship Status Dates [employer] Attending Provider Active Start: October 31, 2024 Team Status: Inactive Member Role/Relationship Status Dates Dr. Annette Frey MD Primary Care Provider Act nadir Start: December 09, 2024 End: December 09, 2024 Dr. Annette Frey MD Referring Provider Active Start: December 09, 2024 End: December 09, 2024 Marcia Christianson CNM Attending Provider Active S tart: December 09, 2024 End: December 09, 2024 Team Status: Active Member Role/Relationship Status Dates Dr. Annette Frey MD Primary Care Provider Act nadir Start: September 28, 2024 Dr. Annette Frey MD Attending Provider Active Start: September 28, 2024 Team Status: Active Member Role/Relationship Status Dates [facility] Attending Provider Active Start: October 31, 2024 Team Status: Inactive Member Role/Relationship Status Dates Dr. Annette Frey MD Primary Care Provider Act nadir Start: December 09, 2024 End: December 09, 2024 Dr. Annette Frey MD Referring Provider Active Start: December 09, 2024 End: December 09, 2024 Marcia Christianson CNM Attending Provider Active S tart: December 09, 2024 End: December 09, 2024 Team Status: Inactive Member Role/Relationship Status Dates Dr. Annette Frey MD Primary Care Provider Act nadir Start: December 19, 2024 End: December 19, 2024 Dr. Annette Frey MD Referring Provider Active Start: December 19, 2024 End: December 19, 2024 Dr. Aleksandra Walter DO Attending Provider Activ e Start: December 19, 2024 End: December 19, 2024 Team Status: Active Member Role/Relationship Status Dates Dr. Annette Frey MD Primary Care Provider Act nadir Start: December 19, 2024 Dr. Aleksandra Walter DO Attending Provider Activ e Start: December 19, 2024 Dr. Aleksandra Walter DO Referring Provider Activ e Start: December 19, 2024 Team Status: Inactive Member Role/Relationship Status Dates Dr. Annette Frey MD Primary Care Provider Act nadir Start: December 25, 2024 End: December 25, 2024 Dr. Annette Frey MD Referring Provider Active Start: December 25, 2024 End: December 25, 2024 Marcia Christianson CNM Attending Provider Active S tart: December 25, 2024 End: December 25, 2024 Team Status: Active Member Role/Relationship Status Dates Dr. Annette Frey MD Primary care physician Ac tive Team Status: Active Member Role/Relationship Status Dates Dr. Annette Frey MD Primary care physician Ac tive Start: September 28, 2024 Dr. Annette Frey MD Attending physician Activ e Start: September 28, 2024 Team Status: Active Member Role/Relationship Status Dates [facility] Attending physician Active Start : October 31, 2024 Team Status: Inactive Member Role/Relationship Status Dates Dr. Annette Frey MD Primary care physician Ac tive Start: December 09, 2024 End: December 09, 2024 Dr. Annette Frey MD Referring Provider Active Start: December 09, 2024 End: December 09, 2024 Marcia Christianson CNM Attending physician Active Start: December 09, 2024 End: December 09, 2024 Team Status: Inactive Member Role/Relationship Status Dates Dr. Annette Frey MD Primary care physician Ac tive Start: December 19, 2024 End: December 19, 2024 Dr. Annette Frey MD Referring Provider Active Start: December 19, 2024 End: December 19, 2024 Dr. Aleksandra Walter DO Attending physician Active Start: December End: December 19, 2024 Team Status: Active Member Role/Relationship Status Dates Dr. Annette Frey MD Primary care physician Ac tive Start: December 19, 2024 Dr. Aleksandra Walter DO Attending physician Active Start: December Dr. Aleksandra Walter DO Referring Provider Active Start: December Team Status: Inactive Member Role/Relationship Status Dates Dr. Annette Frey MD Primary care physician Ac tive Start: December 25, 2024 End: December 25, 2024 Dr. Annette Frey MD Referring Provider Active Start: December 25, 2024 End: December 25, 2024 Marcia Christianson CNM Attending physician Active Start: December 25, 2024 End: December 25, 2024 Team Status: Active Member Role/Relationship Status Dates Dr. Annette Frey MD Primary care physician Ac tive Start: December 30, 2024 Dr. Aleksandra Walter DO Attending physician Active Start: December Dr. Aleksandra Walter DO Referring Provider Active Start: December Team Status: Inactive Member Role/Relationship Status Dates Dr. Annette Frey MD Primary care physician Ac tive Start: January 01, 2025 End: January 01, 2025 Dr. Annette Frey MD Referring Provider Active Start: January 01, 2025 End: January 01, 2025 Dr. Brittney Mckeon MD Attending physician Active Start: January 01, 2025 End: January 01, 2025 <item> Privacy Markings (unrecogniz ed section and content) Section Author: Macrina Galindo PROHIBITION ON REDISCLOSURE OF CONFIDENTIAL INFORMATION This notice accompanies a disclosure of information concerning a client made to you with the consent of such client. Active Administered Medications - up to 3 most recent administrations Administered Medications (un recognized section and content) Medication Order MAR Action Action Date Dose Rate Site PHENYLephrine 2.5 % 1 Drop (AK-DILATE, BEATRIZ-SYNEPHRINE) 1 Drop, BOTH EYES, DIRECTED, Starting on Mon06/16/23 at 1400, Until 06/17/23 at 0159, Administer for dilation PROTECT FROM LIGHT Given 06/16/2023 2:00 PM EST 1 Drop Goals (unrecognized section and content) Type Care Experience Labor Preferences-CB /BF classes: []labor support person: []labor intervention preferences: []pain management options preferred: epiduralcut cord/dad catch: []: wants to tryPP control planned: discussed possible routes of delivery and associated risks: []special requests: [] FOR RECORDS PERTAINING TO PATIENTS WHO ARE OR HAVE BEEN ENROLLED IN A CHEMICAL DEPENDENCY/SUBSTANCEABUSE PROGRAM, SOME INFORMATION MAY BE OMITTED. This clinical summary was aggregated from multiple sources. Caution should be exercised in using it in the provision of clinical care. This summary normalizes information from multiple sources, and as a consequence, information in this document may materially change the coding, format and clinical context of patient data. In addition, data may be omitted in some cases. CLINICAL DECISIONS SHOULD BE BASED ON THE PRIMARY CLINICAL RECORDS. [facility]. provides no warranty or guarantee of the accuracy or completeness of information in this document.
[2025-01-05 12:16] LABS: ROM Internal Control Test YES-OK TO RESULT pt. (Internal QC); ROM Patient Test POSITIVE (Negative)
[2025-01-05 12:17] LABS: Record Kit Lot#, ROM+ K3358
--- OUTSIDE RECORDS SUMMARY | 2025-01-05 12:35 | XMS RPT_ITS | CCD ---
Author Organization [facility] CliniSyfl Care Team Providers [place] Police Launch Commander Name Role Phone SELF, SELF Unavailable Unavailable TONIE GAITAN Unavailable Unavailable MIKEL MOSS Attending UnavailNAS Rosa Primary Care Unavailable MIKEL MOSS Admitting UnavailHelena Carroll Unavailable Unavailable Nas Sanders Unavailable Unavailable Kasia Rodriguez Unavailable Unavailable Nas Sanders Primary Care Provider Nas Sanders Primary Care Provider [phone] Kasia Rodriguez Unavailable Unavailable Kasia Rodriguez Unavailable [...] [place], ANNETTE A Primary Care Unavailab le [facility] Attending Provider [phone] Tk WARD, Dr. Bryant Primary Care Provide [...] Bryant Attending Physician Health, Employee Attending Physician Marcia Christianson CNM Attending Physician [phone] Bety Gaffney DO, Dr. Lake Attending Physician [...] by mouth once daily. 0 Active Mv-Mins 71-Bqas-Xaxqn No.1-D perdomo ([facility]) 28-1-300 mg capsule (4 sources) Start: 12-05-2024 Mv-Mins 71-Iro n-Folic No.1-Dha ([facility]) 28-1-300 mg capsule Active NMA PO December 05, 2024 12:00am Complies with drug therapy Start: 12-05-2024 Mv-Mins 71-Iro n-Folic No.1-Dha ([facility]) 28-1-300 mg capsule Active NMA PO December [...] 05, 2024 11:27am take 1 capsule by [facility] four times daily cephALEXin (KEFLEX) 500 MG [...] Comment on above: Take 1 capsule by [facility] as directed for 30 days. Titration schedule: [...] PRR,, girl Emers on JOSE 01/12/25 BF Umb[employer] Other complications of (1 source) Supervision of [...] of ; Translations: [32 weeks gestation of ([facility])] Onset: 11-25-2024 Episodic Residual codes; unclassified (2 sources) 30 weeks gestation of ; Translations: [30 weeks gestation of ([facility])] Onset: 11-11-2024 Episodic Residual codes; unclassified (2 sources) 28 weeks gestation of ; Translations: [28 weeks gestation of ([facility])] Onset: 10-28-2024 Episodic Residual codes; unclassified (2 sources) 26 weeks gestation of ; Translations: [26 weeks gestation of ([facility])] Onset: 10-14-2024 Episodic Residual codes; unclassified (2 sources) 22 weeks gestation of ; Translations: [22 weeks gestation of ([facility])] Onset: 09-16-2024 Episodic Residual codes; unclassified (1 [...] of ; Translations: [14 weeks gestation of ([facility])] Onset: 07-22-2024 Episodic Residual codes; unclassified (2 sources) 10 weeks gestation of ; Translations: [10 weeks gestation of ([facility])] Onset: 06-24-2024 Episodic Unclassified (1 source) DENTA BLISTERS 11-11-2022 Comment on above: DENTA BLISTERS Unclassified (1 source) Gynecologic Exam Onset: 12-26-2023 NEGATED: Highlighted row has not occurred!Residual codes; unclassified (20 sources) Disease Episodic Results Test Name Value Interpretation Reference Range Facility [facility] Office Visit Reporton 01-01-2025 [facility] Office Visit Report [facility] [address], [address] [place] [address] OFFICE VISIT Date of Service: 01/01/25 MR#: [id number] Acct: [id number] Name: CHAPARRITA FLOYD Rep #: [id number] : 2000 Provider: Dr. Brittney doran MD Age/Sex: 24/F Location: [facility] Status: Signed Intake Vital Signs 12/09/24 13:08 12/19/24 14:57 12/25/24 13:21 01/01/25 11:01 Height 5 ft 7 in 5 ft 7 in 5 ft 7 in 5 ft 7 in Weight: 278 lb 8 oz BMI 43.6 BP 134/85 H Intake Visit Reasons: 38 WK OB Lock And Dam Operator Required: No Is patient in pain?: No [...] mg-folate no.1 1 mg-dha 300 mg capsule ([facility]) Last Menstrual Period: 04/07/24 Zika: Zika virus screening: Negative : No PFSH PFSH Medical History Migraines Surgical History [place] teeth extracted Family History Father Heart disease [...] house current occupational status: employed current occupation: [email or web address] current occupational exposures/hazards: No pets and [...] 5-6 times per week duration: 45-60 minutes/day montserrat/quaker: None seatbelt use: always do you feel safe at home: Yes additional 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 -???-???- KW- Transfer of care from [place] no vb/lof/ctx. good fm. LARC today. NOB l (more content not included)... Normal [facility] OB Limited With Biometricson 12-30-2024 OB Limited With Biometrics [facility] [address] [place] [address] OB Limited With Biometrics MR#: [id number] Acct: [id number] Name: CHAPARRITA FLOYD Rep #: [id number] : 2000 F 24 From: Marcus barth MD PCP: Dr. Annette Frey MD Status: [facility] Study: OB Limited With Biometrics Date of Exam: 12/30 Exam# [id number] Ordering Dr: Aleksandra Walter DO PROCEDURE: OB [...] 38 weeks and 5 days. Reading Location: [place] [address] CC: Dr. Aleksandra Walter DO; Dr. Annette Frey MD Furniture Installer: Signed Normal [facility] Laboratory - Chemistry and C hemistry - challengeOrdered By: Marcia Christianson on 12-25-2024 Glucose Ql (U) Negative [facility] Laboratory - UrinalysisOrder ed By: Marcia Christianson on 12-25-2024 Protein Ql (U) Negative [facility] Terminal [facility] Office Visit Reporton 12-25-2024 Terminal [facility] Office Visit Report [facility] [address], [address] [place] [address] OFFICE VISIT Date of Service: 12/25/24 MR#: [id number] Acct: [id number] Name: CHAPARRITA FLOYD Rep #: [id number] : 2000 Provider: СВЕТЛАНА Browning ams Age/Sex: 24/F Location: [facility] Status: Signed Intake Vital Signs 12/09/24 13:08 12/19/24 14:57 12/25/24 13:21 Height 5 ft 7 in 5 ft 7 in 5 ft 7 in Weight: 278 lb 6 oz BMI 43.6 BP 131/84 H Intake Visit Reasons: 37 WK OB Chief Complaint: 37wk OB Lock And Dam Operator Required: No Is patient in pain?: No [...] mg-folate no.1 1 mg-dha 300 mg capsule ([facility]) Last Menstrual Period: 04/07/24 : No PFSH PFSH Medical History Migraines Surgical History [place] teeth extracted Family History Father Heart disease [...] house current occupational status: employed current occupation: [email or web address] current occupational exposures/hazards: No pets and [...] 5-6 times per week duration: 45-60 minutes/day montserrat/quaker: None seatbelt use: always do you feel safe at home: Yes additional 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 -???-???- KW- Transfer of care from [place] no vb/lof/ctx. good fm. LARC today. NOB labs reviewed-PRR. discussed GBS and labor precautions. was no (more content not included)... Normal [facility] Rule out Beta Strep (Grp. B) on 12-21-2024 ANA Group B Beta Streptococcus is not isolated. Normal [facility] Comment on above: Performed By: #### L 300.8000, L100.0100, L500.2500, L503.7505 #### [facility] [address] [place], [place], [id number] Laboratory - Chemistry and C hemistry - challengeOrdered By: Aleksandra Gaffney on 12-19-2024 Glucose Ql (U) Negative [facility] Laboratory - UrinalysisOrder ed By: Aleksandra Gaffney on 12-19-2024 Protein Ql (U) Negative [facility] Terminal [facility] Office Visit Reporton 12-19-2024 Terminal [facility] Office Visit Report [facility] [address], [address] [place] [address] OFFICE VISIT Date of Service: 12/19/24 MR#: [id number] Acct: [id number] Name: CHAPARRITA FLOYD Rep #: [id number] : 2000 Provider: Dr. Aleksandra Piedra DO Age/Sex: 24/F Location: [facility] [place] Status: Signed Intake Vital Signs 12/02/24 13:44 12/09/24 13:08 12/19/24 14:57 Height 5 ft 7 in 5 ft 7 in 5 ft 7 in Weight: 271 lb 6 oz 275 lb 6 oz BMI 42.5 43.1 BP 118/83 H 123/81 H Intake Visit Reasons: 36 wk OB Lock And Dam Operator Required: No Is patient in pain?: No [...] mg-folate no.1 1 mg-dha 300 mg capsule ([facility]) Last Menstrual Period: 04/07/24 Zika: Zika virus screening: Negative : No PFSH PFSH Medical History Migraines Surgical History [place] teeth extracted Family History Father Heart disease [...] 5-6 times per week duration: 45-60 minutes/day montserrat/quaker: None seatbelt use: always do you feel safe at home: Yes additional 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 -???-???- KW- Transfer of care from [place] no vb/lof/ctx. good fm. LARC today. (more content not included)... Normal [facility] Screening beta-hemolytic Str eptococcus cultureOrdered By: Aleksandra Gaffney on 12-19-2024 Beta-hemolytic Streptococcus culture Group B Beta Streptococcus is not isolated. [facility] Laboratory - Chemistry and C hemistry - challengeOrdered By: Marcia Christianson on 12-09-2024 Glucose Ql (U) Negative [facility] Laboratory - UrinalysisOrder ed By: Marcia Christianson on 12-09-2024 Protein Ql (U) Negative [facility] Office Visit Reporton 12-09-2024 Terminal [facility] Office Visit Report [facility] [address], [address] [place] [address] OFFICE VISIT Date of Service: 12/09/24 MR#: [id number] Acct: [id number] Name: CHAPARRITA FLOYD Rep #: [id number] : 2000 Provider: СВЕТЛАНА Browning ams Age/Sex: 24/F Location: [facility] Status: Signed with Addenda ADDENDUM by Kathryn Berger on 12/09/24 at 1353 Office Procedure Documentation entered by Kathryn Berger 12/09/24 13:53: Immunizations Adacel(Tdap Adolesn/Adult)(PF) 2 Lf-(2.5-5-3-5)-5 Lf/0.5 mL IM syringe Performing Provider: Marcia Christianson CNM Performing Location: [facility] Administered by: Kathryn Berger on 12/09/24 13:52 Dose Route Admin Location Dispensed Lot Number Expiration Date NDC Man ufacturer 0.5 mL IM Left Arm (SQ) 0.5 mL [id number] 11/15/26 15763-133-09 SANOFI- PASTEUR VIS Given Date VIS Provided [...] JOSE 02/11 Chief Complaint: New OB 35wks Lock And Dam Operator Required: No Is patient in pain?: No [...] mg-folate no.1 1 mg-dha 300 mg capsule ([facility]) Last Menstrual Period: 04/07/24 : No PFSH PFSH Medical History Migraines Surgical History [place] teeth extracted Family History Father Heart disease [...] No current occupational status: employed current occupation: [email or web address] current occupational exposures/hazards: No pets and [...] 5-6 times per week duration: 45-60 minutes/day montserrat/quaker: None seatbelt use: always do you feel safe at home: Yes additional social history: KEATON Calderon 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 Date Name GA/Weeks Outcome Route Bth Weight Gen [facility] F[facility] Unknown 02/2024 Miscarriage [...] Rhogam: [] (more content not included)... Normal [facility] GLUCOSE, GESTATIONAL SCREEN (50G)-135 CUTOFFon 09-29-2024 Glucose [Mass/Vol] 86 mg/dL Normal <135 [facility] Comment on above: Performed By: #### 8 477 #### [facility] [address] [facility], [address] [place] [address] Documentation Improvement Specialist: Andres Samson MD Blood type and Indirect anti body screen panel (Bld)on 09-28-2024 ABO group Nom (Bld) A Normal [facility] Comment on above: Performed By: #### 3 4532-2 #### JUSTIN LAMBERT ([id number]) [facility] ([facility]) [address] [place] [address] Blood group antibody screen Ql Negative [facility] Comment on above: Performed By: #### 3 4532-2 #### JUSTIN LAMBERT ([id number]) [facility] ([facility]) [address] [place] [address] US D Ag Ql (Bld) Positive [facility] Comment on above: Performed By: #### 3 4532-2 #### JUSTIN LAMBERT ([id number]) [facility] ([facility]) [address] [place] [address] CBC panel Auto (Bld)on 09-28 Erythrocyte distribution width (RBC) [Ratio] 13.5 % Normal 11.5-14.5 [facility] Comment on above: Performed By: #### 5 8410-2 #### JUSTIN LAMBERT ([id number]) [facility] ([facility]) [address] [place], [place] [id number] Hematocrit (Bld) [Volume fraction] 38.0 % Normal 36.0-46.0 [facility] Comment on above: Performed By: #### 5 8410-2 #### JUSTIN LAMBERT ([id number]) [facility] ([facility]) [address] [place] [address] Hemoglobin (Bld) [Mass/Vol] 12.5 g/dL Normal 12.0-16.0 [facility] Comment on above: Performed By: #### 5 8410-2 #### JUSTIN LAMBERT ([id number]) [facility] ([facility]) [address] [place] [address] MCH (RBC) [Entitic mass] 29.8 pg Normal 26.0-34.0 [facility] Comment on above: Performed By: #### 5 8410-2 #### JUSTIN LAMBERT ([id number]) [facility] ([facility]) [address] [place] [address] 38868 MCHC (RBC) [Mass/Vol] 32.9 g/dL Normal 32.0-36.0 [facility] Comment on above: Performed By: #### 5 8410-2 #### JUSTIN LAMBERT ([id number]) [facility] ([facility]) [address] [place] [address] 38628 MCV (RBC) [Entitic vol] 91 fL Normal 80-100 [facility] Comment on above: Performed By: #### 5 8410-2 #### JUSTIN LAMBERT ([id number]) [facility] ([facility]) [address] [place] [address] 57782 Nucleated RBC/100 WBC (Bld) [Ratio] 0.0 /100 WBCs Normal 0.0-0.0 [facility] Comment on above: Performed By: #### 5 8410-2 #### JUSTIN LAMBERT ([id number]) [facility] ([facility]) [address] [place] [address] 10009 Platelets (Bld) [#/Vol] 223 x10*3/uL Normal 150-450 [facility] Comment on above: Performed By: #### 5 8410-2 #### JUSTIN LAMBERT ([id number]) [facility] ([facility]) [address] [place] [address] 35662 RBC (Bld) [#/Vol] 4.20 x10*6/uL Normal 4.00-5.20 [facility] Comment on above: Performed By: #### 5 8410-2 #### JUSTIN LAMBERT ([id number]) [facility] ([facility]) [address] [place] [address] WBC (Bld) [#/Vol] 10.1 x10*3/uL Normal 4.4-11.3 [facility] Comment on above: Performed By: #### 5 8410-2 #### ANDERSON FAUSTO ([id number]) [facility] ([facility]) [address] [place] [address] REFLEX ADDED, ANEMIA PANELon 09-28-2024 REFLEX ADDED, ANEMIA PANEL No reflex. [facility] Comment on above: Performed By: #### A PRFX #### BINA Lopez ([id number]) [facility] ([facility]) [address] [place] [address] US OB 14+ WEEKS ANATOMY SCAN on 08-21-2024 US OB 14+ WEEKS ANATOMY SCAN Interpreted By: Carlo Aguirre, STUDY: US OB 14+ WEEKS ANATOMY SCAN; 08/21/2024 10:23 am INDICATION: Signs/Symptoms:anato my. ,Z3A.14 14 weeks gestation of ([facility]) COMPARISON: None. ACCESSION NUMBER(S): [id number] ORDERING CLINICIAN: ESTELITA PICKENS TECHNIQUE: Multiple images were obtained. Transabdominal ultrasound was performed. FINDINGS: There is a single live intrauterine gestation in cephalic position. BPD 4.5 cm, 19 week 5 days HC 17.2 cm, 19b3t19a3p AC 14.1 cm, 40r5p46c9u FL 2.9 cm, [id number] This results in a composite gestational age [...] Carlo Aguirre 08/22/2024 8:09 AM Dictation workstation: [id number] [facility] 12 Lead EKGon 07-09-2024 12 Lead EKG [facility] Cardiovascular Services [address] [place] [address] 12 Lead EKG 07/09/24 1934 MR#: [id number] Acct: [id number] Name: CHAPARRITA FLOYD Rep #: [id number] : 2000 From: Ryan Miller MD Attending [...] ECG Confirmed by MICHAEL WARD, RYAN ([id number]), deputy editor in chief FERNY STEPHENSON ([id number]) on 07/10/2024 8:32:14 AM Referred By: Confirmed By: RYAN MILLER MD 07/10/24 0832 Date Ryan Miller MD CC: Dr. Keaton Driver DO; Dr. Annette Frey MD Signed Normal [facility] Absolute neutrophil countOrd ered By: Keaton Driver on 07-09-2024 Neutrophils (Bld) [#/Vol] 6.8 10*3/uL 2.0-7.7 [facility] Anion gap in Serum or Plasma Ordered By: Keaton Driver on 07-09-2024 Anion gap [Moles/Vol] 11 mmol/L 5-15 [facility] BUN/creatinine ratioOrdered By: Keaton Driver on 07-09-2024 Urea nitrogen/Creatinine [Mass ratio] 10.6 mg/mg - [facility] Basic Metabolic Profile (BMP )on 07-09-2024 BUN/CRE 10.6 RATIO Normal 02-03 [facility] Comment on above: Performed By: #### L 300.8000, L100.0100, L500.2500, L503.7505 #### [facility] [address] [place], [address] Calcium [Mass/Vol] 9.2 mg/dL Normal 7.6-11.0 [facility] Comment on above: Performed By: #### L 300.8000, L100.0100, L500.2500, L503.7505 #### [facility] [address] [place], [address] Chloride [Moles/Vol] 106 mmol/L Normal 98-108 [facility] Comment on above: Performed By: #### L 300.8000, L100.0100, L500.2500, L503.7505 #### [facility] [address] [place], [address] CO2 [Moles/Vol] 20.2 mmol/L Low 21.0-32.0 [facility] Comment on above: Performed By: #### L 300.8000, L100.0100, L500.2500, L503.7505 #### [facility] [address] [place], [address] Creatinine [Mass/Vol] 0.62 mg/dL Low 0.70-1.20 [facility] Comment on above: Performed By: #### L 300.8000, L100.0100, L500.2500, L503.7505 #### [facility] [address] [place], [address] ECRCL 174.24 ml/min Normal 50-250 [facility] Comment on above: Performed By: #### L 300.8000, L100.0100, L500.2500, L503.7505 #### [facility] [address] [place], [address] GAP 11 Normal 5-15 [facility] Comment on above: Performed By: #### L 300.8000, L100.0100, L500.2500, L503.7505 #### [facility] [address] [place], [address] GFR/1.73 sq M.predicted among non-blacks MDRD (S/P/Bld) [Vol rate/Area] 126 mL/min/{1.73_m2} Normal >60 [facility] Comment on above: Result Comment: mL/m in/1.73m2 CKD-EPI Creatinine Equation (2020) Performed By: #### L 300.8000, L100.0100, L500.2500, L503.7505 #### [facility] [address] [place], [address] Glucose [Mass/Vol] 125 mg/dL High 70-99 [facility] Comment on above: Performed By: #### L 300.8000, L100.0100, L500.2500, L503.7505 #### [facility] [address] [place], [address] Potassium [Moles/Vol] 3.2 mmol/L Low 3.3-5.1 [facility] Comment on above: Performed By: #### L 300.8000, L100.0100, L500.2500, L503.7505 #### [facility] [address] [place], [address] Sodium [Moles/Vol] 137 mmol/L Normal 133-145 [facility] Comment on above: Performed By: #### L 300.8000, L100.0100, L500.2500, L503.7505 #### [facility] [address] [place], [address] Urea nitrogen [Mass/Vol] 7 mg/dL Normal 4-19 [facility] Comment on above: Performed By: #### L 300.8000, L100.0100, L500.2500, L503.7505 #### [facility] [address] [place], [address] Basophil percentageOrdered B y: Keaton Driver on 07-09-2024 Basophils/100 WBC (Bld) 0.3 % 0-1 [facility] Bilirubin Test strip Ql (U)O rdered By: Keaton Driver on 07-09-2024 Bilirubin Ql (U) Negative Negative [facility] CBC W/Diff, Automatedon 06-16 Absolute Lymph 0.43 X10 3/uL Low 0.83-4.51 [facility] Comment on above: Performed By: #### L 300.8000, L100.0100, L500.2500, L503.7505 #### [facility] [address] [place], [address] Absolute Neut 6.8 X10 3/uL Normal 2.0-7.7 [facility] Comment on above: Performed By: #### L 300.8000, L100.0100, L500.2500, L503.7505 #### [facility] [address] [place], [address] Basophils/100 WBC (Bld) 0.3 % Normal 0-1 [facility] Comment on above: Performed By: #### L 300.8000, L100.0100, L500.2500, L503.7505 #### [facility] [address] [place], [address] Eosinophils/100 WBC (Bld) 1.5 % Normal 0-5 [facility] Comment on above: Performed By: #### L 300.8000, L100.0100, L500.2500, L503.7505 #### [facility] [address] [place], [address] Erythrocyte distribution width (RBC) [Ratio] 12.5 % Normal 11.6-14.6 [facility] Comment on above: Performed By: #### L 300.8000, L100.0100, L500.2500, L503.7505 #### [facility] [address] [place], [address] Hematocrit (Bld) [Volume fraction] 40.6 % Normal 37-47 [facility] Comment on above: Performed By: #### L 300.8000, L100.0100, L500.2500, L503.7505 #### [facility] [address] [place], [address] Hemoglobin (Bld) [Mass/Vol] 13.9 g/dL Normal 12.0-15.0 [facility] Comment on above: Performed By: #### L 300.8000, L100.0100, L500.2500, L503.7505 #### [facility] [address] [place], [address] IG% 0.400 Normal 0.0-0.9 [facility] Comment on above: Result Comment: IG% - Immature Granulocytes (promyelocytes, myelocytes and metamyelocytes) > 1% indicates that a LEFT SHIFT is Present. Performed By: #### L 300.8000, L100.0100, L500.2500, L503.7505 #### [facility] [address] [place], [address] Lymphocytes/100 WBC (Bld) 5.5 % Low 19-41 [facility] Comment on above: Performed By: #### L 300.8000, L100.0100, L500.2500, L503.7505 #### [facility] [address] [place], [address] MCH (RBC) [Entitic mass] 29.9 pg Normal 27.0-32.0 [facility] Comment on above: Performed By: #### L 300.8000, L100.0100, L500.2500, L503.7505 #### [facility] [address] [place], [address] MCHC (RBC) [Mass/Vol] 34.2 g/dL Normal 32-36 [facility] Comment on above: Performed By: #### L 300.8000, L100.0100, L500.2500, L503.7505 #### [facility] [address] [place], [address] MCV (RBC) [Entitic vol] 87.3 fL Normal 81-99 [facility] Comment on above: Performed By: #### L 300.8000, L100.0100, L500.2500, L503.7505 #### [facility] [address] [place], [address] Monocytes/100 WBC (Bld) 5.4 % Normal 0-10 [facility] Comment on above: Performed By: #### L 300.8000, L100.0100, L500.2500, L503.7505 #### [facility] [address] [place], [address] Neutrophils/100 WBC (Bld) 86.9 % High 47-70 [facility] Comment on above: Performed By: #### L 300.8000, L100.0100, L500.2500, L503.7505 #### [facility] [address] [place], [address] Nucleated RBC (Bld) [#/Vol] 0 10*3/uL Normal 0-5 [facility] Comment on above: Performed By: #### L 300.8000, L100.0100, L500.2500, L503.7505 #### [facility] [address] [place], [address] Platelet mean volume (Bld) [Entitic vol] 9.7 fL Normal 6.2-12.0 [facility] Comment on above: Performed By: #### L 300.8000, L100.0100, L500.2500, L503.7505 #### [facility] [address] [place], [address] Platelets (Bld) [#/Vol] 219 10*3/uL Normal 150-450 [facility] Comment on above: Performed By: #### L 300.8000, L100.0100, L500.2500, L503.7505 #### [facility] [address] [place], [address] RBC (Bld) [#/Vol] 4.65 10*6/uL Normal 4.2-5.4 [facility] Comment on above: Performed By: #### L 300.8000, L100.0100, L500.2500, L503.7505 #### [facility] [address] [place], [address] RDW SD 39.9 fl Normal 35.1-43.9 [facility] Comment on above: Performed By: #### L 300.8000, L100.0100, L500.2500, L503.7505 #### [facility] [address] [place], [address] WBC (Bld) [#/Vol] 7.8 10*3/uL Normal 4.4-11.0 [facility] Comment on above: Performed By: #### L 300.8000, L100.0100, L500.2500, L503.7505 #### [facility] [address] [place], [address] Carbon dioxide, total [Moles /volume] in Central venous bloodOrdered By: Keaton Driver on 07-09-2024 CO2 [Moles/Vol] 20.2 mmol/L Low 21.0-32.0 [facility] Chest PA and Lateralon 07-09 Chest PA and Lateral [facility] [address] [place] [address] Chest PA and Lateral MR#: [id number] Acct: [id number] Name: CHAPARRITA FLOYD Rep #: [id number] : 2000 F 24 From: Anneliese Young PCP: Dr. Annette Frey MD Status: REG ER Study: Chest PA and Lateral Date of Exam: 07/09/24 Exam# [id number] Ordering Dr: Keaton Driver DO EXAM: Two-view [...] acute cardiopulmonary process identified radiographically. Reading Location: [id number] CC: Dr. Keaton Driver DO; Dr. Annette Frey MD Furniture Installer: Signed Normal [facility] Chloride assayOrdered By: Robin Driver on 07-09-2024 Chloride [Moles/Vol] 106 mmol/L 98-108 [facility] D-Dimer Quantitative (DVT/PE )on 07-09-2024 D-DIMER QUANT 0.44 FEU/ug/m Normal 0.27-0.49 [facility] Comment on above: Result Comment: NORM AL D-Dimer level (<0.50) indicates no DVT or PE. Performed By: #### L 300.8000, L100.0100, L500.2500, L503.7505 #### [facility] [address] [place], [address] D-dimer measurement for deep venous thrombosisOrdered By: Keaton Driver on 07-09-2024 D-Dimer Quantitative (PE/DVT) 0.44 FEU/ug/m 0.27-0.49 [facility] Comment on above: NORMAL D-Dimer level (<0.50) indicates no DVT or PE. Emergency Department Summary on 07-09-2024 Emergency Department Summary [facility] Medical Records Department [address] [place] [address] Emergency Department Summary 07/09/24 MR#: [id number] Acct: [id number] Name: CHAPARRITA FLOYD Rep #: [id number] : 2000 24 From: Keaton Driver DO PCP: Dr. Annette Frey MD Status:DEP ER Location: ED HPI History of Present Illness Chief Complaint: Dizziness Narrative Narrative: Chief complaint and HPI: Lightheadedness and nausea. 24-year-old female who is who follows with Dr. Pickens with AUDIOLOGY DIRECTOR at presents for evaluation of lightheadedness and [...] any vaginal bleeding. She recently traveled to [place] over the weekend in which she was [...] Psych: Cooperative, appropriate mood and affect PFSH [facility] Medical History (Updated 07/09/24 @ 23:28 by [...] is who follows with Dr. Nelia with AUDIOLOGY DIRECTOR at presents for evaluation of lightheadedness and [...] has improv (more content not included)... Normal [facility] Eosinophil percentageOrdered By: [facility] on 07-[facility]24 Eosinophils/100 WBC (Bld) 1.5 % 0-5 [facility] Epithelial cells.squamous LM Ql (Urine sed)Ordered By: Keaton Driver on 07-09-2024 Epithelial cells.squamous LM.HPF (Urine sed) [#/Area] 0 /[HPF] 5-10 [facility] Erythrocyte distribution wid th ratioOrdered By: Keatonkisha Driver on 07-09-2024 Erythrocyte distribution width (RBC) [Ratio] 12.5 % 11.6-14.6 [facility] Erythrocyte distribution wid th standard deviationOrdered By: [facility] Karissa on 07-09-2024 Erythrocyte distribution width (RBC) [Entitic vol] 39.9 fL 35.1-43.9 [facility] Estimation of creatinine lashanda aranceOrdered By: Keatonkisha Driver on 07-09-2024 Estimated Creatinine Clearance Calc 174.24 ml/min 50-250 [facility] GFR/1.73 sq M.predicted елена g non-blacks MDRD (S/P/Bld) [Vol rate/Area]Ordered By: Keaton Driver on 07-09-2024 Estimated GFR (MDRD) Non-Af Amer 126 >60 [facility] Comment on above: mL/min/1.73m2 CKD-EP I Creatinine Equation (2020) Glucose Ql (U)Ordered By: Robin Driver on 07-09-2024 Urine Glucose (UA) Normal mg/dl Normal [facility] Hematocrit Auto (Bld) [Volum e fraction]Ordered By: Keaton Driver on 07-09-2024 Hematocrit (Bld) [Volume fraction] 40.6 % 37-47 [facility] Hemoglobin measurementOrdere d By: Keaton Driver on 07-09-2024 Hemoglobin (Bld) [Mass/Vol] 13.9 g/dL 12.0-15.0 [facility] Immature granulocytes/100 WB C Auto (Bld)Ordered By: Keaton Driver on 07-09-2024 Immature granulocytes/100 WBC (Bld) 0.400 % 0.0-0.9 [facility] Comment on above: IG% - Immature Granu locytes (promyelocytes, myelocytes and metamyelocytes) > 1% indicates that a LEFT SHIFT is Present. Influenza virus A and B and SARS-CoV-2 (COVID-19) and Respiratory syncytial virus RNAOrdered By: Keaton Driver on 07-09-2024 SARS-CoV-2 (COVID-19) RNA LANETTE+probe Ql (Unsp spec) SARS-CoV-2 (COVID 19 PCR) Abnormal [facility] Ketones Test strip Ql (U)Ord ered By: Keaton Driver on 07-09-2024 Ketones Ql (U) 5 mg/dl High Negative [facility] L501.4021on 07-09-2024 Trop T High Sen < 6 Normal <=14 [facility] Comment on above: Performed By: #### L 501.4027 ####[facility] [address] [place], [address] L503.7505on 07-09-2024 Natriuretic peptide B (Bld) [Mass/Vol] 109 pg/mL Normal <=450 [facility] Comment on above: Result Comment: Hear t Failure Unlikely: < 300 pg/mL Heart Failure Likely < 50 Years: > 450 pg/mL 50-75 Years: > 900 pg/mL >75 Years: > 1800 pg/mL Performed By: #### L 300.8000, L100.0100, L500.2500, L503.7505 #### [facility] [address] [place], [place], [address] Laboratory - Chemistry and C hemistry - challengeOrdered By: Keaton Driver on 07-09-2024 Natriuretic peptide B (Bld) [Mass/Vol] 109 pg/mL <450 [facility] Comment on above: Heart Failure Unlike ly: < 300 pg/mLHeart Failure Likely< 50 Years: > 450 pg/mL50-75 Years: > 900 pg/mL>75 Years: > 1800 pg/mL Lymphocytes Auto (Unsp spec) [#/Vol]Ordered By: Keaton Driver on 07-09-2024 Lymphocytes (Bld) [#/Vol] 0.43 10*3/uL Low 0.83-4.51 [facility] Lymphocytes/100 WBC Auto (Un sp spec)Ordered By: Keaton Driver on 07-09-2024 Lymphocytes/100 WBC (Bld) 5.5 % Low 19-41 [facility] M100.678on 07-09-2024 M100.678 Copy of report sent to Infection Control Printer [id number] 07/10/24 0752 [facility]. Pending SARS-CoV-2 (COVID 19) A Positive A INFLUENZA A Negative INFLUENZA B Negative RSV PCR Negative SARS-CoV-2 (COVID 19 PCR) Normal [facility] Comment on above: Performed By: #### L 400.0001, M100.678 ####[facility] [address] [place], [place], [address] MCV (mean corpuscular volume ) determinationOrdered By: Keaton Driver on 07-09-2024 MCV (RBC) [Entitic vol] 87.3 fL 81-99 [facility] Mean corpuscular hemoglobin (MCH) determinationOrdered By: Keaton Driver on 07-09-2024 MCH (RBC) [Entitic mass] 29.9 pg 27.0-32.0 [facility] Mean corpuscular hemoglobin concentration (MCHC) determinationOrdered By: Keaton Driver on 07-09-2024 MCHC (RBC) [Mass/Vol] 34.2 g/dL 32-36 [facility] Mean platelet volume determi nationOrdered By: Keaton Driver on 07-09-2024 Platelet mean volume (Bld) [Entitic vol] 9.7 fL 6.2-12.0 [facility] Microscopic analysis of urin e for red blood cells (RBC)Ordered By: Keaton Driver on 07-09-2024 Urine RBC 0 SEEN /hpf 0-5 [facility] Monocyte percentageOrdered B y: Keaton Driver on 07-09-2024 Monocytes/100 WBC (Bld) 5.4 % 0-10 [facility] Mucus LM Ql (Urine sed)Order ed By: Keaton Driver on 07-09-2024 Mucus Ql (Urine sed) 0 SEEN /hpf [facility] Neutrophil percentageOrdered By: Keaton Driver on 07-09-2024 Neutrophils/100 WBC (Bld) 86.9 % High 47-70 [facility] Nitrite Test strip Ql (U)Ord ered By: Keaton Driver on 07-09-2024 Nitrite Ql (U) Negative Negative [facility] No Panel InformationOrdered By: Keaton Driver on 07-09-2024 Troponin T High Sensitivity < 6 ng/L <14 [facility] Nucleated red blood cell per centageOrdered By: Keaton Driver on 07-09-2024 Nucleated RBC/100 WBC (Bld) [Ratio] 0 % 0-5 [facility] Platelet countOrdered By: Robin Driver on 07-09-2024 Platelets (Bld) [#/Vol] 219 10*3/uL 150-450 [facility] Potassium (Unsp spec) [Mass/ Vol]Ordered By: Keaton Driver on 07-09-2024 Potassium [Moles/Vol] 3.2 mmol/L Low 3.3-5.1 [facility] Protein Test strip Ql (U)Ord ered By: Keaton Driver on 07-09-2024 Protein Ql (U) 15 mg/dl High Negative [facility] RBC Auto (Bld) [#/Vol]Ordere d By: Keaton Driver on 07-09-2024 RBC (Bld) [#/Vol] 4.65 10*6/uL 4.2-5.4 [facility] Serum creatinine measurement (mass/volume)Ordered By: Keaton Driver on 07-09-2024 Creatinine [Mass/Vol] 0.62 mg/dL Low 0.70-1.20 [facility] Serum glucose measurement (m ass/volume)Ordered By: Keaton Driver on 07-09-2024 Glucose [Mass/Vol] 125 mg/dL High 70-99 [facility] Serum or plasma calcium chetan urement (mass/volume)Ordered By: Keaton Hancock on 07-09-2024 Calcium [Mass/Vol] 9.2 mg/dL 7.6-11.0 [facility] Serum or plasma urea nitroge n measurement (mass/volume)Ordered By: Keaton Driver on 07-09-2024 Urea nitrogen [Mass/Vol] 7 mg/dL 4-19 [facility] Sodium levelOrdered By: Andrew Driver on 07-09-2024 Sodium [Moles/Vol] 137 mmol/L 133-145 [facility] Urinalysis, Completeon 07-09 BACTERIA 1+ /hpf Normal None Seen [facility] Comment on above: Order Comment: CLEAN CATCH Performed By: #### L 400.0001, M100.678 ####[facility] [address] [place], [address] EPI,SQUAMOUS 0-5 SEEN Normal 5-10 [facility] Comment on above: Order Comment: CLEAN CATCH Performed By: #### L 400.0001, M100.678 ####[facility] [address] [place], [address] RBC 0 SEEN Normal 0-5 [facility] Comment on above: Order Comment: CLEAN CATCH Performed By: #### L 400.0001, M100.678 ####[facility] [address] [place], [address] WBC 0-5 SEEN Normal 0-5 [facility] Comment on above: Order Comment: CLEAN CATCH Performed By: #### L 400.0001, M100.678 ####[facility] [address] [place], [address] Mucus Ql (Urine sed) 0 SEEN Normal [facility] Comment on above: Order Comment: CLEAN CATCH Performed By: #### L 400.0001, M100.678 ####[facility] [address] [place], [address] Urine blood detectionOrdered By: Keaton Driver on 07-09-2024 Urine Occult Blood 25 /ul High Negative [facility] Urine clarityOrdered By: Juaquin Driver on 07-09-2024 Clarity (U) Clear Clear [facility] Urine color determinationOrd ered By: Keaton Driver on 07-09-2024 Color (U) Yellow Yellow [facility] Urine leukocyte esterase det ection by dipstickOrdered By: Keaton Driver on 07-09-2024 Leukocyte esterase Test strip Ql (U) 25 /ul High Negative [facility] Urine pHOrdered By: Keaton Queen on 07-09-2024 pH (U) 6.0 [pH] 5.0 - 8.0 [facility] Urine sediment bacteria coun t by microscopy (number/high power field)Ordered By: Keaton Driver on 07-09-2024 Bacteria LM.HPF (Urine sed) [#/Area] 1 /[HPF] None Seen [facility] Urine specific gravity measu rementOrdered By: Keaton [facility]un[facility] centerasiaKarissa on 07-09-2024 Specific gravity (U) [Rel density] 1.020 1.002-1.030 [facility] Urobilinogen Ql (U)Ordered B y: Keaton Driver on 07-09-2024 Urine Urobilinogen Normal mg/dl Normal [facility] White blood cell (WBC) count Ordered By: Keaton Driver on 07-09-2024 WBC (Bld) [#/Vol] 7.8 10*3/uL 4.4-11.0 [facility] White blood cell countOrdere d By: Keaton Driver on 07-09-2024 Urine WBC 0-5 SEEN /hpf 0-5 [facility] HEMOGLOBIN A1c WITH eAGon eAG (mmol/L) 5.0 mmol/L Normal [facility] Comment on above: Performed By: #### 8 472, 76915, 802, 61973, 498 #### [facility] [address], [address] [place] [address] Documentation Improvement Specialist: Andres Samson MD #### [id number] #### [facility]/[place] [id number] [facility] [place] [place] [address] Documentation Improvement Specialist: Silvestre Escalona M.D.,PhD HEMOGLOBIN A1c 4.8 % [...] diagnosis of diabetes in children. According to [place] [employer] Association (ADA) guidelines, hemoglobin A1c <7.0% represents optimal control in non- diabetic patients. Different metrics may apply to specific patient populations. Standards of Medical Care in Diabetes(ADA). Performed By: #### 8 472, 14067, 802, 51923, 498 #### [facility] [address], [address] [place] [address] Documentation Improvement Specialist: Andres Samson MD #### 11580 #### [facility]/[place] [id number] [facility] [place], [place] Documentation Improvement Specialist: Silvestre Escalona M.D.,PhD Magnesium [Mass/Vol] 91 mg/dL Normal [facility] Comment on above: Performed By: #### 8 472, 79067, 802, 24404, 498 #### [facility] [address], [address] [place] [address] Documentation Improvement Specialist: Andres Samson MD #### [id number] #### [facility]/[address] [place], [place] Documentation Improvement Specialist: Silvestre Escalona M.D.,PhD HEPATITIS B SURFACE ANTIGEN W/REFL CONFIRMon 06-27-2024 HEPATITIS B SURFACE ANTIGEN Non-Reactive Normal NON-REACTIVE [facility] Comment on above: Result Comment: For additional information, please refer to http://education.DistalMotion.Par[employer]/faq/XYC178 (This link is being provided for informational/ educational purposes only.) Performed By: #### 8 472, 35739, 802, 17485, 498 #### [facility] [address], [address] [place] [address] Documentation Improvement Specialist: Andres Samson MD #### 11531 #### [facility]/[place] [id number] [facility] [place], [place] Documentation Improvement Specialist: Silvestre Escalona M.D.,PhD HEPATITIS C AB W/REFL TO HCV RNA, QN, PCRon 06-27-2024 HEPATITIS C ANTIBODY Non-Reactive Normal NON-REACTIVE [facility] Comment on above: Result Comment: HCV antibody was non-reactive. There is no laboratory evidence of HCV infection. In most cases, no further action is required. However, if recent HCV exposure is suspected, a test for HCV RNA (test code 57913) is suggested. For additional information please refer to http://REach.[employer]/faq/VXG18k3 (This link is being provided for informational/ educational purposes only.) Performed By: #### 8 472, 25833, 802, 68341, 498 #### [facility] [address], [address] [place] [address] Documentation Improvement Specialist: Andres Samson MD #### [id number] #### [facility]/[place] [facility] [address] [facility] [place] [address] Documentation Improvement Specialist: Silvestre Escalona M.D.,PhD HIV 1/2 ANTIGEN/ANTIBODY,[facility] W/RFLon 06-27-2024 HIV AG/AB, 4TH GEN [...] purpose. For additional information please refer to http://REach.[employer]/faq/VWB817 (This link is being provided for informational/ educational purposes only.) The performance of this assay has not been clinically validated in patients less than 2 years old. Performed By: #### 8 472, 25662, 802, 36123, 498 #### [facility] [address], [address] [place] [address] Documentation Improvement Specialist: Andres Samson MD #### [id number] #### [facility]/[place] [address] [facility] [address] [place] Documentation Improvement Specialist: Silvestre Escalona M.D.,PhD RUBELLA AB (IGG), IMMUNE STA [facility] 06-27-2024 RUBELLA AB (IGG), IMMUNE STATUS 6.07 Index Normal [facility] Comment on above: Result Comment: Inde x Interpretation ----- <0.90 Not consistent with immunity 0.90-0.99 Equivocal > or = 1.00 Consistent with immunity The presence of rubella IgG antibody suggests immunization or past or current infection with rubella virus. Performed By: #### 8 472, 21073, 802, 03209, 498 #### [facility] [address], [address] [place] [address] Documentation Improvement Specialist: Andres Samson MD #### [id number] #### [facility]/[place] [address] [facility] [address] [place], [place] Documentation Improvement Specialist: Silvestre Escalona M.D.,PhD [facility] T. PALLIDUM AB Negative Normal [...] is high. Performed By: #### 8 472, 18386, 802, 12956, 498 #### [facility] [address], [address] [place] [address] Documentation Improvement Specialist: Andres Samson MD #### [id number] #### [facility] [address] [facility] [address] [place] Documentation Improvement Specialist: Silvestre Escalona M.D.,PhD CHLAMYDIA/N. GONORRHOEAE RNA , TMA, UROGENITALon 06-26-2024 CHLAMYDIA TRACHOMATIS RNA, TMA, UROGENITAL Not detected Normal NOT DETECTED [facility] Comment on above: Performed By: #### 1 1363, 395 #### [facility] [address], [address] [place] [address] Documentation Improvement Specialist: Andres Samson MD COMMENT Normal [facility] Comment on above: Result Comment: The analytical performance characteristics of this assay, when used to test SurePath(TM) specimens have been determined by [employer] [facility]. The modifications have not been cleared or approved by the FDA. This assay has been validated pursuant to the CLIA regulations and is used for clinical purposes. For additional information, please refer to https://education.[employer]/faq/GNR724 (This link is being provided for information/ educational purposes only.) Performed By: #### 1 1363, 395 #### [facility] [address], [address] [place] [address] Documentation Improvement Specialist: Andres Samson MD NEISSERIA GONORRHOEAE RNA, TMA, UROGENITAL Not detected Normal NOT DETECTED [id number] Comment on above: Performed By: #### 1 1363, 395 #### [facility] [address], [address] [place] [address] Documentation Improvement Specialist: Andres Samson MD CULTURE, URINE, ROUTINEon Bacteria identified Cx Nom (U) SEE NOTE Normal [facility] Comment on above: Result Comment: CULTURE, URINE, ROUTINE Micro Number: [id number] Test Status: Final Specimen Source: Clean catch/voided Specimen Quality: Adequate Result: Mixed genital clari isolated. These superficial bacteria are not indicative of a urinary tract infection. No further organism identification is warranted on this specimen. If clinically indicated, recollect clean-catch, mid-stream urine and transfer immediately to Urine Culture Transport Tube. Performed By: #### 1 1363, 395 #### [facility] [address], [address] [place] [address] Documentation Improvement Specialist: Andres Samson MD CBC panel Auto (Bld)on 06-24 Erythrocyte distribution width (RBC) [Ratio] 12.1 % Normal 11.5-14.5 [facility] Comment on above: Performed By: #### 5 8410-2 #### JUSTIN LAMBERT ([id number]) [facility] ([facility]) [address] [place] [address] Hematocrit (Bld) [Volume fraction] 42.8 % Normal 36.0-46.0 [facility] Comment on above: Performed By: #### 5 8410-2 #### JUSTIN LAMBERT ([id number]) [facility] ([facility]) [address] [place] [address] Hemoglobin (Bld) [Mass/Vol] 14.7 g/dL Normal 12.0-16.0 [facility] Comment on above: Performed By: #### 5 8410-2 #### JUSTIN LAMBERT ([id number]) [facility] ([facility]) [address] [place] [address] 27329 MCH (RBC) [Entitic mass] 29.7 pg Normal 26.0-34.0 [facility] Comment on above: Performed By: #### 5 8410-2 #### JUSTIN LAMBERT ([id number]) [facility] ([facility]) [address] [place] [address]22 MCHC (RBC) [Mass/Vol] 34.3 g/dL Normal 32.0-36.0 [facility] Comment on above: Performed By: #### 5 8410-2 #### JUSTIN LAMBERT ([id number]) [facility] ([facility]) [address] [place] [address] 89910 MCV (RBC) [Entitic vol] 87 fL Normal 80-100 [facility] Comment on above: Performed By: #### 5 8410-2 #### JUSTIN LAMBERT ([id number]) [facility] ([facility]) [address] [place] [address] 37585 Nucleated RBC/100 WBC (Bld) [Ratio] 0.0 /100 WBCs Normal 0.0-0.0 [facility] Comment on above: Performed By: #### 5 8410-2 #### JUSTIN LAMBERT (47757) [facility] ([facility]) [facility] [place] [address] Platelets (Bld) [#/Vol] 269 x10*3/uL Normal 150-450 [facility] Comment on above: Performed By: #### 5 8410-2 #### JUSTIN LAMBERT ([id number]) [facility] ([facility]) [address] [place] [address] 82175 RBC (Bld) [#/Vol] 4.95 x10*6/uL Normal 4.00-5.20 [facility] Comment on above: Performed By: #### 5 8410-2 #### JUSTIN LAMBERT ([id number]) [facility] ([facility]) [address] [place] [address] 09599 WBC (Bld) [#/Vol] 10.2 x10*3/uL Normal 4.4-11.3 [facility] Comment on above: Performed By: #### 5 8410-2 #### JUSTIN LAMBERT ([id number]) [facility] ([facility]) [address] [place] [address]9875 Cervicalon 06-24-2024 Cytology Cervical or vaginal smear or scraping study Pathology report.total SEE COMMENT Gynecologic Cytology Case: [id number] Authorizing Provider: Estelita Pickens MD Collected: 06/24/2024 1155 Ordering Location: [facility] Received: 06/24/2024 1155 First Screen: RAYO [...] Slide(s) initially screened by RAYO Gary at [address] [address] QC review performed by RAYO Peralta at [facility] [facility] [address] By the signature on this report, the individual or group listed as making the Final Interpretation/Diagn osis certifies that they have reviewed this case. This specimen has been analyzed by the [employer]™ NetworkPrep Imaging System ([employer] an automated imaging and review system, which assists the laboratory in evaluating cells on ThinPrep Pap tests. Following automated imaging, selected camara from every slide were reviewed by a attic blower and/or pathologist. Cervical cytology is a screening [...] Date last menstrual period 04/09/2024 Menstrual History [facility] MYRIAD PREQUEL SCRE ENon 06-24-2024 COMMENTS - MP RESULT TYPE Report has been scanned to the patient's chart. [facility] Comment on above: Performed By: #### L [id number] #### [employer] ([id number]) [address] [place] [address] SCAN RESULT See Scanned Result [facility] Comment on above: Performed By: #### L [id number] #### [employer] ([id number]) [address] [place] [address] REFLEX ADDED, ANEMIA PANELon 06-24-2024 REFLEX ADDED, ANEMIA PANEL No reflex. [facility] Comment on above: Performed By: #### A PRFX #### BINA Lopez ([id number]) [facility] ([facility]) [id number] Pelvis transvaginalon CRL 6 mm [facility] Work Phone: Comment on above: -Intrauterine pregna ncy at 6 weeks 3 days gestation which is consistent with LMP. EDC January 14, 2025. Live intrauterine at 6 weeks 3 days which is consistent with LMP. EDC January 14, 2025. [facility] Work Phone: [facility] Work Phone: Radiology Study observation (narrative) [facility] Work Phone: HCG ( test) Ql (U)o n 05-09-2024 Interpretation and review of laboratory results Abnormal [facility] Work Phone: Preg Test, Ur Positive Abnormal Negative [facility] Work Phone: [facility] Work Phone: Urine Cultureon 03-02-2024 URC Culture exhibits no growth. Normal [facility] Comment on above: Performed By: #### L 300.8000, L100.0100, L500.2500, L503.7505 #### [facility] [address] [place], [address] [id number] 03-01-2024 ABO and Rh group Nom (Bld) Blood group A Rh(D) positive Normal [facility] Comment on above: Performed By: #### B 882-1, L700.8000, L100.0100 #### [facility] [address] [place], [address] CBC W/Diff, Automatedon 02-15 Absolute Lymph 1.67 X10 3/uL Normal 0.83-4.51 [facility] Comment on above: Performed By: #### B 882-1, L700.8000, L100.0100 #### [facility] [address] [place], [address] Absolute Neut 6.5 X10 3/uL Normal 2.0-7.7 [facility] Comment on above: Performed By: #### B 882-1, L700.8000, L100.0100 #### [facility] [address] [place], [address] Basophils/100 WBC (Bld) 0.2 % Normal 0-1 [facility] Comment on above: Performed By: #### Za 882-1, L700.8000, L100.0100 #### [facility] [address] [place], [address] Eosinophils/100 WBC (Bld) 2.3 % Normal 0-5 [facility] Comment on above: Performed By: #### Za 882-1, L700.8000, L100.0100 #### [facility] [address] [place], [address] Erythrocyte distribution width (RBC) [Ratio] 12.2 % Normal 11.6-14.6 [facility] Comment on above: Performed By: #### Za 882-1, L700.8000, L100.0100 #### [facility] [address] [place], [address] Hematocrit (Bld) [Volume fraction] 42.5 % Normal 37-47 [facility] Comment on above: Performed By: #### Za 882-1, L700.8000, L100.0100 #### [facility] [address] [place], [address] Hemoglobin (Bld) [Mass/Vol] 14.7 g/dL Normal 12.0-15.0 [facility] Comment on above: Performed By: #### Za 882-1, L700.8000, L100.0100 #### [facility] [address] [place], [address] IG% 0.300 Normal 0.0-0.9 [facility] Comment on above: Result Comment: IG% - Immature Granulocytes (promyelocytes, myelocytes and metamyelocytes) > 1% indicates that a LEFT SHIFT is Present. Performed By: #### Za 882-1, L700.8000, L100.0100 #### [facility] [address] [place], [address] Lymphocytes/100 WBC (Bld) 18.4 % Low 19-41 [facility] Comment on above: Performed By: #### Za 882-1, L700.8000, L100.0100 #### [facility] [address] [place], [address] MCH (RBC) [Entitic mass] 30.5 pg Normal 27.0-32.0 [facility] Comment on above: Performed By: #### Za 882-1, L700.8000, L100.0100 #### [facility] [address] [place], [address] MCHC (RBC) [Mass/Vol] 34.6 g/dL Normal 32-36 [facility] Comment on above: Performed By: ###Tiffany Mendenhall 882-1, L700.8000, L100.0100 #### [facility] [address] [place], [address] MCV (RBC) [Entitic vol] 88.2 fL Normal 81-99 [facility] Comment on above: Performed By: #### Za 882-1, L700.8000, L100.0100 #### [facility] [address] [place], [address] Monocytes/100 WBC (Bld) 7.6 % Normal 0-10 [facility] Comment on above: Performed By: #### aZ 882-1, L700.8000, L100.0100 #### [facility] [address] [place], [address] Neutrophils/100 WBC (Bld) 71.2 % High 47-70 [facility] Comment on above: Performed By: #### Za 882-1, L700.8000, L100.0100 #### [facility] [address] [place], [address] Nucleated RBC (Bld) [#/Vol] 0 10*3/uL Normal 0-5 [facility] Comment on above: Performed By: #### Za 882-1, L700.8000, L100.0100 #### [facility] [address] [place], [address] Platelet mean volume (Bld) [Entitic vol] 9.6 fL Normal 6.2-12.0 [facility] Comment on above: Performed By: #### Za 882-1, L700.8000, L100.0100 #### [facility] [address] [place], [address] Platelets (Bld) [#/Vol] 272 10*3/uL Normal 150-450 [facility] Comment on above: Performed By: ###Tiffany Mendenhall 882-1, L700.8000, L100.0100 #### [facility] [address] [place], [address] RBC (Bld) [#/Vol] 4.82 10*6/uL Normal 4.2-5.4 [facility] Comment on above: Performed By: #### Za 882-1, L700.8000, L100.0100 #### [facility] [address] [place], [address] RDW SD 39.3 fl Normal 35.1-43.9 [facility] Comment on above: Performed By: #### Za 882-1, L700.8000, L100.0100 #### [facility] [address] [place], [address] WBC (Bld) [#/Vol] 9.1 10*3/uL Normal 4.4-11.0 [facility] Comment on above: Performed By: ###Tiffany Mendenhall 882-1, L700.8000, L100.0100 #### [facility] [address] [place], [address] Emergency Department Summary on 03-01-2024 Emergency Department Summary [facility] Medical Records Department [address] [place] [address] Emergency Department Summary 03/01/24 MR#: [id number] Acct: [id number] Name: CHAPARRITA FLOYD Rep #: [id number] : 2000 23 From: Rebeca Warren DO [...] scheduled to see [facility] to establish care for the on February [...] a chemical . Will follow-up with her AUDIOLOGY DIRECTOR for repeat quant. I did speak with Dr. Daniels, AUDIOLOGY DIRECTOR on-call who is agreeable with this plan. [...] Labs: Lab (more content not included)... Normal [facility] ,Urineon 03-01-2024 Beta HCG ( test) Ql (U) Negative Normal [facility] Comment on above: Order Comment: 004CLEAN CATCH Result Comment: Very dilute urine specimens, as indicated by a low specific gravity, may not contain sales representative rural power levels of hCG. If is still suspected, a first morning urine specimen should be collected 48 hours later and tested. Performed By: #### L 400.0001, L400.7600 ####[facility] [id number] [facility] [place], [address] Transvaginal w/Preg USon Transvaginal w/Preg US [facility] [address] [place], [place] [address] Transvaginal w/Preg US MR#: [id number] Acct: [id number] Name: CHAPARRITA FLOYD Rep #: [id number] : 2000 F 23 From: Cailin Stanton MD PCP: Dr. Annette Frey MD Status: REG ER Study: Transvaginal w/Preg US Date of Exam: 03/01/24 Exam# [id number] Ordering Dr: Rebeca Warren DO [id number] INDICATION: vaginal bleeding early EXAMINATION: Ultrasound US [...] Rebeca Warren DO; Dr. 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, [address] EPI,SQUAMOUS 5-10 SEEN Normal 5-10 [facility] Comment on above: Order Comment: CLEAN CATCH Performed By: #### L 400.0001, L400.7600 #### [facility] [address] [place], [address] RBC 50-100 SEEN Normal 0-5 [facility] Comment on above: Order Comment: CLEAN CATCH Performed By: #### L 400.0001, L400.7600 #### [facility] [address] [place], [address] WBC 0-5 SEEN Normal 0-5 [facility] Comment on above: Order Comment: CLEAN CATCH Performed By: #### L 400.0001, L400.7600 #### [facility] [address] [place], [address] BILIRUBIN URINE Negative Normal Negative [facility] Comment on above: Order Comment: CLEAN CATCH Performed By: #### L 400.0001, L400.7600 #### [facility] [address] [place], [address] Clarity (U) Clear Normal Clear [facility] Comment on above: Order Comment: CLEAN CATCH Performed By: #### L 400.0001, L400.7600 #### [facility] [address] [place], [address] Color (U) Straw Normal Yellow [facility] Comment on above: Order Comment: CLEAN CATCH Performed By: #### L 400.0001, L400.7600 #### [facility] [address] [place], [address] GLUCOSE, UR Normal Normal Normal [facility] Comment on above: Order Comment: CLEAN CATCH Performed By: #### L 400.0001, L400.7600 #### [facility] [address] [place], [address] KETONE UR Negative Normal Negative [facility] Comment on above: Order Comment: CLEAN CATCH Performed By: #### L 400.0001, L400.7600 #### [facility] [address] [place], [address] LEUK ESTERASE 25 /ul Abnormal Negative [facility] Comment on above: Order Comment: CLEAN CATCH Performed By: #### L 400.0001, L400.7600 #### [facility] [address] [place], [address] Nitrite Ql (U) Negative Normal Negative [facility] Comment on above: Order Comment: CLEAN CATCH Performed By: #### L 400.0001, L400.7600 #### [facility] [address] [place], [address] OCCULT BLOOD-UR 250 /ul Abnormal Negative [facility] Comment on above: Order Comment: CLEAN CATCH Performed By: #### L 400.0001, L400.7600 #### [facility] [address] [place], [address] pH UR 7.0 Normal 5.0 - 8.0 [facility] Comment on above: Order Comment: CLEAN CATCH Performed By: #### L 400.0001, L400.7600 #### [facility] [address] [place], [address] PROT DIPSTX 30 mg/dl Abnormal Negative [facility] Comment on above: Order Comment: CLEAN CATCH Performed By: #### L 400.0001, L400.7600 #### [facility] [address] [place], [address] SP.GR. DIPSTX 1.005 Normal 1.002-1.030 [facility] Comment on above: Order Comment: CLEAN CATCH Performed By: #### L 400.0001, L400.7600 #### [facility] [address] [place], [address] UROBILI Normal Normal Normal [facility] Comment on above: Order Comment: CLEAN CATCH Performed By: #### L 400.0001, L400.7600 #### [facility] [address] [place], [address] Mucus Ql (Urine sed) 0 SEEN Normal [facility] Comment on above: Order Comment: CLEAN CATCH Performed By: #### L 400.0001, L400.7600 #### [facility] [address] [place], [address] hCG Titer Quant., Serumon HCG QUANT. 6 mIU/mL High 1-3 [facility] Comment on above: Performed By: #### B 882-1, L700.8000, L100.0100 #### [facility] [address] [place], [address] CBC W Auto Differential pane l (Bld)on 02-15-2023 Basophils (Bld) [#/Vol] 0.02 x10*3/uL Normal 0.00-0.10 [facility] Comment on above: Performed By: #### 5 7021-8 #### JUSTIN LAMBERT ([id number]) [facility] ([facility]) [address] [place] [address] Basophils/100 WBC (Bld) 0.4 % Normal 0.0-2.0 [facility] Comment on above: Performed By: #### 5 7021-8 #### JUSTIN LAMBERT ([id number]) [facility] ([facility]) [address] [place] [address] Eosinophils (Bld) [#/Vol] 0.17 x10*3/uL Normal 0.00-0.70 [facility] Comment on above: Performed By: #### 5 7021-8 #### JUSTIN LAMBERT ([id number]) [facility] ([facility]) [address] [place] [address] Eosinophils/100 WBC (Bld) 3.3 % Normal 0.0-6.0 [facility] Comment on above: Performed By: #### 5 7021-8 #### JUSTIN LAMBERT ([id number]) [facility] ([facility]) [address] [place] [address] Erythrocyte distribution width (RBC) [Ratio] 12.3 % Normal 11.5-14.5 [facility] Comment on above: Performed By: #### 5 7021-8 #### JUSTIN LAMBERT ([id number]) [facility] ([facility]) [address] [place] [address] Hematocrit (Bld) [Volume fraction] 45.7 % Normal 36.0-46.0 [facility] Comment on above: Performed By: #### 5 7021-8 #### JUSTIN LAMBERT ([id number]) [facility] ([facility]) [address] [place] [address] Hemoglobin (Bld) [Mass/Vol] 15.3 g/dL Normal 12.0-16.0 [facility] Comment on above: Performed By: #### 5 7021-8 #### JUSTIN LAMBERT ([id number]) [facility] ([facility]) [address] [place] [address] Immature granulocytes (Bld) [#/Vol] 0.01 x10*3/uL Normal 0.00-0.70 [facility] Comment on above: Performed By: #### 5 7021-8 #### JUSTIN LAMBERT ([id number]) [facility] ([facility]) [address] [place] [address] Immature granulocytes/100 WBC (Bld) 0.2 % Normal 0.0-0.9 [facility] Comment on above: Result Comment: Gabi ture Granulocyte Count (IG) includes promyelocytes, myelocytes and metamyelocytes but does not include bands. Percent differential counts (%) should be interpreted in the context of the absolute cell counts (cells/UL). Performed By: #### 5 7021-8 #### JUSTIN LAMBERT ([id number]) [facility] ([facility]) [address] [place] [address] Lymphocytes (Bld) [#/Vol] 1.63 x10*3/uL Normal 1.20-4.80 [facility] Comment on above: Performed By: #### 5 7021-8 #### JUSTIN LAMBERT ([id number]) [facility] ([facility]) [address] [place] [address] Lymphocytes/100 WBC (Bld) 31.3 % Normal 13.0-44.0 [facility] Comment on above: Performed By: #### 5 7021-8 #### JUSTIN LAMBERT ([id number]) [facility] ([facility]) [address] [place] [address] MCH (RBC) [Entitic mass] 30.2 pg Normal 26.0-34.0 [facility] Comment on above: Performed By: #### 5 7021-8 #### JUSTIN LAMBERT ([id number]) [facility] ([facility]) [address] [place] [address] MCHC (RBC) [Mass/Vol] 33.5 g/dL Normal 32.0-36.0 [facility] Comment on above: Performed By: #### 5 7021-8 #### JUSTIN LAMBERT (25552) [facility] ([facility]) [address] [place] [address]83[address] MCV (RBC) [Entitic vol] 90 fL Normal 80-100 [facility] Comment on above: Performed By: #### 5 7021-8 #### JUSTIN LAMBERT ([id number]) [facility] ([facility]) [address] [place] [address]89[address] Monocytes (Bld) [#/Vol] 0.34 x10*3/uL Normal 0.10-1.00 [facility] Comment on above: Performed By: #### 5 7021-8 #### JUSTIN LAMBERT ([id number]) [facility] ([facility]) [address] [place] [address] Monocytes/100 WBC (Bld) 6.5 % Normal 2.0-10.0 [facility] Comment on above: Performed By: #### 5 7021-8 #### JUSTIN LAMBERT ([id number]) [facility] ([facility]) [address] [place] [address] 12183 Neutrophils (Bld) [#/Vol] 3.03 x10*3/uL Normal 1.20-7.70 [facility] Comment on above: Result Comment: Perc ent differential counts (%) should be interpreted in the context of the absolute cell counts (cells/uL). Performed By: #### 5 7021-8 #### JUSTIN LAMBERT ([id number]) [facility] ([facility]) [address] [place] [address] 67548 Neutrophils/100 WBC (Bld) 58.3 % Normal 40.0-80.0 [facility] Comment on above: Performed By: #### 5 7021-8 #### JUSTIN LAMBERT ([id number]) [facility] ([facility]) [address] [place] [address] Nucleated RBC/100 WBC (Bld) [Ratio] 0.0 /100 WBCs Normal 0.0-0.0 [facility] Comment on above: Performed By: #### 5 7021-8 #### JUSTIN LAMBERT ([id number]) [facility] ([facility]) [address] [place] [address] 36090 Platelet mean volume (Bld) [Entitic vol] 9.7 fL Normal 7.5-11.5 [facility] Comment on above: Performed By: #### 5 7021-8 #### JUSTIN LAMBERT ([id number]) [facility] ([facility]) [address] [place] [address] 11598 Platelets (Bld) [#/Vol] 270 x10*3/uL Normal 150-450 [facility] Comment on above: Performed By: #### 5 7021-8 #### JUSTIN LAMBERT ([id number]) [facility] ([facility]) [address] [place] [address] 19146 RBC (Bld) [#/Vol] 5.06 x10*6/uL Normal 4.00-5.20 [facility] Comment on above: Performed By: #### 5 7021-8 #### JUSTIN LAMBERT (82100) [facility] ([facility]) [address] [place] [address] 68833 WBC (Bld) [#/Vol] 5.2 x10*3/uL Normal 4.4-11.3 [facility] Comment on above: Performed By: #### 5 7021-8 #### JUSTIN LAMBERT ([id number]) [facility] ([facility]) [address] [place] [address] 05525 Calcidiolon 02-15-2023 25-hydroxyvitamin D3 [Mass/Vol] 62 ng/mL Normal 30-100 [facility] Comment on above: Order Comment: Defic iency: < 20 ng/ml Insufficiency: 20-29 ng/ml Sufficiency: 30-100 ng/ml This assay accurately quantifies the sum of Vitamin D3, 25-Hydroxy and Vitamin D2,25-Hydroxy. Performed By: #### 1 989-3 #### JUSTIN LAMBERT ([id number]) [facility] ([facility]) [address] [place] [address] Cobalaminson 02-15-2023 Cobalamin (Vitamin B12) [Mass/Vol] 358 pg/mL Normal 211-911 [facility] Comment on above: Performed By: #### 2 132-9 #### JUSTIN LAMBERT (52018) [facility] ([facility]) [address] [place] [address] Comprehensive metabolic 2000 panelon 02-15-2023 Albumin BCP dye [Mass/Vol] 4.6 g/dL Normal 3.4-5.0 [facility] Comment on above: Performed By: #### 2 4323-8 #### JUSTIN LAMBERT ([id number]) [facility] ([facility]) [address] [place] [address] ALP [Catalytic activity/Vol] 57 U/L Normal 33-110 [facility] Comment on above: Performed By: #### 2 4323-8 #### JUSTIN LAMBERT ([id number]) [facility] ([facility]) [address] [place] [address] ALT With P-5'-P [Catalytic activity/Vol] 14 U/L Normal 7-45 [facility] Comment on above: Result Comment: Judy ents treated with Sulfasalazine may generate falsely decreased results for ALT. Performed By: #### 2 4323-8 #### JUSTIN LAMBERT ([id number]) [facility] ([facility]) [address] [place] [address] Anion gap [Moles/Vol] 11 mmol/L Normal 10-20 [facility] Comment on above: Performed By: #### 2 4323-8 #### JUSTIN LAMBERT (06511) [facility] ([facility]) [address] [place] [address] AST With P-5'-P [Catalytic activity/Vol] 13 U/L Normal 9-39 [facility] Comment on above: Performed By: #### 2 4323-8 #### JUSTIN LAMBERT (48126) [facility] ([facility]) [address] [place] [address] Bilirubin [Mass/Vol] 0.9 mg/dL Normal 0.0-1.2 [facility] Comment on above: Performed By: #### 2 4323-8 #### JUSTIN LAMBERT (59684) [facility] ([facility]) [address] [place] [address]326 Calcium [Mass/Vol] 9.6 mg/dL Normal 8.6-10.3 [facility] Comment on above: Performed By: #### 2 4323-8 #### JUSTIN LAMBERT (31506) [facility] ([facility]) [address] [place] [address] 05920 Chloride [Moles/Vol] 110 mmol/L High 98-107 [facility] Comment on above: Performed By: #### 2 4323-8 #### JUSTIN LAMBERT ([id number]) [facility] ([facility]) [address] [place] [address] 45706 CO2 [Moles/Vol] 24 mmol/L Normal 21-32 [facility] Comment on above: Performed By: #### 2 4323-8 #### JUSTIN LAMBERT (39136) [facility] ([facility]) [facility] [place] [address] Creatinine [Mass/Vol] 0.87 mg/dL Normal 0.50-1.05 [facility] Comment on above: Performed By: #### 2 4323-8 #### JUSTIN LAMBERT (49642) [facility] ([facility]) [address] [place] [address] 69370 GFR/1.73 sq M.predicted MDRD (S/P/Bld) [Vol rate/Area] mL/min/{1.73_m2} Normal >60 [facility] Comment on above: Result Comment: Calc ulations of estimated GFR are performed using the 2020 CKD-EPI Study Refit equation without the race variable for the IDMS-Traceable creatinine methods. https://jasn.asnjournals.org/content/early//ASN.845 0253561 Performed By: #### 2 4323-8 #### JUSTIN LAMBERT ([id number]) [facility] ([facility]) [address] [place] [address] Glucose [Mass/Vol] 81 mg/dL Normal 74-99 [facility] Comment on above: Performed By: #### 2 4323-8 #### JUSTIN LAMBERT ([id number]) [facility] ([facility]) [address] [place] [address] Potassium [Moles/Vol] 3.9 mmol/L Normal 3.5-5.3 [facility] Comment on above: Performed By: #### 2 4323-8 #### JUSTIN LAMBERT ([id number]) [facility] ([facility]) [address] [place] [address]57 Protein [Mass/Vol] 7.0 g/dL Normal 6.4-8.2 [facility] Comment on above: Performed By: #### 2 4323-8 #### JUSTIN LAMBERT ([id number]) [facility] ([facility]) [address] [place] [address] Sodium [Moles/Vol] 141 mmol/L Normal 136-145 [facility] Comment on above: Performed By: #### 2 4323-8 #### JUSTIN LAMBERT ([id number]) [facility] ([facility]) [address] [place] [address]718 Urea nitrogen [Mass/Vol] 14 mg/dL Normal 6-23 [facility] Comment on above: Performed By: #### 2 4323-8 #### JUSTIN LAMBERT ([id number]) [facility] ([facility]) [address] [place] [address] TSH WITH REFLEX TO FREE T4 I F ABNORMALon 02-15-2023 TSH Qn 1.75 m[IU]/L Normal 0.44-3.98 [facility] Comment on above: Order Comment: TSH t esting is performed using different testing methodology at [facility] than at [facility]. Direct result comparisons should only be made within the same method. Performed By: #### T HYDS #### ANDERSON FAUSTO ([id number]) [facility] ([facility]) [address] [place] [address] Provider Note - ED v3on 10-16 Provider [...] From Triage - ED 11-Nov-2022 16:[address] [facility] CBC AND DIFFERENTIALon 08-17 % AUTOMATED IMMATURE GRAN 0.4 % Normal 0.0 - 0.9 [facility] Comment on above: Result Comment: Gabi ture Granulocyte Count (IG) includes promyelocytes, myelocytes and metamyelocytes but does not include bands. Percent differential counts (%) should be interpreted in the context of the absolute cell counts (cells/L). Performed By: #### C BCDF #### [facility] [address] [place] [address] Basophils (Bld) [#/Vol] 0.03 10*3/uL Normal 0.00 - 0.[address] [facility] Comment on above: Performed By: #### C BCDF #### [address] [address] Basophils/100 WBC (Bld) 0.4 % Normal 0.0 - 2.0 [facility] Comment on above: Performed By: #### C BCDF #### [address] [address] Eosinophils (Bld) [#/Vol] 0.15 10*3/uL Normal 0.00 - 0.70 [facility] Comment on above: Performed By: #### C BCDF #### [address] [address] Eosinophils/100 WBC (Bld) 2.0 % Normal 0.0 - 6.0 [facility] Comment on above: Performed By: #### C BCDF #### [address] [address] Erythrocyte distribution width (RBC) [Ratio] 12.5 % Normal 11.5 - 14.5 [facility] Comment on above: Performed By: #### C BCDF #### [address] [address] Hematocrit (Bld) [Volume fraction] 45.1 % Normal 36.0 - 46.0 [facility] Comment on above: Performed By: #### C BCDF #### [address] [address] Hemoglobin (Bld) [Mass/Vol] 14.8 g/dL Normal 12.0 - 16.0 [facility] Comment on above: Performed By: #### C BCDF #### [address] [address] Lymphocytes (Bld) [#/Vol] 1.71 10*3/uL Normal 1.20 - 4.80 [facility] Comment on above: Performed By: #### C BCDF #### [address] [address] Lymphocytes/100 WBC (Bld) 22.6 % Normal 13.0 - 44.0 [facility] Comment on above: Performed By: #### C BCDF #### [address] [address] MCHC (RBC) [Mass/Vol] 32.8 g/dL Normal 32.0 - 36.0 [facility] Comment on above: Performed By: #### C BCDF #### [address] [address] MCV (RBC) [Entitic vol] 90 fL Normal 80 - 100 [facility] Comment on above: Performed By: #### C BCDF #### [address] [address] Monocytes (Bld) [#/Vol] 0.43 10*3/uL Normal 0.10 - 1.[address] [facility] Comment on above: Performed By: #### C BCDF #### [address] [address] Monocytes/100 WBC (Bld) 5.7 % Normal 2.0 - 10.0 [facility] Comment on above: Performed By: #### C BCDF #### [address] [address] Neutrophils (Bld) [#/Vol] 5.22 10*3/uL Normal 1.20 - 7.70 [facility] Comment on above: Result Comment: Perc ent differential counts (%) should be interpreted in the context of the absolute cell counts (cells/L). Performed By: #### C BCDF #### [address] [address] Neutrophils/100 WBC (Bld) 68.9 % Normal 40.0 - 80.0 [facility] Comment on above: Performed By: #### C BCDF #### [address] [address] Platelets (Bld) [#/Vol] 278 10*3/uL Normal 150 - 450 [facility] Comment on above: Performed By: #### C BCDF #### [place] [address] RBC 5.01 x10E12/L Normal 4.00 - 5.20 [facility] Comment on above: Performed By: #### C BCDF #### [place] [address] WBC (Bld) [#/Vol] 7.6 10*3/uL Normal 4.4 - 11.3 [facility] Comment on above: Performed By: #### C BCDF #### [place] [address] Lab Specimen Source Normal [facility] Comment on above: Performed By: #### C BCDF #### [place] [address] Performed By: #### V TDOH #### [place] [address] Performed By: #### T HYDS #### [place] [address] Performed By: #### L IPID #### [place] [address] Performed By: #### V TB12 #### [place] [address] Performed By: #### C MP #### [place] [address] Performed By: #### M G #### [place] [address] COMPREHENSIVE PANELon 2022 Albumin [Mass/Vol] 4.4 g/dL Normal 3.4 - 5.0 [facility] Comment on above: Performed By: #### C MP #### [place] [address] ALP [Catalytic activity/Vol] 59 U/L Normal 33 - 110 [facility] Comment on above: Performed By: #### C MP #### [place] [address] ALT [Catalytic activity/Vol] 11 U/L Normal 7 - 45 [facility] Comment on above: Result Comment: Judy ents treated with Sulfasalazine may generate falsely decreased results for ALT. Performed By: #### C MP #### [address] [address] Anion gap [Moles/Vol] 11 mmol/L Normal 10 - 20 [facility] Comment on above: Performed By: #### C MP #### [address] [address] AST [Catalytic activity/Vol] 13 U/L Normal 9 - 39 [facility] Comment on above: Performed By: #### C MP #### [address] [address] Bilirubin [Mass/Vol] 0.9 mg/dL Normal 0.0 - 1.2 [facility] Comment on above: Performed By: #### C MP #### [address] [address] Calcium [Mass/Vol] 9.1 mg/dL Normal 8.6 - 10.3 [facility] Comment on above: Performed By: #### C MP #### [address] [address] Chloride [Moles/Vol] 111 mmol/L High 98 - 107 [facility] Comment on above: Performed By: #### C MP #### [address] [address] Creatinine [Mass/Vol] 0.89 mg/dL Normal 0.50 - 1.05 [facility] Comment on above: Performed By: #### C MP #### [address] [address] eGFR FEMALE >90 Normal >90 [facility] Comment on above: Result Comment: CALC ULATIONS OF ESTIMATED GFR ARE PERFORMED USING THE 2020 CKD-EPI STUDY REFIT EQUATION WITHOUT THE RACE VARIABLE FOR THE IDMS-TRACEABLE CREATININE METHODS. https://jasn.asnjournals.org/content/early/ASN.350 8054003 Performed By: #### C MP #### [address] [address] Glucose [Mass/Vol] 76 mg/dL Normal 74 - 99 [facility] Comment on above: Performed By: #### C MP #### [address] [address] HCO3 (Bld) [Moles/Vol] 21 mmol/L Normal 21 - 32 [facility] Comment on above: Performed By: #### C MP #### [address] [address] Potassium [Moles/Vol] 4.3 mmol/L Normal 3.5 - 5.3 [facility] Comment on above: Performed By: #### C MP #### [address] [address] Protein [Mass/Vol] 7.2 g/dL Normal 6.4 - 8.2 [facility] Comment on above: Performed By: #### C MP #### [address] [address] Sodium [Moles/Vol] 139 mmol/L Normal 136 - 145 [facility] Comment on above: Performed By: #### C MP #### [address] [address] Urea nitrogen [Mass/Vol] 15 mg/dL Normal 6 - 23 [facility] Comment on above: Performed By: #### C MP #### [address] [address] LIPID PANEL (CORONARY RISK 2 )on 08-17-2022 Cholesterol [Mass/Vol] 194 mg/dL Normal 0 - 199 [facility] Comment on above: Result Comment: . [...] dosing. Performed By: #### L IPID #### [address] [address] Cholesterol in HDL [Mass/Vol] 74.0 mg/dL Normal [facility] Comment on above: Result Comment: . AGE VERY LOW LOW NORMAL HIGH 0-19 Y < 35 < 40 40-45 ---- 20-24 Y ---- < 40 >45 ---- >24 Y ---- < 40 40-60 >60 . Performed By: #### L IPID #### [address] [address] Cholesterol in LDL [Mass/Vol] 98 mg/dL Normal 0 - 119 [facility] Comment on above: Result Comment: . NEAR BORD AGE DESIRABLE OPTIMAL HIGH HIGH VERY HIGH 0-19 Y 0 - 109 --- 110-129 >/= 130 ---- 20-24 Y 0 - 119 --- 120-159 >/= 160 ---- >24 Y 0 - 99 100-129 130-159 160-189 >/=190 . Performed By: #### L IPID #### [address] [address] Cholesterol in VLDL [Mass/Vol] 22 mg/dL Normal 0 - 40 [facility] Comment on above: Performed By: #### L IPID #### [address] [address] Cholesterol.total/Choles terol in HDL [Mass ratio] 2.6 {ratio} Normal [facility] Comment on above: Result Comment: REF VALUES DESIRABLE < 3.4 HIGH RISK > 5.0 Performed By: #### L IPID #### [address] [address] Triglyceride [Mass/Vol] 110 mg/dL Normal 0 - 149 [facility] Comment on above: Result Comment: . [...] dosing. Performed By: #### L IPID #### [address] [address] MAGNESIUMon 08-17-2022 Magnesium [Mass/Vol] 2.26 mg/dL Normal 1.60 - 2.40 [facility] Comment on above: Performed By: #### M G #### [address] [address] TSH WITH REFLEX TO FREE T4 I F ABNORMALon 08-17-2022 TSH Qn 1.75 m[IU]/L Normal 0.44 - 3.98 [facility] Comment on above: Result Comment: TSH testing is performed using different testing methodology at [facility] than at other [facility]. Direct result comparisons should only be made within the same method. Performed By: #### T HYDS #### [address] [address] VITAMIN B12on 08-17-2022 Cobalamin (Vitamin B12) [Mass/Vol] 271 pg/mL Normal 211 - 911 [facility] Comment on above: Performed By: #### V TB12 #### [address] [address] VITAMIN D, 25-HYDROXYon 05- VITAMIN D, 25-HYDROXY 49 ng/mL Normal [facility] Comment on above: Result Comment: . DEFICIENCY: < 20 NG/ML INSUFFICIENCY: 20-29 NG/ML SUFFICIENCY: 30-100 NG/ML THIS ASSAY ACCURATELY QUANTIFIES THE SUM OF VITAMIN D3, 25-HYDROXY AND VIT D2,25-HYDROXY. Performed By: #### V TDOH #### [address] [address] Chart Updateon 11-11-2021 Chart Update Chart Update [...] [facility] *Chief Complaint Date of Injury: 11/28/2019. [facility] Claim Number: [id number]. [facility] [employer]: [employer] Allowed Diagnoses: Brachial Plexus Injury S14.XXA, Strain [...] TISSUE MASSAGE (more content not included)... Normal [facility]ethub-14on 04-27-2021 MEDRecroup-14 Signatures Electronically signed by : Sweetie West MD; Apr 27 2021 12:34PM EST (Author) Normal [facility] Office Visit [facility] 2 Office Visit [facility] *Chief Complaint Date of Injury: . [facility] Claim Number: [id number]. [facility] Managed Care Company: [employer]. Allowed Diagnoses: Brachial Plexus Injury S14.XXA, Strain [...] No INJECTIONS: No EMG/NCS: Yes at OSH ([facility]) , Feb 2020, reportedly normal Addendum 11/24/2020: EMG report received from [facility] physician group?neurology in [facility]. Report dated 02/14/2020 and will be scanned into our EMR. R (more content not included)... Normal [facility] MRI Brain w/wo Contraston MR Brain WO and W contrast IV Normal [facility] Work Phone: MEDCO-14on 02-02-2021 MEDCO-14 Signatures Electronically signed by : Sweetie West MD; Feb 02 2021 5:17PM EST (Author) Normal [facility]works Office Visit [facility] Office Visit [facility] *Chief Complaint Date of Injury: 11/28/2019. [facility] Claim Number: [id number]. [facility] Managed Care Company: [employer] Allowed Diagnoses: Brachial Plexus Injury S14.XXA, Strain right arm S46.911A. Follow up on Brachial Plexus Injury. History of Present Illness This is a pleasant 20-year-old generally healthy right-handed woman who presents for follow-up of right arm pain and weakness. An MRI of the brachial plexus and EMG of the right upper extremity After Worker's Comp. 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 Report dated 02/14/2020 and will be scanned [...] except nee (more content not included)... Normal [facility] MRI Brachial Plexus w/wo Con traston 11-24-2020 MR Brachial plexus WO and W contrast IV Normal [facility] Work Phone: OBSOLETEon 05-14-2020 OBSOLETE Procedure (SPAGWO) CHAPARRITA FLOYD ([id number]) 2000 F Date Time Provider Department 05/14/20 10:00 AM NOHEMY PURVIS During your visit today, we recorded the following information about you: Temperature Weight Height 97.1 degrees 90.7 kg 1.702 m Nohemy Purvis MD 05/17/2020 11:12 PM Signed [facility] Interval Evaluation Form CHIEF COMPLAINT: LBP Neck pain Interval HPI May 14, 2020 Patient returns for follow-up regarding the above complaints, here to review imaging results and discuss next steps. Patient states that she has been doing the physician directed home exercise program since her initial visit, this provides her with temporary relief. She has been working with [employer]. regarding her right hand/wrist. 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; and also interferes with the patient's ability [...] end time: 1023 Referring Provider: BILLY MOORE [[id number]] Allergies As of Date: 05/14/2020 (No Known Allergies) Date Reviewed: 05/14/2020 Reviewed by: Nohemy Purvis - Fully Assessed Reason for Visit: Trigger Point Injection [1062] Primary Visit Diagnosis:Myalgia [M79.10] Other Visit Diagnoses:Cervical spondylosis without myelopathy [M47.812] Injury of right brachial plexus, subsequent encounter [S14.3XXD] Other chronic pain [G89.29] Order(s):TRIGGER POINT INJECTION MULTI 3+ MUSCLE GRP [62811VEL] Order #: [id number] bupivacaine 7.5 mg injection (SENSORCAINE)Disp: Rfl: PRE-CERT ORDER (AG) [0122951] Order #: [id number]: 1 Prescriptions as of 05/14/2020 Sig: NORETHINDRONE [...] Encounter Status:Closed by NOHEMY PURVIS on 05/17/20 [facility] PROCEDUREon 05-14-2020 PROCEDURE HNO ID: [id number] Author: Nohemy Purvis Service: ? Author Type: [...] time: 1019 Procedure end time: 1023 Normal [facility] PROGRESSon 05-14-2020 PROGRESS HNO ID: [id number] Author: Nohemy Purvis Service: ? Author Type: Physician Type: Progress Notes Filed: 05/17/2020 11:12 PM Note Text: [facility] Interval Evaluation Form CHIEF COMPLAINT: LBP Neck pain Interval HPI May 14, 2020 Patient returns for follow-up regarding the above complaints, here to review imaging results and discuss next steps. Patient states that she has been doing the physician directed home exercise program since her initial visit, this provides her with temporary relief. She has been working with [employer]. regarding her right hand/wrist. 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 Behavioral Health Assessment: [facility] Medical form was completed and reviewed. I [...] - consider cervical MBB in future Normal [facility] CNCOon 02-27-2020 CNCO Letter Text Normal [facility] Otheron 11-30-2019 XR Shoulder 2 views Interpreted by: BOBY RAMIRES11/30/19 17:00MRN: [id number] Name: CHAPARRITA FLOYD STUDY:SHOULDER, CMPLT, MIN 2 VIEWS; Right; 11/30/2019 4:55 pm INDICATION:pain. COMPARISON:None. ORDERING CLINICIAN:BECCA VEGAS FINDINGS:Four views right shoulder: There is no fracture or dislocation. There is no osteoarthritis or other arthritide.There is no bony abnormality. IMPRESSION:Negative right shoulder. Electronically signed by: BOBY RAMIRES 11/30/19 17:00 Normal [facility] [address] Work Phone: Comment on above: Ordering Provider: Alyson VEGAS [address] [facility] 10-12-2019 Anion gap [Moles/Vol] 14 mmol/L 10 - 2 0 mmol/L [facility] Calcium [Mass/Vol] 9.3 mg/dL 8.4 - 10. 2 mg/dL [facility] Chloride [Moles/Vol] 107 mmol/L 98 - 10 8 mmol/L [facility] Creatinine [Mass/Vol] 0.86 mg/dL 0.40 - 1.10 [facility] GFR/1.73 sq M predicted among non-blacks MDRD (S/P/Bld) [Vol rate/Area] The eGFR should be used for monitoring renal function only and not for medication dosing. [facility] GFR/1.73 sq M.predicted CKD-EPI (S/P/Bld) [Vol rate/Area] 97 >=60 mL/min/1.73 m2 [facility] Glucose [Mass/Vol] 85 mg/dL 65 - 99 mg/dL [facility] HCO3 [Moles/Vol] 22 mmol/L 21 - 32 mmol/L [facility] Interpretation and review of laboratory results Abnormal [facility] Potassium [Moles/Vol] 4.0 mmol/L 3.5 - 5.1 mmol/L [facility] Sodium [Moles/Vol] 139 mmol/L 135 - 145 mmol/L [facility] Urea nitrogen [Mass/Vol] 7 mg/dL Low 8 - 25 mg/d L [facility] Urea nitrogen/Creatinine [Mass ratio] 8.1 mg/mg Low [facility] CBC WITH AUTO DIFFERENTIALon 10-12-2019 Basophils (Bld) [#/Vol] 0.02 10*3/uL [facility] Basophils/100 WBC (Bld) 0.3 % [facility] Eosinophils (Bld) [#/Vol] 0.19 10*3/uL [facility] Eosinophils/100 WBC (Bld) 3.1 % [facility] Erythrocyte distribution width (RBC) [Entitic vol] 13.1 % 11.6 - 14.8 % [facility] Hematocrit (Bld) [Volume fraction] 42.9 % 36 - 46 % [facility] Hemoglobin (Bld) [Mass/Vol] 14.2 g/dL 12 - 16 g/dL [facility] Immature granulocytes (Bld) [#/Vol] 0.01 10*3/uL [facility] Immature granulocytes/100 WBC (Bld) 0.20 % [facility] Comment on above: The IG parameter is the percentage of metamyelocytes, myelocytes and promyelocytes. An immature granulocyte count (IG) of 1% or more suggests the possibility of infection, an IG count of 3% is very likely related to an infection. Lymphocytes (Bld) [#/Vol] 1.80 10*3/uL [facility] Lymphocytes/100 WBC (Bld) 29.4 % [facility] MCH (RBC) [Entitic mass] 28.6 pg 26 - 34 pg [facility] MCHC (RBC) [Mass/Vol] 33.1 g/dL 31 - 37 g/dL [facility] MCV (RBC) [Entitic vol] 86.3 fL 80 - 100 fL [facility] Monocytes (Bld) [#/Vol] 0.44 10*3/uL [facility] Monocytes/100 WBC (Bld) 7.2 % [facility] Neutrophils (Bld) [#/Vol] 3.66 10*3/uL [facility] Neutrophils/100 WBC (Bld) 59.8 % [facility] Nucleated RBC (Bld) [#/Vol] 0.00 10*3/uL [facility] Nucleated RBC/100 WBC (Bld) [Ratio] 0.0 % [facility] Platelet mean volume (Bld) [Entitic vol] 10.0 fL 9.4 - 12.4 fL [facility] Platelets (Bld) [#/Vol] 277 10*3/uL [facility] RBC (Bld) [#/Vol] 4.97 10*6/uL [facility] WBC (Bld) [#/Vol] 6.12 10*3/uL [facility] CT ANGIOGRAM HEAD NECKon [...] neck. No large vessel occlusion. Workstation ID: [id number] 1. No acute intracranial abnormality. 2. Unremarkable CTA of the head and neck. No large vessel occlusion. Workstation ID: [id number] [facility] EXAMINATION: CTA OF THE HEAD AND [...] venous sinus thrombosis on this non-dedicated study. [facility] CT ANGIOGRAM HEAD NECK EXAMINATION: CTA [...] neck. No large vessel occlusion. Workstation ID: [id number] Dictated by: KAYA BANG on Sat Oct 12, 2019 12:28:19 PM EDT Transcribed by: KAYA BANG on MonOct 12, 2019 12:28:19 PM EDT Finalized by: KAYA BANG on MonOct 12, 2019 12:28:19 PM EDT [facility] Comment on above: Order Comment: Injur y/Trauma or Illness?:Illness/Other How long have you had these symptoms (acute/chronic)?:Acute Reason for exam?:Vision loss, known etiology Type of Exam?:Initial Additional signs and symptoms?:Vision loss, known etiology HCG (QUALITATIVE)on 10-12-19 20 Beta HCG ( test) Ql Negative Negative [facility] Interpretation and review of laboratory results Normal [facility] Negative: The result is less than or equal to 5 mIU/mL of HCG. [facility] PROGRESSon 05-10-[address] [facility] [address] [facility] FUNDUS PHOTOS OU (BOTH EYES) [facility] Vital Signs Date Time Vital Sign Value Performing Clinician Facility 01-01-2025 11:01-0400 Body height 170.[address] Annette Frey MD Work Phone: [facility] 01-01-2025 11:01-0400 Body mass index (BMI) [Ratio] 43.6 kg/m2 Dr. Annette Frey MD Work Phone: [facility] 01-01-2025 11:01-0400 Body weight 126.[address] Annette Frey MD Work Phone: [facility] 01-01-2025 11:01-0400 Diastolic blood pressure 85 mm[Hg] Dr. Annette Frey MD Work Phone: [phone] [place] [address] 01-01-2025 11:01-0400 Systolic blood pressure 134 mm[Hg] Dr. Annette Frey MD Work Phone: [phone] [place] [address] 12-25-2024 13:21-0400 Body height 170.[address] Annette Frey MD Work Phone: [phone] [place] [address] 12-25-2024 13:21-0400 Body mass index (BMI) [Ratio] 43.6 kg/m2 Dr. Annette Frey MD Work Phone: [phone] [place] [address] 12-25-2024 13:21-0400 Body weight 126.[address] Annette Frey MD Work Phone: [phone] [place] [address] 12-25-2024 13:21-0400 Diastolic blood pressure 84 mm[Hg] Dr. Annette Frey MD Work Phone: [phone] [place] [address] 12-25-2024 13:21-0400 Systolic blood pressure 131 mm[Hg] Dr. Annette Frey MD Work Phone: [phone] [address] [place] [address] 12-19-2024 14:57-0400 Body height 170.[address] Annette Frey MD Work Phone: 3([phone] [place] [address] 12-19-2024 14:57-0400 Body mass index (BMI) [Ratio] 43.1 kg/m2 Dr. Annette Frey MD Work Phone: 8(550)[phone] [place] [address] 12-19-2024 14:57-0400 Body weight 124.[address] Annette Frey MD Work Phone: 0(693)[phone] [place] [address] 12-19-2024 14:57-0400 Diastolic blood pressure 81 mm[Hg] Dr. Annette Frey MD Work Phone: 7(344)[phone] [place] [address] 12-19-2024 14:57-0400 Systolic blood pressure 123 mm[Hg] Dr. Annette Frey MD Work Phone: [facility] 12-09-2024 13:08-0400 Body height 170.[address] Annette Frey MD Work Phone: [facility] 12-09-2024 13:08-0400 Body mass index (BMI) [Ratio] 42.5 kg/m2 Dr. Annette Frey MD Work Phone: [facility] 12-09-2024 13:08-0400 Body weight 123.[address] Annette Frey MD Work Phone: [facility] 12-09-2024 13:08-0400 Diastolic blood pressure 83 mm[Hg] Dr. Annette Frey MD Work Phone: [facility] 12-09-2024 13:08-0400 Systolic blood pressure 118 mm[Hg] Dr. Annette Frey MD Work Phone: [facility] 08-16-2024 12:56-0400 Body mass index (BMI) [Ratio] 37.76 kg/m2 Annette Frey MD Work Phone: [facility] 08-16-2024 12:56-0400 Body weight 109.36 kg Annette Frey MD Work Phone: [facility] 08-16-2024 12:56-0400 Diastolic blood pressure 76 mm[Hg] Annette Frey MD Work Phone: [facility] 08-16-2024 12:56-0400 Heart rate 106 /min Annette Frey MD Work Phone: [facility] 08-16-2024 12:56-0400 SaO2% (BldA) [Mass fraction] 97 % Annette Frey MD Work Phone: [facility] 08-16-2024 12:56-0400 Systolic blood pressure 122 mm[Hg] Annette Frey MD Work Phone: [facility] 07-09-2024 23:35-0400 Body temperature 98.5 [degF] Dr. Annette Frey MD Work Phone: [facility] 07-09-2024 23:35-0400 Diastolic blood pressure 55 mm[Hg] Dr. Annette Frey MD Work Phone: [facility] 07-09-2024 23:35-0400 Heart rate 112 /min Dr. Annette Frey MD Work Phone: [facility] 07-09-2024 23:35-0400 Respiratory rate 18 /min Dr. Annette Frey MD Work Phone: [facility] 07-09-2024 23:35-0400 SaO2% (BldA) [Mass fraction] 98 % Dr. Annette Frey MD Work Phone: [facility] 07-09-2024 23:35-0400 Systolic blood pressure 112 mm[Hg] Dr. Annette Frey MD Work Phone: [facility] 07-09-2024 18:20-0400 Body height 170.[address] Annette Frey MD Work Phone: [facility] 07-09-2024 18:20-0400 Body mass index (BMI) [Ratio] 37.3 kg/m2 Dr. Annette Frey MD Work Phone: [facility] 07-09-2024 18:20-0400 Body weight 108.[address] Annette Frey MD Work Phone: [facility] 05-27-2024 14:08-0500 Body height 170.2 cm Estelita Pickens MD Work Phone: [facility] 05-27-2024 14:08-0500 Body mass index (BMI) [Ratio] 37.18 kg/m2 Estelita Pickens MD Work Phone: [facility] 05-27-2024 14:08-0500 Body weight 107.68 kg Estelita Pickens MD Work Phone: [facility] 05-27-2024 14:08-0500 Diastolic blood pressure 72 mm[Hg] Estelita Pickens MD Work Phone: [facility] 05-27-2024 14:08-0500 Systolic blood pressure 118 mm[Hg] Estelita Pickens MD Work Phone: [facility] 05-09-2024 14:13-0500 Body height 170.2 cm Dago Fried DEPARTMENT OPERATIONS MANAGER-CNM, DEPARTMENT OPERATIONS MANAGER-MANAGER SOCIAL MEDIA, DNP Work Phone: [facility] 05-09-2024 14:13-0500 Body mass index (BMI) [Ratio] 36.68 kg/m2 Dago Fried DEPARTMENT OPERATIONS MANAGER-CNM, DEPARTMENT OPERATIONS MANAGER-MANAGER [employer]IAL [employer], DNP Work Phone: [facility] 05-09-2024 14:13-0500 Body weight 106.23 kg Dago Fried DEPARTMENT OPERATIONS MANAGER-CNM, DEPARTMENT OPERATIONS MANAGER-MANAGER [employer]IAL [employer], DNP Work Phone: [facility] 05-09-2024 14:13-0500 Diastolic blood pressure 78 mm[Hg] Dago Fried DEPARTMENT OPERATIONS MANAGER-CNM, DEPARTMENT OPERATIONS MANAGER-MANAGER [employer]IAL [employer], DNP Work Phone: [facility] 05-09-2024 14:13-0500 Systolic blood pressure 126 mm[Hg] Dago Fried DEPARTMENT OPERATIONS MANAGER-CNM, DEPARTMENT OPERATIONS MANAGER-MANAGER [employer]IAL [employer], DNP Work Phone: [facility] 02-23-2024 17:38-0500 Body height 170.2 cm Shane Everton DEPARTMENT OPERATIONS MANAGER-MANAGER SOCIAL [employer]IA Work Phone: [facility] 02-23-2024 17:38-0500 Body mass index (BMI) [Ratio] 34.77 kg/m2 Shane Everton DEPARTMENT OPERATIONS MANAGER-MANAGER [employer]IAL [employer]IA Work Phone: [facility] 02-23-2024 17:38-0500 Body temperature 97.81 [degF] Shane Everton DEPARTMENT OPERATIONS MANAGER-MANAGER [employer]IAL [employer]IA Work Phone: [facility] 02-23-2024 17:38-0500 Body weight 100.7 kg Shane Everton DEPARTMENT OPERATIONS MANAGER-MANAGER [employer]IAL [employer] Work Phone: [facility] 02-23-2024 17:38-0500 Diastolic blood pressure 81 mm[Hg] Shane Everton DEPARTMENT OPERATIONS MANAGER-MANAGER [employer]IAL [employer]IA Work Phone: [facility] 02-23-2024 17:38-0500 Heart rate 91 /min Shane Everton DEPARTMENT OPERATIONS MANAGER-MANAGER [employer]IAL [employer]IA Work Phone: [facility] 02-23-2024 17:38-0500 Respiratory rate 16 /min Shane Everton DEPARTMENT OPERATIONS MANAGER-MANAGER [employer]IAL [employer]IA Work Phone: [facility] 02-23-2024 17:38-0500 SaO2% (BldA) [Mass fraction] 100 % Shane Everton DEPARTMENT OPERATIONS MANAGER-MANAGER [employer]IAL [employer] Work Phone: [facility] 02-23-2024 17:38-0500 Systolic blood pressure 117 mm[Hg] Shane Everton DEPARTMENT OPERATIONS MANAGER-MANAGER [employer]IAL [employer] Work Phone: [facility] 12-12-2023 16:41-0400 Body height 170.2 cm Annette Frey MD Work Phone: [facility] 12-12-2023 16:41-0400 Body mass index (BMI) [Ratio] 35.38 kg/m2 Annette Frey MD Work Phone: [facility] 12-12-2023 16:41-0400 Body weight 102.47 kg Annette Frey MD Work Phone: [facility] 12-12-2023 16:41-0400 Diastolic blood pressure 80 mm[Hg] Annette Frey MD Work Phone: [facility] 12-12-2023 16:41-0400 Heart rate 102 /min Annette Frey MD Work Phone: [facility] 12-12-2023 16:41-0400 SaO2% (BldA) [Mass fraction] 97 % Annette Frey MD Work Phone: [facility] 12-12-2023 16:41-0400 Systolic blood pressure 116 mm[Hg] Annette Frey MD Work Phone: [facility] 10-10-2023 11:35-0400 Body height 170.2 cm Annette Frey MD Work Phone: [facility] 10-10-2023 11:35-0400 Body mass index (BMI) [Ratio] 34 kg/m2 Annette Frey MD Work Phone: [facility] 10-10-2023 11:35-0400 Body weight 98.48 kg Annette Frey MD Work Phone: [facility] 10-10-2023 11:35-0400 Diastolic blood pressure 77 mm[Hg] Annette Frey MD Work Phone: [facility] 10-10-2023 11:35-0400 Heart rate 69 /min Annette Frey MD Work Phone: [facility] 10-10-2023 11:35-0400 SaO2% (BldA) [Mass fraction] 100 % Annette Frey MD Work Phone: [facility] 10-10-2023 11:35-0400 Systolic blood pressure 118 mm[Hg] Annette Frey MD Work Phone: [facility] 09-19-2023 10:15-0400 Body height 170.2 cm Annette Frey MD Work Phone: [facility] 09-19-2023 10:15-0400 Body mass index (BMI) [Ratio] 32.89 kg/m2 Annette Frey MD Work Phone: [facility] 09-19-2023 10:15-0400 Body weight 95.25 kg Annette Frey MD Work Phone: [facility] 09-19-2023 10:15-0400 Diastolic blood pressure 72 mm[Hg] Annette Frey MD Work Phone: [facility] 09-19-2023 10:15-0400 Heart rate 83 /min Annette Frey MD Work Phone: [facility] 09-19-2023 10:15-0400 SaO2% (BldA) [Mass fraction] 100 % Annette Frey MD Work Phone: [facility] 09-19-2023 10:15-0400 Systolic blood pressure 122 mm[Hg] Annette Frey MD Work Phone: [facility] 05-23-2023 08:37-0500 Body height 170.2 cm Annette Frey MD Work Phone: [facility] 05-23-2023 08:37-0500 Body mass index (BMI) [Ratio] 30.24 kg/m2 Annette Frey MD Work Phone: [facility] 05-23-2023 08:37-0500 Body weight 87.59 kg Annette Frey MD Work Phone: [facility] 05-23-2023 08:37-0500 Diastolic blood pressure 78 mm[Hg] Annette Frey MD Work Phone: [facility] 05-23-2023 08:37-0500 Heart rate 80 /min Annette Frey MD Work Phone: [facility] 05-23-2023 08:37-0500 SaO2% (BldA) [Mass fraction] 100 % Annette Frey MD Work Phone: [facility] 05-23-2023 08:37-0500 Systolic blood pressure 110 mm[Hg] Annette Frey MD Work Phone: [facility] 05-02-2023 15:00-0500 Body height 170.2 cm Annette Frey MD Work Phone: [facility] 05-02-2023 15:00-0500 Body mass index (BMI) [Ratio] 30.34 kg/m2 Annette Frey MD Work Phone: [facility] 05-02-2023 15:00-0500 Body weight 87.86 kg Annette Frey MD Work Phone: [facility] 05-02-2023 15:00-0500 Diastolic blood pressure 80 mm[Hg] Annette Frey MD Work Phone: [facility] 05-02-2023 15:00-0500 Heart rate 87 /min Annette Frey MD Work Phone: [facility] 05-02-2023 15:00-0500 SaO2% (BldA) [Mass fraction] 100 % Annette Frey MD Work Phone: [facility] 05-02-2023 15:00-0500 Systolic blood pressure 136 mm[Hg] Annette Frey MD Work Phone: [facility] 03-21-2023 09:08-0500 Body height 170.2 cm Annette Frey MD Work Phone: [facility] 03-21-2023 09:08-0500 Body mass index (BMI) [Ratio] 29.81 kg/m2 Annette Frey MD Work Phone: [facility] 03-21-2023 09:08-0500 Body weight 86.32 kg Annette Frey MD Work Phone: 1(858)647-7166[address] [place] [address] 03-21-2023 09:08-0500 Diastolic blood pressure 58 mm[Hg] Annette Frey MD Work Phone: [facility] 03-21-2023 09:08-0500 Heart rate 95 /min Annette Frey MD Work Phone: [facility] 03-21-2023 09:08-0500 SaO2% (BldA) [Mass fraction] 98 % Annette Frey MD Work Phone: [facility] 03-21-2023 09:08-0500 Systolic blood pressure 94 mm[Hg] Annette Frey MD Work Phone: [facility] 02-15-2023 08:56-0400 Body height 170.2 cm Annette Frey MD Work Phone: [facility] 02-15-2023 08:56-0400 Body mass index (BMI) [Ratio] 29.63 kg/m2 Annette Frey MD Work Phone: [facility] 02-15-2023 08:56-0400 Body weight 85.82 kg Annette Frey MD Work Phone: [facility] 02-15-2023 08:56-0400 Diastolic blood pressure 76 mm[Hg] Annette Frey MD Work Phone: [facility] 02-15-2023 08:56-0400 Heart rate 83 /min Annette Frey MD Work Phone: [facility] 02-15-2023 08:56-0400 SaO2% (BldA) [Mass fraction] 98 % Annette Frey MD Work Phone: [facility] 02-15-2023 08:56-0400 Systolic blood pressure 96 mm[Hg] Annette Frey MD Work Phone: [facility] 11-11-2022 18:58-0400 Diastolic blood pressure 70 mm[Hg] Annette Frey Other Phone: [facility] 11-11-2022 18:58-0400 Heart rate 98 /min Annette Frey Other Phone: [facility] 11-11-2022 18:58-0400 Respiratory rate 16 /min Annette Frey Other Phone: [facility] 11-11-2022 18:58-0400 SaO2% (BldA) [Mass fraction] 98 % Annette Frey Other Phone: [facility] 11-11-2022 18:58-0400 Systolic blood pressure 120 mm[Hg] Annette Frey Other Phone: [facility] 11-11-2022 18:00-0400 Body height 170.1 cm Annette Frey Other Phone: [facility] 11-11-2022 18:00-0400 Body temperature 97.88 [degF] Annette Frey Other Phone: [facility] 11-11-2022 18:00-0400 Body weight 81.8 kg Annette Frey Other Phone: [facility] 08-17-2022 09:12-0400 Body height 170.2 cm Annette Frey MD Work Phone: [facility] 08-17-2022 09:12-0400 Body mass index (BMI) [Ratio] 28.68 kg/m2 Annette Frey MD Work Phone: [facility] 08-17-2022 09:12-0400 Body weight 83.05 kg Annette Frey MD Work Phone: [facility] 08-17-2022 09:12-0400 Diastolic blood pressure 78 mm[Hg] Annette Frey MD Work Phone: [facility] 08-17-2022 09:12-0400 Heart rate 82 /min Annette Frey MD Work Phone: [facility] 08-17-2022 09:12-0400 SaO2% (BldA) [Mass fraction] 99 % Annette Frey MD Work Phone: [facility] 08-17-2022 09:12-0400 Systolic blood pressure 108 mm[Hg] Annette Frey MD Work Phone: [facility] 04-29-2022 14:53-0500 Body weight 78.38 kg Anmol Collier MD Work Phone: [facility] 04-29-2022 14:53-0500 Diastolic blood pressure 76 mm[Hg] Anmol Collier MD Work Phone: [facility] 04-29-2022 14:53-0500 Heart rate 96 /min Anmol Collier MD Work Phone: [facility] 04-29-2022 14:53-0500 Systolic blood pressure 141 mm[Hg] Anmol Collier MD Work Phone: [facility] 07-06-2021 12:20-0400 Body height 170.18 cm Kasia Lopez Michael Work Phone: [facility] Work Phone: 07-06-2021 12:20-0400 Body mass index (BMI) [Ratio] 29.45 kg/m2 Kasiajose antonio Rodriguez Work Phone: [facility] Work Phone: 07-06-2021 12:20-0400 Body surface area Derived from formula 1.97 m2 Kasia Lopez Michael Work Phone: [facility] Work Phone: 07-06-2021 12:20-0400 Body temperature 97.9 [degF] Kasia Lopez Michael Work Phone: [facility] Work Phone: 07-06-2021 12:20-0400 Body weight 85.28 kg Kasia Rodriguez Work Phone: [facility] Work Phone: 07-06-2021 12:20-0400 Diastolic blood pressure 78 mm[Hg] Kasia Rodriguez Work Phone: [facility] Work Phone: 07-06-2021 12:20-0400 Heart rate 89 /min Kasia Rodriguez Work Phone: [facility] Work Phone: 07-06-2021 12:20-0400 SaO2% (BldA) [Mass fraction] 99 % Kasia Rodriguez Work Phone: [facility] Work Phone: 07-06-2021 12:20-0400 Systolic blood pressure 120 mm[Hg] Kasia Rodriguez Work Phone: [facility] Work Phone: 02-02-2021 14:36-0400 Body height 170.18 cm Kasia Rodriguez Work Phone: [facility] Work Phone: 02-02-2021 14:36-0400 Body mass index (BMI) [Ratio] 29.45 kg/m2 Kasia Rodriguez Work Phone: [facility] Work Phone: 02-02-2021 14:36-0400 Body surface area Derived from formula 1.97 m2 Kasia Rodriguez Work Phone: [facility] Work Phone: 02-02-2021 14:36-0400 Body temperature 97.1 [degF] Kasia Rodriguez Work Phone: [facility] Work Phone: 02-02-2021 14:36-0400 Body weight 85.28 kg Kasia Rodriguez Work Phone: [facility] Work Phone: 02-02-2021 14:36-0400 Diastolic blood pressure 81 mm[Hg] Kasia Rodriguez Work Phone: [facility] Work Phone: 02-02-2021 14:36-0400 Heart rate 96 /min Kasia Rodriguez Work Phone: [facility] Work Phone: 02-02-2021 14:36-0400 SaO2% (BldA) [Mass fraction] 98 % Kasia Rodriguez Work Phone: [facility] Work Phone: 02-02-2021 14:36-0400 Systolic blood pressure 117 mm[Hg] Kasia Rodriguez Work Phone: [facility] Work Phone: 10-27-2020 13:47-0400 Body height 170.18 cm Kasia Rodriguez Work Phone: [facility] Work Phone: 10-27-2020 13:47-0400 Body mass index (BMI) [Ratio] 28.82 kg/m2 Kasia Rodriguez Work Phone: [facility] Work Phone: 10-27-2020 13:47-0400 Body surface area Derived from formula 1.95 m2 Kasia Rodriguez Work Phone: [facility] Work Phone: 10-27-2020 13:47-0400 Body temperature 97.9 [degF] Kasia Rodriguez Work Phone: [facility] Work Phone: 10-27-2020 13:47-0400 Body weight 83.46 kg Kasia Rodriguez Work Phone: [facility] Work Phone: 10-27-2020 13:47-0400 Diastolic blood pressure 82 mm[Hg] Kasia Rodriguez Work Phone: [facility] Work Phone: 10-27-2020 13:47-0400 Heart rate 104 /min Kasia Rodriguez Work Phone: [facility] Work Phone: 10-27-2020 13:47-0400 SaO2% (BldA) [Mass fraction] 98 % Kasia Rodriguez Work Phone: [facility] Work Phone: 10-27-2020 13:47-0400 Systolic blood pressure 117 mm[Hg] Kasia Rodriguez Work Phone: [facility] Work Phone: 02-18-2020 13:12-0500 BMI (Body Mass Index) 32.95 kg/m2 [facility] Work Phone: 02-18-2020 13:12-0500 Body Temperature 97.3 [degF] [facility] Work [facility]: 02-18-2020 13:12-0500 Body weight 95.43 kg [facility] Work Phone: 02-18-2020 13:12-0500 BP Diastolic 82 mm[Hg] [facility]rez [facility] Work Phone: 02-18-2020 13:12-0500 BP Systolic 126 mm[Hg] [facility] Work Phone: 02-18-2020 13:12-0500 BSA (Body Surface Area) 2.07 m2 [facility] Work Phone: 02-18-2020 13:12-0500 Height 170.18 cm [facility] Work Phone: 01-17-2020 12:41-0400 BMI (Body Mass Index) 32.48 kg/m2 [facility] Work Phone: 01-17-2020 12:41-0400 Body Temperature 97.5 [degF] [facility] Work Phone: 01-17-2020 12:41-0400 Body weight 94.07 kg [facility]rez [facility] Work Phone: 01-17-2020 12:41-0400 BP Diastolic 80 mm[Hg] [facility]rez [facility] Work Phone: 01-17-2020 12:41-0400 BP Systolic 122 mm[Hg] [facility] Work Phone: 01-17-2020 12:41-0400 BSA (Body Surface Area) 2.05 m2 [facility]rez [facility] Work Phone: 01-17-2020 12:41-0400 Height 170.18 cm [facility] Work Phone: 01-13-2020 09:58-0400 BMI (Body Mass Index) 31.32 kg/m2 Kev [facility] 01-13-2020 09:58-0400 Body weight 90.72 kg Kev [facility] 01-13-2020 09:58-0400 BP Diastolic 75 mm[Hg] Kev [facility] 01-13-2020 09:58-0400 BP Systolic 118 mm[Hg] Kev [facility] 01-13-2020 09:58-0400 Height 170.2 cm Kev [facility] 01-13-2020 09:58-0400 Pulse (Heart Rate) 108 /min Kev [facility] 01-13-2020 09:58-0400 Pulse Oximetry 99 % Kev Abraham [facility] 01-13-2020 09:58-0400 Respiratory Rate 16 /min Kev Abraham [facility] 12-03-2019 12:51-0400 BMI (Body Mass Index) 31.87 kg/m2 Kasia Rodriguez [facility] 300 Work Phone: 12-03-2019 12:51-0400 Body Temperature 98.2 [degF] [facility] 300 Work Phone: 12-03-2019 12:51-0400 Body weight 92.[address] [facility] 300 Work Phone: 12-03-2019 12:51-0400 BP Diastolic 62 mm[Hg] [facility] 300 Work Phone: 12-03-2019 12:51-0400 BP Systolic 120 mm[Hg] [facility] 300 Work Phone: 12-03-2019 12:51-0400 BSA (Body Surface Area) 2.[address] [facility] 300 Work Phone: 12-03-2019 12:51-0400 Height 170.[address] [facility] 300 Work Phone: 10-12-2019 11:56-0400 BP Diastolic 87 mm[Hg] Mikel Moss [facility] 10-12-2019 11:56-0400 BP Systolic 137 mm[Hg] [facility] 10-12-2019 11:56-0400 Pulse Oximetry 100 % Mikel Ajay [facility] 10-12-2019 09:07-0400 Pulse (Heart Rate) 90 /min Mikel Moss [facility] 10-12-2019 09:07-0400 Respiratory Rate 16 /min Mikel Ajay [facility] 10-12-2019 08:52-0400 BMI (Body Mass Index) 32.89 kg/m2 Mikel Ajay [facility] 10-12-2019 08:52-0400 Body Temperature 98.6 [degF] Mikel Moss [facility] 10-12-2019 08:52-0400 Body weight 95.25 kg Mikel Moss [facility] 10-12-2019 08:52-0400 Height 170.2 cm Mikel Moss [facility] Encounters Encounter Date Encounter Type Care Provider Facility Start: 01-08-2025 ambulatory Annette Davis ility:[facility] Start: 01-01-2025 End: 01-01-[address] Brittney Mckeon MD -[facility] Work Phone: Start: 01-01-2025 End: 01-01-[address] Annette Frey MD Work Phone: -[facility] Start: 12-30-[address] Aleksandra Walter DO -Ultrasound [facility] Work Phone: Start: 12-30-2024 ambulatory Annette Davis ility:[facility] Start: 12-25-2024 End: 12-25-2024 Patient encounter procedure Marcia Christianson CNM -[facility] Work Phone: Start: 12-25-2024 End: 12-25-[address] Annette Frey MD Work Phone: -[facility] Start: 12-19-[address] Aleksandra Walter DO -Laboratory Specimen Work Phone: Start: 12-19-2024 End: 12-19-[address] Annette Frey MD Work Phone: -[facility] Start: 12-19-2024 End: 12-19-[address] Aleksandra Walter DO -[facility] Work Phone: Start: 12-19-2024 End: 12-19-2024 ambulatory Annette Frey Facility:[facility] Start: 12-09-2024 End: 12-09-2024 Patient encounter procedure Marcia Christianson CNM -[facility] Work Phone: Start: 12-09-2024 End: 12-09-[address] Annette Frey MD Work Phone: -[facility] Start: 11-25-2024 End: 11-25-2024 ambulatory [facility] Start: 11-11-2024 End: 11-11-2024 ambulatory [facility] Start: 10-31-2024 Registered [employer] Start: 10-31-[address] [facility] ility:[facility] Start: 10-28-2024 End: 10-28-2024 ambulatory [facility] Start: 10-14-2024 End: 10-14-2024 ambulatory [facility] Start: 09-28-2024 End: 09-28-2024 ambulatory ANNETTE FREY [facility] Start: 09-28-2024 Non-patient / Non-visit Dr. Kaitlin Frey MD -[facility] Work Phone: Start: 09-16-2024 End: 09-16-2024 ambulatory [facility] Start: 08-21-2024 End: 08-21-2024 ambulatory [facility] Start: 08-21-2024 End: 08-21-2024 Subsequent hospital visit by physician Rosendo Olvera 2 [facility] Comment on above: 14 weeks gestation o f ([facility] Start: 08-21-2024 End: 08-21-[address] [facility] Start: 08-16-2024 End: 08-16-2024 Patient encounter status Annette Frey MD Work Phone: [facility] Work Phone: Start: 08-16-2024 End: 08-16-2024 Periodic preventive med est patient 18-39 yrs Annette Frey MD Work Phone: [facility] Comment on above: Healthcare kayli ce (Primary Dx) Start: 08-16-2024 End: 08-16-2024 ambulatory ANNETTE Osmani [facility] Start: 07-22-2024 End: 07-22-2024 ambulatory [facility] Start: 07-09-2024 End: 07-09-2024 Emergency department patient visit Dr. Annette Frey MD Work Phone: -Emergency Department Work Phone: Start: 06-24-2024 End: 06-24-2024 ambulatory ANNETTE Keen [facility] Start: 06-24-2024 ambulatory Annette Frey Fac ility:[facility] Start: 06-24-2024 End: 06-24-2024 ambulatory [facility] Start: 06-24-2024 End: 06-24-2024 Encounter for gynecological examination (general) (routine) without abnormal findings [facility] Start: 05-27-2024 End: 05-27-2024 Office outpatient visit 15 minutes Estelita Pickens MD Work Phone: [facility] Comment on above: Amenorrhea (Primary Dx) Start: 05-27-2024 End: 05-27-2024 ambulatory [facility] Start: 05-09-2024 End: 05-09-2024 Office outpatient new 30 minutes Dago Perez DEPARTMENT OPERATIONS MANAGER-CNM, DEPARTMENT OPERATIONS MANAGER-MANAGER SOCIAL MEDIA, DNP Work Phone: [facility] Comment on above: Missed menses (Prima ry Dx); test positive ([facility]) Start: 05-09-2024 End: 05-09-2024 ambulatory DAGO Busby [facility] Ambulatory Start: 03-01-2024 End: 03-01-2024 Emergency department patient visit Annette Frey Facility:[facility] Start: 02-23-2024 End: 02-24-2024 Patient encounter procedure Shane Toscano DEPARTMENT OPERATIONS MANAGER-MANAGER SOCIAL MEDIA Work Phone: [facility] Comment on above: Amenorrhea (Primary Dx) Start: 02-23-2024 End: 02-24-2024 ambulatory ANNETTE FREY [facility] Start: 12-26-2023 ambulatory NAS SANDERS [facility] Start: 12-12-2023 End: 12-12-2023 Office outpatient visit 15 minutes Annette Frey MD Work Phone: [facility] Comment on above: Urticaria (Primary D x) Start: 12-12-2023 End: 12-12-2023 ambulatory ANNETTE MCELROYWALAKESHA [facility] Ambulatory Start: 10-10-2023 End: 10-10-2023 Office outpatient visit 15 minutes Annette Frey MD Work Phone: [facility] Comment on above: Nausea and vomiting, unspecified vomiting type (Primary Dx) Start: 09-19-2023 End: 09-19-2023 Office outpatient visit 15 minutes Annette Frey MD Work Phone: [facility] Comment on above: Migraine without aur a and without status migrainosus, not intractable; Anxiety Start: 06-16-2023 End: 06-16-2023 ambulatory NAREN LAW II Facility:[facility] Start: 06-16-2023 End: 06-16-2023 Patient encounter procedure Naren Law OD Work Phone: Optometry Comment on above: Myopia, right (Prima ry Dx); Hyperopia, left; Regular astigmatism, bilateral Start: 05-23-2023 End: 05-23-2023 Office outpatient visit 15 minutes Annette Frey MD Work Phone: [facility] Comment on above: Healthcare maintenan ce (Primary Dx); Anxiety Start: 05-23-2023 End: 05-23-2023 Patient encounter status Annette Frey MD Work Phone: [facility] Work Phone: Start: 05-02-2023 End: 05-02-2023 Office outpatient visit 15 minutes Annette Frey MD Work Phone: [facility] Comment on above: Anxiety (Primary Dx) Start: 03-21-2023 End: 03-21-2023 Office outpatient visit 15 minutes Annette Frey MD Work Phone: [facility] Comment on above: Migraine without aur a and without status migrainosus, not intractable (Primary Dx) Start: 02-15-2023 End: 02-16-2023 ambulatory ANNETTE FREY [facility] Start: 02-15-2023 End: 02-15-2023 Office outpatient visit 25 minutes Annette Frey MD Work Phone: [facility] Comment on above: Fatigue, unspecified type (Primary Dx); Migraine without aura and without status migrainosus, not intractable; Other fatigue; Healthcare maintenance Start: 02-15-2023 End: 02-15-2023 Patient encounter status Annette Frey MD Work Phone: [facility] Work Phone: Start: 11-11-2022 End: 11-11-2022 Emergency department patient visit Jeffery Rose [facility] Emergency 13 Start: 08-17-2022 End: 08-18-2022 ambulatory ANNETTE MCELROYWALAKESHA [facility] Start: 08-17-2022 End: 08-18-2022 Encounter for general adult medical examination without abnormal findings ANNETTE FREY [facility] Start: 08-17-2022 End: 08-17-2022 Office outpatient new 30 minutes Annette Frey MD Work Phone: [facility] Comment on above: Migraine without aur a and without status migrainosus, not intractable (Primary Dx); Other fatigue; Healthcare maintenance Start: 08-17-2022 End: 08-17-2022 Patient encounter status Annette Frey MD Work Phone: [facility] Work Phone: Start: 08-03-2022 Rx Renewal Kasia eisenberg Work Phone: [facility] [address] Work Phone: Start: 06-09-2022 End: 06-09-2022 Patient encounter procedure Moon Law OD Work Phone: Optometry Comment on above: Myopia, right (Prima ry Dx); Hyperopia, left; Regular astigmatism, bilateral Start: 05-13-2022 Rx Renewal Kasia Stevens r Work Phone: [facility] Work Phone: Start: 04-29-2022 End: 04-29-2022 Patient [...] encounter procedure Kasia Rodriguez Work Phone: [facility] Work Phone: Start: 10-19-2021 AUDIT Kasia Stevens r Work Phone: [facility] Work Phone: Start: 07-06-2021 FUV, Provider: Sweetie West, Status: Pen, Time: 11:30 AM Kasia Rodriguez Work Phone: [facility] Work Phone: Start: 07-06-2021 Office outpatient vi sit 15 minutes Kasia Rodriguez Work Phone: [facility] Work Phone: Start: 07-05-2021 AUDIT Kasia Mercadoe r Work Phone: [facility] Work Phone: Start: 06-07-2021 AUDIT Kasia Mercadoe r Work Phone: [facility] [address] Work Phone: Start: 06-02-2021 AUDIT Kasia Mercadoe r Work Phone: [facility] [address] Work Phone: Start: 04-01-2021 AUDIT Kasia Mercadoe r Work Phone: [facility] Work Phone: Start: 02-02-2021 Office outpatient vi sit 25 minutes Kasiajose antonio Rodriguez Work Phone: [facility] Work Phone: Start: 02-02-2021 Patient encounter procedure Kasia Rodriguez Work Phone: [facility] Work Phone: Start: 11-16-2020 Patient encounter procedure Kasia Rodriguez Work Phone: [facility] Work Phone: Start: 10-29-2020 Other Kasiajose antonio eisenberg Work Phone: [facility] Work Phone: Start: 10-27-2020 Office consultation new/estab patient 60 min Kasiajose antonio Rodriguez Work Phone: [facility] Work Phone: Start: 03-02-2020 Patient encounter procedure [facility] Work Phone: Start: 02-28-2020 Patient encounter procedure [facility] Work Phone: Start: 02-26-2020 Patient encounter procedure [facility] Work Phone: Start: 02-24-2020 Patient encounter procedure [facility] Work Phone: Start: 02-21-2020 Patient encounter procedure [facility] Work Phone: Start: 02-19-2020 Patient encounter procedure [facility] Work Phone: Start: 02-18-2020 Patient encounter procedure [facility] Work Phone: Start: 02-17-2020 Patient encounter procedure [facility] Work Phone: Start: 02-14-2020 End: 02-14-2020 Patient encounter procedure Andreia Aron Rasmussen Work Phone: [facility] Comment on above: Neuropraxia of right upper extremity, initial encounter Start: 02-11-2020 Patient encounter procedure [facility] Work Phone: Start: 02-10-2020 Patient encounter procedure [facility] Work Phone: Start: 02-06-2020 Patient encounter procedure [facility] Work Phone: Start: 02-04-2020 Patient encounter procedure [facility] Work Phone: Start: 02-03-2020 Patient encounter procedure [facility] Work Phone: Start: 01-30-2020 Patient encounter procedure [facility] Work Phone: Start: 01-28-2020 Patient encounter procedure Heelna [facility] Work Phone: Start: 01-24-2020 Patient encounter procedure [facility] Work Phone: Start: 01-21-2020 Patient encounter procedure [facility] Work Phone: Start: 01-17-2020 Patient encounter procedure [facility] Work Phone: Start: 01-16-2020 Patient encounter procedure [facility] Work Phone: Start: 01-13-2020 Patient encounter procedure [facility] Work Phone: Start: 01-13-2020 End: 01-13-2020 Office outpatient new 60 minutes Kev Abraham Work Phone: [facility] Comment on above: Neuropraxia of right upper extremity, initial encounter (Primary Dx); Strain of right shoulder, initial encounter Start: 01-09-2020 Patient encounter procedure [facility] Work Phone: Start: 12-30-2019 Patient encounter procedure [facility] Work Phone: Start: 12-18-2019 Patient encounter procedure [facility] Work Phone: Start: 12-03-2019 Patient encounter procedure [facility] Work Phone: Start: 12-03-2019 Patient encounter procedure [facility] Work Phone: Start: 10-12-2019 End: 10-12-2019 Emergency department patient visit MIKEL MOSS [facility] Start: 10-12-2019 End: 10-12-2019 Emergency department patient visit Mikel Moss Work Phone: [facility] Emergency Department Comment on above: Other migraine witho ut status migrainosus, not intractable (Primary Dx); Visual disturbances Start: 05-10-2017 Ambulatory SELF SELF [facility] Procedures Date Procedure Procedure Detail Performing [...] visual color cmprsn meths Dago M Fried DEPARTMENT OPERATIONS MANAGER-CNM, DEPARTMENT OPERATIONS MANAGER-MANAGER SOCIAL MEDIA, DNP Work Phone: Start: 06-16-2023 Fundus photography [...] 2) Zoste r Vaccines (1 of 2) [facility] Start: 11-04-2030 DTaP/Tdap/Td Vaccine s (7 - Td or Tdap) DTaP/Tdap/Td Vaccines (7 - Td or Tdap) [facility] Start: 11-04-2030 DTaP/Tdap/Td Vaccine s (8 - Td or Tdap) DTaP/Tdap/Td Vaccines (8 - Td or Tdap) [facility] Start: 11-04-2030 Urine microalbumin profile [facility] Start: 08-18-2027 Lipid panel Lipid Panel [facility] Start: 06-25-2027 Screening for malign ant neoplasm of cervix [facility] Start: 08-19-2025 End: 08-19-2025 Patient encounter procedure 08/19/2025 1:00 PM EDT Office [place] [address] [phone] Annette Frey MD [address] [address] [facility] Start: 08-17-2025 Yearly Adult Physical Yearly Adult P hysical [facility] Start: 06-24-2025 Diabetes mellitus screening Diabetes Screening [facility] Start: 04-29-2025 PAP TESTING PAP TESTING [facility] Start: 04-29-2025 Screening for malign ant neoplasm of cervix [facility] Start: 12-16-2024 RSV High Risk: (Elde rly (60+) or Population) (1 - Risk 1-dose series) RSV High Risk: (Elderly (60+) or Population) (1 - Risk 1-dose series) [facility] Start: 12-05-2024 Polymerase chain reaction analysis [facility] Start: 12-05-2024 [facility] Start: 09-18-2024 End: 09-18-2024 Patient encounter procedure 09/18/2024 8:30 AM EDT [facility] [address] [place] [address] Estelita Pickens MD [address] [facility], [address] [place] [address] [facility] Start: 08-21-2024 End: 08-21-2024 Patient encounter procedure 08/21/2024 10:45 AM EDT Routine [facility] [address] [place] [address] Estelita Pickens MD [address] [facility], [address] [place] [address] [facility] Start: 08-21-2024 End: 08-21-2024 Patient encounter procedure 08/21/2024 9:15 AM EDT Appointment [address] [phone] [facility] Start: 07-11-2024 End: 07-11-2024 Patient encounter procedure 07/11/2024 10:00 AM EDT Consult [facility] [address] [phone] Annita Pacheco, DEPARTMENT OPERATIONS MANAGER-MANAGER SOCIAL MEDIA [address] [place] [address] [facility] Start: 07-09-2024 [facility] Start: 06-24-2024 End: 06-24-2024 ambulatory 06/24/2024 11:00 AM EDT Initial [facility] [address] [place] [phone] Estelita Pickens MD [address] [facility], [address] [place] [address] [facility] Start: 05-27-2024 End: 05-27-2024 Patient encounter procedure 05/27/2024 2:00 PM EST Office Visit [facility] [address] [place] [phone] Estelita Pickens MD [address] [facility] Office, [address] [place] [phone] [facility] Start: 03-29-2024 End: 03-29-2024 Patient encounter procedure 03/29/2024 1:40 PM EST Office Visit [place] [address] [phone] Anentte Frey MD [address] [place] [address] [facility] Start: 03-19-2024 End: 03-19-2024 Patient encounter procedure [facility] Start: 02-23-2024 End: 02-22-2025 Choriogonadotropin.beta subunit [Units/volume] in Serum or Plasma Human Chorionic Gonadotropin, Serum Quantitative Lab Routine Amenorrhea Expected: 02/23/2024 (Approximate), Expires: 02/22/2025 [facility] Service Area Work Phone: Comment on above: Expected: 02/23/2024 (Approximate), Expires: 02/22/2025 Start: 01-23-2024 PAP TESTING PAP TESTING [facility] Start: 12-20-2023 End: 12-20-2023 Patient encounter procedure 12/20/2023 1:30 PM EDT Office Visit [facility] [address] [place] [phone] Estelita Pickens MD [address] [facility] Medical Office, [facility] [address] [place] [phone] [facility] Start: 12-17-2023 COVID-19 Vaccine ( season) COVID-19 Vaccine ( season) [facility] Start: 12-17-2023 Influenza vaccination Influenz a Vaccine (#1) [facility] Start: 10-18-2023 End: 10-18-2023 Patient encounter procedure 10/18/2023 10:30 AM EDT Office Visit [facility] Building [address] [place] [address] Estelita Pickens MD [address] [facility], [address] [place] [address] [facility] Medical Office [facility] Start: 09-27-2023 End: 09-27-2023 Patient encounter procedure 09/27/2023 2:45 PM EDT Office Visit [facility] Office [address] [place] [address] Estelita Pickens MD [address] [facility], [address] [place] [address] [facility] Office [facility] Start: 09-19-2023 End: 09-19-2023 Patient encounter procedure 09/19/2023 10:20 AM EDT Office Visit [address] [phone] Annette Frey MD [address] [place] [address] [place] [address] [facility] Start: 07-25-2023 End: 07-25-2023 Patient encounter procedure 07/25/2023 2:40 PM EDT Office Visit [address] [phone] Annette Frey MD [address] [place] [address] [place] [address] [facility] Start: 05-23-2023 End: 05-23-2024 Comprehensive metabolic 2000 panel - Serum or Plasma Comprehensive Metabolic Panel Lab Routine Healthcare maintenance Expected: 05/23/2023 (Approximate), Expires: 05/23/2024 [facility] Service Area Work Phone: Comment on above: Expected: 05/23/2023 (Approximate), Expires: 05/23/2024 Start: 05-23-2023 End: 05-23-2024 Lipid 1996 panel - Serum or Plasma Lipid Panel Lab Routine Healthcare maintenance Expected: 05/23/2023 (Approximate), Expires: 05/23/2024 [facility] Work Phone: Comment on above: Expected: 05/23/2023 (Approximate), Expires: 05/23/2024 Start: 05-23-2023 End: 05-23-2023 Patient encounter procedure 05/23/2023 8:20 AM EST Office Visit [address] [phone] Annette Frey MD [address] [place] [address] [place] [address] [facility] Start: 04-17-2023 Depression Assessment Depression [facility] Start: 03-03-2023 End: 03-03-2023 Patient encounter procedure 03/03/2023 8:20 AM EST Office Visit [address] [phone] Annette Frey MD [address] [facility] [place] [address] [facility] Start: 02-15-2023 End: 02-16-2024 25-hydroxyvitamin D3 [Mass/volume] in Serum or Plasma [facility] Work Phone: Comment on above: Expected: 02/15/2023 (Approximate), Expires: 02/16/2024 Start: 02-15-2023 End: 02-16-2024 CBC W Auto Differential panel - Blood [facility] Service Area Work Phone: Comment on above: Expected: 02/15/2023 (Approximate), Expires: 02/16/2024 Start: 02-15-2023 End: 02-16-2024 Cobalamin (Vitamin B12) [Mass/volume] in Serum or Plasma [facility] Work Phone: Comment on above: Expected: 02/15/2023 (Approximate), Expires: 02/16/2024 Start: 02-15-2023 End: 02-16-2024 Comprehensive metabolic 2000 panel - Serum or Plasma [facility] Work Phone: Comment on above: Expected: 02/15/2023 (Approximate), Expires: 02/16/2024 Start: 02-15-2023 End: 02-16-2024 TSH with reflex to Free T4 if abnormal [facility] Work Phone: Comment on above: Expected: 02/15/2023 (Approximate), Expires: 02/16/2024 Start: 02-15-2023 End: 02-15-2023 Patient encounter procedure 02/15/2023 9:00 AM EDT Office Visit [facility] [address] [place] [phone] Annette Frey MD [address] [facility] [place] [address] [facility] Start: 12-16-2022 COVID-19 Vaccine ( season) COVID-19 Vaccine ( season) [facility] Start: 12-16-2022 Influenza vaccination [facility] Start: 08-17-2022 End: 08-18-2023 25-hydroxyvitamin D3 [Mass/volume] in Serum or Plasma Vitamin D, Total Lab Routine Migraine without aura and without status migrainosus, not intractable Other fatigue Healthcare maintenance Expected: 08/17/2022 (Approximate), Expires: 08/18/2023 [facility] Work Phone: Comment on above: Expected: 08/17/2022 (Approximate), Expires: 08/18/2023 Start: 08-17-2022 End: 08-18-2023 CBC W Auto Differential panel - Blood CBC and Auto Differential Lab Routine Migraine without aura and without status migrainosus, not intractable Other fatigue Healthcare maintenance Expected: 08/17/2022 (Approximate), Expires: 08/18/2023 [facility] Service Area Work Phone: Comment on above: Expected: 08/17/2022 (Approximate), Expires: 08/18/2023 Start: 08-17-2022 End: 08-18-2023 Cobalamin (Vitamin B12) [Mass/volume] in Serum or Plasma Vitamin B12 Lab Routine Migraine without aura and without status migrainosus, not intractable Other fatigue Healthcare maintenance Expected: 08/17/2022 (Approximate), Expires: 08/18/2023 [facility] Work Phone: Comment on above: Expected: 08/17/2022 (Approximate), Expires: 08/18/2023 Start: 08-17-2022 End: 08-18-2023 Comprehensive metabolic 2000 panel - Serum or Plasma Comprehensive Metabolic Panel Lab Routine Migraine without aura and without status migrainosus, not intractable Other fatigue Healthcare maintenance Expected: 08/17/2022 (Approximate), Expires: 08/18/2023 [facility] Work Phone: Comment on above: Expected: 08/17/2022 (Approximate), Expires: 08/18/2023 Start: 08-17-2022 End: 08-18-2023 Lipid 1996 panel - Serum or Plasma Lipid Panel Lab Routine Migraine without aura and without status migrainosus, not intractable Other fatigue Healthcare maintenance Expected: 08/17/2022 (Approximate), Expires: 08/18/2023 [facility] Work Phone: Comment on above: Expected: 08/17/2022 (Approximate), Expires: 08/18/2023 Start: 08-17-2022 End: 08-18-2023 Magnesium [Mass/volume] in Serum or Plasma Magnesium Lab Routine Migraine without aura and without status migrainosus, not intractable Expected: 08/17/2022 (Approximate), Expires: 08/18/2023 [facility] Work Phone: Comment on above: Expected: 08/17/2022 (Approximate), Expires: 08/18/2023 Start: 08-17-2022 End: 08-18-2023 TSH with reflex to Free T4 if abnormal TSH with reflex to Free T4 if abnormal Lab Routine Migraine without aura and without status migrainosus, not intractable Other fatigue Healthcare maintenance Expected: 08/17/2022 (Approximate), Expires: 08/18/2023 [facility] Work Phone: Comment on above: Expected: 08/17/2022 (Approximate), Expires: 08/18/2023 Start: 08-17-2022 End: 08-17-2022 ambulatory 08/17/2022 10:00 AM EDT Lab [facility] [address] [place] [address] Migraine without aura and without status migrainosus, not intractable; Other fatigue; Healthcare maintenance [facility] Comment on above: Migraine without aur a and without status migrainosus, not intractable; Other fatigue; Healthcare maintenance Start: 04-17-2022 DEPRESSION ASSESSMENT DEPRESSION ASS ESSMENT [facility] Start: 01-22-2022 CHLAMYDIA SCREENING (18-24) CHLAMYDIA SCREENING (18-24) [facility] Start: 01-22-2022 GC (GONORRHEA) SCREE RAJANI (18-24) GC (GONORRHEA) SCREENING (18-24) [facility] Start: 12-16-2021 Influenza vaccination INFLUENZA (#1) [facility] Start: 11-11-2021 FUV, Provider: Sweetie West, Status: Pen, Time: 2:00 PM FUV, Provider: Sweetie West, Status: Jesus, Time: 2:00 PM [facility] Work Phone: Start: 10-06-2021 FUV, Provider: Sweetie West, Status: Jesus, Time: 11:30 AM FUV, Provider: Sweetie West, Status: Jesus, Time: 11:30 AM [facility] Work Phone: Start: 09-08-2021 COVID-19 VACCINE (3 - Booster for Pfizer series) COVID-19 VACCINE (3 - Booster for Pfizer series) [facility] Start: 07-14-2021 COVID-19 Vaccine (#1) COVID-19 Vacci ne (#1) [facility] Start: 07-06-2021 FUV, Provider: Sweetie West, Status: Pen, Time: 11:30 AM FUV, Provider: Sweetie West, Status: Pen, Time: 11:30 AM [facility] Work Phone: Start: 04-27-2021 FUV, Provider: Sweetie West, Status: Pen, Time: 10:15 AM FUV, Provider: Sweetie West, Status: Pen, Time: 10:15 [facility] Work Phone: Start: 11-02-2020 Tetanus vaccination Tetanus: Every 1 0yrs [facility] Start: 02-14-2020 End: 02-14-2020 Procedure visit 02/14/2020 Procedure visit Neurology RasmussenAndreia MD [facility] [place] [phone] [facility] Start: 01-13-2020 End: 01-13-2021 Electromyography EMG: Neurology Routine Neuropraxia of right upper extremity, initial encounter Expected: 01/13/2020, Expires: 01/13/2021 [facility] Comment on above: Expected: 01/13/2020 , Expires: 01/13/2021 Start: 12-17-2019 Influenza vaccinatio n given Sequential Influenza Vaccine (#1) [facility] Start: 2019 Screening for malign ant neoplasm of cervix [facility] Start: 2016 Diabetes mellitus screening Diabetes Screening [facility] Start: 2016 Hepatitis C antibody , confirmatory test Hepatitis C Screening [facility] Start: 2016 Hepatitis C screening Hepatitis C Sc reening [facility] Start: 2013 HIV screening HIV Screening [facility] Start: 2012 PEDS TO ADULT TRANSI TION ANNUAL ASSESSMENT PEDS TO ADULT TRANSITION ANNUAL ASSESSMENT [facility] Start: 2010 Adolescent depressio n screening assessment Depression Screening (PHQ9) [facility] Start: 2010 PEDS TO ADULT TRANSI TION INITIAL DISCUSSION PEDS TO ADULT TRANSITION INITIAL DISCUSSION [facility] Start: 2001 History and physical examination, annual for health maintenance Wellness Visit [facility] Start: 1998 COVID-19 Vaccine (#1) COVID-19 Vacci ne (#1) [facility] Start: 1998 HIV screening HIV Screening [facility] Start: 1998 Lipid panel Lipid Panel [facility] Start: 1998 Screening for Chlamy sam trachomatis Chlamydia Screening [facility] Start: 1998 Screening for malign ant neoplasm of cervix Pap Smear [facility] Start: 1998 Yearly Adult Physical Yearly Adult P hysical [facility] PAP FLUID CERVICAL SCREENING PAP FLUID CERVICAL SCREENING Lab Routine Encounter for gynecological examination with abnormal finding Encounter for screening for malignant neoplasm of cervix Ordered: 04/29/2022 [facility] Work Phone: Comment on above: Ordered: 04/29/2022 Patient Education Coronavirus Di sease 2019 (COVID-19): Overview Coronavirus Disease 2019 (COVID-19): Caring for Yourself or Others [facility] Work Phone: Patient referral [facility] Work Phone: Streptococcus agalac tiae [Presence] in Unspecified specimen by Organism specific culture [facility] Streptococcus agalac tiae [Presence] in Unspecified specimen by Organism specific culture [facility] Ultrasound scan for growth [facility] End: 08-21-2024 US for in second or third trimester [facility] Service Area Work Phone: Comment on above: Once for 1 Occurrenc es starting 08/21/2024 until 08/21/2024 [facility] Work Phone: [facility] NEGATED: Highlighted row has been ruled out! Planned Goals not documented [facility] 300 Work Phone: Immunizations Immunization Date Immunization Notes Care Provider Trisha mathis 12-09-2024 tetanus toxoid, redu rafael diphtheria toxoid, and acellular pertussis vaccine, adsorbed Dr. Annette Frey MD Work Phone: [facility] 01-08-2024 influenza virus vaccine, unspecified formulation Annette Frey MD Work Phone: [facility] Work Phone: 06-26-2023 influenza virus vaccine, unspecified formulation Annette Frey MD Work Phone: [facility] Work Phone: 07-14-2021 Comirnaty 30 MCG/0.3 ML Intramuscular Suspension Kasia Rodriguez Work Phone: [facility] Work Phone: 06-23-2021 Comirnaty 30 MCG/0.3 ML Intramuscular Suspension Kasia Rodriguez Work Phone: [facility] Work Phone: 06-23-2021 influenza, injectabl e, quadrivalent, preservative free Kasia Rodriguez Work Phone: [facility] Work Phone: 06-23-2021 influenza virus vaccine, unspecified formulation Naren Law II OD Work Phone: [facility] 11-04-2020 tetanus toxoid, redu rafael diphtheria toxoid, and acellular pertussis vaccine, adsorbed Kasia Rodriguez Work Phone: [facility] Work Phone: 02-26-2020 influenza, injectabl e, quadrivalent, contains preservative Kasia Rodriguez Work Phone: [facility] Work Phone: 02-26-2020 influenza virus vaccine, unspecified formulation Annette Frey MD Work Phone: [facility] Work Phone: 11-17-2014 meningococcal polysaccharide (groups A, C, Y and W-135) diphtheria toxoid conjugate vaccine (MCV4P) Kasia Rodriguez Work Phone: [facility] 01-17-2014 influenza, injectabl e, quadrivalent, preservative free Kasia Rodriguez Work Phone: [facility] 11-05-2012 human papilloma viru s vaccine, quadrivalent Anmol Collier MD Work Phone: [facility] 02-14-2012 human papilloma viru s vaccine, quadrivalent Anmol Collier MD Work Phone: [facility] 11-04-2011 human papilloma viru s vaccine, quadrivalent Anmol Collier MD Work Phone: [facility] 11-02-2010 Meningococcal, MCV4, unspecified conjugate formulation(groups A, C, Y and W-135) Anmol Collier MD Work Phone: [facility] 11-02-2010 tetanus toxoid, redu rafael diphtheria toxoid, and acellular pertussis vaccine, adsorbed Anmol Collier MD Work Phone: [facility] 11-02-2010 varicella virus vaccine Anmol Collier MD Work Phone: [facility] 12-15-2003 diphtheria, tetanus toxoids and acellular pertussis vaccine Anmol Collier MD Work Phone: [facility] 12-15-2003 measles, mumps and rubella virus vaccine Anmol Collier MD Work Phone: [facility] 12-15-2003 trivalent poliovirus vaccine, live, oral Anmol Collier MD Work Phone: [facility] 01-12-2000 diphtheria, tetanus toxoids and acellular pertussis vaccine Anmol Collier MD Work Phone: [facility] 09-03-1999 haemophilus influenz ae type b vaccine, HbOC conjugate Anmol Collier MD Work Phone: [facility] 09-03-1999 measles, mumps and rubella virus vaccine Anmol Collier MD Work Phone: [facility] 06-30-1999 varicella virus vaccine Anmol Collier MD Work Phone: [facility] 02-10-1999 hepatitis B vaccine, pediatric or pediatric/adolescent dosage Anmol Collier MD Work Phone: [facility] 1998 diphtheria, tetanus toxoids and acellular pertussis vaccine Anmol Collier MD Work Phone: [facility] 1998 haemophilus influenz ae type b vaccine, HbOC conjugate Anmol Collier MD Work Phone: [facility] 1998 trivalent poliovirus vaccine, live, oral Anmol Collier MD Work Phone: [facility] 1998 diphtheria, tetanus toxoids and acellular pertussis vaccine Anmol Collier MD Work Phone: [facility] 1998 haemophilus influenz ae type b vaccine, HbOC conjugate Anmol Collier MD Work Phone: [facility] 1998 hepatitis B vaccine, pediatric or pediatric/adolescent dosage Anmol Collier MD Work Phone: [facility] 1998 trivalent poliovirus vaccine, live, oral Anmol Collier MD Work Phone: [facility] 1998 diphtheria, tetanus toxoids and acellular pertussis vaccine Anmol Collier MD Work Phone: [facility] 1998 diphtheria, tetanus toxoids and acellular pertussis vaccine, unspecified formulation Kasia Rodriguez Work Phone: [facility] Work Phone: 1998 haemophilus influenz ae type b vaccine, conjugate unspecified formulation Kasia Rodriguez Work Phone: [facility] Work Phone: 1998 haemophilus influenz ae type b vaccine, HbOC conjugate Anmol Collier MD Work Phone: [facility] 1998 hepatitis B vaccine, pediatric or pediatric/adolescent dosage Kasia Rodriguez Work Phone: [facility] 1998 poliovirus vaccine, unspecified formulation Kasia Rodriguez Work Phone: [facility] Work Phone: 1998 trivalent poliovirus vaccine, live, oral Anmol Collier MD Work Phone: [facility] 1998 hepatitis B vaccine, pediatric or pediatric/adolescent dosage Kasia Rodriguez Work Phone: [facility] Work Phone: Payers Date Payer Category Payer Medicaid [id number] 2024 Managed Care (Private) 1.2.8 [id number] 2024 Self-pay 2023 [employer] [place] Managed Care [facility] [id number] 2023 Unknown [id number] 2019 Worker's Compensation WORKER'S C OMP Unified Inbox [id number] 2019-Present [id number] 2016 Unknown [employer] BCBS OUT OF STATE [facility] xxxxxxxxxxxxxxx 2016-Present [id number] .[id number] 2008 Unknown 1998 Unknown [id number] 2.16.840.1.676588.3.579.2 .902 1998 Unknown [id number] 2.16.840.1.171321.3.579.2 .1069 1998 Unknown [id number] 2.16.840.1.850203.3.579.2 .1245 1998 Unknown [id number] 2.16.840.1.483084.3.579.2 .1244 1998 Unknown [id number] 2.16.840.1.418111.3.579.2 .903 1998 Unknown [id number] 2.16.840.1.014231.3.579.2 .1242 1998 Unknown [id number] 2.16.840.1.628400.3.579.2 .1243 1998 Unknown [id number] 2.16.840.1.406440.3.579.2 .3 1998 Unknown [id number] 2.16.840.1.460951.3.579.2 .1243 1998 Unknown [id number] 2.16.840.1.522531.3.579.2 .1243 1998 Unknown [id number] 2.16.840.1.913061.3.579.2 .124 1998 Unknown [id number] 2.16.840.1.918566.3.579.2 .1243 1998 Unknown [id number] 2.16.840.1.959896.3.579.2 .1244 1998 Unknown [id number] 2.16.840.1.318065.3.579.2 .124 1998 Unknown [id number] 2.16.840.1.129323.3.579.2 .1244 1998 Unknown [id number] 2.16.840.1.028822.3.579.2 .124 1998 Unknown [id number] 2.16.840.1.656112.3.579.2 .124 1998 Unknown [id number] 2.840.1.886735.3.579.2 .1243 1998 Unknown [id number] 2.16840.1.711114.3.579.2 .1243 1998 Unknown [id number] 2.840.1.789375.3.579.2 .1243 1998 Unknown [id number] 2.840.1.914768.3.579.2 .1244 Unknown [id number] Unknown [id number] Unknown [id number] 2.840.1.971915.3.579.2 .462 Unknown [id number] 840.1.264736.3.579.2 .462 Unknown [id number] 840.1.573308.3.579.2 .462 Unknown [id number] 840.1.239522.3.579.2 .462 Unknown [id number] 840.1.543667.3.579.2 .462 Unknown [id number] 2.840.1.784903.3.579.2 .462 Unknown [id number] 2.840.1.627732.3.579.2 .462 Unknown [id number] 2.840.1.188179.3.579.2 .462 Unknown [id number] 2.840.1.654242.3.579.2 .462 Unknown [id number] 2840.1.986325.3.579.2 .462 Unknown [id number] 2.16.840.1.664735.3.579.2 .462 Unknown [id number] 2.16.840.1.727347.3.579.2 .462 Social History Date Type Detail Facility Assertion Tobacco smoking consumption unknown (finding) [facility] Work Phone: Start: 02-14-2020 End: 12-05-2024 Tobacco smoking status NHIS Never smoker [facility] Start: 02-14-2020 End: 08-17-2022 Tobacco use and exposure Never used [facility] Start: 02-14-2020 End: 08-21-2024 Alcohol intake Ex-drinker (finding) [facility] Start: 10-12-2019 End: 08-17-2022 Alcohol Comment socially [facility] Start: 1998 Sex Assigned At Not on file [facility] Start: 08-07-2022 End: 08-21-2024 Exposure to SARS-CoV-2 (event) Not sure [facility] Start: 10-12-2019 End: 05-27-2024 Alcohol intake Current drinker of alcohol (finding) [facility] Start: 08-17-2022 End: 06-24-2024 Non-smoker Non-smoker [facility] Work Phone: Start: 02-26-2020 End: 06-23-2020 History SDOH Alcohol Frequency 2 [facility] Start: 10-17-2019 End: 02-26-2020 History SDOH Alcohol Std Drinks 3 [facility] Start: 03-21-2019 History SDOH Social Connections Phone 5 [facility] Start: 03-21-2019 End: 06-23-2020 History SDOH Social Connections Membership 1 [facility] Start: 10-17-2019 History SDOH Social Connections Living 7 [facility] Start: 10-17-2019 End: 02-26-2020 History SDOH Physical Activity MPS 4 [facility] Start: 03-21-2019 Education 16 [facility] Start: 04-09-2020 Alcohol Comment occ. [facility] Start: 1998 Sex Assigned At Female [facility] Start: 08-17-2022 End: 06-24-2024 Tobacco use panel [facility] Work Phone: Tobacco smoking consumption unknown [facility] Frequency of Communication with Friends and Family Not on file [facility] How often to you hav e a drink containing alcohol? Monthly or less [facility] Work Phone: How many standard dr inks containing alcohol do you have on a typical day? 5 or 6 [facility] Work Phone: How often do you hav e 6 or more drinks on 1 occasion? Less than monthly [facility] Work Phone: How hard is it for y ou to pay for the very basics like food, housing, medical care, and heating Somewhat hard [facility] Do you feel stress - tense, restless, nervous, or anxious, or unable to sleep at night because your mind is troubled all the time - these days [OSQ] Rather much [facility] (I/We) worried wheth er (my/our) food would run out before (I/we) got money to buy more. Never true [facility] In the past 12 month s, was there a time when you were not able to pay the mortgage or rent on time? Yes [facility] At any time in the p ast 12 months, were you homeless or living in alf [including now]? No [facility] Start: 10-31-2018 Gender identity Identifies as female gender (finding) [facility] Start: 10-31-2018 Sexual orientation Heterosexual (finding) [facility] Start: 09-19-2023 Alcohol Comment Socially [facility] Work Phone: Start: 07-09-2024 Sex Female (finding) [facility] The thought of harmi ng myself has occurred to me Never [facility] Work Phone: Start: 04-23-2024 [facility] Work Phone: Functional Status Date Assessment Result Facility NEGATED: Highlighted row Functional performance Functional status health issues are not documented Disease [facility] 300 Work Phone: Mental Status Date Assessment Result Facility 07-09-2024 Cognitive function Voice/Name [facility] Work Phone: NEGATED: Highlighted row Cognitive function [Interpretation] Cognitive status health issues are not documented Disease [facility] 300 Work Phone: Clinical Notes 03-27-2019 to 01-01-2025 Note Date & Type Note Facility 01-01-2025 Progress note [facility] 12-25-2024 Progress note [facility] 12-19-2024 Progress note [facility] 12-19-2024 Progress note Note Date/Time December 19, 2024 3:34pm [facility] [address], [address] [place] [address] OFFICE VISIT Date of Service: 12/19/24 MR#: [id number] Acct: [id number] Name: CHAPARRITA FLOYD Rep #: [id number] : 2000 Provider: Dr. 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 Dam Operator Required: No Is patient in pain?: No [...] mg-folate no.1 1 mg-dha 300 mg capsule (PNV-[place]) Last Menstrual Period: 04/07/24 Zika: Zika virus screening: Negative : No PFSH PFSH Medical History Migraines Surgical History [place] teeth extracted Family History Father Heart disease [...] 5-6 times per week duration: 45-60 minutes/day montserrat/quaker: None seatbelt use: always do you feel safe at home: Yes 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 good fm. LARC today. NOB [...] DO> Date _ Aleksandra Vande Velde DO [facility] Signature: Date (if applicable) CC: ~ [facility] Work Phone: 1(441) 151-312608-25-2025 Evaluation note* Diagnosis Onset Date Resolution Status [...] of high-risk acute December 19, 025 2:53pm [facility] Work Phone: 1(649) 783-219608-25-2025 Evaluation note* Diagnosis Onset Date Resolution Status [...] of high-risk acute December 25, 2024 1:18pm [facility] Work Phone: 1(661) 738-377108-25-2025 Evaluation note* Diagnosis Onset Date Resolution Status [...] of high-risk acute January 01, 2025 10:53am [facility] Work Phone: 1(309) 234-991308-25-2025 Progress [facility] [address] [place] [address], [address] [place] [address] OFFICE VISIT Date of Service: 12/09/24 MR#: [id number] Acct: [id number] Name: CHAPARRITA FLOYD Rep #: [id number] : 2000 Provider: СВЕТЛАНА Christianson Age/Sex: 24/F Location: [facility] Status: Signed Intake Vital Signs 07/09/24 18:20 12/02/24 13:44 12/09/24 13:08 Height 5 ft 7 in 5 ft 7 in 5 ft 7 in Weight: 271 lb 6 oz BMI 42.5 BP 118/83 H Intake Visit Reasons: *NEW* SAIRA 30wk NOB JOSE 02/11 Chief Complaint: New OB 35wks Lock And Dam Operator Required: No Is patient in pain?: No [...] mg-folate no.1 1 mg-dha 300 mg capsule (PNV-[place]) Last Menstrual Period: 04/07/24 : No PFSH PFSH Medical History Migraines Surgical History [place] teeth extracted Family History Father Heart disease [...] 5-6 times per week duration: 45-60 minutes/day montserrat/quaker: None seatbelt use: always do you feel safe at home: Yes additional social history: 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 good fm. LARC today. NOB [...] Pulmonary (e.g.,TB,Asthma), Seasonal allergies, Drug/latex allergies/reactions, Breast, Solution Advisor surgery, Anesthetic complications, History of abnormal pap, [...] Cosigner Signature: Date (if applicable) CC: ~ [facility]05-02-2025 History of Present illness Narrative* [...] Primary Annette Frey MD documented in this [facility] Work Phone: 1(183) 727-571605-02-2025 Instructions* Patient Instructions* Annette Frey MD - 08/16/2024 1:00 PM EDT Continue current medications. Follow up with specialists as scheduled. Follow up in 1 year, sooner if needed. documented in this [facility] Work Phone: 1(667) 544-863403-25-2025 Radiology Diagnostic study note [facility] Imaging Services [address] [place] [address] Chest PA and Lateral MR#: [id number] Acct: [id number] Name: CHAPARRITA FLOYD Rep #: [id number] : 2000 F 24 From: Skyler Sepulveda DO PCP: Dr. Annette Frey MD Status: REG ER Study:Chest PA and Lateral Date of Exam: 07/09/24 Exam# [id number] Ordering Dr: Keaton Martin DO EXAM: Two-view [...] acute cardiopulmonary process identified radiographically. Reading Location: [id number] CC: Dr. Keaton Driver DO; Dr. 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 Historical ProviderMD Active escitalopram (Lexapro) 10 mg tablet [id number] Take 1 tablet by mouth once daily Annette Frey MD Active hydrOXYzine HCL (Atarax) 25 mg tablet [id number] Take 1 tablet (25 mg) by mouth every 8 hours if needed for itching. Patient not taking: Reported on 05/09/2024 Annette Frey MD Active magnesium, amino acid chelate, 133 mg tablet [id number] Take 1 tablet (133 mg) by mouth 2 times a day. Historical ProviderMD Active multivitamin tablet [id number] Take 1 tablet by mouth once daily. Historical ProviderMD Active ondansetron ODT (Zofran-ODT) 8 mg disintegrating tablet [id number] No Take 1 tablet (8 mg) by mouth every 8 hours if needed for nausea or vomiting. Patient not taking: Reported on 02/23/2024 Annette Frey MD Not Taking Active predniSONE (Deltasone) 10 mg tablet [id number] 6,5,4,3,2,1 Patient not taking: Reported on 02/23/2024 Annette Frey MD Active no115/iron/folic acid ( 19 ORAL) [id number] Take by mouth. Historical Provider, Active BP 118/72 Ht 1.702 m (5' 7) Wt 108 kg (237 lb 6.4 oz) LMP 04/09/2024 (Exact Date) BMI 37.18 kg/m PHYSICAL EXAMINATION: Aeronautical Test Engineer present for exam: Aleksandra Roque LPN Well-developed, [...] visit, cultures and labs. documented in this [facility] Work Phone: 1([phone]) 855-428701-23-2025 History of Present illness Narrative* Dago Perez, KALANI-CNM, DEPARTMENT OPERATIONS MANAGER-MANAGER SOCIAL MEDIA, DNP - 05/09/2024 2:00 PM EST Subjective [...] DNP 05/09/24 2:41 PM documented in this [facility] Work Phone: 1([phone]) 299-275011-08-2024 History of Present illness Narrative* MAYTE Carl - 02/23/2024 5:30 PM EST [facility] MAYTE Carl Visit [...] strength, no joint tenderness or swelling. Integumentary: [place], warm, dry. No rashes appreciated. Neurologic: Alert, [...] in , etc. Should follow up with PCP/GAME FARM SUPERVISOR next week, especially if follow up testis positive. Order for serum Hcg also entered. Patient stated understanding and agrees to follow upwith PCP/GAME FARM SUPERVISOR next week, or to seek care sooner for any red flags or concerns; no questions/concernsverbalized. MAYTE Carl Advanced Practice Provider [facility] documented in this [facility] Work Phone: 1([phone]) 484-168009-16-2024 NotePt was not seen by provider due to provider being called for delivery. No charge visit. AUTHENTICATED BY KEILA BRADY, ON 01/01/2024 14:34:35[facility]08-27-2024 History of Present illness Narrative* Judith Goldberg [...] hydrOXYzine HCL (Atarax) 25 mg tablet [facility]nette Fery [facility]: 1(351) 492-652008-27-2024 Instructions* Patient Instructions* Annette Frey MD - 12/12/2023 4:40 PM EDT Follow up if no improvement or if she worsens. [facility]: 1([phone]) 391-431806-25-2024 History of Present illness Narrative* Judith Goldberg [...] tablet Annette Frey MD [facility]: 1([phone]) 257-887406-25-2024 Instructions* Patient Instructions* Annette Frey MD - 10/10/2023 11:40 AM EDT Discussed that her symptoms may be due to the sunburn/dehydration or she may have picked up a viralillness. Either way we will treat symptomatically with antinausea medication and encourage fluids and follow up if no improvement or if she worsens. [facility] Work Phone: 1(152) 251-907306-04-2024 History of Present illness Narrative* Judith Goldberg [...] tablet Annette Frey MD documented in this [facility] Work Phone: 1([phone]) 436-219406-04-2024 Instructions* Patient Instructions* Annette Frey MD - 09/19/2023 10:20 AM EDT Will decrease topamax to once a day at bedtime for 1-2 weeks then stop. Continue lexapro. She is taking a vitamin. Will plan on follow up here in 6 months. [facility] Work Phone: 1(313) 905-550603-01-2024 NoteHNO ID: [id number] Author: NAREN LAW II, OD Service: ? Author Type: GIS MAPPING TECHNICIAN Type: Progress Notes Filed: 06/16/2023 13:54 Note [...] and agree with all of its relevant components.[facility]03-01-2024 Instructions* Patient Instructions* Naren Law II, MARISELA [...] of its relevant components. [facility] History of Present illness Narrative* aNren Law II, OD - 06/16/2023 1:51 PM [...] of its relevant components. 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 She has been on [...] Established Annette Frey MD [facility] Phone: [phone] Instructions* Patient Instructions* Annette Frey MD - 05/02/2023 3:00 PM EST Will start lexapro. Follow up in 3 weeks, sooner if needed. [facility] Work Phone: [phone] 520-301812-05-2023 History of Present illness Narrative* Judith Goldberg [...] Established Annette Frey MD [facility] Work Phone: [phone] 576-454912-05-2023 Instructions* Patient Instructions* Annette Frey MD - 03/21/2023 9:00 AM EST Continue current medications. Follow up in 6 months, sooner if needed. [facility] Work Phone: [phone]) 304-468911-01-2023 History of Present illness Narrative* Judith Goldberg [...] tablet Annette Frey MD [facility] in [facility] Work Phone: [phone] 739-523411-01-2023 Instructions* Patient Instructions* Annette Frey MD - 02/15/2023 9:00 AM EDT Will check labs, decrease topamax to 50 mg bid. Follow up in 2 weeks, sooner if needed. 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 Check labs. Follow up in 6 months, sooner if needed based on results. documented in this [facility]Day[facility] Work Phone: [phone] 374-505402-23-2023 Instructions* Patient Instructions* Moon Law OD - 06/09/2022 11:39 AM EST ASSESSMENT/PLAN: 1. Myopia, right - ICD9: 367.1, ICD10: H52.11 (primary diagnosis) 2. Hyperopia, left - ICD9: 367.0, ICD10: H52.02 3. 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 Recommended yearly exams. documented in [facility] encounter[facility] History of Present illness Narrative* Moon Law, [...] as obtained by others. documented in this encounterJoint [facility]23 History of Present illness Narrative* Anmol Collier MD - 04/29/2022 3:13 PM EST Chaparrita Floyd is a 21 year old No obstetric history on file. who presents for her annual gynecologic exam. Patient's last menstrual period was 04/09/2022 (approximate). Solution Advisor concerns declines Cx. PAST MEDICAL HISTORY Diagnosis [...] HPV ordered. Reviewed and encouraged self-breast exam. 9014-9131 mg of calcium daily. Encourged a healthy diet and exercise. Return to office in one year or earlier as needed. Anmol Collier MD documented in this encounterJoint [facility]22 History of Present illness Narrative* This is [...] INJECTIONS: No * EMG/NCS: Yes at OSH ([facility]) , Feb 2020, reportedly normal * Addendum 11/24/2020: EMG report received from [facility] physician group neurology in [facility]. Report dated 02/14/2020 and will be scanned [...] fix it. * SH: * Lives in: [place] * Lives with: Dad and mom * [...] spasms, joint pain, back pain, anxiety [facility] Work Phone: [phone] History of Present illness Narrative* This is [...] INJECTIONS: No * EMG/NCS: Yes at OSH ([facility]) , Feb 2020, reportedly normal * Addendum 11/24/2020: EMG report received from [facility] physician group neurology in [facility]. Report dated 02/14/2020 and will be scanned [...] fix it. * SH: * Lives in: [place] * Lives with: Dad and mom * [...] muscle spasms, joint pain, back pain, anxiety [facility] Work Phone: [phone]) 518-414308-02-2021 History of Present illness Narrative* This is a pleasant 20-year-old generally healthy right-handed woman who presents for follow-up of right arm pain and weakness. * An MRI of the brachial plexus and EMG of the right upper extremity After Worker's Comp. finally approve these studies (her award clerk worked hard on that, these were done [...] ever since, while she has been battling WorkerVideoflowsComp. to try to get things approved. * [...] INJECTIONS: No * EMG/NCS: Yes at OSH ([facility]) , Feb 2020, reportedly normal * Addendum 11/24/2020: EMG report received from [facility] physician group neurology in [facility]. Report dated 02/14/2020 and will be scanned [...] fix it. * SH: * Lives in: [place] * Lives with: Dad and mom * Occupation: None * Tobacco: No * Alcohol: Rarely * Drugs: No * * ROS: The patient denies any bowel or bladder incontinence/accidents, night sweats, fevers, chills, recent significant weight loss. A 14 point review of systems was reviewed with the patient and is asabove and otherwise negative. ROS questionnaire negative except for pain. [facility] Work Phone: [phone] History of Present illness Narrative* Dear Dr. [...] INJECTIONS: No * EMG/NCS: Yes at OSH ([facility]) , Feb 2020, reportedly normal * IMAGING: [...] fix it. * SH: * Lives in: [place] * Lives with: Dad and mom * Occupation: None * Tobacco: No * Alcohol: Rarely * Drugs: No * ROS: The patient denies any bowel or bladder incontinence/accidents, night sweats, fevers, chills, recent significant weight loss. A 14 point review of systems was reviewed with the patient and is asabove and otherwise negative. Please see scanned questionnaire for more details. [facility] Work Phone: [phone] History of Present illness Narrative* Dear Dr. [...] INJECTIONS: No * EMG/NCS: Yes at OSH ([facility]) , Feb 2020, reportedly normal * IMAGING: [...] fix it. * SH: * Lives in: [place] * Lives with: Dad and mom * Occupation: None * Tobacco: No * Alcohol: Rarely * Drugs: No * ROS: The patient denies any bowel or bladder incontinence/accidents, night sweats, fevers, chills, recent significant weight loss. A 14 point review of systems was reviewed with the patient and is asabove and otherwise negative. Please see scanned questionnaire for more details. [facility] Work Phone: [phone] History of Past illness Narrative* Problem Noted Date Resolved Date Weight gain 03/27/2019 02/27/2020 Blurred vision, bilateral 02/19/20162019 Photophobia of both eyes 02/19/2016 020 Keratosis pilaris 11/04/2011 02/27/2020 documented as of this encounter (statuses as of 04/29/2022) [facility] History of Past illness Narrative* Problem Noted Date Resolved Date Weight gain 03/27/2019 02/27/2020 Blurred vision, bilateral 02/19/20162019 Photophobia of both eyes 02/19/2016 020 Keratosis pilaris 11/04/2011 02/27/2020 documented as of this encounter (statuses as of 06/09/2022) [facility] History of Past illness Narrative* Problem Noted Date Diagnosed Date Resolved Date Weight gain 03/27/2019 02/27/2020 Blurred vision, bilateral 02/19/2016 Photophobia of both eyes 02/19/201603/2020 Keratosis pilaris 11/04/2011 02/27/2020 documented as of this encounter (statuses as of 06/16/2023) [facility] note* Diagnosis Encounter for gynecological examination with abnormal finding- Primary Routine gynecological examination Encounter for screening for malignant neoplasm of cervix Screening for malignant neoplasm of the cervix documented in this encounter [facility] note* Diagnosis Myopia, right- Primary Hyperopia, left Regular astigmatism, bilateral documented in this encounter [facility] note* Diagnosis Migraine without aura and without status migrainosus, not intractable- Primary Other fatigue Healthcare maintenance Migraine without aura and without status migrainosus, not intractable Other fatigue Healthcare maintenance [facility] Work Phone: Evaluation note* Diagnosis Fatigue, unspecified type- Primary Migraine without aura and without status migrainosus, not intractable Healthcare maintenance documented in this encounter [facility] Work Phone: [phone] note* Diagnosis Migraine without aura and without status migrainosus, not intractable- Primary documented in this encounter [facility] Work Phone: [phone] note* Diagnosis Anxiety- Primary Anxiety state, unspecified documented in this encounter [facility] Work Phone: [phone] note* Diagnosis Healthcare maintenance- Primary Anxiety Anxiety state, unspecified documented in this encounter [facility] Work Phone: [phone] note* Diagnosis Migraine without aura and without status migrainosus, not intractable Anxiety Anxiety state, unspecified documented in this encounter [facility] Work Phone: [phone] note* Diagnosis Amenorrhea- Primary Absence of menstruation documented in this encounter [facility] Work Phone: [phone] note* Diagnosis Nausea and vomiting, unspecified vomiting type- Primary documented in this encounter [facility] Work Phone: [phone] note* Diagnosis Urticaria- Primary Unspecified urticaria documented in this encounter [facility] Work Phone: [phone] note* Diagnosis Missed menses- Primary test positive ([facility]) examination or test, positive result documented in this encounter [facility] Work Phone: [phone] note* Diagnosis Amenorrhea- Primary Absence of menstruation documented in this encounter [facility] Work Phone: Evaluozxnd noteNo assessment information available [facility] Work Phone: Evaluation note* Diagnosis Healthcare maintenance- Primary documented in this encounter [facility] Work Phone: Evaluation note* Diagnosis 14 weeks gestation of ([facility]) documented in this encounter [facility] Work Phone: E[employer]ses[employer] note* Diagnosis Onset Date Resolution Status Admit Date Anxiety acute December 09, 025 1:03pm Bleeding in early acute December 09, 2024 1:03pm COVID acute December 09 025 1:03pm History of miscarriage, currently acute December 09, 2024 1:03pm Obesity affecting acute December 09, 2024 1:03pm acute December 09 1:03pm Supervision of high-risk acute December 09 1:03pm [facility] Work Phone: Hospital Discharge instructions Additional Instructions Return back to the ED if symptoms change or worsen. Follow-up with your AUDIOLOGY DIRECTOR and PCP. Zofran as needed for nausea. No Zofran for 8 hours as you received antinausea medication here. Starting tomorrow start taking 81 mg of aspirin daily for your COVID-recommendation by your AUDIOLOGY DIRECTOR. Follow-up with AUDIOLOGY DIRECTOR to see if you should continue this throughout your entire . You had bacteria in your urine given that you are . You will be placed on antibiotics to prevent UTI. Follow-up with AUDIOLOGY DIRECTOR for this.[facility] Work Phone: Progress note Author Marcia Christianson [facility] Note Date/Time December 09, 2024 1: 44pm [facility] [address] [place] [address], [address] [place] [address] OFFICE VISIT Date of Service: 12/09/24 MR#: [id number] Acct: [id number] Name: CHAPARRITA FLOYDLE Rep #: [id number] : 2000 Provider: СВЕТЛАНА Christianson Age/Sex: 24/F Location[place] [facility] [place] Status: Signed Intake Vital Signs 07/09/24 18:20 12/02/24 13:44 12/09/24 13:08 Height 5 ft 7 in 5 ft 7 in 5 ft 7 in Weight: 271 lb 6 oz BMI 42.5 BP 118/83 H Intake Visit Reasons: *NEW* SAIRA 30wk NOB JOSE 02/11 Chief Complaint: New OB 35wks Lock And Dam Operator Required: No Is patient in pain?: No [...] mg-folate no.1 1 mg-dha 300 mg capsule (PNV-[place]) Last Menstrual Period: 04/07/24 : No PFSH PFSH Medical History Migraines Surgical History [place] teeth extracted Family History Father Heart disease [...] 5-6 times per week duration: 45-60 minutes/day montserrat/quaker: None seatbelt use: always do you feel safe at home: Yes additional social history: BF 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 good fm. LARC today. NOB [...] Pulmonary (e.g.,TB,Asthma), Seasonal allergies, Drug/latex allergies/reactions, Breast, Solution Advisor surgery, Anesthetic complications, History of abnormal pap, [...] this visit. GA appropriate handout given. 12/09/24 3064 <Electronically signed by Marcia tang CNM> Date _ Marcia Christianson CNM Cosigner Signature: Date (if applicable) CC: ~ [facility] Work Phone: Progress note Author Marcia Sammy [facility] Note Date/Time December 25, 2024 1:42pm [facility] [address] [place] [address], [address] [place] [address] OFFICE VISIT Date of Service: 12/25/24 MR#: [id number] Acct: [id number] Name: CHAPARRITA FLOYD Rep #: [id number] : 2000 Provider: СВЕТЛАНА Christianson Age/Sex: 24/F Location: [facility] [place] Status: Signed Intake Vital Signs 12/09/24 13:08 12/19/24 14:57 12/25/24 13:21 Height 5 ft 7 in 5 ft 7 in 5 ft 7 in Weight: 278 lb 6 oz BMI 43.6 BP 131/84 H Intake Visit Reasons: 37 WK OB Chief Complaint: 37wk OB Lock And Dam Operator Required: No Is patient in pain?: No [...] mg-folate no.1 1 mg-dha 300 mg capsule (PNV-[place]) Last Menstrual Period: 04/07/24 : No PFSH PFSH Medical History Migraines Surgical History [place] teeth extracted Family History Father Heart disease [...] 5-6 times per week duration: 45-60 minutes/day montserrat/quaker: None seatbelt use: always do you feel safe at home: Yes additional social history: BF Umberto Calderon 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 Date Name GA/Weeks Outcome Route Bth Weight Infant [facility] 02/2024 Miscarriage [...] 33 -?-?-?-?-?-?-?-?-?-?-?-?- KW- Transfer of care from [place] no vb/lof/ctx. good fm. LARC today. NOB [...] Cosigner Signature: Date (if applicable) CC: ~ [facility] Work Phone: Progress note Author Brittney Mckeon [facility] Note Date/Time January 01, 2025 11:47am [facility] [address] [place] [address], [address] [place] [address] OFFICE VISIT Date of Service: 01/01/25 MR#: [id number] Acct: [id number] Name: CHAPARRITA FLOYD Rep #: [id number] : 2000 Provider: Dr. Larry Mckeon MD Age/Sex: 24/F Location: [facility] [place] Status: Signed Intake Vital Signs 12/09/24 13:08 12/19/24 14:57 12/25/24 13:21 01/01/25 11:01 Height 5 ft 7 in 5 ft 7 in 5 ft 7 in 5 ft 7 in Weight: 278 lb 8 oz BMI 43.6 BP 134/85 H Intake Visit Reasons: 38 WK OB Lock And [employer] Operator Required: No Is patient in pain?: No [...] mg-folate no.1 1 mg-dha 300 mg capsule (PNV-[place]) Last Menstrual Period: 04/07/24 Zika: Zika virus screening: Negative : No PFSH PFSH Medical History Migraines Surgical History [place] teeth extracted Family History Father Heart disease [...] house current occupational status: employed current occupation: [email or web address] current occupational exposures/hazards: No pets and [...] 5-6 times per week duration: 45-60 minutes/day montserrat/quaker: None seatbelt use: always do you feel safe at home: Yes additional social history: BF 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 good fm. LARC today. NOB [...] Cosigner Signature: Date (if applicable) CC: ~ [facility] Work Phone: reason for referral (narrative)* Consultation (Routine) - Authorized Specialty Diagnoses / Procedures Referred By Contac t Referred To Contact Primary Care Diagnoses Migraine without aura and without status migrainosus, not intractable Procedures Follow Up In Primary Care Annette Frey MD [address] [facility] [place] [address] Referral ID Status Reason Start Date Expiration Date V isits Requested Visits Authorized [id number] Authorized 08/17/2022 02/13/2023 1 1 [facility] Work Phone: Rekjoa for referral (narrative)* Consultation (Routine) - Authorized Specialty Diagnoses / Procedures Referred By Contac t Referred To Contact Primary Care Procedures Follow Up In Primary Care - Established Annette Frey MD [address] [place] [address] Referral ID Status Reason Start Date Expiration Date V isits Requested Visits Authorized [id number] Authorized 02/15/2023 02/15/2024 1 1 * Medications - Pending Review Specialty Diagnoses / Procedures Referred By Contac t Referred To Contact Diagnoses Migraine without aura and without status migrainosus, not intractable Other fatigue Healthcare maintenance Annette Frey MD [address] [place] [address] Referral ID Status Reason Start Date Expiration Date V isits Requested Visits Authorized [id number] Pending Review 1 1 [facility] Work Phone: reason for referral (narrative)* Consultation (Routine) - Authorized Specialty Diagnoses / Procedures Referred By Contac t Referred To Contact Primary Care Diagnoses Migraine without aura and without status migrainosus, not intractable Procedures Follow Up In Primary Care - Established Annette Frey MD [address] [place] [address] Referral ID Status Reason Start Date Expiration Date V isits Requested Visits Authorized [id number] Authorized 03/21/2023 03/20/2024 1 1 [facility] Work Phone: reason for referral (narrative)* Consultation (Routine) - Authorized Specialty Diagnoses / Procedures Referred By Contac t Referred To Contact Primary Care Diagnoses Anxiety Procedures Follow Up In Primary Care - Established Annette Frey MD [address] [place] [address] Referral ID Status Reason Start Date Expiration Date V isits Requested Visits Authorized [id number] Authorized 05/02/2023 05/01/2024 1 1 [facility] Work Phone: reason for referral (narrative)* Consultation (Routine) - Authorized Specialty Diagnoses / Procedures Referred By Contac t Referred To Contact Primary Care Diagnoses Anxiety Procedures Follow Up In Primary Care - Established Annette Frey MD [address] [place] [address] Referral ID Status Reason Start Date Expiration Date V isits Requested Visits Authorized [id number] Authorized 05/23/2023 05/22/2024 1 1 [facility] Work Phone: Reason for referral (narrative)* Consultation (Routine) - Authorized Specialty Diagnoses / Procedures Referred By Contac t Referred To Contact Primary Care Procedures Follow Up In Primary Care - Established Annette Frey MD [address] [facility] [place] [address] Referral ID Status Reason Start Date Expiration Date V isits Requested Visits Authorized [id number] Authorized 09/19/2023 09/18/2024 1 1 [facility] Work Phone: Rebcvt for referral (narrative)No reason for referral information availableW[facility] Work Phone: Reason for referral (narrative)* Consultation (Routine) - Authorized Specialty Diagnoses / Procedures Referred By Blanche t Referred To Contact Primary Care Procedures Follow Up In Primary Care - Health Maintenance Annette Frey MD [address] [place] [address] Phone: tel: fax: Referral ID Status Reason Start Date Expiration Date V isits Requested Visits Authorized [id number] Authorized 08/16/2024 08/16/2025 1 1 [facility] Work Phone: Reason for visit Narrative* Consultation (Routine) - Closed Specialty Diagnoses / Procedures Referred By Blanche t Referred To Contact Primary Care Diagnoses Migraine without aura and without status migrainosus, not intractable Procedures Follow Up In Primary Care Annette Frey MD [address] [facility] [place] [address] Referral ID Status Reason Start Date Expiration Date Visits Re quested Visits Authorized [id number] Closed 08/17/2022 02/13/2023 1 1 [facility] Work Phone: reason for visit Narrative* Consultation (Routine) - Authorized Specialty Diagnoses / Procedures Referred By Blanche t Referred To Contact Primary Care Procedures Follow Up In Primary Care - Established Annette Frey MD [address] [place] [address] Referral ID Status Reason Start Date Expiration Date V isits Requested Visits Authorized [id number] Authorized 02/15/2023 02/15/2024 1 1 [facility] Work Phone: reason for visit Narrative* Consultation (Routine) - Authorized Specialty Diagnoses / Procedures Referred By Blanche t Referred To Contact Primary Care Diagnoses Anxiety Procedures Follow Up In Primary Care - Established Annette Frey MD [address] [place] [address] Referral ID Status Reason Start Date Expiration Date V isits Requested Visits Authorized [id number] Authorized 05/02/2023 05/01/2024 1 1 [facility] Work Phone: reason for visit Narrative* Consultation (Routine) - Authorized Specialty Diagnoses / Procedures Referred By Blanche t Referred To Contact Primary Care Diagnoses Migraine without aura and without status migrainosus, not intractable Procedures Follow Up In Primary Care - Established Annette Frey MD [address] [place] [address] Referral ID Status Reason Start Date Expiration Date V isits Requested Visits Authorized [id number] Authorized 03/21/2023 03/20/2024 1 1 [facility] Work Phone: reason for visit Narrative* Imaging (Routine) - Authorized Specialty Diagnoses / Procedures Referred By Blanche t Referred To Contact Radiology Diagnoses 14 weeks gestation of ([facility]) Procedures US OB 14+ weeks anatomy scan Estelita Pickens MD [address] [place] [address] [facility], [address] [place] [id number] Phone: tel: fax: Referral ID Status Reason Start Date Expiration Date Visits Requested Visits Authorized [id number] Authorized Perform Procedure 07/22/2024 07/22/2025 1 1 [facility] Work Phone: Summary Purpose Family History No [...] FoundDocuments on File Type Date Recorded 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 No July 09, 2024 6:35pm History of Present Illness * Andreia Rasmussen MD - 02/14/2020 7:51 AM EDT [facility] - Neurology [address] [place], [place] [id number] Nerve Conduction & EMG Report Patient: Chaparrita [...] Neurophysiology, Neurology, Vascular Neurology and Sleep Medicine [facility] [place] [phone] Nota bene: Portions of this chart was created using Zillow voice recognition software. Occasional wrong-word or sound-like [...] - 01/13/2020 10:43 AM EDT NEUROLOGY NOTE [facility], [place] [address] [address], [facility] second [facility] [address] Fax: [phone] Service date: 01/13/2020 Admit date: (Not on file) Chaparrita Floyd is a 19 y.o. female here for evaluation of right upper extremity numbness and weakness. 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 KEV ABRAHAM, MSc, MD. [email or web address] Staff Neurologist & Movement Disorder Specialist [facility] (Adj Asst: Professor, [facility] [employer] Dept of Neurology) [address] [facility]# [id number], [facility] [address] [facility] Fax: [phone] Blood pressure 118/75, pulse (!) 108, resp. [...] than 50% of the visit was spent [id number] counseling and or coordination of care. This note was dictated using FORMTEK, a speech-recognition software. Syntax errors and sound-alike substitutions could be present. In such instances, please use appropriate clinical context to infer the meaning. Please bring such errors to the attention of the author. documented in this encounter* Kev Abraham MD - 01/13/2020 10:43 AM EDT NEUROLOGY NOTE [facility], [place] [address] [address], [facility] second floor [place] [id number] Fax: [phone] Service date: 01/13/2020 Admit date: (Not on file) Chaparrita Floyd is a 19 y.o. female here for evaluation of right upper extremity numbness and weakness. 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 KEV ABRAHAM, MSc, MD. [email or web address] Staff Neurologist & Movement Disorder Specialist [facility] (Adj Asst: Professor, [facility] [employer] Dept of Neurology) [address] [facility] [address] [facility] Fax: [phone] Blood pressure 118/75, pulse (!) 108, resp. [...] than 50% of the visit was spent [id number] counseling and or coordination of care. This note was dictated using FORMTEK, a speech-recognition software. Syntax errors and sound-alike [...] encounter Procedures EMG: Kev Abraham MD [address] [employer] [address] [place] [address] Andreia Rasmussen MD [address] [employer] [address] [place] [address] Status Reason Specialty Diagnoses / Procedures Referred By Contact Referred To Contact Authorized Neurology Diagnoses Neuropraxia of right upper extremity, initial encounter Procedures EMG: Kev Abraham MD [address] [place] [id number] Andreia Rasmsusen MD [address] [facility] [address] [place] [id number] Instructions * Patient Instructions* Kev Abraham MD [...] sent through Care Everywhere. * Migraine Headache (Bengali) documented in this encounter Chief Complaint * Date of Injury: * 11/28/2019. * [facility] Claim Number: * [id number]. * [facility] [employer]: * [employer] * Allowed Diagnoses: * Brachial plexus injury S14.3XXA, Strain right arm S46.911A. * Brachial plexus injury. * Date of Injury: * 11/28/2019. * [facility] Claim Number: * [id number]. * [facility] [employer]: * [employer] * Allowed Diagnoses: * Brachial plexus injury S14.3XXA, Strain right arm S46.911A. * Brachial plexus injury. * Date of Injury: * 11/28/2019. * [facility] Claim Number: * [id number]. * [facility] [employer]: * [employer] * Allowed Diagnoses: * Brachial Plexus Injury S14.XXA, Strain right arm S46.911A. * Follow up on Brachial Plexus Injury. * Date of Injury: * 11/28/2019. * [facility] Claim Number: * [id number]. * [facility] [employer]: * [employer] * Allowed Diagnoses: * Brachial Plexus Injury S14.XXA, Strain right arm S46.911A. * Follow up on Brachial Plexus Injury. * Date of Injury: * 11/28/2019. * [facility] Claim Number: * [id number]. * [facility] [employer]: * [employer] * Allowed Diagnoses: * Brachial Plexus Injury S14.XXA, Strain right arm S46.911A. * Follow up on Brachial Plexus injury. * Date of Injury: * 11/28/2019. * [facility] Claim Number: * [id number]. * [facility] [employer]: * [employer] * Allowed Diagnoses: * Brachial Plexus Injury S14.XXA, Strain right arm S46.911A. * Follow up on Brachial Plexus injury. * Date of Injury: * 11/28/2019. * [facility] Claim Number: * [id number]. * [employer]: * [employer] * Allowed Diagnoses: * Brachial Plexus Injury [...] 19, 2024 2:53pm Supervision of high-risk Alex[facility] 2024 2:53pm Chief Complaint Admit Date [...] 19, 2024 2:53pm Supervision of high-risk [facility] 2024 2:53pm Anxiety December 25, 2024 1:18pm Bleeding in early December 252024 1:18pm COVID December 25, 2024 1:18pm History of miscarriage, currently pregna nt December 25, 2024 1:18pm Obesity affecting December 252024 1:18pm December 25, 2024 1:18pm Supervision of high-risk Alexei [facility] 2024 1:18pm Chief Complaint Admit Date [...] 19, 2024 2:53pm Supervision of high-risk Alexei [facility] 2024 2:53pm Bleeding in early December [...] and content) DATE CREATED AUTHOR 10/09/[address] [place] DATE CREATED AUTHOR AUTHOR'S ORGANIZ ATION 11/07/2019 [facility] DATE CREATED AUTHOR AUTHOR'S ORGANIZ ATION 05/17/2020 [facility] DATE CREATED AUTHOR AUTHOR'S ORGANIZ ATION 11/15/2021 [employer] DATE CREATED AUTHOR AUTHOR'S ORGANIZ ATION 11/14/2022 [facility] DATE CREATED AUTHOR AUTHOR'S ORGANIZ ATION 02/19/2023 [facility] DATE CREATED AUTHOR AUTHOR'S ORGANIZ ATION 06/18/2023 [facility] DATE CREATED AUTHOR AUTHOR'S ORGANIZ ATION 01/03/2024 [facility] DATE CREATED AUTHOR AUTHOR'S ORGANIZ ATION 10/01/2024 [facility] DATE CREATED AUTHOR AUTHOR'S ORGANIZ ATION 10/04/2024 [facility] DATE CREATED AUTHOR AUTHOR'S ORGANIZ ATION 11/26/2024 [facility] DATE CREATED AUTHOR AUTHOR'S ORGANIZ ATION 01/04/2025 [facility] Reason for Visit (unrecogniz ed section and content) Status Reason Specialty Diagnoses / Procedures Referre d By Contact Referred To Contact Closed Neurology Diagnoses Neuropraxia of right upper extremity, initial encounter Procedures EMG: Kev Abraham MD [address] [facility] [address] [place] [address] Andreia Rasmussen MD [address] [facility] [address] [place] [address] Reason Comments Brachial Plexus Shoulder strain She has no feeling or movement on the right arm and hand from below the shoulder for 6 weeks. She was injured on November 29. Status Reason Specialty Diagnoses / Procedures Referred By Contact Referred To Contact Closed Specialty Services Required/Patient' s Best Interest Neurology Diagnoses Strain of right shoulder, initial encounter Kasia Rodriguez PA-C [address] [place] [address] Kev Abraham MD [address] [facility] [address] [place] [address] Reason Comments Eye Problem Headache Reason Comments [...] given as ordered PCP - Nas Sanders, [phone] Chief Complaint Patient presents with Eye Problem [...] file Gets together: Not on file Attends mandaeism service: Not on file Active member of [...] Procedure Abnormality Status --------- ------ CBC Auto Differential[[id number]] Final result Please view results for these tests on the individual orders. CBC WITH AUTO DIFFERENTIAL CT Angiogram Head Neck Final Result 1. No acute intracranial abnormality. 2. Unremarkable CTA of the head and neck. No large vessel occlusion. Workstation ID: [id number] Vital Signs During ED Visit (as charted [...] completed along with the physician. Nahed Cohn CUSTOMER RELATIONS REPRESENTATIVE Nahed Cohn CNP 10/12/19 1420 Presents with complaints of seeing blackness and dark spots in peripheral vision camara. Pt states it started on lasting on [...] or prosecute any alcohol or drug abuse patient.[facility] Hospital[facility] the event this information is protected by the Federal Confidentiality of Alcohol and Drug Abuse Patient Records regulations: The Federal rules restrict any use of the information to criminally investigate or prosecute any alcohol or drug abuse patient.[facility] HospitalIn the event this information is protected by the Federal Confidentiality of Alcohol and Drug Abuse Patient Records regulations: The Federal rules restrict any use of the information to criminally investigate or prosecute any alcohol or drug abuse patient.[facility] Care Teams (unrecognized sec tion and content) [employer] Relationship Specialty Start Date End Date Billy Moore MD [address] [place] [address] PCP - General Internal Medicine 01/22/20 [employer] Relationship Specialty Start Date End Date Billy Moore MD [address] [place] [address] PCP - General Internal Medicine 01/22/20 [employer] Relationship Specialty Start Date End Date Annette Frey MD [address] [place] [address] PCP - General Family Medicine 08/17/22 [employer] Relationship Specialty Start Date End Date Annette Frey MD [address] [place] [address] [place] [address] PCP - General 11/11/22 [employer] Relationship Specialty Start Date End Date Annette Frey MD [address] [place] [address] [place] [address] PCP - General 11/11/22 [employer] Relationship Specialty Start Date End Date Annette Frey MD [address] [facility] [place] [address] PCP - General 11/11/22 Annette Frey MD [address] [facility] [place] [address] PCP - [place] [facility] PCP 12/16/22 [employer] Relationship Specialty Start Date End Date Annette Frey MD [address] [facility] [place] [address] PCP - General 11/11/22 Annette Frey MD [address] [facility] [place] [address] PCP - [place] [facility] PCP 12/16/22 [employer] Relationship Specialty Start Date End Date Annette Frey MD [facility] [place] [id number] PCP - General Family Medicine 06/16/23 [employer] Relationship Specialty Start Date End Date Annette Frey MD [address] [facility] [place] [phone] PCP - General 11/11/22 Annette Frey MD [address] [facility] [place] [address] PCP - [place] [facility] PCP 12/16/22 [employer] Relationship Specialty Start Date End Date Annette Frey MD [address] [place] [id number] PCP - General Family Medicine 02/23/24 [employer] Relationship Specialty Start Date End Date Annette Frey MD [address] [place] [id number] PCP - General 11/11/22 Annette Frey MD [address] [place] [id number] PCP - [place] [facility] PCP 12/16/22 [employer] Relationship Specialty Start Date End Date Annette Frey MD [address] [place] [address] PCP - General Family Medicine 02/23/24 Annette Frey MD [address] [place] [id number] PCP - [place] [facility] PCP 12/17/23 [employer] Relationship Specialty Start Date End Date Annette Frey MD [address] [place] [id number] PCP - General Family Medicine 02/23/24 Annette Frey MD [address] [address] PCP - [place] [facility] PCP 12/17/23 Team Status: Active Member Role Status Dates Dr. Annette Frey MD Primary Care Provider Act nadir Team Status: Inactive Member Role Status Dates Dr. Annette Frey MD Primary Care Provider Act nadir Start: July 09, 2024 End: July 09, 2024 Dr. Keaton Driver , Emergency Provider Activ e Start: July 09, 2024 End: July 09, 2024 [employer] Relationship Specialty Start Date End Date Annette Frey MD [address] [address] PCP - General Family Medicine 02/23/24 Annette Frey MD [address] [address] PCP - [place] [facility] PCP 12/17/23 Annette Frey MD [address] [address] PCP - [facility] [facility] PCP 05/18/24 [employer] Relationship Specialty Start Date End Date Annette Frey MD [address] [address] PCP - General Family Medicine 02/23/24 Annette Frey MD [address] [address] PCP - [place] [facility] PCP 12/17/23 Annette Frey MD [address] [address] PCP - [facility] PCP 05/18/24 Team [...] Team Status: Active Member Role/Relationship Status Dates [facility] Attending Provider Active Start: October 31, [...] 19, 2024 End: December 19, 2024 Dr. nAnette Frey MD Referring Provider Active Start: December [...] Team Status: Active Member Role/Relationship Status Dates [facility] Attending physician Active Start : October [...] BE BASED ON THE PRIMARY CLINICAL RECORDS. [facility]. provides no warranty or guarantee of the accuracy or completeness of information in this document.
[2025-01-05] MEDS: Lactated Ringers 1,000 ML 999 ML IV ×2 (13:10→18:20)
[2025-01-05 13:30] LABS: Hematocrit 39.4 % (37-47); Hemoglobin 13.4 g/dL (12.0-15.0); Immature Granulocytes Count 0.080 X10^3/uL (0.0-0.0); Mean Corp Hgb Conc 34.0 g/dL (32-36); Mean Corpuscular Volume 85.1 fL (81-99); Mean Platelet Vol. 9.7 fl (6.2-12.0); NRBC Flagged by Analyzer 0 % (0-5); Platelet Count 235 K/mm3 (150-450); RBC Distribution Width CV 14.3 % (11.6-14.6); RBC Distribution Width SD 43.3 fl (35.1-43.9); Red Blood Count 4.63 M/mm3 (4.2-5.4); White Blood Count 10.3 K/mm3 (4.4-11.0)
[2025-01-05] MEDS: Lactated Ringers 1,000 ML 200 ML IV ×2 (14:12→19:41)
[2025-01-05 14:18] LABS: AST(SGOT) 16 U/L (<=31); Alanine Aminotransfer ALT/SGPT 10 U/L (<=34); Estimated Creatinine Clearance 205.50 ml/min (50-250); Syphilis Antibodies Nonreactive (Nonreactive); Uric Acid 4.8 mg/dL (2.6-6.0)
[2025-01-05] MEDS: Oxytocin 15 Units/NS 250ml 15 UNITS/250 ML IV.SOLN 2 UNITS IV (15:02)
[2025-01-05 15:39] LABS: Creatinine, Urine (random) 48.70 mg/dL (28.00-217.00); Protein, Urine (Random) 10.2 mg/dL (0.0-12.0); Protein:Creat Ratio 209 mg/g CRE (0-200)
--- NOTE | 2025-01-05 17:57 | HP.PCM.OB_ITS ---
HPI - General General Date of Admission: 01/05/25 Date of Service: 01/05/25 HPI Narrative CHAPARRITA FLOYD, is a 24 F at 39.0 gestation who presents to unit for vaginal discharge. ROM positive. Maternal Data Information JOSE Calculator Estimated Delivery Date Method Current WG Current Estimate 01/12/25 LMP (Certain) 39w 0d Final JOSE: 01/12/25 Final JOSE Source: US >20 weeks Gestational age: 39.0 PFSH PFSH Medical History (Updated 01/05/25 @ 17:59 by Marcia Christianson CNM) Brachial plexus injury, left macrosomia Anxiety Migraines Home Medications ?Medication ?Instructions ?Recorded ?Last Taken ?Type escitalopram oxalate 10 mg tablet 10 mg PO DAILY 03/01 Unknown History cholecalciferol (vitamin D3) 50 2,000 unit PO QDAY Unknown History mcg (2,000 unit) capsule (Vitamin D3) aspirin 81 mg tablet 81 mg PO QDAY COVID 12/05/24 Unknown History multivit-min no.71-iron fum 28 1 cap PO DAILY pregnanc y 12/05/24 Unknown History mg-folate no.1 1 mg-dha 300 mg capsule (PNV-[place]) Allergy/AdvReac Type Severity Reaction Status Date / Time No Known Allergies Allergy Verified 01/05/25 11:46 Family History Father Heart disease Maternal Grandfather Heart disease Cancer, Onset Age: 78 Pancreatic Grandfather Heart disease Paternal Diabetes Paternal Mother Diabetes Hypertension Thyroid disorder hypothyroidism Iron deficiency anemia Fibromyalgia Uncle Diabetes Maternal Grandmother Cancer, Onset Age: 79 Paternal Bladder Maternal Grandmother Cancer, Onset Age: 78 stomach ca Surgical History [place] teeth extracted Social History adopted: No household members: significant other housing: house current occupational status: employed current occupation: [employer] current occupational exposures/hazards: No pets and animals: Yes pets and animals: dog(s) history of recent travel: No sexually active: Yes Smoking Status: Never smoker alcohol intake: current alcohol intake frequency: holidays/special occasions only details: not while substance use type: does not use well-balanced diet: daily or most days caffeine: Yes Type: coffee Number of servings: 1 eating out: rarely or never during the past year weight has: increased > 10 lbs what type of physical activity do you participate in: walking frequency: 5-6 times per week duration: 45-60 minutes/day [place]/temple: None seatbelt use: always do you feel safe at home: Yes additional social history: 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 Date Name GA/Weeks Outcome Route Bth Weight Gen Labor Lgth Anesthesia Del Locatn Provider FOB Unknown 02/2024 Miscarriage 6 spontaneous Visit Details Expected Delivery Route/Plan Labor Preferences- CB/BF classes: [] labor support person: [] labor intervention preferences: [] pain management options preferred: epidural cut cord/dad catch: [] : wants to try PP control planned: discussed possible routes of delivery and associated risks: [] special requests: [] Plans Covid status: [] Flu vaccine: [] Tdap vaccine: given Rhogam: [na LARC form signed: yes Problem list reviewed and updated with the most current plan of care details and appropriate orders placed. Relevant counseling for the gestational age provided. Continue routine care and follow up unless otherwise noted in visit notes/problem list details OB Flowsheet Initial Weight: Not Recorded Date -?-?-?-?-?-?-?--?-?-?-?-?- EGA Weight BP Urine Prot -?-?-?-?-?-?-?-?-?-?-?-?- Glucose FHR FuHt Pres Dilation -?-?-?-?-?-?-?-?-?-?-?-?- Effaced St Visit Note 12/09/24 -?-?-?-?-?-?-?-?-?-?-?-?- 35w 1d 271 lb 6 oz 118/83 Nega tive -?-?-?-?-?-?-?-?-?-?-?-?- Negative 140 35 -?-?-?-?-?-?-?-?-?-?-?-?- KW- Transfer of care from [place] no vb/lof/ctx. good fm. LARC today. NOB labs reviewed-PRR. discussed GBS and labor precautions. was not offered Tdap and would like it today. anatomy US normal. 12/19/24 -?-?-?-?-?-?-?-?-?-?-?-?- 36w 4d 275 lb 6 oz 123/81 Nega tive -?-?-?-?--?-?-?-?-?-?-?-?- Negative 130 37 -?-?-?-?-?-?-?-?-?-?-?-?- JV- no lof, vagi nal bleeding, or dec fm. gbs collected. JV- no lof, vaginal bleeding , or dec fm. gbs collected. patient declines pelvic exam. ordering growth scan for late transfer of care. 12/25/24 -?-?-?-?-?-?-?-?-?-?-?-?- 37w 3d 278 lb 6 oz 131/84 Nega tive -?-?-?-?-?-?-?-?-?-?-?-?- Negative 135 39 Cephalic 2 -?-?-?-?-?-?-?-?-?-?-?-?- 60 -2 KW- no vb/ lof/ctx. good fm. growth scan on monday and had RSV vaccine. 01/01/25 -?-?-?-?-?-?-?-?-?-?-?-?- 38w 3d 278 lb 8 oz 134/85 Nega tive -?-?-?-?-?-?-?-?-?-?-?-?- Negative 140 39 Cephalic 3 -?-?-?-?-?-?-?-?-?-?-?-?- 70 -2 SM- no vb lof good fm n oregular ctx discussed IOL at 39 weeks due to size. membranes swept NST FHR Rate Baby A Baseline: 125 Variability:: Moderate Accelerations:: 15 x 15 Decelerations:: None NST Reactive:: Yes FHR Category:: Category I Uterine Activity:: 2-3 ROS Constitutional Constitutional: Denies change in weight, fatigue, fever(s), headache(s), poor appetite or weakness Eyes Eyes: Denies blurry vision, change in vision, floaters, seeing flashes or spots in vision ENT HEENT: Denies dizziness, headache(s), loss taste/smell or sore throat Cardiovascular Cardiovascular: Denies chest pain, dizziness, dyspnea, irregular heart rhythm, lightheadedness, palpitations or rapid heart rate Respiratory/Chest Respiratory/Chest: Denies change in mental status, chest tightness, cough, dyspnea or breast pain Gastrointestinal Gastrointestinal: Denies anorexia, chewing difficulty, constipation, diarrhea or weight changes Genitourinary Genitourinary: Denies difficulty urinating, dysuria, flank pain, genital pain, urinary frequency or urinary urgency Musculoskeletal Musculoskeletal: Denies back pain, difficulty walking, extremity pain, joint pain, muscle cramps or muscle weakness Integumentary Integumentary: Denies lesions or unusual bruising Neurologic Neurologic: Denies abnormal movements, abnormal speech, dizziness, numbness, seizure-like activity, syncope or weakness Psychiatric Psychiatric: Denies behavioral changes, change in appetite, confusion, depression, homicidal ideation, suicidal ideation or suicidal thoughts Endocrine Endocrinology: Denies excessive sweating, polydipsia or polyuria Hematologic/Lymphatic Hematologic/Lymphatic: Denies anemia Allergic/Immunologic Allergic/Immunologic: Denies itchy eyes, lip swelling, throat swelling, tongue swelling or wheezing Vital Signs Vital Signs Vital Signs: 01/05/25 11:39 01/05/25 11:39 01/05/25 11:39 Temperature Temperature Source Temporal Pulse Rate 102 H Respiratory Rate Blood Pressure 136/90 H BP Systolic 136 BP Diastolic 90 Pulse Ox 01/05/25 11:39 01/05/25 11:39 01/05/25 11:39 Temperature Temperature Source Pulse Rate 107 H Respiratory Rate 18 Blood Pressure BP Systolic BP Diastolic Pulse Ox 98 01/05/25 11:39 01/05/25 11:51 01/05/25 11:51 Temperature 97.2 F L Temperature Source Pulse Rate 102 H Respiratory Rate Blood Pressure 137/93 H BP Systolic 137 BP Diastolic 93 Pulse Ox 01/05/25 12:03 01/05/25 12:03 01/05/25 12:12 Temperature Temperature Source Pulse Rate 102 H Respiratory Rate Blood Pressure 134/94 H 140/86 H BP Systolic 134 140 BP Diastolic 94 86 Pulse Ox 01/05/25 12:12 01/05/25 12:22 01/05/25 12:22 Temperature Temperature Source Pulse Rate 94 105 H Respiratory Rate Blood Pressure 134/87 H BP Systolic 134 BP Diastolic 87 Pulse Ox 01/05/25 12:31 01/05/25 12:31 01/05/25 12:42 Temperature Temperature Source Pulse Rate 99 Respiratory Rate Blood Pressure 139/91 H 134/91 H BP Systolic 139 134 BP Diastolic 91 91 Pulse Ox 01/05/25 12:42 01/05/25 12:52 01/05/25 12:52 Temperature Temperature Source Pulse Rate 102 H 105 H Respiratory Rate Blood Pressure 140/95 H BP Systolic 140 BP Diastolic 95 Pulse Ox 01/05/25 13:02 01/05/25 13:02 01/05/25 13:11 Temperature Temperature Source Pulse Rate 89 Respiratory Rate Blood Pressure 142/90 H 142/90 H BP Systolic 142 142 BP Diastolic 90 90 Pulse Ox 01/05/25 13:11 01/05/25 13:22 01/05/25 13:22 Temperature Temperature Source Pulse Rate 88 88 Respiratory Rate Blood Pressure 143/92 H BP Systolic 143 BP Diastolic 92 Pulse Ox 01/05/25 13:25 01/05/25 13:25 01/05/25 13:25 Temperature Temperature Source Temporal Pulse Rate 89 Respiratory Rate Blood Pressure BP Systolic BP Diastolic Pulse Ox 97 01/05/25 13:25 01/05/25 13:25 01/05/25 14:47 Temperature 98.4 F Temperature Source Pulse Rate Respiratory Rate 18 Blood Pressure 144/83 H BP Systolic 144 BP Diastolic 83 Pulse Ox 01/05/25 16:03 01/05/25 16:03 01/05/25 16:03 Temperature Temperature Source Temporal Pulse Rate 97 Respiratory Rate 18 Blood Pressure BP Systolic BP Diastolic Pulse Ox 01/05/25 16:03 01/05/25 16:03 01/05/25 16:04 Temperature 98.0 F Temperature Source Pulse Rate Respiratory Rate Blood Pressure 139/75 H BP Systolic 139 BP Diastolic 75 Pulse Ox 97 01/05/25 16:04 01/05/25 17:04 01/05/25 17:04 Temperature Temperature Source Pulse Rate 98 85 Respiratory Rate Blood Pressure 137/82 H BP Systolic 137 BP Diastolic 82 Pulse Ox 01/05/25 17:05 01/05/25 17:05 01/05/25 17:05 Temperature Temperature Source Temporal Pulse Rate Respiratory Rate 18 Blood Pressure BP Systolic BP Diastolic Pulse Ox 98 01/05/25 17:05 Temperature 98.2 F Temperature Source Pulse Rate Respiratory Rate Blood Pressure BP Systolic BP Diastolic Pulse Ox Weight Weight: 276 lb Body Mass Index (BMI) 43.2 Physical Exam Const alert, oriented x3 and no apparent distress General Appearance: cooperative Orientation / Consciousness: awake HEENT normocephalic Neck full ROM Lymph Lymphatic: no lymphadenopathy noted Chest inspection of chest normal Resp normal respiratory effort and normal air movement Effort and Inspection: able to speak in complete sentences and symmetric chest movement GI soft to palpation and non-tender Inspection: gravid Palpation: soft; Negative for tender external exam normal Back/Spine normal to inspection Extremity normal to inspection and full ROM Skin no rashes or lesions noted Psych mental status grossly normal Appearance: grossly normal Speech: normal speech Labs Labs Labs: Blood Type A POSITIVE Antibody Screen NEGATIVE Hct, (37-47) 39.4 % Hgb, (12.0-15.0) 13.4 g/dL Pap Smear Negative Obstetrics Ultrasound Syphilis Total Ab, (Nonreactive) Nonreactive Assessment & Plan (1) SROM (spontaneous rupture of membranes): PLAN: Patient presents IAL, plan expectant management for , pitocin/AROM PRN if needed. Pain management: plans epidural. GBS neg. Management of any complications: none I have reviewed the [facility] and made any clinically relevant updates. Dr Daniels aware of assessment, plan and admission. agrees with above (2) Macrosomia: COMMENT: 93rd% overall, 99th% AC. discuss at appt on 01/01 (3) Supervision of high-risk : COMMENT: PRR,, girl Cody JOSE 01/12/25 KEATON Shipman (4) Anxiety: (5) Obesity affecting : COMMENT: nl a1c (6) History of miscarriage, currently : (7) : QUALIFIERS: Weeks of gestation: 38 weeks Qualified Code(s): Z3A.38 - 38 weeks gestation of COMMENT: Neg GBS. NIPT low risk, female, declined carrier (8) COVID: COMMENT: asa 81 mg Charges/Coding Multi Select Codes Urinary/Genital Urinary/Genital CPT Codes: No Charge
--- NOTE | 2025-01-05 18:01 | PN_ITS ---
Progress Note Coping well with contractions current tracing: FHT: 125 Moderate variability reactive no decelerations category I tracing [address]: 2-3 minutes Contractions Membranes: fore bag ruptured for clear SVE:5/80/-2 A/P: Continue with position changes Titrate pitocin per protocol Epidural per anesthesia GBS neg Anticipate Dr Daniels aware of above assessment and agrees with plan of care Assessment & Plan Assessment/Plan (1) SROM (spontaneous rupture of membranes): (2) Macrosomia: (3) Supervision of high-risk : (4) Anxiety: (5) Obesity affecting : (6) History of miscarriage, currently : (7) : QUALIFIERS: Weeks of gestation: 38 weeks Qualified Code(s): Z3A.38 - 38 weeks gestation of (8) COVID: Multi Select Codes Urinary/Genital Urinary/Genital CPT Codes: No Charge
[2025-01-05] MEDS: fentaNYL-bupivacaine (epidural) 100 ML BAG EPIDURAL (19:17)
[2025-01-06] VITALS (47 sets, daily range): BP systolic 105–150; BP diastolic 55–80; PULSE 88–125; RESP 16–18; TEMP 36–37.1; O2SAT 97–100; BMI 20250922.0; BMI 223.0
[2025-01-06] MEDS: fentaNYL-bupivacaine (epidural) 100 ML BAG EPIDURAL ×2 (00:27→04:58)
[2025-01-06] MEDS: Lactated Ringers 1,000 ML 200 ML IV ×2 (00:43→05:01)
--- NOTE | 2025-01-06 05:55 | OB.VAGDELI_ITS ---
Assessment & Plan (1) Vaginal delivery: COMMENT: KW IAL SROM girl Med (2) SROM (spontaneous rupture of membranes): (3) Supervision of high-risk : COMMENT: PRR,, girl Cody JOSE 01/12/25 BF Umberto (4) Macrosomia: COMMENT: 93rd% overall, 99th% AC. discuss at appt on 01/01 (5) Anxiety: (6) Obesity affecting : COMMENT: nl a1c (7) History of miscarriage, currently : (8) : QUALIFIERS: Weeks of gestation: 38 weeks Qualified Code(s): Z3A.38 - 38 weeks gestation of COMMENT: Neg GBS. NIPT low risk, female, declined carrier (9) COVID: COMMENT: asa 81 mg Maternal Data Information JOSE Calculator Estimated Delivery Date Method Current WG Current Estimate 01/12/25 LMP (Certain) 39w 1d Final JOSE: 01/12/25 Final JOSE Source: US >20 weeks Gestational age: 39.1 Vaginal Delivery Maternal Presentation Maternal Presentation: Spontaneous Rupture of Membranes Maternal Presentation: Presented to unit for active labor/SROM at 39.0 weeks Vaginal Delivery Information Procedure Performed: Spontaneous Vaginal Delivery Surgeon/Practitioner: Marcia Christianson Date of Procedure: 01/06/25 Pre-Procedure Diagnosis: see problem list Post-Procedure Diagnosis: same Type of anesthesia: Epidural Estimated Blood Loss: 200 Time of Delivery: 05:30 Findings Description of procedure: Progressed well to 10cm dilated and made steady progress with effective maternal pushing. Delivered the head in ANDREA presentation. The head was delivered atraumatically and no nuchal cord was identified. The anterior and posterior shoulders delivered without complication followed by the rest of the and the was placed on the maternal abdomen. Delayed cord clamping was employed for approximately 3 minutes. Cord was clamped and cut and gentle traction was applied to the cord and the placenta delivered spontaneously. Immediately following, it was noted to be intact with a 3 vessel cord. Uterine bleeding stable. The perineum and vagina were inspected and noted to have a second degree laceration which was repaired with 3-0 Vicryl in the usual fashion. EBL was 200cc. Patient and tolerated delivery well. Apgars 5/7/8. Dr Vance notified of vaginal delivery and orders reviewed. Physician agrees with current plan of care. 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
--- NOTE | 2025-01-06 05:58 | DCINST_ITS ---
Discharge Instructions DC O2, CPAP, BIPAP needs Home O2 Discharge instructions: No Dressing / Incision Discharge Activity: Return to Normal Activity May resume sexual activity in: 6-8 weeks Dressing / Incision Call your doctor if you observe: Fever of 101 or Higher, Coldness, Increased Pain, Numbness or Tingling, Change in Color, Inability to urinate, Inability to have a bowel movement, Using more than 1 pad per hour, Shortness of breath, Dizziness, Fainting spells, Swelling in the ankles, Chest pain, Increased palpitations (irregular heartbeat), Calf discomfort and Uncontrolled pain Follow Up Care Please Follow Up With: Marcia Christianson CNM When: Please call the office to schedule your follow up appointment in 6 weeks. If you had high blood pressure please call to schedule an appointment in 2 weeks. Test Results: Test results from this visit will be discussed in further detail at your follow- up appointment, if applicable. Discharge Plan Admission Admit Date/Time: 01/05/25 12:25 Attending Provider: Marcia Christianson Primary Care Provider: Annette Doshi Discharge Orders/Prescriptions Prescriptions: No Action PNV-[place] 28-1-300 mg capsule 1 cap PO DAILY aspirin 81 mg tablet 81 mg PO QDAY escitalopram oxalate 10 mg tablet 10 mg PO DAILY cholecalciferol (vitamin D3) [Vitamin D3] 50 mcg (2,000 unit) capsule 2,000 unit PO QDAY Referrals / Follow Up: Annette Doshi MD [Primary Care Provider, Medical]
[2025-01-06] MEDS: Oxytocin 15 Units/NS 250ml 15 UNITS/250 ML IV.SOLN 83 UNITS IV (06:05)
[2025-01-06] MEDS: Senna/Docusate Sodium 1 Tablet PO (08:38)
[2025-01-06] MEDS: Benzocaine/Lanolin/Aloe Vera 85 GM Spray 1 SPRAY TOPICAL ×2 (09:07→22:32)
[2025-01-06] MEDS: SELF ADMINISTRATION OF MEDS 1 EACH NOTE ×2 (09:07→22:31)
[2025-01-07] VITALS (9 sets, daily range): BP systolic 123–133; BP diastolic 62–74; PULSE 104–119; RESP 16; TEMP 36.6–36.8; O2SAT 96–99
[2025-01-07] MEDS: GLYCERIN/WITCH HAZEL (TUCKS) MED..PAD 1 EACH TOPICAL (04:25)
--- NOTE | 2025-01-07 08:06 | PN.OBGYN_ITS ---
Subjective Subjective Patient doing well without complaints. Tolerating PO. Ambulating and voiding without difficulty. Feeding well. Denies chest pain, shortness of breath, calf pain/swelling, fevers, chills, lightheadedness. Objective Data Objective Data Vital Signs: Vital Signs Temp Pulse Resp BP Pulse Ox O2 Del Method 98 F 111 H 16 131/74 H 98 Room Air 01/07/25 04:00 01/07/25 06:28 01/07/25 04:00 01/07/25 06:28 01/07/25 04:00 01/07/25 04:00 Oxygen Delivery Method Room Air Weight: 276 lb Body Mass Index (BMI) 43.2 Intake & Output: Intake and Output for Last 24 Hours 01/05/25 01/06/25 01/07/25 23:59 23:59 23:59 Intake Total 2860.73 / 2860.73 2629.27 / 2629.27 Output Total 1000 / 1000 800 / 800 Balance 1860.73 / 1860.73 1829.27 / 1829.27 Lab / Micro Data Attestation: I reviewed the patient's lab results. 01/05/25 13:10 01/05/25 13:10 ROS Constitutional Constitutional: Reports systems reviewed and no addt'l complaints, except as documented; Denies anorexia or headache(s) Cardiovascular Cardiovascular: Reports systems reviewed and no addt'l complaints, except as documented; Denies dizziness, dyspnea, nausea or tachypnea Respiratory/Chest Respiratory/Chest: Reports systems reviewed and no addt'l complaints, except as documented; Denies cough, dyspnea, shortness of breath at rest or tachypnea Gastrointestinal Gastrointestinal: Reports systems reviewed and no addt'l complaints, except as documented; Denies abdominal pain, constipation or nausea Genitourinary Genitourinary: Reports systems reviewed and no addt'l complaints, except as documented; Denies burning urination, difficulty urinating, dysuria, urinary frequency or urinary incontinence Musculoskeletal Musculoskeletal: Reports systems reviewed and no addt'l complaints, except as documented Integumentary Integumentary: Reports systems reviewed and no addt'l complaints, except as documented Neurologic Neurologic: Reports systems reviewed and no addt'l complaints, except as documented; Denies abnormal speech, dizziness or headache(s) Psychiatric Psychiatric: Reports systems reviewed and no addt'l complaints, except as documented Endocrine Endocrinology: Reports systems reviewed and no addt'l complaints, except as documented Hematologic/Lymphatic Hematologic/Lymphatic: Reports systems reviewed and no addt'l complaints, except as documented Physical Exam Const alert, oriented x3 and no apparent distress Neck full ROM Resp normal respiratory effort, normal air movement and no retractions Effort and Inspection: able to speak in complete sentences and symmetric chest movement GI soft to palpation Bladder / Kidney Exam: bladder normal to palpation Uterus Palpation: uterus fundus firm Extremity normal to inspection and full ROM Psych mental status grossly normal, thought process normal and cooperative Assessment & Plan (1) Vaginal delivery: COMMENT: KW IAL SROM girl Byronn PLAN: s/p PPD # 1 1. routine post delivery care 2. breast feeding- support given 3. rh positive 4. rubella immune 5. discharg ehome (2) SROM (spontaneous rupture of membranes): (3) Macrosomia: COMMENT: 93rd% overall, 99th% AC. discuss at appt on 01/01 (4) Supervision of high-risk : COMMENT: PRR,, girl Cody JOSE 01/12/25 BF Umberto (5) Anxiety: (6) Obesity affecting : COMMENT: nl a1c (7) History of miscarriage, currently : (8) : QUALIFIERS: Weeks of gestation: 38 weeks Qualified Code(s): Z 3A.38 - 38 weeks gestation of COMMENT: Neg GBS. NIPT low risk, female, declined carrier (9) COVID: COMMENT: asa 81 mg Charges/Coding Multi Select Codes Urinary/Genital Urinary/Genital CPT Codes: No Charge
--- NOTE | 2025-01-07 12:53 | NURSING ---
student charting reviewed Perri hood, [employer] instructor
--- NOTE | 2025-01-07 14:48 | CASEMGMT ---
Social Work Assessment Labor and Delivery Unit Patient Address:[address] [place] [address] Phone number: [phone] Date of Referral: 01/06/25 Time of Referral:? 733 Referred By: Marcia Christianson Date of Intervention: ??01/07/25 Time of Intervention:? 1129 Reason for Referral:? anxiety Sw completed chart review and acknowledges social work consult due to maternal mental health history of anxiety. Sw presented to bedside and introduced self to mother of baby (MOB- Karrie) and father of baby (FOB- Umberto Feliz). Sw explained sw role and completed psychosocial assessment. History obtained from: medical records, MOB and FOB Household composition: Currently residing in the family homes is MOB and FOB. [place] baby to be included in residence when ready for discharge. Parents deny any housing concerns, reporting their home is safe and secure. Patient's parent/guardian status:?Parents report that they met online and have been together for three years. baby is first baby for both parents. No concerns reported of domestic violence or intimate partner violence. ? Medical History: ?THOR is 24 year old female who is 2, para 0- now 1 following labor and delivery of . THOR received routine care during with [facility]. THOR presented to hospital and delivered baby via vaginal delivery on 01/06/25 at 39 weeks gestation. Baby girl, named Cody Jones, was born weighing 8lb 3oz with apgars of 5, 7 and 8. THOR reports that she is breast feeding baby and baby will be followed by Dr. Hughes for pediatrics. Educational Status:? THOR obtained her Master's degree and is currently in school for her Doctorate. FOB completed 12th grade. No problems with reading, learning or comprehension Financial Status: Both parents are gainfully employed outside of the home. 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 Infant Supplies:??All necessary baby supplies obtained, including: car seat, safe sleep space, clothes, diapers and wipes. Childcare/Caregiver(s):? MOB and FOB will be the primary caregivers to baby. When they need help with childcare they have several family members who are able to assist. Transportation:?? Both parents have their drivers license and reliable means of transportation. No barriers. Programs/Agencies Involved: ??MOB is connected to financial supports provided by [facility]: insurance and SNAP. She is also received WIC. ? Children Services/Legal Issues:??No history of children services, no issues or concerns warranting referral to be made at this time. ? Behavioral Health Issues: ??Mental Health History:?FOZa denies mental health history. THOR states that she has history of anxiety and depression. THOR reports that she was working at a job two years ago where she was extremely micromanaged and it was causing her anxiety. MOB states at that time FOB brought it to her attention and she talked to her PCP who prescribed her Lexapro. MOB states that she can tell a difference with the Lexapro. THOR denies being connected to any ongoing mental health services, however historically has met with a counselor at [place] [address]. THOR states that if she ever needs to she is able to re connect with her.? Substance Use History:?Parents deny substance use prior to and during . ? Family History:?Parents deny family history of substance use or significant mental health history. ? Drug Screens: ??No drug screens observed while completing chart review. Family/Social Stressors: Parents deny any issues, concerns or stressors at this time. ? Support Systems: THOR reports that both sets of grandparents are her biggest supports at this time. Depression/Shaken Baby/Safe Sleeping:? Sw educated parents on signs and symptoms of baby blues and depression and anxiety to be mindful of going into this period. Sw explained that THOR is more at risk to experience these mental health symptoms due to her mental health history. THOR states that she is familiar with those terms and mindful of what symptoms to be on the lookout for. FOB also expressed understanding. THOR reports that she has a tendency to withhold her emotions and feelings, because she grew up with a family that did not value sharing those kinds of things. Sw and parents discussed the importance of discussing these kinds of emotions and getting connected with a mental health professional or discussing with her PCP/ OBGYN. Sw educated parents on shaken baby prevention and ABCs of safe sleep, parents express understanding. ASSESSMENT:?MOB and baby admitted following labor and delivery of . MOB with mental health history positive for anxiety and depression, currently prescribed Lexapro from her PCP. MOB and FOB express understanding of what to lookout for regarding THOR's mental health going into this period. MOB was being seen by a counselor at [place] [address], but has been seen for awhile. MOB states that if she feels as though she is struggling with anxiety at any time during this period, she feels comfortable getting scheduled with her. FOB states that he would be able to recognize if MOB were to struggle with her mental health he would know how to help and support her. MOB and FOB talkative and polite during conversation with sw. Both parents express a connection and you with baby, and both look at baby sporadically throughout conversation with sw. PLAN:? No other services requested or indicated. MOB and baby to be discharged when medically ready. Parents were provided literature regarding: signs and symptoms of baby blues and mood and anxiety disorders, Help Me Grow, shaken baby prevention, ABCs of safe sleep and a list of county resources that are available for them should any needs present themselves. Laura Galindo, STEEL CUTTER, REGISTRAR ASSISTANT
--- NOTE | 2025-01-13 13:21 | NURSING ---
Follow up phone call made, no answer, left voicemail
== END 2025-01-07 13:00 | disposition home or self-care (01) | DRG 560 ==
LOC: WPOUT 12:32 → WP 12:32
PROVIDERS: Admitting Provider Advanced Practice Midwife; PCP Family Medicine; Referring Provider Advanced Practice Midwife; Visit Provider Advanced Practice Midwife
DX: O70.1 Second degree perineal laceration during delivery (principal); Z37.0 Single live birth; U07.1 COVID-19; O99.214 Obesity complicating childbirth; F41.9 Anxiety disorder, unspecified; O99.344 Other mental disorders complicating childbirth; Z3A.39 39 weeks gestation of pregnancy; O98.52 Other viral diseases complicating childbirth; O36.63X0 Maternal care for excessive fetal growth, third trimester, not applicable or unspecified
CPT/HCPCS: 82565; 82570; 84112; 84156; 84450; 84460; 84550; 85025; 86780; 86850; 86900; 86901; 99221; G0378